=== PATIENT | female | born 1955 | race Caucasian/White ===

== ENCOUNTER → 2022-06-03 | Outpatient (CLI) | payer MEDICARE, MEDICAID, SELFPAY ==
--- NOTE | 2022-06-03 12:45 | CT_ITS ---
STUDY: LOW DOSE CT LUNG CANCER SCREENING REASON FOR EXAM: Female, 66 years old. Smoking history of 1 pack per day x52 years RADIATION DOSAGE (If Supplied By Facility): CTDIvol = ( 1.59 ) mGy, DLP = ( 55.99 ) mGy TECHNIQUE: No contrast was administered. Low dose technique was utilized (average mAS-38 and kVp 120). 1.25 mm axial source images with a slice interval of 1.25-mm were reconstructed in lung windows. 2.5 mm axial source images with a slice interval of 2.5-mm were reconstructed in lung windows. 5.0 mm axial source images with a slice interval of 5.0-mm were reconstructed in soft tissue windows. COMPARISON: 2014 FINDINGS: Lung windows show underlying emphysema with bleb formation throughout both lung box. No organized infiltrate, or suspicious noncalcified mass or nodule. No suspicious thyroid abnormality, scattered subcentimeter in short axis dimension axillary and mediastinal lymph nodes. 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 Calcified coronary vessels are noted Bony structures show degenerative change Limited cuts through the upper abdomen do not show any suspicious abnormality CT/Low Dose CT Lung Screening IMPRESSION: IMPORTANT NOTES FOR USE: ACR Lung-RADS Version 1.1 Assessment Categories Release Date: 2018 Category: Coded 0-4 bases on nodule(s) with highest degree of suspicion. Negative screen is defined as categories 1 and 2; a positive screen is defined as categories 3 and 4. Category 3 and 4A nodules that are unchanged on interval CT should be coded as category 2, and individuals returned to screening in 12 months. Category 4X: Category 3 or 4 nodules with additional imaging findings that increase the suspicion of lung cancer, such as spiculation, GG that doubles in size in 1 year, enlarged lymph notes, etc. Category Modifiers: S (significant finding unrelated to lung cancer) Electronically Signed: Dante Sherman MD at 14:01 EST ,
== END | disposition home or self-care (01) ==
PROVIDERS: PCP Physician Assistant
DX: Z87.891 Personal history of nicotine dependence (principal)
CPT/HCPCS: 71271

== ENCOUNTER 2022-12-11 23:37 | Emergency (ER) | payer MEDICARE, MEDICAID, SELFPAY ==
[2022-12-11 23:38] VITALS: BP 210/11; PULSE 81; RESP 24; TEMP 36.4; O2SAT 93; BMI 21.7
[2022-12-11 23:43] VITALS: BP 179/115; PULSE 93; RESP 28; O2SAT 95
[2022-12-12 00:39] VITALS: BP 138/92; PULSE 71; RESP 28; TEMP 36.4; O2SAT 97
[2022-12-12] MEDS: MethylPREDNISolone 125 MG/2 ML Vial IV (00:40)
--- NOTE | 2022-12-12 00:45 | EKG12_ITS ---
Test Reason : SOB Blood Pressure : / mmHG Vent. Rate : 086 BPM Atrial Rate : 086 BPM P-R Int : 162 ms QRS Dur : 090 ms QT Int : 386 ms P-R-T Axes : 088 086 090 degrees QTc Int : 461 ms Normal sinus rhythm Nonspecific ST and T wave abnormality Abnormal ECG Confirmed by ADWOA HALL, STEVIE ([id number]), story editor MELANIE DICKSON ([id number]) on 12/14/2022 1:48:22 PM Referred By: Confirmed By:JOHANA ORONA MD
[2022-12-12 00:51] LABS: Absolute Lymphocyte Count 1.04 X10^3/uL (0.83-4.51); Absolute Neutrophil Count 12.4 X10^3/uL (2.0-7.7); Basophil# 0.02 X10^3/uL; Basophil% 0.1 % (0-1); Eosinophil# 0.03 X10^3/uL; Eosinophils% 0.2 % (0-5); Hematocrit 40.9 % (37-47); Hemoglobin 13.6 g/dL (12.0-15.0); Lymphocyte # 1.04 X10^3/ul (0.83-4.51); Lymphocyte % 7.3 % (19-41); Mean Corp Hgb Conc 33.3 g/dL (32-36); Mean Corpuscular Hgb 31.9 pg (27.0-32.0); Mean Corpuscular Volume 95.8 fL (81-99); Mean Platelet Vol. 9.3 fl (6.2-12.0); Monocyte% 4.9 % (0-10); NRBC Flagged by Analyzer 0 % (0-5); Neutrophil # 12.38 X10^3/uL (2.7-7.7); Neutrophil % 86.9 % (47-70); Platelet Count 233 K/mm3 (150-450); RBC Distribution Width CV 12.6 % (11.6-14.6); RBC Distribution Width SD 44.4 fl (35.1-43.9); Red Blood Count 4.27 M/mm3 (4.2-5.4); White Blood Count 14.3 K/mm3 (4.4-11.0)
--- NOTE | 2022-12-12 00:55 | RAD_ITS ---
INDICATION: dyspnea EXAMINATION/TECHNIQUE: X-RAY - XR Chest 2 Views COMPARISON: Chest CT 06/03/2022 Findings: Single frontal view of the chest. LUNG PARENCHYMA: Nodular 14 mm opacity overlying right lower central chest, which may represent rib and or nipple shadow versus pulmonary nodule. No acute focal airspace disease. PLEURA: No pleural effusion. No pneumothorax. HEART/GREAT VESSELS: Cardiomediastinal silhouette is unremarkable. BONES: Osseous structures are unremarkable for age. RAD/Chest PA and Lateral IMPRESSION: Nodular 14 mm opacity overlying right lower central chest, which may represent rib and or nipple shadow versus pulmonary nodule, to include 11 mm lesion seen on recent chest CT. Recommend follow-up chest CT to further evaluate. Chest with no acute disease. Electronically Signed: Magdaleno Archer MD at 1:35 EDT ,
[2022-12-12 01:07] VITALS: BP 136/68; PULSE 69; RESP 20; TEMP 36.4; O2SAT 95
[2022-12-12 01:11] LABS: Anion Gap 5 (5-15); BUN 13 mg/dL (7-18); BUN/Creat Ratio 20.8 RATIO (10-20); Calcium,Total 8.4 mg/dL (8.5-10.1); Chloride 98 mmol/L (98-107); Creatinine, Serum 0.62 mg/dL (0.55-1.02); EST Glomerular Filtration Rate 102 mL/min (>60); Est Glom Filt Rate - Afr Amer 123 mL/min (>60); Estimated Creatinine Clearance 68.26 ml/min; Glucose 129 mg/dL (74-106); Magnesium 2.1 mg/dL (1.6-2.6); Potassium 3.3 mmol/L (3.5-5.1); Sodium Level 135 mmol/L (136-145); Troponin-I HS 62 pg/mL (3.0-54.0)
[2022-12-12 03:29] LABS: Troponin-I HS 127 pg/mL (3.0-54.0)
--- NOTE | 2022-12-12 05:04 | EX.ED.DYSGE1 ---
HPI History of Present Illness Chief Complaint: Shortness of Breath Informant: patient and family Narrative Narrative: Patient is a 67-year-old female with past medical history of COPD/emphysema who continues to smoke and wears 2.5 L of oxygen 18/10. She also has a history of hypertension hyperlipidemia CAD and bipolar disorder. Patient states that 2 to 3 hours prior to arrival she was sitting at rest when she developed generalized chest discomfort coupled with shortness of breath. She states that there was no nausea vomiting or diaphoresis. She reports she took her breathing medications as directed and there is still no symptom improvement and with concern this could be cardiac and not lung EMS was called and patient was brought to the hospital for evaluation [facility] Medical History (Updated 12/13/22 @ 00:[address] Jaylen Maria, ) Abdominal pain Bipolar affect, depressed COPD (chronic obstructive pulmonary disease) Coronary artery disease DDD (degenerative disc disease) Depression Esophagitis Gastritis Hyperlipidemia Hypertension Lung nodule Migraine Nausea Neuralgia Home Medications acetaminophen 500 mg tablet (Tylenol Extra Strength) 500 mg PO Q6H PRN pain 05/15/19 [History Last Taken Unknown] amlodipine 10 mg tablet 10 mg PO DAILY 05/15/19 [History Last Taken Unknown] famotidine 40 mg tablet 40 mg PO BID 05/15/19 [History Last Taken Unknown] fluticasone propionate 44 mcg/actuation HFA aerosol inhaler 1 puff inhalation BID 05/15/19 [History Last Taken Unknown] ipratropium 20 mcg-albuterol 100 mcg/actuation mist for inhalation 1 puff inhalation Q6H PRN sob 05/15/19 [History Last Taken Unknown] mometasone-formoterol HFA 200 mcg-5 mcg/actuation aerosol inhaler 2 puff inhalation BID 05/15/19 [History Last Taken Unknown] pantoprazole 40 mg tablet,delayed release 40 mg PO DAILY 05/15/19 [History Last Taken Unknown] potassium chloride 10 mEq tablet,extended release 10 meq PO BID 05/15/19 [History Last Taken Unknown] cariprazine 3 mg capsule (Vraylar) mg 12/11/22 [History Last Taken Unknown] carvedilol 3.125 mg tablet mg 12/11/22 [History Last Taken Unknown] doxazosin 1 mg tablet mg 12/11/22 [History Last Taken Unknown] isosorbide mononitrate 30 mg tablet,extended release 24 hr 30 mg PO DAILY #30 tabs 12/12/22 [Rx Last Taken Unknown] Allergy/AdvReac Type Severity Reaction Status Date / Time No Known Allergies Allergy Verified 05/15/19 09:20 Family History Father Colon cancer CVA (cerebral vascular accident) Parkinson disease Mother Diabetes Heart disease Hypertension Kidney disease Sister Hemochromatosis Surgical History History of History of esophagogastroduodenoscopy (EGD) Hx of appendectomy Hx of cardiac cath Hx of cholecystectomy Hx of colonoscopy Hx of dilation and curettage Hx of hysterectomy Hx of laparoscopy Social History (Updated 05/31/19 @ 13:[address] Eduar Coyne MD) Smoking Status: Current every day smoker tobacco type: cigarettes second hand exposure: No alcohol intake: current alcohol intake frequency: a few times a week Alcohol type: beer substance use type: does not use caffeine: Yes what type of physical activity do you participate in: none frequency: does not exercise seatbelt use: always EXAM Physical Exam Const Vital Signs: 12/12/22 00:39 12/12/22 01:07 12/12/22 05:19 Temperature 97.6 F L 97.6 F L Temperature Source Oral Oral Pulse Rate 71 69 87 Respiratory Rate 28 H 20 H 16 Blood Pressure 138/92 H 136/68 H 176/71 H Blood Pressure Mean 107 90 106 Pulse Ox 97 95 97 Oxygen Delivery Method Nasal Cannula Nasal Cannula Nasal Cannula Oxygen Flow Rate (L/min) 2 2 2.5 12/12/22 05:19 Temperature Temperature Source Pulse Rate 87 Respiratory Rate 16 Blood Pressure 176/71 H Blood Pressure Mean Pulse Ox 97 Oxygen Delivery Method Oxygen Flow Rate (L/min) Positive well nourished and well developed General Appearance ED: well developed HEENT Reports moist mucous membranes HEENT Narrative: No tongue or lip swelling no oral lesions no airway edema or compromise Eyes PERRL and EOMs intact bilaterally Neck supple and no JVD Neck Narrative: No nuchal rigidity or meningeal signs noted Chest Wall palpation of chest normal Resp normal respiratory effort Resp Narrative: Breath sounds are diminished throughout with faint expiratory wheeze and rhonchi in the bilateral bases consistent with history of COPD/emphysema Cardio regular rate and regular rhythm Rate: other Other Details: Radial and carotid pulses are equal and symmetric GI normal to inspection, nondistended, normoactive bowel sounds, non-tender, non-distended and no masses GI Narrative: No voluntary guarding or rigidity. No pulsatile mass or fluid wave Auscultation: normoactive bowel sounds Palpation: soft Extremity normal to inspection Extremity Narrative: No asymmetric edema no pitting edema negative Homans' sign bilaterally Neuro oriented x3 and CN's II-XII intact bilaterally Sensorium / Orientation: alert Psych mental status grossly normal Skin no rashes or lesions noted MDM MDM MDM Narrative Medical decision making narrative: Patient presented to the ER hypertensive but has a past medical history of this. She reported a few hours of generalized chest discomfort that was not resolving with her standard inhalers. Based on her risk factors there is concern this could be acute coronary syndrome versus COPD/emphysema exacerbation versus pneumonia or pneumothorax. Cardiac work-up was initiated and EKG revealed ST segment depression in leads V45 and 6 but no acute STEMI. Blood work was obtained and showed initial troponin of 62 with a 2-hour delta essentially doubling to 127. The patient was chest pain-free upon arrival and remained pain-free while in the ER. However because of the elevated troponin I did discuss the case with cardiology and patient also reported that she had a heart cath within the last 6 months. The heart cath was reviewed and showed normal EF with normal circumflex and LAD but the right coronary artery had 40% stenosis. Cardiology was informed of the heart cath from July of this year with 40% stenosis but otherwise normal. They feel that with the recent heart cath and the fact that she has been pain-free for her entire ER stay that there is no further work-up they would recommend in the hospital and feel comfortable having her discharged home on her current medications with the addition of isosorbide mononitrate. This plan of care was discussed with the patient and as she has been pain-free for her entire ER stay and has had a recent cardiac procedure she is agreeable to this plan of care Patient was also informed of the potential lung nodule on her chest x-ray and she states that this is known and has been followed by her disability aide and therefore there is no need for further evaluation of it History & Record Review Discussion w/independent historian: Patient and Family Lab Data Attestation: I reviewed the patient's lab results. Labs: Laboratory Results - last 24 hr 12/12/22 12/12/22 00:40 02:44 WBC 14.3 H RBC 4.27 Hgb 13.6 Hct 40.9 MCV 95.8 MCH 31.9 MCHC 33.3 RDW Std Deviation 44.4 H RDW Coeff of Leobardo 12.6 Plt Count 233 MPV 9.3 Immature Gran % (Auto) 0.600 Neut % (Auto) 86.9 H Lymph % (Auto) 7.3 L [place] % (Auto) 4.9 Eos % (Auto) 0.2 Baso % (Auto) 0.1 Absolute Neuts (auto) 12.4 H Absolute Lymphs (auto) 1.04 Nucleated RBC % 0 Sodium 135 L Potassium 3.3 L Chloride 98 Carbon Dioxide 32.0 Anion Gap 5 BUN 13 Creatinine 0.62 Estim Creat Clear Calc 68.26 Est GFR (MDRD) Af Amer 123 Est GFR (MDRD) Non-Af 102 BUN/Creatinine Ratio 20.8 H Glucose 129 H Calcium 8.4 L Magnesium 2.1 Troponin I High Sens 62 H 127 H* Radiography Diagnostic Testing: Clinical Impression(s) from Imaging Studies Chest X-Ray 12/12/22 00:55 IMPRESSION: Nodular 14 mm opacity overlying right lower central chest, which may represent rib and or nipple shadow versus pulmonary nodule, to include 11 mm lesion seen on recent chest CT. Recommend follow-up chest CT to further evaluate. Chest with no acute disease. Electronically Signed: Magdaleno Archer MD at 1:35 EDT , X-ray as interpreted by the emergency medicine physician reveals a nodular opacity in the right lower lung without acute infiltrate pneumothorax or pleural effusion. No widening the mediastinum noted Management Discussion w/another healthcare provider: Recreational Assistant Discharge Plan Triage Chief Complaint: Shortness of Breath ED Provider: Jaylen Maria Dx/Rx/DC Orders Clinical Impression: Angina concurrent with and due to arteriosclerosis of coronary artery, Hyperlipidemia, COPD (chronic obstructive pulmonary disease), Hypertension Instructions: Heart Disease Women Prescriptions: New isosorbide mononitrate 30 mg tablet extended release 24 hr 30 mg PO DAILY Qty: 30 0RF No Action mometasone-formoterol 200-5 mcg/actuation HFA aerosol inhaler 2 puff INHALATION BID Patient Comments: INHALE 2 PUFFS INSTRUCTED TWICE DAILY. pantoprazole 40 mg tablet,delayed release (DR/EC) 40 mg PO DAILY Patient Comments: TAKE 1 TABLET BY MOUTH EVERY DAY famotidine 40 mg tablet 40 mg PO BID Patient Comments: TAKE 1 TABLET BY MOUTH TWICE A DAY amlodipine 10 mg tablet 10 mg PO DAILY Patient Comments: TAKE 1 TABLET BY MOUTH EVERY DAY fluticasone propionate 44 mcg/actuation HFA aerosol inhaler 1 puff INHALATION BID Patient Comments: INHALE 1 PUFF INSTRUCTED TWICE DAILY. ipratropium-albuterol 20-100 mcg/actuation mist 1 puff INHALATION Q6H PRN (Reason: sob) Patient Comments: INHALE 1 INHALATION INSTRUCTED FOUR TIMES DAILY NEEDED. potassium chloride 10 mEq tablet extended release 10 meq PO BID Patient Comments: TAKE 1 TABLET BY MOUTH TWICE A DAY acetaminophen [Tylenol Extra Strength] 500 mg tablet 500 mg PO Q6H PRN (Reason: pain) Vraylar 3 mg capsule Patient Comments: waiting for medication to be mailed to patient. carvedilol 3.125 mg tablet Patient Comments: waiting for medication to be mailed to patient. doxazosin 1 mg tablet Patient Comments: waiting for medication to be mailed to patient. Primary Care Provider: Boyd Da Silva Referrals: Boyd Da Silva PA [Primary Care Provider] - Activity Restrictions/Additional Instructions: Please add the isosorbide mononitrate to your medication regimen each morning to help prevent vessel spasm and chest pain. Your heart cath from July of this year does show disease to your right coronary artery therefore if you are taking your medication and pain returns please return to the ER for repeat evaluation Disposition Disposition: Home, Self Care Discharge Date/Time: 12/12/22 05:24
[2022-12-12 05:19] VITALS: BP 176/71; PULSE 87; RESP 16; O2SAT 97
== END 2022-12-12 05:24 | disposition home or self-care (01) ==
PROVIDERS: Emergency Provider Emergency Medicine; PCP Physician Assistant; Visit Provider Emergency Medicine
DX: I25.119 Atherosclerotic heart disease of native coronary artery with unspecified angina pectoris (principal); J43.9 Emphysema, unspecified; F31.9 Bipolar disorder, unspecified; E78.5 Hyperlipidemia, unspecified; Z99.81 Dependence on supplemental oxygen; I10 Essential (primary) hypertension; Z79.899 Other long term (current) drug therapy; F17.210 Nicotine dependence, cigarettes, uncomplicated
CPT/HCPCS: 71046; 80048; 83735; 84484; 85025; 87428; 93005; 96374; 99285; A4216

== ENCOUNTER 2023-01-15 07:47 | Emergency (ER) | payer MEDICARE, MEDICAID, SELFPAY ==
[2023-01-15 07:48] VITALS: BP 135/106; PULSE 87; RESP 24; TEMP 36.4; O2SAT 93; BMI 22.1
[2023-01-15 07:53] VITALS: BP 135/106; PULSE 91; RESP 20; TEMP 36.4; O2SAT 95
[2023-01-15 07:55] VITALS: O2SAT 89
--- NOTE | 2023-01-15 07:56 | RAD_ITS ---
INDICATION: Shortness of breath EXAMINATION/TECHNIQUE: X-RAY - XR Chest 1 View COMPARISON: Prior study dated: 12/12/2022. FINDINGS: LINES/DEVICES: None. LUNGS: Subtle small right lower lung nodular density is gain seen. Otherwise no focal infiltrate is seen. No evidence of pleural effusions. MEDIASTINUM AND CARDIOVASCULAR STRUCTURES: Cardiac silhouette not enlarged. Central airways and mediastinal contour are unremarkable. BONES AND SOFT TISSUES: Unremarkable. RAD/Chest 1 View (Portable) IMPRESSION: 1. Subtle nodular density right lower lung essentially unchanged. Further evaluation with nonemergent CT scan of the chest might be of value. 2. Otherwise no active pulmonary disease. Electronically Signed: Emile Martines MD at 9:09 EDT ,
--- NOTE | 2023-01-15 07:57 | EKG12_ITS ---
Test Reason : Blood Pressure : / mmHG Vent. Rate : 083 BPM Atrial Rate : 083 BPM P-R Int : 150 ms QRS Dur : 090 ms QT Int : 380 ms P-R-T Axes : 078 090 077 degrees QTc Int : 446 ms Sinus rhythm with occasional Premature ventricular complexes Rightward axis Septal infarct , age undetermined Abnormal ECG Confirmed by ADWOA HALL, STEVIE ([id number]), movie editor KP CASH ([id number]) on 01/18/2023 12:35:35 PM Referred By: Confirmed By:JOHANA ORONA MD
--- NOTE | 2023-01-15 08:00 | ED.VIS.DYS ---
HPI History of Present Illness Chief Complaint: Shortness of Breath Narrative Narrative: Patient is normally on 3 L of oxygen at home, she has had 4 days of dyspnea, she has not smoked in 4 days, she has productive sputum and arrives via ambulance for severe dyspnea. No fevers or chills. She does not have any chest pain or pleuritic component. No back pain. Lower extremity edema. No orthopnea. [facility] Medical History (Updated 01/15/23 @ 08:[address] Alejandro Lozano MD) Abdominal pain Bipolar affect, depressed COPD (chronic obstructive pulmonary disease) Coronary artery disease DDD (degenerative disc disease) Depression Esophagitis Gastritis Hyperlipidemia Hypertension Lung nodule Migraine Nausea Neuralgia Home Medications acetaminophen 500 mg tablet (Tylenol Extra Strength) 500 mg PO Q6H PRN pain 05/15/19 [History Last Taken Unknown] amlodipine 10 mg tablet 10 mg PO DAILY 05/15/19 [History Last Taken Unknown] famotidine 40 mg tablet 40 mg PO BID 05/15/19 [History Last Taken Unknown] fluticasone propionate 44 mcg/actuation HFA aerosol inhaler 1 puff inhalation BID 05/15/19 [History Last Taken Unknown] ipratropium 20 mcg-albuterol 100 mcg/actuation mist for inhalation 1 puff inhalation Q6H PRN sob 05/15/19 [History Last Taken Unknown] mometasone-formoterol HFA 200 mcg-5 mcg/actuation aerosol inhaler 2 puff inhalation BID 05/15/19 [History Last Taken Unknown] pantoprazole 40 mg tablet,delayed release 40 mg PO DAILY 05/15/19 [History Last Taken Unknown] potassium chloride 10 mEq tablet,extended release 10 meq PO BID 05/15/19 [History Last Taken Unknown] cariprazine 3 mg capsule (Vraylar) mg 12/11/22 [History Last Taken Unknown] carvedilol 3.125 mg tablet mg 12/11/22 [History Last Taken Unknown] doxazosin 1 mg tablet mg 12/11/22 [History Last Taken Unknown] isosorbide mononitrate 30 mg tablet,extended release 24 hr 30 mg PO DAILY #30 tabs 12/12/22 [Rx Last Taken Unknown] doxycycline monohydrate 100 mg capsule 100 mg PO BID #20 CAPSULES 01/15/23 [Rx Last Taken Unknown] prednisone 20 mg tablet 60 mg (3 x 20 mg) PO DAILY #12 TABLETS 01/15/23 [Rx Last Taken Unknown] Allergy/AdvReac Type Severity Reaction Status Date / Time codeine AdvReac Upset Verified 01/15/23 07:48 Stomach Family History Father Colon cancer CVA (cerebral vascular accident) Parkinson disease Mother Diabetes Heart disease Hypertension Kidney disease Sister Hemochromatosis Surgical History History of History of esophagogastroduodenoscopy (EGD) Hx of appendectomy Hx of cardiac cath Hx of cholecystectomy Hx of colonoscopy Hx of dilation and curettage Hx of hysterectomy Hx of laparoscopy Social History (Updated 05/31/19 @ 13:[address] Eduar Coyne MD) Smoking Status: Current every day smoker tobacco type: cigarettes second hand exposure: No alcohol intake: current alcohol intake frequency: a few times a week Alcohol type: beer substance use type: does not use caffeine: Yes what type of physical activity do you participate in: none frequency: does not exercise seatbelt use: always ROS ROS ED ROS Narrative Past medical history: Reviewed includes prior COPD Medications: Reviewed Social history: Significant smoking history Review of systems: All systems negative except as indicated General: No fever Eyes: No visual changes ENT: No upper airway congestion, normal voice Neck: No neck pain Cardiovascular: No chest pain Respiratory: Dyspnea as in HPI. She has a productive cough which is new Gastrointestinal: No abdominal pain, nausea vomiting or diarrhea Genitourinary: No dysuria Musculoskeletal: Denies myalgias no difficulty with ambulation Skin: No rash Neurological: No memory loss, confusion or any focal weakness EXAM Physical Exam Narrative Exam Narrative: Physical exam General: Appears relatively comfortable in bed Head: Normocephalic, Atraumatic Eyes: Conjunctiva not pale ENT: Moist mucous membranes Neck: Supple, Nontender, No lymphadenopathy Cardiovascular: Regular rate, Regular rhythm Respiratory: She is speaking in 4-5 word sentences, she has significantly diminished breath sounds bilaterally. She has an expiratory wheezing and coarse breath sounds. Abdomen: Soft, Nontender, Nondistended Back: Nontender, Normal Inspection. Negative for: CVA tenderness Extremities: Nontender, No edema Skin: Normal color, No rash Neurological: Alert, Normal Strength, Normal Sensation Const Vital Signs: 10/21/23 07:48 01/15/23 07:53 01/15/23 07:55 Temperature 97.6 F L 97.6 F L Temperature Source Temporal Temporal Pulse Rate 87 91 Respiratory Rate 24 H 20 H Respiratory Effort Short of Breath Respiratory Depth Shallow Respiratory Pattern Tachypnea Blood Pressure 135/106 H 135/106 H Blood Pressure Mean 115 115 Pulse Ox 93 95 Oxygen Delivery Method Nasal Cannula Nasal Cannula Room Air Oxygen Flow Rate (L/min) 3 2 3 01/15/23 08:06 01/15/23 08:20 Temperature Temperature Source Pulse Rate 92 Respiratory Rate 24 H Respiratory Effort Respiratory Depth Respiratory Pattern Normal Blood Pressure Blood Pressure Mean Pulse Ox Oxygen Delivery Method Nasal Cannula Oxygen Flow Rate (L/min) 3 MDM MDM MDM Narrative Medical decision making narrative: Patient is given nebs, antibiotics since she changed her sputum's and steroids per EMS. She is significantly improved. She wants to be discharged home she is on home oxygen. She tells me she will continue to stop smoking. I believe it is reasonable for discharge she is on her baseline O2 and saturating in the mid to high 90s. She is not confused, therefore I do not believe she has hypercarbia. I will discharge her on antibiotics and steroids for home. Lab Data Labs: Laboratory Results - last 24 hr 01/15/23 08:04 WBC 14.0 H RBC 3.94 L Hgb 12.7 Hct 39.1 MCV 99.2 H MCH 32.2 H MCHC 32.5 RDW Std Deviation 46.1 H RDW Coeff of Leobardo 12.6 Plt Count 271 MPV 9.5 Immature Gran % (Auto) 0.400 Neut % (Auto) 75.3 H Lymph % (Auto) 14.3 L [place] % (Auto) 9.2 Eos % (Auto) 0.5 Baso % (Auto) 0.3 Absolute Neuts (auto) 10.5 H Absolute Lymphs (auto) 2.00 Nucleated RBC % 0 Sodium 135 L Potassium 3.6 Chloride 99 Carbon Dioxide 30.0 Anion Gap 6 BUN 4 L Creatinine 0.48 L Estim Creat Clear Calc 88.17 Est GFR (MDRD) Af Amer 168 Est GFR (MDRD) Non-Af 139 BUN/Creatinine Ratio 8.4 L Glucose 139 H Calcium 8.9 B-Natriuretic Peptide 27.8 Radiography Diagnostic Testing: X-ray read by me does not show any signs of pneumonia, clear lungs and normal cardiac silhouette. Rhythm Strip Rhythm Strip: Sinus Rhythm Rate: 80 Ectopy: PVC(s) EKG Initial EKG: Comments: Sinus rhythm with a rate of 83. Normal MI and QTc intervals. No acute ischemic changes. Multiple PVCs. Interpreted by emergency doctor Discharge Plan Triage Chief Complaint: Shortness of Breath ED Provider: Alejandro Lozano Dx/Rx/DC Orders Clinical Impression: Acute dyspnea, COPD (chronic obstructive pulmonary disease) Instructions: COPD Quit Smoking Prescriptions: New prednisone 20 mg tablet 60 mg PO DAILY Qty: 12 0RF doxycycline monohydrate 100 mg capsule 100 mg PO BID Qty: 20 0RF No Action mometasone-formoterol 200-5 mcg/actuation HFA aerosol inhaler 2 puff INHALATION BID Patient Comments: INHALE 2 PUFFS INSTRUCTED TWICE DAILY. pantoprazole 40 mg tablet,delayed release (DR/EC) 40 mg PO DAILY Patient Comments: TAKE 1 TABLET BY MOUTH EVERY DAY famotidine 40 mg tablet 40 mg PO BID Patient Comments: TAKE 1 TABLET BY MOUTH TWICE A DAY amlodipine 10 mg tablet 10 mg PO DAILY Patient Comments: TAKE 1 TABLET BY MOUTH EVERY DAY fluticasone propionate 44 mcg/actuation HFA aerosol inhaler 1 puff INHALATION BID Patient Comments: INHALE 1 PUFF INSTRUCTED TWICE DAILY. ipratropium-albuterol 20-100 mcg/actuation mist 1 puff INHALATION Q6H PRN (Reason: sob) Patient Comments: INHALE 1 INHALATION INSTRUCTED FOUR TIMES DAILY NEEDED. potassium chloride 10 mEq tablet extended release 10 meq PO BID Patient Comments: TAKE 1 TABLET BY MOUTH TWICE A DAY acetaminophen [Tylenol Extra Strength] 500 mg tablet 500 mg PO Q6H PRN (Reason: pain) Vraylar 3 mg capsule Patient Comments: waiting for medication to be mailed to patient. carvedilol 3.125 mg tablet Patient Comments: waiting for medication to be mailed to patient. doxazosin 1 mg tablet Patient Comments: waiting for medication to be mailed to patient. isosorbide mononitrate 30 mg tablet extended release 24 hr 30 mg PO DAILY Qty: 30 0RF Primary Care Provider: Boyd Da Silva Referrals: Boyd Da Silva PA [Primary Care Provider] - 3-5 Days Disposition Disposition: Home, Self Care
[2023-01-15 08:09] LABS: Absolute Neutrophil Count 10.5 X10^3/uL (2.0-7.7); Basophil# 0.04 X10^3/uL; Basophil% 0.3 % (0-1); Eosinophil# 0.07 X10^3/uL; Eosinophils% 0.5 % (0-5); Hematocrit 39.1 % (37-47); Hemoglobin 12.7 g/dL (12.0-15.0); Lymphocyte % 14.3 % (19-41); Mean Corp Hgb Conc 32.5 g/dL (32-36); Mean Corpuscular Hgb 32.2 pg (27.0-32.0); Mean Corpuscular Volume 99.2 fL (81-99); Mean Platelet Vol. 9.5 fl (6.2-12.0); Monocyte# 1.28 X10^3/uL; Monocyte% 9.2 % (0-10); NRBC Flagged by Analyzer 0 % (0-5); Neutrophil # 10.53 X10^3/uL (2.7-7.7); Neutrophil % 75.3 % (47-70); Platelet Count 271 K/mm3 (150-450); RBC Distribution Width CV 12.6 % (11.6-14.6); RBC Distribution Width SD 46.1 fl (35.1-43.9); Red Blood Count 3.94 M/mm3 (4.2-5.4)
[2023-01-15] MEDS: Ipratropium/Albuterol Sulfate 3 ML AMPUL.NEB INHALATION (08:19)
[2023-01-15 08:20] VITALS: PULSE 92; RESP 24
[2023-01-15 08:21] LABS: Anion Gap 6 (5-15); BUN 4 mg/dL (7-18); BUN/Creat Ratio 8.4 RATIO (10-20); Calcium,Total 8.9 mg/dL (8.5-10.1); Chloride 99 mmol/L (98-107); Creatinine, Serum 0.48 mg/dL (0.55-1.02); EST Glomerular Filtration Rate 139 mL/min (>60); Est Glom Filt Rate - Afr Amer 168 mL/min (>60); Estimated Creatinine Clearance 88.17 ml/min; Glucose 139 mg/dL (74-106); Potassium 3.6 mmol/L (3.5-5.1); Sodium Level 135 mmol/L (136-145)
[2023-01-15 08:27] LABS: BNP,B-Type NATRIURETIC PEPTIDE 27.8 pg/mL (0-100)
[2023-01-15] MEDS: Azithromycin 500 MG in Dextrose 5%-Water (250mL Bag) 250 ML 250 MG IV (08:42)
[2023-01-15] MEDS: Ceftriaxone 1 GM/50 ML BAG IV (09:48)
[2023-01-15] MEDS: predniSONE 20 MG Tablet 60 MG PO (09:50)
[2023-01-15 09:52] VITALS: BP 138/64; PULSE 78; RESP 14; TEMP 36.4; O2SAT 98
== END 2023-01-15 10:09 | disposition home or self-care (01) ==
PROVIDERS: Emergency Provider Emergency Medicine; PCP Physician Assistant; Visit Provider Emergency Medicine
DX: R06.02 Shortness of breath (principal); J44.9 Chronic obstructive pulmonary disease, unspecified; I10 Essential (primary) hypertension; F17.210 Nicotine dependence, cigarettes, uncomplicated; I25.10 Atherosclerotic heart disease of native coronary artery without angina pectoris; E78.5 Hyperlipidemia, unspecified; Z79.52 Long term (current) use of systemic steroids
CPT/HCPCS: 71045; 80048; 83880; 85025; 93005; 94640; 96365; 96367; 99285

== ENCOUNTER 2023-05-20 09:11 | Inpatient (IN) | payer MEDICARE, MEDICAID, SELFPAY ==
[2023-05-20] VITALS (10 sets, daily range): BP systolic 137–190; BP diastolic 45–103; PULSE 62–88; RESP 15–22; TEMP 36.3–37.1; O2SAT 94–100; BMI 19.0; BMI 17.9
--- NOTE | 2023-05-20 09:37 | EKG12_ITS ---
Test Reason : CP Blood Pressure : / mmHG Vent. Rate : 073 BPM Atrial Rate : 073 BPM P-R Int : 166 ms QRS Dur : 086 ms QT Int : 414 ms P-R-T Axes : 078 088 107 degrees QTc Int : 456 ms Normal sinus rhythm Nonspecific ST and T wave abnormality Abnormal ECG Confirmed by PAYTON HALL, AUGUSTINE ([id number]), newspaper or periodical editor GRACE COLON ([id number]) on 05/23/2023 9:37:28 AM Referred By: JANICE Confirmed By:AUGUSTINE CAIN MD
[2023-05-20 09:47] LABS: Absolute Lymphocyte Count 2.36 X10^3/uL (0.83-4.51); Absolute Neutrophil Count 6.2 X10^3/uL (2.0-7.7); Basophil# 0.01 X10^3/uL; Basophil% 0.1 % (0-1); Eosinophil# 0.02 X10^3/uL; Eosinophils% 0.2 % (0-5); Hemoglobin 12.7 g/dL (12.0-15.0); Lymphocyte # 2.36 X10^3/ul (0.83-4.51); Lymphocyte % 25.4 % (19-41); Mean Corp Hgb Conc 32.6 g/dL (32-36); Mean Corpuscular Hgb 31.6 pg (27.0-32.0); Mean Platelet Vol. 9.9 fl (6.2-12.0); Monocyte# 0.64 X10^3/uL; Monocyte% 6.9 % (0-10); NRBC Flagged by Analyzer 0 % (0-5); Neutrophil # 6.23 X10^3/uL (2.7-7.7); Neutrophil % 67.2 % (47-70); Platelet Count 270 K/mm3 (150-450); RBC Distribution Width CV 13.3 % (11.6-14.6); RBC Distribution Width SD 47.8 fl (35.1-43.9); Red Blood Count 4.02 M/mm3 (4.2-5.4); White Blood Count 9.3 K/mm3 (4.4-11.0)
--- NOTE | 2023-05-20 09:50 | RAD_ITS ---
STUDY: X-RAY CHEST REASON FOR EXAM: Female, 67 years old. Chest pain TECHNIQUE: Single AP portable view of the chest. COMPARISON: Comparison is made with prior study January 15, 2023. FINDINGS: EKG electrodes are seen. Hyperinflation. Tiny calcified granuloma is seen in the right lower lobe. There is no demonstrated pleural abnormality. Normal size heart. Normal mediastinum and cheryl. There is prominence of the pulmonary hilar arteries without peripheral pulmonary vascular congestion, suggesting pulmonary hypertension. There is atherosclerotic calcification of the aortic arch with tortuosity. Normal visualized thoracic spine. Normal visualized ribs, clavicles, and shoulders. There is no demonstrated abnormality of the visualized soft tissue structures of the upper abdomen. RAD/Chest 1 View (Portable) IMPRESSION: Hyperinflation. Prominence of the central pulmonary arteries. Questionable pulmonary hypertension. Electronically Signed: Abdirahman Metz MD at 10:13 EST ,
[2023-05-20 10:01] LABS: Anion Gap 5 (5-15); BUN 7 mg/dL (7-18); BUN/Creat Ratio 13.2 RATIO (10-20); Calcium,Total 9.3 mg/dL (8.5-10.1); Chloride 100 mmol/L (98-107); Creatinine, Serum 0.53 mg/dL (0.55-1.02); EST Glomerular Filtration Rate 122 mL/min (>60); Est Glom Filt Rate - Afr Amer 148 mL/min (>60); Estimated Creatinine Clearance 50.58 ml/min; Glucose 113 mg/dL (74-106); Potassium 3.3 mmol/L (3.5-5.1); Sodium Level 138 mmol/L (136-145); Troponin-I HS (w/2H Reflex) 5 pg/mL (3.0-54.0)
--- NOTE | 2023-05-20 10:21 | EDS_ITS ---
HPI History of Present Illness Chief Complaint: Chest Pain Informant: patient Onset/Context/Timing Onset: Hours (7) Activity at onset: sudden and rest Timing: Continuous Quality: Positive for Aching Location: Substernal Worsened By: Nothing Relieved By: Nothing Associated Symptoms: Positive for Nausea, Diaphoresis, Dyspnea, Lightheadedness and Palpitations; Negative for Vomiting, Cough, Fever or Acid Reflux Narrative Narrative: Patient presents with chest pain that began at 3 AM, approximately 7 hours prior to arrival. Patient states she was sitting and watching TV when the pain began. Patient states pain has been constant. Patient describes as aching. Patient states the pain is over the substernal area and radiates to her left arm and jaw. Patient states nothing makes it better nothing makes it worse. Patient admits to some nausea but denies any vomiting. Patient denies any cough or fevers. Patient admits to some shortness of breath and diaphoresis. Patient also admits to some lightheadedness and palpitations. [facility] Medical History (Updated 05/20/23 @ 13:[address] Abdulaziz Rivera, ) Abdominal pain Bipolar affect, depressed COPD (chronic obstructive pulmonary disease) Coronary artery disease DDD (degenerative disc disease) Depression Esophagitis Gastritis Hyperlipidemia Hypertension Lung nodule Migraine Nausea Neuralgia Home Medications acetaminophen 500 mg tablet (Tylenol Extra Strength) 500 mg PO Q6H PRN pain 05/15/19 [History Last Taken Unknown] amlodipine 10 mg tablet 10 mg PO DAILY 05/15/19 [History Last Taken Unknown] famotidine 40 mg tablet 40 mg PO BID 05/15/19 [History Last Taken Unknown] fluticasone propionate 44 mcg/actuation HFA aerosol inhaler 1 puff inhalation BID 05/15/19 [History Last Taken Unknown] ipratropium 20 mcg-albuterol 100 mcg/actuation mist for inhalation 1 puff inhalation Q6H PRN sob 05/15/19 [History Last Taken Unknown] mometasone-formoterol HFA 200 mcg-5 mcg/actuation aerosol inhaler 2 puff inhalation BID 05/15/19 [History Last Taken Unknown] pantoprazole 40 mg tablet,delayed release 40 mg PO DAILY 05/15/19 [History Last Taken Unknown] potassium chloride 10 mEq tablet,extended release 10 meq PO BID 05/15/19 [History Last Taken Unknown] cariprazine 3 mg capsule (Vraylar) mg 12/11/22 [History Last Taken Unknown] carvedilol 3.125 mg tablet mg 12/11/22 [History Last Taken Unknown] doxazosin 1 mg tablet mg 12/11/22 [History Last Taken Unknown] isosorbide mononitrate 30 mg tablet,extended release 24 hr 30 mg PO DAILY #30 tabs 12/12/22 [Rx Last Taken Unknown] doxycycline monohydrate 100 mg capsule 100 mg PO BID #20 CAPSULES 01/15/23 [Rx Last Taken Unknown] prednisone 20 mg tablet 60 mg (3 x 20 mg) PO DAILY #12 TABLETS 01/15/23 [Rx Last Taken Unknown] Allergy/AdvReac Type Severity Reaction Status Date / Time codeine AdvReac Upset Verified 01/15/23 07:48 Stomach Family History Father Colon cancer CVA (cerebral vascular accident) Parkinson disease Mother Diabetes Heart disease Hypertension Kidney disease Sister Hemochromatosis Surgical History History of History of esophagogastroduodenoscopy (EGD) Hx of appendectomy Hx of cardiac cath Hx of cholecystectomy Hx of colonoscopy Hx of dilation and curettage Hx of hysterectomy Hx of laparoscopy Social History Smoking Status: Current every day smoker tobacco type: cigarettes second hand exposure: No alcohol intake: current alcohol intake frequency: a few times a week Alcohol type: beer substance use type: does not use caffeine: Yes what type of physical activity do you participate in: none frequency: does not exercise seatbelt use: always ROS ROS ED Constitutional Constitutional ED: Denies chills or fever(s) Eyes Eyes: Reports blurry vision; Denies change in vision ENT ENT ED: Denies rhinorrhea or sore throat Cardiovascular Cardiovascular: Reports chest pain and palpitations Respiratory/Chest Respiratory/Chest: Reports dyspnea; Denies cough Gastrointestinal Gastrointestinal: Reports nausea; Denies vomiting Genitourinary Genitourinary ED: Denies dysuria or hematuria Musculoskeletal Musculoskeletal: Denies back pain or neck pain Integumentary Denies abscess or rash Neurologic Neurologic: Reports headache(s); Denies weakness Allergic/Immunologic Allergic/Immunologic ED: Denies mouth swelling or urticaria EXAM Physical Exam Const Vital Signs: 05/20/23 09:14 05/20/23 09:19 05/20/23 09:43 Temperature 98.7 F Temperature Source Temporal Pulse Rate 77 Respiratory Rate 16 Respiratory Effort Short of Breath Labored Respiratory Pattern Blood Pressure 190/92 H Blood Pressure Mean 124 Pulse Ox 97 99 Oxygen Delivery Method Nasal Cannula Room Air Oxygen Flow Rate (L/min) 4 05/20/23 10:27 05/20/23 10:48 05/20/23 12:06 Temperature Temperature Source Pulse Rate 68 69 67 Respiratory Rate 15 18 20 H Respiratory Effort Respiratory Pattern Normal Blood Pressure 182/103 H 179/93 H Blood Pressure Mean 129 121 Pulse Ox 100 97 Oxygen Delivery Method Room Air Oxygen Flow Rate (L/min) 05/20/23 12:19 Temperature Temperature Source Pulse Rate 69 Respiratory Rate 22 H Respiratory Effort Respiratory Pattern Blood Pressure 179/93 H Blood Pressure Mean 121 Pulse Ox 100 Oxygen Delivery Method Nasal Cannula Oxygen Flow Rate (L/min) Positive well nourished and well developed General Appearance ED: well developed and NAD HEENT Reports moist mucous membranes Neck supple and no JVD Chest Wall inspection of chest normal and palpation of chest normal Resp Auscultation: wheezes expiratory wheezes and throughout and diminished lung sounds bilateral lower Cardio regular rate and regular rhythm GI soft to palpation, non-tender and non-distended Extremity normal to inspection General Extremety ED: Negative for edema or tenderness General Extremity: Negative for edema Neuro oriented x3, CN's II-XII intact bilaterally and no sensory deficits noted Sensorium / Orientation: awake and alert Motor Exam: strength 5/5 throughout Psych mental status grossly normal Heart Score History: Moderately Suspicious ECG: Nonspecific Repolarization Age: >/= 65 years Risk Factors: >/= 3 Risk Factors or History of CAD Troponin: </= Normal Limit Score: 6 MDM MDM MDM Narrative Medical decision making narrative: Differential diagnosis includes cardiac dysrhythmia, cardiac ischemia, pulmonary embolism, COPD exacerbation, pneumonia, pneumothorax, electrolyte abnormality, and viral illness. EKG will be obtained to assess for cardiac dysrhythmia and cardiac ischemia. Chest x-ray will be obtained to assess for pneumonia and pneumothorax. CBC will be obtained to assess for leukocytosis and anemia. Basic metabolic profile will be obtained to assess for electrolyte abnormality and renal function. D-dimer will be obtained to assess for pulmonary embolism. High-sensitivity troponin will be obtained to assess for cardiac ischemia. 2- hour repeat high-sensitivity troponin will be obtained to assess for ongoing cardiac ischemia. COVID-19, influenza, and RSV PCR will be obtained to assess for viral infection. Lab Data Attestation: I reviewed the patient's lab results. Lab results narrative: CBC was reviewed and was within normal limits. Basic metabolic profile was reviewed. Potassium was slightly low at 3.3. High-sensitivity troponin was reviewed and was normal at 5. Labs: Laboratory Results - last 24 hr 05/20/23 05/20/23 09:20 12:05 WBC 9.3 RBC 4.02 L Hgb 12.7 Hct 39.0 MCV 97.0 MCH 31.6 MCHC 32.6 RDW Std Deviation 47.8 H RDW Coeff of Leobardo 13.3 Plt Count 270 MPV 9.9 Immature Gran % (Auto) 0.200 Neut % (Auto) 67.2 Lymph % (Auto) 25.4 [place] % (Auto) 6.9 Eos % (Auto) 0.2 Baso % (Auto) 0.1 Absolute Neuts (auto) 6.2 Absolute Lymphs (auto) 2.36 Nucleated RBC % 0 D-Dimer Quant (PE/DVT) 0.30 Sodium 138 Potassium 3.3 L Chloride 100 Carbon Dioxide 33.0 H Anion Gap 5 BUN 7 Creatinine 0.53 L Estim Creat Clear Calc 50.58 Est GFR (MDRD) Af Amer 148 Est GFR (MDRD) Non-Af 122 BUN/Creatinine Ratio 13.2 Glucose 113 H Calcium 9.3 Troponin I High Sens 5 7 Radiography Chest X-Ray - ED: 1 View, Read by ED Physician, Read by Radiologist and No Acute Disease Diagnostic Testing: Clinical Impression(s) from Imaging Studies Chest X-Ray 05/20/23 09:50 IMPRESSION: Hyperinflation. Prominence of the central pulmonary arteries. Questionable pulmonary hypertension. Electronically Signed: Abdirahman Metz MD at 10:13 EST , Portable 1 view chest x-ray was obtained. On my independent interpretation, lung box are hyperinflated but clear. There is normal cardiac silhouette. Bony thorax is normal. There is no acute process noted. Radiologist also interpreted the x-ray and agrees. EKG Initial EKG: Attestation: I personally reviewed and interpreted this EKG as follows: Interpretation: Sinus Rhythm (73) and Non-Specific ST Changes Comments: EKG was obtained. On my independent interpretation, it showed a normal sinus rhythm with a rate of 73. [place] interval, QRS interval, and QTc intervals were all normal. [place] was normal. There are nonspecific ST-T wave changes. Prior EKG tracings: available for review Prior: Unchanged (01/15/2023) Treatment and Re-Evaluation :: Patient was given aspirin by EMS. Patient was given nitroglycerin by EMS. Patient was given a DuoNeb aerosol here. Patient was given a dose of Zofran and Tylenol here. Patient is still complaining of a headache. Patient was given a dose of morphine. Patient was advised of her findings. Patient has a HEART score of 6. Patient has not had a stress test for several years. Because of this, I recommended admission to the hospital for further chest pain workup. Case will be discussed with the hospitalist. Discharge Plan Triage Chief Complaint: Chest Pain ED Provider: Abdulaziz Rivera Dx/Rx/DC Orders Clinical Impression: COPD (chronic obstructive pulmonary disease), Chest pain, Hypertension Prescriptions: No Action mometasone-formoterol 200-5 mcg/actuation HFA aerosol inhaler 2 puff INHALATION BID Patient Comments: INHALE 2 PUFFS INSTRUCTED TWICE DAILY. pantoprazole 40 mg tablet,delayed release (DR/EC) 40 mg PO DAILY Patient Comments: TAKE 1 TABLET BY MOUTH EVERY DAY famotidine 40 mg tablet 40 mg PO BID Patient Comments: TAKE 1 TABLET BY MOUTH TWICE A DAY amlodipine 10 mg tablet 10 mg PO DAILY Patient Comments: TAKE 1 TABLET BY MOUTH EVERY DAY fluticasone propionate 44 mcg/actuation HFA aerosol inhaler 1 puff INHALATION BID Patient Comments: INHALE 1 PUFF INSTRUCTED TWICE DAILY. ipratropium-albuterol 20-100 mcg/actuation mist 1 puff INHALATION Q6H PRN (Reason: sob) Patient Comments: INHALE 1 INHALATION INSTRUCTED FOUR TIMES DAILY NEEDED. potassium chloride 10 mEq tablet extended release 10 meq PO BID Patient Comments: TAKE 1 TABLET BY MOUTH TWICE A DAY acetaminophen [Tylenol Extra Strength] 500 mg tablet 500 mg PO Q6H PRN (Reason: pain) Vraylar 3 mg capsule Patient Comments: waiting for medication to be mailed to patient. carvedilol 3.125 mg tablet Patient Comments: waiting for medication to be mailed to patient. doxazosin 1 mg tablet Patient Comments: waiting for medication to be mailed to patient. isosorbide mononitrate 30 mg tablet extended release 24 hr 30 mg PO DAILY Qty: 30 0RF prednisone 20 mg tablet 60 mg PO DAILY Qty: 12 0RF doxycycline monohydrate 100 mg capsule 100 mg PO BID Qty: 20 0RF Primary Care Provider: Boyd Da Silva Referrals: Boyd Da Silva PA [Primary Care Provider] - Disposition Disposition: Acute Care Hospital [facility]
[2023-05-20] MEDS: Ondansetron 4 MG/2 ML Vial IV ×2 (10:39→22:36)
[2023-05-20] MEDS: Ipratropium/Albuterol Sulfate 3 ML AMPUL.NEB INHALATION (10:47)
[2023-05-20 11:42] LABS: Reflex Troponin-HS? (from REC) Y
[2023-05-20] MEDS: proMETHazine 25 MG/ML Syringe 6.25 MG IM (12:01)
[2023-05-20] MEDS: Acetaminophen 500 MG Tablet 1000 MG PO (12:02)
[2023-05-20 12:37] LABS: Troponin-I HS 7 pg/mL (3.0-54.0)
[2023-05-20] MEDS: Morphine 4 MG/ML Syringe IV (14:07)
--- NOTE | 2023-05-20 14:29 | HP.PCM.HOS_ITS ---
HPI - General General Date of Admission: 05/20/23 Date of Service: 05/20/23 Chief Complaint: Chest pain HPI Narrative JACQUE DOZIER, is a 67-year-old female history of hypertension, COPD on 2 L home O2, degenerative disc disease, GERD, depression presented to [facility] ED 05/20/2023 due to chest pain that began at 3 AM. She was sitting watching TV when the pain began and has been a constant ache since that time and is substernal and radiates to left arm and jaw with nothing making it better nothing worse. Some nausea with no vomiting also has some shortness of breath and diaphoresis as well as some lightheadedness and palpitations since that time. Troponins negative and acute workup/lab workup unremarkable aside from slightly low potassium at 3.3. Given risk factors and symptoms however hospitalist contacted for admission for chest pain rule out. Patient evaluated with family members at bedside, she reports that she is here for the fits. She said she intermittently gets some pain in her chest with numbness in her arms and headaches and last got it a week ago but it usually goes away however today it was not going away prompting her to come to the ED. Pain is like a pinching and comes and goes and is a fairly sharp pain in the center of her chest and she will get some tingling feeling in her left palm and fingers. EMS gave her nitro she reports might of helped slightly but did not really were completely take away any of her symptoms, still feels a little bit sick to her stomach and has a headache with intermittent tingling feeling. Did have some associated shortness of breath and clammy feeling but those have been improving. Patient reports she had a heart cath through an outlying facility about a year and a half or 2 years ago and was put on aspirin but did not have any stents at that time, unclear if she did not have significant disease or if this was just being medically managed. 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 [facility] Medical History (Updated 05/20/23 @ 13:[address] Abdulaziz Rivera, DO) Abdominal pain Bipolar affect, depressed COPD (chronic obstructive pulmonary disease) Coronary artery disease DDD (degenerative disc disease) Depression Esophagitis Gastritis Hyperlipidemia Hypertension Lung nodule Migraine Nausea Neuralgia Home Medications acetaminophen 500 mg tablet (Tylenol Extra Strength) 500 mg PO Q6H PRN pain 05/15/19 [History Last Taken Unknown] amlodipine 10 mg tablet 10 mg PO DAILY 05/15/19 [History Last Taken 05/18/23] famotidine 40 mg tablet 40 mg PO BID 05/15/19 [History Last Taken 05/18/23] fluticasone propionate 44 mcg/actuation HFA aerosol inhaler 1 puff inhalation BID 05/15/19 [History Last Taken 05/18/23] ipratropium 20 mcg-albuterol 100 mcg/actuation mist for inhalation 1 puff inhalation 4X/DAY PRN shortness of breath 05/15/19 [History Last Taken 05/18/23] pantoprazole 40 mg tablet,delayed release 40 mg PO BID acid reflux 05/15/19 [History Last Taken 05/18/23] potassium chloride 10 mEq tablet,extended release 10 meq PO BID 05/15/19 [History Last Taken 05/18/23] cariprazine 3 mg capsule (Vraylar) 3 mg PO DAILY 12/11/22 [History Last Taken 05/18/23] carvedilol 3.125 mg tablet 3.125 mg PO BID 12/11/22 [History Last Taken 05/18/23] doxazosin 1 mg tablet 1 mg PO DAILY 12/11/22 [History Last Taken 05/18/23] lamotrigine 200 mg tablet 200 mg PO QHS 05/20/23 [History Last Taken 05/18/23] rosuvastatin 5 mg tablet 5 mg PO QHS 05/20/23 [History Last Taken 05/18/23] Allergy/AdvReac Type Severity Reaction Status Date / Time codeine AdvReac Upset Verified 01/15/23 07:48 Stomach Family History Father Colon cancer CVA (cerebral vascular accident) Parkinson disease Mother Diabetes Heart disease Hypertension Kidney disease Sister Hemochromatosis Surgical History History of History of esophagogastroduodenoscopy (EGD) Hx of appendectomy Hx of cardiac cath Hx of cholecystectomy Hx of colonoscopy Hx of dilation and curettage Hx of hysterectomy Hx of laparoscopy Social History Smoking Status: Current every day smoker tobacco type: cigarettes second hand exposure: No alcohol intake: current alcohol intake frequency: a few times a week Alcohol type: beer substance use type: does not use caffeine: Yes what type of physical activity do you participate in: none frequency: does not exercise seatbelt use: always ROS ROS Narrative General: Denies fever/chills, did have some clammy feeling HENT: Has had a headache, denies stuffy nose, denies sore throat EYES: Denies changes in vision Resp: Denies cough, did have some shortness of breath associated with symptoms earlier Cardiac: Has some intermittent sharp chest pain GI: Denies abdominal pain, denies changes in bowel, feels somewhat nauseous : Denies changes in urination Extremity: Denies swelling MSK: Denies weakness Neuro: Tingly sensation in left palm and fingers Heme: Denies any bleeding or bruising Skin: Denies rashes Psychiatric: No complaints voiced Vital Signs Vital Signs Vital Signs: 05/20/23 09:14 05/20/23 09:19 05/20/23 09:43 Temperature 98.7 F Temperature Source Temporal Pulse Rate 77 Respiratory Rate 16 Respiratory Effort Short of Breath Labored Respiratory Pattern Blood Pressure 190/92 H Blood Pressure Mean 124 Pulse Ox 97 99 Oxygen Delivery Method Nasal Cannula Room Air Oxygen Flow Rate (L/min) 4 05/20/23 10:27 05/20/23 10:48 05/20/23 12:06 Temperature Temperature Source Pulse Rate 68 69 67 Respiratory Rate 15 18 20 H Respiratory Effort Respiratory Pattern Normal Blood Pressure 182/103 H 179/93 H Blood Pressure Mean 129 121 Pulse Ox 100 97 Oxygen Delivery Method Room Air Oxygen Flow Rate (L/min) 05/20/23 12:19 05/20/23 14:19 Temperature 97.4 F L Temperature Source Pulse Rate 69 62 Respiratory Rate 22 H 17 Respiratory Effort Respiratory Pattern Blood Pressure 179/93 H 161/45 H Blood Pressure Mean 121 83 Pulse Ox 100 100 Oxygen Delivery Method Nasal Cannula Oxygen Flow Rate (L/min) Weight Weight: 45.7 kg Body Mass Index (BMI) 19.0 Physical Exam Narrative General: Alert, oriented, no apparent distress HEENT: Atraumatic, normocephalic Eyes: Anicteric, normal conjunctiva, extraocular movements grossly intact Neck: Supple Respiratory: Diminished bilaterally, normal respiratory effort Cardiovascular: Regular rate and rhythm GI: Soft, nontender, nondistended Extremities: No edema Musculoskeletal: Moving all extremities, did have some reproducible pain when pushing on chest Neuro: No overt focal neurological deficits Skin: No rashes appreciated Psych: Cooperative Results Lab / Micro Data 05/20/23 09:20 05/20/23 09:20 Labs: Laboratory Results - last 24 hr 05/20/23 09:20: WBC 9.3, RBC 4.02 L, Hgb 12.7, Hct 39.0, MCV 97.0, MCH 31.6, MCHC 32.6, RDW Std Deviation 47.8 H, RDW Coeff of Leobardo 13.3, Plt Count 270, MPV 9.9, Immature Gran % (Auto) 0.200, Neut % (Auto) 67.2, Lymph % (Auto) 25.4, [place] % (Auto) 6.9, Eos % (Auto) 0.2, Baso % (Auto) 0.1, Absolute Neuts (auto) 6.2, Absolute Lymphs (auto) 2.36, Nucleated RBC % 0, D-Dimer Quant (PE/DVT) 0.30, Sodium 138, Potassium 3.3 L, Chloride 100, Carbon Dioxide 33.0 H, Anion Gap 5, BUN 7, Creatinine 0.53 L, Estim Creat Clear Calc 50.58, Est GFR (MDRD) Af Amer 148, Est GFR (MDRD) Non-Af 122, BUN/Creatinine Ratio 13.2, Glucose 113 H, Calcium 9.3, Troponin I High Sens 5 05/20/23 12:05: Troponin I High Sens 7 Micro: Microbiology 05/20/23 11:20 Mucosa - Nose SARS-CoV-2, Influenza & RSV (PCR) - Final Imaging Radiology Impression Chest X-Ray 05/20/23 09:50 IMPRESSION: Hyperinflation. Prominence of the central pulmonary arteries. Questionable pulmonary hypertension. Electronically Signed: Abdirahman Metz MD at 10:13 EST , Assessment & Plan Assessment/Plan (1) Chest pain: (2) COPD (chronic obstructive pulmonary disease): (3) Depression: (4) Gastritis: PLAN: Plan #Chest pain -Pain in center of her chest which is sharp and comes and goes and the feeling in her left arm is more of a tingling feeling and pain was reproducible but patient has heart score of 6 and is unclear if her heart cath did not have disease or stress better amenable to medical management at that time -Additionally patient had some associated shortness of breath with nausea and clammy feeling and had partial response to nitro making picture unclear -Denies hx of stents -D-dimer normal and O2 sat 100% on home 4 L with no tachycardia or hypotension so do not think patient has PE -EKG normal sinus rhythm with nonspecific changes -Trop within normal limits x 2 -Admit to telemetry -Echo ordered -Aspirin -Statin -Lipid panel in AM -Stress test ordered for AM #Hypkalemia -3.3 -Will replace -Repeat BMP in AM #Hx migraine -Pt has hx of migraines in chart, with patient's tingling sensation and headache as well as nausea cannot rule out component of migraine but need to rule out cardiac etiology of other symptoms #Hypertension -Continue home medications #GERD -Continue PPI # Chronic hypoxic respiratory failure on 4 L home O2 -Presently on baseline -Continue inhalers # Depression -Continue Vraylar and Lamictal #Tobacco use-quit 2 days ago -Advised continued cessation #DVT ppx: lovenox subq Erika Macario MD Time spent in the patient's overall evaluation,decision-making process, review of diagnostic data, adjustment of management, discussion with other providers, nursing nursing and ancillary staff involved in patient's care documentation, 57 Minutes Charges/Coding Visit Charges Inpatient E&M: 35692 Init Hosp L2
--- NOTE | 2023-05-20 15:11 | ECHOD_ITS ---
Reason For Study: Chest pain Procedure This was a 2D Doppler, Color Flow transthoracic echocardiogram. Exam performed portable in patient room. Left Ventricle Normal left ventricle. The estimated ejection fraction is 55-60 %. Right Ventricle Normal right ventricle. Normal systolic function. Atria Normal left atrium. Normal right atrium. Mitral Valve The mitral valve is structurally normal. No prolapse or stenosis seen. Trivial mitral valve insufficiency. Tricuspid Valve Normal tricuspid valve. Trivial tricuspid valve insufficiency. Aortic Valve Trisinus/trileaflet aortic valve. Pulmonic Valve The pulmonic valve is not well visualized. Great Vessels Normal aortic root. Pericardium/Pleural No pericardial effusion. MMode/2D Measurements & Calculations LVIDd: 4.2 cm IVSd: 1.1 cm Ao root diam: 3.5 cm LVIDs: 2.5 cm LVPWd: 0.97 cm RVDd: 3.1 cm FS: 41.3 % LAV(MOD-bp): 31.2 ml LVAd ap4: 21.4 cm2 LVAd ap2: 22.8 cm2 LAV(MOD-bp) Indexed: 22.1 ml/m2 LVLd ap4: 6.9 cm LVLd ap2: 7.3 cm LAV(MOD-sp2): 32.7 ml EDV(MOD-sp4): 57.0 ml EDV(MOD-sp2): 64.1 ml LAV(MOD-sp4): 23.9 ml EDV(sp4-el): 56.1 ml EDV(sp2-el): 60.4 ml LVAs ap4: 11.2 cm2 LVAs ap2: 12.0 cm2 LVLs ap4: 5.8 cm LVLs ap2: 6.3 cm ESV(MOD-sp4): 18.6 ml ESV(MOD-sp2): 20.6 ml ESV(sp4-el): 18.3 ml ESV(sp2-el): 19.4 ml EF(MOD-sp4): 67.4 % EF(MOD-sp2): 67.8 % EF(sp4-el): 67.4 % SV(MOD-sp4): 38.4 ml SV(MOD-sp2): 43.5 ml SV(sp4-el): 37.8 ml LA dimension(2D): 3.4 cm LA A4 area: 11.0 cm2 RA A4 area: 14.0 cm2 TAPSE: 2.2 cm Time Measurements MV dec time: 0.19 sec Doppler Measurements & Calculations MV E max quincy: 93.2 cm/sec Lat Peak E' Quincy: 11.8 cm/sec Med Peak E' Quincy: 7.1 cm/sec MV A max quincy: 91.6 cm/sec E/E' lat: 7.9 E/E' med: 13.1 MV E/A: 1.0 MV dec slope: 487.4 cm/sec2 Ao V2 max: 130.9 cm/sec LV V1 max: 102.6 cm/sec Ao max P.8 mmHg LV V1 max P.2 mmHg Ao V2 mean: 83.7 cm/sec LV V1 mean P.3 mmHg Ao mean P.3 mmHg LV V1 mean: 71.2 cm/sec Ao V2 VTI: 31.5 cm LV V1 VTI: 24.4 cm AV (velocity ratio): 0.77 PA V2 max: 78.9 cm/sec TR max quincy: 256.9 cm/sec TR max P.4 mmHg ECHO/Echo Complete Interpretation Summary The estimated ejection fraction is 55-60 %. Mormal LV systolic function No change from previous study 11/12/2014 Ordering Physician: Erika Macario Referring Physician: Boyd Da Silva Performed By: Donna Maddox RDCS
[2023-05-20 16:12] LABS: Troponin-I HS 9 pg/mL (3.0-54.0)
[2023-05-20] MEDS: Acetaminophen 325 MG Tablet 650 MG PO (16:23)
[2023-05-20] MEDS: Potassium Chloride Oral Tablet 20 MEQ 40 MEQ PO (16:23)
[2023-05-20] MEDS: oxyCODONE 5 MG Tablet PO (16:23)
[2023-05-20] MEDS: amLODIPine 10 MG Tablet PO (16:23)
--- OUTSIDE RECORDS SUMMARY | 2023-05-20 16:53 | XMS RPT_ITS | CCD ---
Author Name Unknown Address [address] [place] [address] Organization [facility] Care Team Providers Care Durability Engineer Name Role Phone Boyd Da Silva PA-C Primary Care Provider [phone] Boyd DA SILVA GÉNESIS Primary Care Unavailable MATT VICKERS Referring Unavailable CAROLA CROFT Attending Unavailable DA SILVA, M GÉNESIS Primary Care Unavailable DA SILVA, M GÉNESIS Primary Care Unavailable JAN SOLORZANONA Attending Unavailable DA SILVA, M GÉNESIS Primary Care Unavailable DA SILVA, M GÉNESIS Primary Care Unavailable DA SILVA, M GÉNESIS Primary Care Unavailable DA SILVA, M GÉNESIS Primary Care Unavailable DA SILVA, M GÉNESIS Primary Care Unavailable DA SILVA, M GÉNESIS Primary Care Unavailable DA SILVA, M GÉNESIS Primary Care Unavailable MATT VICKERS Referring Unavailable JAN SOLORZANONA Attending Unavailable DA SILVA, M GÉNESIS Primary Care Unavailable DA SILVA, M GÉNESIS Primary Care Unavailable DA SILVA, M GÉNESIS Primary Care Unavailable DA SILVA, M GÉNESIS Primary Care Unavailable DA SILVA, M GÉNESIS Primary Care Unavailable DA SILVA, M GÉNESIS Primary Care Unavailable DA SILVA, M GÉNESIS Primary Care Unavailable DA SILVA, M GÉNESIS Primary Care Unavailable DA SILVA, M GÉNESIS Primary Care Unavailable DA SILVA, M GÉNESIS Primary Care Unavailable DA SILVA, M GÉNESIS Primary Care Unavailable DA SILVA, M GÉNESIS Primary Care Unavailable DA SILVA, M GÉNESIS Primary Care Unavailable DA SILVA, M GÉNESIS Primary Care Unavailable DA SILVA, M GÉNESIS Primary Care Unavailable DA SILVA, M GÉNESIS Primary Care Unavailable DA SILVA, M GÉNESIS Primary Care Unavailable DA SILVA, M GÉNESIS Primary Care Unavailable RASHAD, LOVE Attending Unavailable Boyd Da Silva PA-C Génesis Primary Care Provider [phone] Boyd DA SILVA GÉNESIS Primary Care Unavailable EVELINE BURGOS Attending Unavailable EVELINE BURGOS Admitting Unavailable DA SILVA, M GÉNESIS Primary Care Unavailable DA SILVA, M GÉNESIS Referring Unavailable DA SILVA, M GÉNESIS Primary Care Unavailable MAEVE SALAZAR Referring Unavailable DA SILVA, M GÉNESIS Primary Care Unavailable NICOL, BEATRICE M Referring Unavailable CECIBRANDY E Attending Unavailable MATT VICKERS Referring Unavailable DA SILVA, M GÉNESIS Primary Care Unavailable MATT VICKERS Attending Unavailable NICOL, BEATRICE Nix Referring Unavailable DA SILVA, M GÉNESIS Primary Care Unavailable RANCHOMATT Referring Unavailable DA SILVA, M GÉNESIS Primary Care Unavailable MATT VICKERS Attending Unavailable MATT VICKERS Attending Unavailable DA SILVA, M GÉNESIS Primary Care Unavailable RANCHOMATT Attending Unavailable DA SILVA, M GÉNESIS Primary Care Unavailable DA SILVA, M GÉNESIS Primary Care Unavailable CECIBRANDY E Referring Unavailable NICOL, BEATRICE M Attending Unavailable NICOL, BEATRICE M Referring Unavailable DA SILVA, M GÉNESIS Primary Care Unavailable MATT VICKERS Attending Unavailable MATT VICKERS Referring Unavailable DA SILVA, M GÉNESIS Primary Care Unavailable MATT VICKERS Referring Unavailable DA SILVA, M GÉNESIS Primary Care Unavailable MATT VICKERS Attending Unavailable DA SILVA, M GÉNESIS Primary Care Unavailable DA SILVA, M GÉNESIS Attending Unavailable MATT VICKERS Attending Unavailable DA SILVA, M GÉNESIS Primary Care Unavailable DA SILVA, M GÉNESIS Primary Care Unavailable CATY HALE Attending Unavailable DA SILVA, M GÉNESIS Referring Unavailable SOTOJUAN JOSE Attending Unavailable DA SILVA, M GÉNESIS Primary Care Unavailable DA SILVA, M GÉNESIS Primary Care Unavailable DA SILVA, M GÉNESIS Referring Unavailable MATT VICKERS Referring Unavailable DA SILVA, M GÉNESIS Primary Care Unavailable MATT VICKERS Attending Unavailable DA SILVA, M GÉNESIS Primary Care Unavailable NICOL, BEATRICE M Attending Unavailable NICOL, BEATRICE M Referring Unavailable NICOL, BEATRICE M Referring Unavailable DA SILVA, M GÉNESIS Primary Care Unavailable DA SILVA, M GÉNESIS Primary Care Unavailable DA SILVA, M GÉNESIS Referring Unavailable JUAN JOSE OJEDA Attending Unavailable NICOL, BEATRICE M Attending Unavailable DA SILVA, M GÉNESIS Primary Care Unavailable NICOL, BEATRICE M Attending Unavailable DA SILVA, M GÉNESIS Primary Care Unavailable DA SILVA, M GÉNESIS Primary Care Unavailable CECIBRANDY POLANCO E Referring Unavailable Allergies Allergy Classification Reported Allergen(s) Allergy Type Date of Onset Reaction(s) Facility (20 sources) Codeine; Translations: [CODEINE] Drug Allergy 04-13-2006 [facility] Work Phone: Medications Current Medications Medication Drug Class(es) Dates Sig (Normalized) Sig (Original) 120 actuat albuterol 0.1 mg/actuat / ipratropium bromide 0.02 mg/actuat inhalation spray (20 sources) Anticholinergic, beta2-Adrenergic Agonist Start: 12-06-2022 End: 12-01-2023 take 20-100 ug by inhalation four times daily as needed ipratropium 20 mcg-albuterol 100 mcg (COMBIVENT RESPIMAT) 20-100 mcg/actuation inhaler Indications: Stage 3 severe COPD by GOLD classification ([facility]) Inhale 1 Puff as instructed four times daily as needed. 3 Each 3 12/06/2022 12/01/2023 Active Completed/Discontinued Medications Medication Drug Class(es) Dates Sig (Normalized) Sig (Original) acetaminophen 500 mg / diphenhydrAMINE hydrochloride 25 mg oral tablet (20 sources) Histamine-1 Receptor Antagonist diphenhydrAMINE-Mert taminophen 25-500 mg tab Take by mouth once daily as needed. 0 Active Problems Active Problems Problem Classification Problem Date Documented Da te Episodic/Chronic Adjustment disorders (20 sources) Grief finding; Translations: [Adjustment disorder with depressed mood] Onset: 08-26-2021 Chronic Alcohol-related disorders (20 sources) Alcohol abuse; Translations: [Alcohol abuse, uncomplicated] Onset: 09-09-2016 09-09-2016 Chronic Anxiety disorders (20 sources) Anxiety disorder; Translations: [Anxiety disorder, unspecified] Onset: 07-10-2019 04-10-2021 Chronic Chronic obstructive pulmonary disease and bronchiectasis (20 sources) Pulmonary emphysema; Translations: [Emphysema, unspecified] Onset: 02-17-2015 02-17-2015 Chronic Coronary atherosclerosis and other heart disease (20 sources) Calcification of coronary artery; Translations: [Atherosclerotic heart disease of [place] coronary artery without angina pectoris] Onset: 07-13-2022 Chronic Esophageal disorders (7 sources) Gastro-esophageal reflux disease with esophagitis; Translations: [Gastroesophageal reflux disease with esophagitis, unspecified whether hemorrhage] Chronic Esophageal disorders (1 source) Esophageal disorders; Translations: [Gastroesophageal reflux disease with esophagitis, unspecified whether hemorrhage] Onset: 04-26-2022 Essential hypertension (20 sources) Hypertensive disorder; Translations: [Essential (primary) hypertension] Onset: 02-17-2015 02-17-2015 Chronic Gastritis and duodenitis (20 sources) Acute superficial gastritis; Translations: [Acute gastritis without bleeding] Onset: 09-09-2016 09-09-2016 Episodic Headache; including migraine (1 source) Chronic daily headache; Translations: [Chronic daily headache] Episodic Immunizations and screening for infectious disease (2 sources) Needs influenza immunization; Translations: [Encounter for immunization] Episodic Miscellaneous mental health disorders (20 sources) Insomnia disorder related to another mental disorder; Translations: [Insomnia due to other mental disorder] Onset: 07-21-2022 07-21-2022 Chronic Mood disorders (20 sources) Bipolar II disorder; Translations: [Bipolar II disorder] Onset: 07-10-2019 Chronic Other aftercare (2 sources) Drug therapy finding; Translations: [Other extermination supervisor (current) drug therapy] Episodic Other bone disease and musculoskeletal deformities (1 source) Somatic dysfunction of right sacroiliac joint; Translations: [Segmental and somatic dysfunction of sacral region] Episodic Other bone disease and musculoskeletal deformities (1 source) Cervical somatic dysfunction; Translations: [Segmental and somatic dysfunction of cervical region] Episodic Other lower respiratory disease (1 source) Dyspnea; Translations: [Dyspnea, unspecified] Episodic Other lower respiratory disease (1 source) Nodule of lung; Translations: [Solitary pulmonary nodule] Episodic Other lower respiratory disease (1 source) Other forms of dyspnea; Translations: [Dyspnea on exertion] Onset: 07-27-2022 Episodic Other nervous system disorders (1 source) Right-sided piriformis syndrome; Translations: [Lesion of sciatic nerve, right lower limb] Chronic Other nervous system disorders (1 source) Other chronic pain; Translations: [Chronic 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] Onset: 07-30-2011 Chronic Pulmonary heart disease (2 sources) Pulmonary hypertension, unspecified; Translations: [Other chronic pulmonary heart diseases] Onset: 07-12-2022 Chronic Respiratory failure; insufficiency; arrest (adult) (1 source) Chronic hypoxemic respiratory failure; Translations: [Chronic respiratory failure with hypoxia] 03-03-2023 Chronic Spondylosis; intervertebral disc disorders; other back problems (20 sources) Prolapsed lumbar intervertebral disc; Translations: [Other intervertebral disc displacement, lumbar region] Onset: 06-04-2011 06-04-2011 Chronic Substance-related disorders (7 sources) Cigarette smoker ; Translations: [Nicotine dependence, cigarettes, uncomplicated] Chronic Unclassified (1 source) No-show for appointment; Translations: [No-show for appointment] Onset: 03-14-2023 Past or Other Problems Problem Classification Problem Date Documented Da te Episodic/Chronic Abdominal pain (20 sources) Epigastric pain; Translations: [Epigastric pain] Onset: 03-27-2010 03-27-2010 Episodic Biliary tract disease (20 sources) Acute cholecystitis; Translations: [Acute cholecystitis] Onset: 04-13-2006 04-13-2006 Episodic Fluid and electrolyte disorders (20 sources) Hypokalemia; Translations: [Hypokalemia] Onset: 05-03-2017 05-03-2017 Episodic Nausea and vomiting (20 sources) Nausea; Translations: [Nausea] Onset: 04-09-2010 04-09-2010 Episodic Nonspecific chest pain (2 sources) Chest pain; Translations: [Chest pain, unspecified] Onset: 07-13-2022 Episodic Other aftercare (1 source) Other mcfp (current) drug therapy; Translations: [Current use of proton pump inhibitor] Onset: 04-26-2022 Episodic Other lower respiratory disease (1 source) Other nonspecific abnormal finding of lung field; Translations: [Lung nodules] Onset: 04-26-2022 Episodic Other screening for suspected conditions (not mental disorders or infectious disease) (15 sources) Patient encounter status; Translations: [Encounter for screening mammogram for malignant neoplasm of breast] Onset: 04-28-2022 Episodic Residual codes; unclassified (20 sources) Tobacco user; Translations: [Tobacco use] Onset: 07-30-2011 07-30-2011 Episodic Residual codes; unclassified (1 source) Tobacco use; Translations: [Tobacco abuse] Onset: 07-30-2011 Episodic Spondylosis; intervertebral disc disorders; other back problems (20 sources) Neck pain; Translations: [Cervicalgia] Onset: 06-12-2010 06-12-2010 Episodic Results Test Name Value Interpretation Reference Range Facil ity Vital Signs Date Time Vital Sign Value Performing Clinician Faci litjigna 03-03-2023 10:00-0500 Body weight 49.44 kg Beatrice Nicol PA-C Work Phone: [facility] 03-03-2023 10:00-0500 Diastolic blood pressure 82 mm[Hg] Beatrice Nicol PA-C Work Phone: [facility] 03-03-2023 10:00-0500 Heart rate 71 /min Beatrice Nicol PA-C Work Phone: [facility] 03-03-2023 10:00-0500 SaO2% (BldA) [Mass fraction] 92 % Beatrice Nicol PA-C Work Phone: [facility] 03-03-2023 10:00-0500 Systolic blood pressure 138 mm[Hg] Beatrice Nicol PA-C Work Phone: [facility] 01-20-2023 09:45-0400 Body height 154.9 cm Pulm Wstr Work Phone: [facility] 01-20-2023 09:45-0400 Body weight 51.26 kg Pulm Wstr Work Phone: [facility] 12-06-2022 08:49-0400 Body weight 50.53 kg Beatrice Nicol PA-C Work Phone: [facility] 12-06-2022 08:49-0400 Diastolic blood pressure 82 mm[Hg] Beatrice Nicol PA-C Work Phone: [facility] 12-06-2022 08:49-0400 Heart rate 85 /min Beatrice Nicol PA-C Work Phone: [facility] 12-06-2022 08:49-0400 SaO2% (BldA) [Mass fraction] 94 % Beatrice Nicol PA-C Work Phone: [facility] 12-06-2022 08:49-0400 Systolic blood pressure 144 mm[Hg] Beatrice Nicol PA-C Work Phone: [facility] 08-03-2022 10:46-0400 Body weight 52.16 kg Caty Hale MD Work Phone: [facility] 08-03-2022 10:46-0400 Diastolic blood pressure 82 mm[Hg] Caty Hale MD Work Phone: [facility] 08-03-2022 10:46-0400 Heart rate 78 /min Caty Hale MD Work Phone: [facility] 08-03-2022 10:46-0400 Respiratory rate 17 /min Caty Hale MD Work Phone: [facility] 08-03-2022 10:46-0400 SaO2% (BldA) [Mass fraction] 95 % Caty Hale MD Work Phone: [facility] 08-03-2022 10:46-0400 Systolic blood pressure 136 mm[Hg] Caty Hale MD Work Phone: [facility] 07-12-2022 10:42-0400 Body height 154.9 cm Brandy Gotti ART SALES CONSULTANT.[employer]INE [employer] MECHANIC Work Phone: [facility] 07-12-2022 10:42-0400 Body weight 51.71 kg Brandy Gotti ART SALES CONSULTANT.[employer]INE [employer] MECH[employer]IC Work Phone: [facility] 07-12-2022 10:42-0400 Diastolic blood pressure 82 mm[Hg] Brandy Gotti ART SALES CONSULTANT.[employer]INE [employer] MECHANIC Work Phone: [facility] 07-12-2022 10:42-0400 Heart rate 70 /min Brandy Gotti ART SALES CONSULTANT.[employer]INE [employer] MECH[employer]IC Work Phone: [facility] 07-12-2022 10:42-0400 Systolic blood pressure 150 mm[Hg] Brandy Ceci ART SALES CONSULTANT.[employer]INE [employer] MECH[employer]IC Work Phone: [facility] 05-03-2022 08:41-0500 Body weight 53.07 kg Beatrice Reaves PA-C Work Phone: [facility] 04-26-2022 10:44-0500 Body temperature 97.81 [degF] DONNA Da Silva PA-C Work Phone: [facility] 04-26-2022 10:44-0500 Body weight 52.62 kg NA Da Silva PA-C Work Phone: [facility] 04-26-2022 10:44-0500 Diastolic blood pressure 88 mm[Hg] NA Da Silva PA-C Work Phone: [facility] 04-26-2022 10:44-0500 Heart rate 73 /min NA Da Silva PA-C Work Phone: [facility] 04-26-2022 10:44-0500 Respiratory rate 20 /min NA Da Silva PA-C Work Phone: [facility] 04-26-2022 10:44-0500 SaO2% (BldA) [Mass fraction] 94 % NA Da Silva PA-C Work Phone: [facility] 04-26-2022 10:44-0500 Systolic blood pressure 162 mm[Hg] NA Da Silva PA-C Work Phone: [facility] 01-28-2022 09:34-0400 Body height 154.9 cm Respiratory Wstr Work Phone: [facility] 01-28-2022 09:34-0400 Body weight 51.26 kg Respiratory Wstr Work Phone: [facility] 01-28-2022 09:34-0400 Heart rate 86 /min Respiratory Wstr Work Phone: [facility] 01-28-2022 09:34-0400 SaO2% (BldA) [Mass fraction] 97 % Respiratory Wstr Work Phone: [facility] 01-28-2022 09:13-0400 Body height 154.9 cm Beatrice Nicol PA-C Work Phone: [facility] 01-28-2022 09:13-0400 Body weight 51.26 kg Beatrice Nicol PA-C Work Phone: [facility] 01-28-2022 09:13-0400 Diastolic blood pressure 84 mm[Hg] Beatrice Nicol PA-C Work Phone: [facility] 01-28-2022 09:13-0400 Heart rate 86 /min Beatrice Avendanoone PA-C Work Phone: [facility] 01-28-2022 09:13-0400 Respiratory rate 14 /min Beatrice Nicol PA-C Work Phone: [facility] 01-28-2022 09:13-0400 SaO2% (BldA) [Mass fraction] 97 % Beatrice Avendanoone PA-C Work Phone: [facility] 01-28-2022 09:13-0400 Systolic blood pressure 168 mm[Hg] Beatrice Avendanoone PA-C Work Phone: [facility] 11-25-2021 09:08-0400 Body weight 50.8 kg Wilma Pickard APRN.[employer] ME[employer]IC Work Phone: [facility] 11-25-2021 09:08-0400 Diastolic blood pressure 100 mm[Hg] Wilma Pickard APRN.[employer]INE [employer] MECH[employer]IC Work Phone: [facility] 11-25-2021 09:08-0400 Heart rate 74 /min Wilma Pickard APRN.[employer]INE [employer] MECH[employer]IC Work Phone: [facility] 11-25-2021 09:08-0400 SaO2% (BldA) [Mass fraction] 94 % Wilma Pickard APRN.[employer] ME[employer]IC Work Phone: [facility] 11-25-2021 09:08-0400 Systolic blood pressure 181 mm[Hg] Wilma Pickard APRN.[employer]INE [employer] MECH[employer]IC Work Phone: [facility] 10-26-2021 08:18-0400 Body height 154.9 cm Caty Hale MD Work Phone: [facility] 10-26-2021 08:18-0400 Body weight 50.8 kg Caty Hale MD Work Phone: [facility] 10-26-2021 08:18-0400 Diastolic blood pressure 78 mm[Hg] Caty Hale MD Work Phone: [facility] 10-26-2021 08:18-0400 Heart rate 77 /min Caty Hale MD Work Phone: [facility] 10-26-2021 08:18-0400 Respiratory rate 14 /min Caty Hale MD Work Phone: [facility] 10-26-2021 08:18-0400 SaO2% (BldA) [Mass fraction] 96 % Caty Hale MD Work Phone: [facility] 10-26-2021 08:18-0400 Systolic blood pressure 138 mm[Hg] Caty Hale MD Work Phone: [facility] 10-26-2021 08:16-0400 Body height 154.9 cm Respiratory Wstr Work Phone: [facility] 10-26-2021 08:16-0400 Body weight 50.8 kg Respiratory Wstr Work Phone: [facility] 10-26-2021 08:16-0400 Heart rate 77 /min Respiratory Wstr Work Phone: [facility] 10-26-2021 08:16-0400 Respiratory rate 14 /min Respiratory Wstr Work Phone: [facility] 10-26-2021 08:16-0400 SaO2% (BldA) [Mass fraction] 96 % Respiratory Wstr Work Phone: [facility] 08-04-2021 13:27-0400 Body height 156.8 cm Bettie Ron ART SALES CONSULTANT.[employer] MECH[employer]IC Work Phone: [facility] 08-04-2021 13:27-0400 Body weight 49.08 kg Bettie Ron ART SALES CONSULTANT.[employer]INE [employer] MECH[employer]IC Work Phone: [facility] 08-04-2021 13:27-0400 Diastolic blood pressure 80 mm[Hg] Bettie Ron ART SALES CONSULTANT.[employer] MECH[employer]IC Work Phone: [facility] 08-04-2021 13:27-0400 Heart rate 90 /min Bettie Ron ART SALES CONSULTANT.[employer] MECH[employer]IC Work Phone: [facility] 08-04-2021 13:27-0400 Respiratory rate 16 /min Bettie Ron ART SALES CONSULTANT.[employer] ME[employer]IC Work Phone: [facility] 08-04-2021 13:27-0400 Systolic blood pressure 148 mm[Hg] Bettie Ron ART SALES CONSULTANT.[employer] ME[employer]IC Work Phone: [facility] 06-29-2021 10:48-0400 Body weight 49.9 kg NA Da Silva PA-C Work Phone: [facility] 06-29-2021 10:48-0400 Diastolic blood pressure 70 mm[Hg] NA Da Silva PA-C Work Phone: [facility] 06-29-2021 10:48-0400 Heart rate 76 /min NA Da Silva PA-C Work Phone: [facility] 06-29-2021 10:48-0400 SaO2% (BldA) [Mass fraction] 95 % NA Da Silva PA-C Work Phone: [facility] 06-29-2021 10:48-0400 Systolic blood pressure 142 mm[Hg] NA Da Silva PA-C Work Phone: [facility] Encounters Encounter Date Encounter Type Care Provider Facility Start: 05-10-2023 Alejandro Caal on PA-C Work Phone: [facility] Procedures Date Procedure Procedure Detail Performing Clinician Start: 03-03-2023 INFLUENZA VACCINE, P RSV FREE, AGE 65+ YR, HIGH DOSE, QUADRIVALENT (FLUZONE HIGH-DOSE) Beatrice Reaves PA-C Work Phone: Start: 01-20-2023 Noninvasive ear/puls e oximetry multiple deter Beatrice Reaves PA-C Work Phone: Start: 07-13-2022 Lipid 1996 panel - S margarita or Plasma Matt Vickers ART SALES CONSULTANT.[employer] Work Phone: Start: 06-08-2022 Digital breast tomosynthesis unilateral Maeve Salazar ART SALES CONSULTANT.[employer] Work Phone: Start: 05-05-2022 End: 05-05-2022 Mammography Bulk Order Provider Start: 04-28-2022 Dxa bone density williams dy 1/> sites axial mary Nix Génesis Da Silva PA-C Work Phone: Start: 01-28-2022 INFLUENZA VACCINE QUADRIVALENT 6 MO - 64 YRS IM Beatrice Nix Nicol JUAREZ Work Phone: Start: 01-28-2022 Noninvasive ear/puls e oximetry multiple deter Caty Hale MD Work Phone: Start: 12-01-2021 Adult depression scr eening assessment Mtat Vickers ART SALES CONSULTANT.[employer] Work Phone: Start: 10-26-2021 Brncdilat rspse spmt ry pre&post-brncdilat admn Caty Hale MD Work Phone: Start: 10-16-2021 Adult depression scr eening assessment Matt Vickers ART SALES CONSULTANT.[employer] Work Phone: Start: 07-31-2021 Adult depression scr eening assessment Bettie Ron ART SALES CONSULTANT.[employer] Work Phone: Start: 06-29-2021 Adult depression scr eening assessment DONNA Da Silva PA-C Work Phone: Start: 06-24-2021 Colonoscopy Matt lees ART SALES CONSULTANT.[employer] Work Phone: Start: 06-02-2021 Adult depression scr eening assessment Matt Vickers ART SALES CONSULTANT.[employer] Work Phone: Start: 04-17-2019 Mammography Matt lees ART SALES CONSULTANT.[employer] Work Phone: Plan of Treatment Date Care Activity Detail Author Start: 06-25-2031 Colonoscopy COLONOSCOPY [facility] Start: 06-25-2031 COLORECTAL CANCER SCREENING COLORECTAL CANCER SCREENING [facility] Start: 07-14-2027 Lipid 1996 panel - S margarita or Plasma Lipid Screening [facility] Start: 07-14-2027 Lipid panel Lipid Screening [facility] Start: 07-14-2027 LIPID SCREEN LIPID SCREEN [facility] Start: 06-24-2026 Colonoscopy COLONOSCOPY [facility] Start: 06-24-2026 COLORECTAL CANCER SCREENING COLORECTAL CANCER SCREENING [facility] Start: 06-24-2026 Screening for malign ant neoplasm of colon [facility] Start: 07-13-2025 DIABETES SCREEN DIABETES SCREEN [facility] Start: 07-13-2025 Diabetes Screening Diabetes Screenin g [facility] Start: 12-17-2024 LIPID SCREEN LIPID SCREEN [facility] Start: 03-09-2024 DIABETES SCREEN DIABETES SCREEN [facility] Start: 05-05-2023 Mammography [facility] Start: 05-05-2023 Screening for malign ant neoplasm of breast Mammogram Screening [facility] Start: 04-26-2023 ANNUAL PCP TEAM RECTIFYING ATTENDANT PHIL DISEASE VISIT ANNUAL PCP TEAM CHRONIC DISEASE VISIT [facility] Start: 04-26-2023 COVID-19 VACCINE (#1) COVID-19 VACCI NE (#1) [facility] Immunizations Immunization Date Immunization Notes Care Provider Malgorzata castro 03-03-2023 influenza (HD-IIV4) vaccine, age 65+ yr, high dose, quadrivalent, PF (FLUZONE HIGH-DOSE) Beatrice Reaves PA-C Work Phone: [facility] 01-28-2022 influenza, injectabl e, quadrivalent, contains preservative Respiratory Wstr Work Phone: [facility] Work Phone: 01-28-2022 influenza virus vaccine, unspecified formulation Matt Vickers APRN.[employer] Work Phone: [facility] 11-02-2021 pneumococcal (PCV20) vaccine, 20 valent (PREVNAR 20) Mi Nurse Work Phone: [facility] Work Phone: 03-09-2021 influenza, injectabl e, quadrivalent, contains preservative Matt Vickers APRN.[employer] Work Phone: [facility] 12-12-2019 influenza, injectabl e, quadrivalent, contains preservative Matt Vickers APRN.[employer] Work Phone: [facility] 12-12-2019 tetanus and diphther ia toxoids, adsorbed, preservative free, for adult use (5 Lf of tetanus toxoid and 2 Lf of diphtheria toxoid) Matt Vickers APRN.[employer] Work Phone: [facility] 06-16-2018 pneumococcal polysaccharide vaccine, 23 valent Matt Vickers ART SALES CONSULTANT.[employer] Work Phone: [facility] 12-19-2017 influenza, injectabl e, quadrivalent, contains preservative Matt Vickers ART SALES CONSULTANT.[employer] Work Phone: [facility] Work Phone: 04-27-2017 influenza, injectabl e, quadrivalent, contains preservative Matt Vickers ART SALES CONSULTANT.M[employer] MECH[employer] Work Phone: [facility] Work Phone: 01-03-2015 influenza, seasonal, injectable Matt Vickers ART SALES CONSULTANT.MINE [employer] MECH[employer]IC Work Phone: [facility] Work Phone: Payers Date Payer Category Payer Unknown [id number] 2022 Unknown [id number] 2016 Medicare [id number] 2016 Medicaid [id number] 2016 Medicare [id number] 2016 Medicare [id number] 2016 Medicare [id number] Social History Date Type Detail Facility Start: 1971 End: 12-06-2022 Tobacco smoking status NHIS Smokes tobacco daily [facility] Start: 1971 History of tobacco use Cigarette Smo ker [facility] Start: 04-21-2021 End: 03-03-2023 Alcohol intake Ex-drinker (finding) [facility] Start: 03-09-2021 End: 02-25-2022 History SDOH Alcohol Frequency 2 [facility] Start: 03-09-2021 End: 02-25-2022 History SDOH Social Connections Get Together 1 [facility] Start: 03-09-2021 History SDOH Social Connections Living 98 [facility] Start: 03-09-2021 End: 02-25-2022 History SDOH Physical Activity DPW 0 [facility] Start: 03-09-2021 End: 02-25-2022 History SDOH Stress 5 [facility] Start: 1955 Sex Assigned At Female [facility] Start: 06-14-2021 End: 01-28-2022 Exposure to SARS-CoV-2 (event) Not sure [facility] Start: 10-26-2021 Tobacco Comment 2 ppd per day in past, current 1/2 ppd [facility] Start: 10-26-2021 End: 08-03-2022 Cigarettes smoked current (pack per day) - Reported 2 [facility] Start: 10-26-2021 End: 12-06-2022 Tobacco use and exposure Smokeless tobacco non-user [facility] Work Phone: Start: 11-25-2021 Tobacco Comment started age 14 - 2 ppd per day in past, down to 1 ppd [facility] Start: 02-25-2022 History SDOH Social Connections Get Together 3 [facility] Start: 02-25-2022 History SDOH Social Connections Living 4 [facility] Start: 02-25-2022 End: 08-03-2022 Social connection and isolation panel [facility] Do you belong to any clubs or organizations such as roman catholic groups, unions, fraternal or athletic groups, or school groups? No [facility] Are you now , , , , never or living with a partner? [facility] How often to you hav e a drink containing alcohol? Monthly or less [facility] How many standard dr inks containing alcohol do you have on a typical day? 1 or 2 [facility] How often do you hav e 6 or more drinks on 1 occasion? Less than monthly [facility] Adult Depression Screening Assessment 3 [facility] Do you feel stress - tense, restless, nervous, or anxious, or unable to sleep at night because your mind is troubled all the time - these days [OSQ] Very much [facility] (I/We) worried wheth er (my/our) food would run out before (I/we) got money to buy more. DK or Refused [facility] Start: 03-09-2021 Gender identity Identifies as female gender (finding) [facility] Start: 12-06-2022 Tobacco Comment started age 14 - 2 ppd per day in past, down to 3 cigarettes per day. [facility] Clinical Notes 02-27-2015 to 05-12-2023 Telephone Encounter - Wes Conte MD - 05/12/2023 10:33 AM ESTTelephone Encounter - Nadine Chawla LPN - 05/10/2023 8:09 AM Beatrice Fraire PA-C - 03/03/2023 10:20 AM EST Note Date & Type Note Facility 05-12-2023 Miscellaneous Notes Due for check up with Parvez Patient has been identified by name and date of : Yes, Patient phones for refill(s): Requested Prescriptions Pending Prescriptions Disp Refills pantoprazole DR (PROTONIX) 40 mg tablet 60 tablet 2 Sig: Take 1 tablet by mouth two times a day before meals. Take on empty stomach, 1/2 hr before meal. Date of last office visit in primary care: 04/26/2022 Date of next office visit in primary care: Visit date not found Please advise. Thank you. Nadine Chawla LPN. documented in this encounter [facility] 03-16-2023 Note HNO ID: [id number] Author: Matt Vickers APRN.[employer] Service: ? Author Type: Nurse Practitioner Type: Progress Notes Filed: 03/16/2023 9:02 AM Note Text: FOLLOW UP - PSYCHIATRIC PROGRESS NOTE Visit Type:Virtual Visit utilizing two-way audio and video for at least a portion of the visit. Consent for virtual visit obtained verbally. Confidentiality limitations with virtual visits reviewed with the patient and guardian, if present, who have accepted the risk verbally prior to proceeding with encounter. I have communicated my name and active licensure. The patient's identity and physical location were verified at the time of this visit. Either the patient or their legal physician representative has been informed of the risks and benefits of -- and alternatives to -- treatment through a remote evaluation and consents to proceed with the evaluation remotely. Reason for Visit: Outpatient follow-up and safety monitoring of previously prescribed psychiatric medication, psychotherapy or other treatment CC: medication management HPI: Allison returns for a medication management follow-up appointment. She has started taking Wellbutrin SR 150mg that was ordered by pulmonary in late December. She is smoking 3-4 cigarettes per day and is now wearing oxygen at night. She is supposed to wear it all day,but she doesn't. I am so aggravated and anxious and I just don't care. Sleep has not been good. She wakes up in the middle of the night and then can't get back to sleep. She sleeps several hours per night. She denies si/hi. She reports her kids annoy her. Her daughter sleeps in a trailer on her property. There are 5 total in her home. She feels safe in her home,but she doesn't like everyone living there. She has not found a therapist yet. I don't go anywhere. I don't even to to the stores anymore. I just need to get out of this house. The house is crowded and she feels anxious. She doesn't have her own room and stays in the living room. She doesn't have any privacy. She wants her own place away from the chaos. Given resources for agencies in the area. Discussed how a watch case polisher could help her with housing. She is willing to look at the resources. She is currently taking the Vraylar, Lamictal and Remeron daily as ordered; denies side effects. She is also taking 300mg gabapentin at night. Discussed how Welbturin SR (ordered by pulmonary) can be causing more anxiety; states she stopped taking recently I just did not like it. Risks and benefits of the medication, including any black box warnings, were discussed with the patient. Allison verbalized understanding to all instructions and is in agreement with the treatment plan; confirmed that she would get to ER if needed for increase symptoms or safety concerns. Interval Progress: Same PATIENT DATA: Generalized Anxiety Disorder Scale (SIMON-7) SIMON - 7 SCORES 12/13/2022 03/13/2023 03/16/2023 SIMON-7 Score 10 19 14 (0-4) minimal anxiety, (5-9) mild anxiety, (10-14) moderate anxiety, (15-21) severe anxiety Patient Health Questionnaire (PHQ-9) PHQ-9 12/13/2022 03/13/2023 03/16/2023 Score 13 17 9 (0-4) minimal depression, (5-9) mild depression, (10-14) moderate depression, (15-19) moderately severe depression, (20-27) severe depression PROMIS Global Health PROMIS Global Health - (T-Scores - the mean of general population = 50. Five points is a clinically meaningful difference.) 10/24/2022 01/20/2023 03/13/2023 Physical T-Score 39.8 34.9 42.3 Mental T-Score 33.8 31.3 28.4 PAST MEDICAL HISTORY Diagnosis Date Abdominal pain, other specified site Alcohol abuse Back pain DDD Bipolar affect, depressed (HCC) COPD (chronic obstructive pulmonary disease) (HCC) Coronary artery disease Depression Esophagitis, unspecified Essential hypertension, benign Gastritis Hyperlipidemia Lung nodules Nausea Neuralgia Other forms of migraine Prediabetes Tobacco use PAST SURGICAL HISTORY Procedure Laterality Date APPENDECTOMY 1979 CARDIAC CATH 04/2011 Dr. Yang DELIVERY ONLY , low cervical x2 CHOLECYSTECTOMY 2007 Cholecystectomy COLONOSCOPY 09/14/02 RG - normal COLONOSCOPY FLX DX W/COLLJ SPEC WHEN PFRMD 04/13/2012 Colonoscopy DILATION AND CURETTAGE DXAND/THER NONOBSTETRIC Dilation AND curettage EGD 09/14/02 RG ESOPHAGOGASTRODUODENOSCOPY TRANSORAL DIAGNOSTIC 04/09/2010 EGD ESOPHAGOGASTRODUODENOSCOPY TRANSORAL DIAGNOSTIC 04/13/2012 EGD ESOPHAGOGASTRODUODENOSCOPY TRANSORAL DIAGNOSTIC 02/27/15 EGD EXTRACTION, ERUPTED TOOTH OR EXPOSED ROOT (ELEVATION AND/OR FORCEPS REMOVAL) Teeth removed HYSTERECTOMY HX 10/23/1985 LAPS ABD PRTMANDOMENTUM DX W/WO SPEC BR/WA SPX Laparoscopy Current Outpatient Medications Medication Sig Dispense Refill buPROPion SR (WELLBUTRIN SR) 150 mg 12 hr tablet Take 1 tablet by mouth two times a day. 60 tablet 3 nicotine, polacrilex, [address] 1 (more content not included)... [facility] 03-14-2023 Note HNO ID: [id number] Author: Matt Vickers APRN.[place] Service: ? Author Type: Nurse Practitioner Type: Progress Notes Filed: 03/14/2023 9:48 AM Note Text: Zoom application is having technical issues today. Attempted to reach Allison via the [employer] application and she did not sign on. We will try to contact her and reschedule her for later this week. [facility] 03-03-2023 Note HNO ID: [id number] Author: Liz Johnson RT(R) Service: Radiology Author Type: Technologist Type: Progress Notes Filed: 03/03/2023 10:49 AM Note Text: Radiology Service Progress Note PATIENT NAME: Jacque Dozier DATE OF SERVICE: March 03, 2023 TIME: 10:43 AM PATIENT IDENTITY VERIFICATION COMPLETED USING TWO (2) IDENTIFIERS: Name and Date of confirmed by patient verbally. FALL SCREENING: Has the patient had 2 falls in the last year or 1 fall with injury or currently using an Ambulatory Assistive Device (Walker, Cane, Wheelchair, Crutches, etc.)? No PATIENT GENDER DATA: Female. status: : No status: NO. PATIENT RELEVANT IMPLANT DATA REVIEWED: Not Applicable RADIOLOGY DEPARTMENT: General X-ray: Exam(s) Completed: Chest X-Ray PERIPHERAL IV DATA: Not applicable SIGNED BY: RT Barbara(R) March 03, 2023 10:43 AM [facility] 03-03-2023 Note HNO ID: [id number] Author: Beatrice Reaves PA-C Service: ? Author Type: Physician Metal Roofing Mechanic Type: Progress Notes Filed: 03/03/2023 11:23 AM Note Text: Patient: Jacque Dozier PCP: Boyd Da Silva PA-C CC: follow up HPI: Jacque Dozier 67 year old female current smoker with PMH significant for bipolar d/o, alcohol abuse, HTN, CAD, severe COPD, and granulomatous disease. Current therapy consists of daily Trelegy with as needed Combivent. Today, patient reports she has decreased her smoking to 3 cigarettes daily. Tolerating Wellbutrin well. Insurance did not cover lozenges. About 1 month ago she started with pleuritic pain in left. Daily cough productive of dark, black sputum. No hemoptysis. Increased wheezing. Exertional dyspnea with minimal effort. No fevers or chills. Night sweats that also started about a month ago. No sick contacts. No Covid test done. Patient does not have supplemental oxygen with her in the office. States it is in the car. Wearing 2-3 L as needed and at night. DME: [facility]. PAST MEDICAL HISTORY Diagnosis Date Abdominal pain, other specified site Alcohol abuse Back pain DDD Bipolar affect, depressed (HCC) COPD (chronic obstructive pulmonary disease) (HCC) Coronary artery disease Depression Esophagitis, unspecified Essential hypertension, benign Gastritis Hyperlipidemia Lung nodules Nausea Neuralgia Other forms of migraine Prediabetes Tobacco use Allergies: Codeine Vomiting buPROPion SR (WELLBUTRIN SR) 150 mg 12 hr tabletTake one tablet daily for 3 days, then one tablet by mouth twice daily (Begin two weeks prior to quit date)Disp: 65 tabletRfl: 0 buPROPion SR (WELLBUTRIN SR) 150 mg 12 hr tabletTake 1 tablet by mouth two times a day.Disp: 60 tabletRfl: 3 nicotine, polacrilex, [address] Each between cheek and gum every 2 hours as needed (smoking).Disp: 72 LozengeRfl: 3 mirtazapine (REMERON) 30 mg tabletTake 1 tablet by mouth daily at bedtime.Disp: 30 tabletRfl: 2 gabapentin (NEURONTIN) 300 mg capsuleTake 1 capsule by mouth daily at bedtime for 90 days.Disp: 30 capsuleRfl: 2 lamoTRIgine (LAMICTAL) 200 mg tabletTAKE 1 TABLET BY MOUTH EVERYDAY AT BEDTIME.Disp: 30 tabletRfl: 2 ipratropium 20 mcg-albuterol 100 mcg (COMBIVENT RESPIMAT) 20-100 mcg/actuation inhalerInhale 1 Puff as instructed four times daily as needed.Disp: 3 EachRfl: 3 VRAYLAR 3 mg capsuleTAKE ONE CAPSULE BY MOUTH DAILY AT 9AMDisp: 30 capsuleRfl: [address] (PROTONIX) 40 mg tabletTake 1 tablet by mouth twice daily before meals. Take on empty stomach, 1/2 hr before meal.Disp: 60 tabletRfl: 2 famotidine (PEPCID) 20 mg tabletTake 1 tablet by mouth daily at bedtime.Disp: 90 tabletRfl: 1 doxazosin (CARDURA) 1 mg tabletTake 1 tablet by mouth once daily.Disp: 30 tabletRfl: 2 potassium chloride (K-TAB) 10 mEq tabletTake 1 tablet by mouth twice daily.Disp: 60 tabletRfl: 5 amLODIPine (NORVASC) 10 mg tabletTake 1 tablet by mouth once daily.Disp: 90 tabletRfl: 3 xkdhzowkvru-sholcyzmi-hibvlcim (TRELEGY ELLIPTA) 200-62.5-25 mcg inhalation powderInhale 1 Puff as instructed once daily.Disp: 1 EachRfl: 5 ipratropium-albuterol (DUONEB) 0.5 mg-3 mg(2.5 mg base)/3 mL nebuInhale 3 mL as instructed every 4 hours as needed for wheezing/shortness of breath.Disp: 120 EachRfl: 5 aspirin, enteric coated (ECOTRIN LOW STRENGTH) 81 mg EC tabletTake 1 tablet by mouth once daily.Disp: 90 tabletRfl: 3 rosuvastatin (CRESTOR) 5 mg tabletTake 1 tablet by mouth daily at bedtime.Disp: 90 tabletRfl: 3 carvedilol (COREG) 3.125 mg tabletTake 1 tablet by mouth twice daily.Disp: 180 tabletRfl: 3 diphenhydrAMINE-Acetaminophen 25-500 mg tabTake by mouth once daily as needed.Disp: Rfl: Social History Tobacco Use Smoking status: Every Day Packs/day: 0.25 Years: 52.00 Additional pack years: 0.00 Total pack years: 13.00 Types: Cigarettes Start date: 1971 Smokeless tobacco: Never Tobacco comments: started age 14- 2 ppd per day in past, down to 3 cigarettes per day. Vaping Use Vaping Use: Some days Substance Use Topics Alcohol use: Not Currently Comment: Not locally. Drug use: No Family History Problem Relation Age of Onset Diabetes Mother Ischemic Heart Disease Mother CHF Hypertension Mother Colon Cancer Father Colon Polyps Father Genetic Father Parkinsonism Sister 2018 other (hemochromatosis) Sister 2018 Diabetes Brother Lung Cancer Paternal Grandfather other (throat cancer) Paternal Grandfather COPD Maternal Aunt Cancer Paternal Uncle COPD Paternal Uncle PAST SURGICAL HISTORY Procedure Laterality Date APPENDECTOMY 1979 CARDIAC CATH 04/2011 Dr. Yang DELIVERY ONLY , low cervical x2 CHOLECYSTECTOMY 2007 Cholecystectomy COLONOSCOPY 09/14/02 RG - normal COLONOSCOPY FLX DX W/COLLJ SPEC WHEN PFRMD 04/13/2012 Colonoscopy DILATION AND CURETTAGE DXAND/THER NONOBST (more content not included)... [facility] 03-03-2023 History of Presen t illness Narrative Images from the original note were not included. Patient: Jacque Dozier PCP: Boyd Da Silva PA-C CC: follow up HPI: Jacque Dozier 67 year old female current smoker with PMH significant for bipolar d/o, alcohol abuse, HTN, CAD, severe COPD, and granulomatous disease. Current therapy consists of daily Trelegy with as needed Combivent. Today, patient reports she has decreased her smoking to 3 cigarettes daily. Tolerating Wellbutrin well. Insurance did not cover lozenges. About 1 month ago she started with pleuritic pain in left. Daily cough productive of dark, black sputum. No hemoptysis. Increased wheezing. Exertional dyspnea with minimal effort. No fevers or chills. Night sweats that also started about a month ago. No sick contacts. No Covid test done. Patient does not have supplemental oxygen with her in the office. States it is in the car. Wearing 2-3 L as needed and at night. DME: [facility]. PAST MEDICAL HISTORY Diagnosis Date Abdominal pain, other specified site Alcohol abuse Back pain DDD Bipolar affect, depressed (HCC) COPD (chronic obstructive pulmonary disease) (HCC) Coronary artery disease Depression Esophagitis, unspecified Essential hypertension, benign Gastritis Hyperlipidemia Lung nodules Nausea Neuralgia Other forms of migraine Prediabetes Tobacco use Allergies: Codeine Vomiting buPROPion SR (WELLBUTRIN SR) 150 mg 12 hr tablet^Take one tablet daily for 3 days, then one tablet by mouth twice daily (Begin two weeks prior to quit date)^Disp: 65 tablet^Rfl: 0 buPROPion SR (WELLBUTRIN SR) 150 mg 12 hr tablet^Take 1 tablet by mouth two times a day.^Disp: 60 tablet^Rfl: 3 nicotine, polacrilex, 2 mg [address]^Place 1 Each between cheek and gum every 2 hours as needed (smoking).^Disp: 72 Lozenge^Rfl: 3 mirtazapine (REMERON) 30 mg tablet^Take 1 tablet by mouth daily at bedtime.^Disp: 30 tablet^Rfl: 2 gabapentin (NEURONTIN) 300 mg capsule^Take 1 capsule by mouth daily at bedtime for 90 days.^Disp: 30 capsule^Rfl: 2 lamoTRIgine (LAMICTAL) 200 mg tablet^TAKE 1 TABLET BY MOUTH EVERYDAY AT BEDTIME.^Disp: 30 tablet^Rfl: 2 ipratropium 20 mcg-albuterol 100 mcg (COMBIVENT RESPIMAT) 20-100 mcg/actuation inhaler^Inhale 1 Puff as instructed four times daily as needed.^Disp: 3 Each^Rfl: 3 VRAYLAR 3 mg capsule^TAKE ONE CAPSULE BY MOUTH DAILY AT 9AM^Disp: 30 capsule^Rfl: [address] (PROTONIX) 40 mg tablet^Take 1 tablet by mouth twice daily before meals. Take on empty stomach, 1/2 hr before meal.^Disp: 60 tablet^Rfl: 2 famotidine (PEPCID) 20 mg tablet^Take 1 tablet by mouth daily at bedtime.^Disp: 90 tablet^Rfl: 1 doxazosin (CARDURA) 1 mg tablet^Take 1 tablet by mouth once daily.^Disp: 30 tablet^Rfl: 2 potassium chloride (K-TAB) 10 mEq tablet^Take 1 tablet by mouth twice daily.^Disp: 60 tablet^Rfl: 5 amLODIPine (NORVASC) 10 mg tablet^Take 1 tablet by mouth once daily.^Disp: 90 tablet^Rfl: 3 zutvvmjjedp-gvuthxjol-iflzodjx (TRELEGY ELLIPTA) 200-62.5-25 mcg inhalation powder^Inhale 1 Puff as instructed once daily.^Disp: 1 Each^Rfl: 5 ipratropium-albuterol (DUONEB) 0.5 mg-3 mg(2.5 mg base)/3 mL nebu^Inhale 3 mL as instructed every 4 hours as needed for wheezing/shortness of breath.^Disp: 120 Each^Rfl: 5 aspirin, enteric coated (ECOTRIN LOW STRENGTH) 81 mg EC tablet^Take 1 tablet by mouth once daily.^Disp: 90 tablet^Rfl: 3 rosuvastatin (CRESTOR) 5 mg tablet^Take 1 tablet by mouth daily at bedtime.^Disp: 90 tablet^Rfl: 3 carvedilol (COREG) 3.125 mg tablet^Take 1 tablet by mouth twice daily.^Disp: 180 tablet^Rfl: 3 diphenhydrAMINE-Acetaminophen 25-500 mg tab^Take by mouth once daily as needed.^Disp: ^Rfl: Social History Tobacco Use Smoking status: Every Day Packs/day: 0.25 Years: 52.00 Additional pack years: 0.00 Total pack years: 13.00 Types: Cigarettes Start date: 1971 Smokeless tobacco: Never Tobacco comments: started age 14- 2 ppd per day in past, down to 3 cigarettes per day. Vaping Use Vaping Use: Some days Substance Use Topics Alcohol use: Not Currently Comment: Not locally. Drug use: No Family History Problem Relation Age of Onset Diabetes Mother Ischemic Heart Disease Mother CHF Hypertension Mother Colon Cancer Father Colon Polyps Father Genetic Father Parkinsonism Sister 2018 other (hemochromatosis) Sister 2018 Diabetes Brother Lung Cancer Paternal Grandfather other (throat cancer) Paternal Grandfather COPD Maternal Aunt Cancer Paternal Uncle COPD Paternal Uncle PAST SURGICAL HISTORY Procedure Laterality Date APPENDECTOMY 1979 CARDIAC CATH 04/2011 Dr. Yang DELIVERY ONLY , low cervical x2 CHOLECYSTECTOMY 2007 Cholecystectomy COLONOSCOPY 09/14/02 RG - normal COLONOSCOPY FLX DX W/COLLJ SPEC WHEN PFRMD 04/13/2012 Colonoscopy DILATION & CURETTAGE DX&/THER NONOBSTETRIC Dilation & curettage EGD 09/14/02 RG ESOPHAGOGASTRODUODENOSCOPY TRANSORAL DIAGNOSTIC 04/09/2010 EGD ESOPHAGOGASTRODUODENOSCOPY TRANSORAL DIAGNOSTIC 04/13/2012 EGD ESOPHAGOGASTRODUODENOSCOPY TRANSORAL DIAGNOSTIC 02/27/15 EGD EXTRACTION, ERUPTED TOOTH OR EXPOSED ROOT (ELEVATION AND/OR FORCEPS REMOVAL) Teeth removed HYSTERECTOMY HX 10/23/1985 LAPS ABD PRTM&OMENTUM DX W/WO SPEC BR/WA SPX Laparoscopy I reviewed the past medical history, family history, social history and surgical history with changes noted above and updated in EMR. IMMUNIZATIONS Prevnar - 11/02/2021 Pneumovax - 06/16/2018 Influenza - 03/03/2023 COVID-19 - xx ROS: CONSTITUTIONAL: No fevers, chills, nightsweats, unintended weight loss HEENT: Denies nasal congestion/sinus symptoms, problematic allergy problems. CARDIOVASCULAR: No palpitations, orthopnea, PND, edema. PULM: See HPI PSY: No concerns regarding depression, anxiety. History of bipolar. INTEGUMENTARY: No new skin changes or rashes PHYSICAL EXAMINATION: BP 138/82 Pulse 71 Wt 49.4 kg (109 lb) SpO2 92% BMI 20.60 kg/m Gen: No acute distress. Cooperative with examination. HEENT: Normocephalic. Sclera, conjunctiva clear. Adequate dentition. No thrush. Resp: No stridor, accessory respiratory muscle use, supra-sternal or intercostal retractions. Scattered wheezes. No crackles. CV: Regular rythm. Heart tones normal. Radial pulses normal. MSK: No kyphoscoliosis. Ext: Warm and well perfused. No clubbing, cyanosis, edema. Skin: No rash, ecchymoses. Neuro: Mental status normal. Affect normal. No tremor. DATA: PFT, 10/26/2021 IMPRESSION: Spirometry indicates severe obstruction. There was not a significant bronchodilator response. Electronically Signed On 10-26-2021 14:02:23 EDT by Caty Hale M.D. Imaging / Diagnostic Studies: LDCT chest [facility] 05/2022: Reviewed images. No suspicious lesions. LUNG RADS 1 ASSESSMENT/PLAN: 1. Stage 3 severe COPD by GOLD classification (HCC) - ICD9: 496, ICD10: J44.9 (primary diagnosis) Continue Trelegy with as needed Combivent. Smoking cessation is critical. Influenza vaccine today. 2. Cigarette nicotine dependence without complication - ICD9: 305.1, ICD10: F17.210 Cessation encouraged. Physiologic and physical aspects of tobacco addiction as well as strategies for quitting were discussed. Counseling was given focusing on the harmful effects of this addiction especially given the patient's medical condition(s) which will be worsened because of the chemicals in tobacco. 3. COPD with exacerbation (HCC) - ICD9: 491.21, ICD10: J44.1 CXR today. Will treat with Levaquin and Prednisone. - XR CHEST 2V FRONTAL/LAT - LEVOFLOXACIN 500 MG TABLET - PREDNISONE 20 MG TABLET 4. Need for influenza vaccination - ICD9: V04.81, ICD10: Z23 - INFLUENZA VACCINE, PRSV FREE, AGE 65+ YR, HIGH DOSE, QUADRIVALENT (FLUZONE HIGH-DOSE) - INFLUENZA VACCINE, PRSV FREE, AGE 65+ YR, HIGH DOSE, QUADRIVALENT (FLUZONE HIGH-DOSE) ACCINE, PRSV FREE, AGE 65+ YR, HIGH DOSE, QUADRIVALENT (FLUZONE HIGH-DOSE) 5. Chronic hypoxemic respiratory failure (HCC) - ICD9: 518.83, 799.02, ICD10: J96.11 Patient requires 2L supplemental oxygen with exertion and at night. Portions of this documentation were copied and pasted from previous office visit notes in order to provide a cohesive continuity of the history. The note has been reviewed and edited and updated as necessary. Beatrice Reaves PA-C documented in this encounter [facility] 01-20-2023 Note HNO ID: [id number] Author: Bambi Cronin RPFT Service: ? Author Type: Respiratory Therapist Type: Procedures Filed: 01/20/2023 10:04 AM Note Text: RESPIRATORY THERAPY OXIMETRY WITH AMBULATION Oximetry with Ambulation Test for This Encounter O2 Device O2 Adapter NC O2 Flow SpO2% HR Activity Ft Walked (ft) Time (min) Avg Speed (MPH) R/A 90 85 Resting R/A 87 93 Walking, usual pace 370 2.5 1.68 NC 2 93 80 Resting NC 2 93 87 Walking, usual pace 370 3 1.4 General Information Pulse Oximetry Site Total Time Spent O2 Supply Carrier Walking Assistance/Device R Index Finger 30 3 Wheel Walker None NAME: GRACIA Lambert PATIENT NAME: Jacque Dozier DATE: January 20, 2023 TIME: 10:04 AM Comment: [facility] 01-20-2023 Note HNO ID: [id number] Author: Beatrice Reaves PA-C Service: ? Author Type: Physician Metal Roofing Mechanic Type: Progress Notes Filed: 01/20/2023 10:38 AM Note Text: Patient: Jacque Dozier PCP: Boyd Da Silva PA-C CC: follow up HPI: Jacque Dozier 67 year old female current smoker with PMH significant for bipolar d/o, alcohol abuse, HTN, CAD, severe COPD, and granulomatous disease. Current therapy consists of daily Trelegy with as needed Combivent. Patient presents today for oxygen assessment. She has been evaluated in the ED on 2 occasions (November and December) for SOB at [facility]. She was not admitted. I do not have access to those records. Patient states she was told to wear supplemental oxygen continuously. Today, patient reports daily cough productive of brown sputum. No hemoptysis. Frequent wheezing. Exertional dyspnea with minimal effort. Currently using Combivent more than 4 times daily. She had not smoked since Tuesday, but yesterday smoked. She is smoking 4-5 cigarettes daily. Currently wearing 2.5 L supplemental oxygen at night. DME: [facility]. PAST MEDICAL HISTORY Diagnosis Date Abdominal pain, other specified site Alcohol abuse Back pain DDD Bipolar affect, depressed (HCC) COPD (chronic obstructive pulmonary disease) (HCC) Coronary artery disease Depression Esophagitis, unspecified Essential hypertension, benign Gastritis Hyperlipidemia Lung nodules Nausea Neuralgia Other forms of migraine Prediabetes Tobacco use Allergies: Codeine Vomiting mirtazapine (REMERON) 30 mg tabletTake 1 tablet by mouth daily at bedtime.Disp: 30 tabletRfl: 2 gabapentin (NEURONTIN) 300 mg capsuleTake 1 capsule by mouth daily at bedtime for 90 days.Disp: 30 capsuleRfl: 2 lamoTRIgine (LAMICTAL) 200 mg tabletTAKE 1 TABLET BY MOUTH EVERYDAY AT BEDTIME.Disp: 30 tabletRfl: 2 ipratropium 20 mcg-albuterol 100 mcg (COMBIVENT RESPIMAT) 20-100 mcg/actuation inhalerInhale 1 Puff as instructed four times daily as needed.Disp: 3 EachRfl: 3 VRAYLAR 3 mg capsuleTAKE ONE CAPSULE BY MOUTH DAILY AT 9AMDisp: 30 capsuleRfl: [address] (PROTONIX) 40 mg tabletTake 1 tablet by mouth twice daily before meals. Take on empty stomach, 1/2 hr before meal.Disp: 60 tabletRfl: 2 famotidine (PEPCID) 20 mg tabletTake 1 tablet by mouth daily at bedtime.Disp: 90 tabletRfl: 1 doxazosin (CARDURA) 1 mg tabletTake 1 tablet by mouth once daily.Disp: 30 tabletRfl: 2 potassium chloride (K-TAB) 10 mEq tabletTake 1 tablet by mouth twice daily.Disp: 60 tabletRfl: 5 amLODIPine (NORVASC) 10 mg tabletTake 1 tablet by mouth once daily.Disp: 90 tabletRfl: 3 tqbtsywqvzk-ctphlkpbu-fvoinwyh (TRELEGY ELLIPTA) 200-62.5-25 mcg inhalation powderInhale 1 Puff as instructed once daily.Disp: 1 EachRfl: 5 ipratropium-albuterol (DUONEB) 0.5 mg-3 mg(2.5 mg base)/3 mL nebuInhale 3 mL as instructed every 4 hours as needed for wheezing/shortness of breath.Disp: 120 EachRfl: 5 aspirin, enteric coated (ECOTRIN LOW STRENGTH) 81 mg EC tabletTake 1 tablet by mouth once daily.Disp: 90 tabletRfl: 3 rosuvastatin (CRESTOR) 5 mg tabletTake 1 tablet by mouth daily at bedtime.Disp: 90 tabletRfl: 3 carvedilol (COREG) 3.125 mg tabletTake 1 tablet by mouth twice daily.Disp: 180 tabletRfl: 3 diphenhydrAMINE-Acetaminophen 25-500 mg tabTake by mouth once daily as needed.Disp: Rfl: Social History Tobacco Use Smoking status: Every Day Packs/day: 0.25 Years: 52.00 Additional pack years: 0.00 Total pack years: 13.00 Types: Cigarettes Start date: 1971 Smokeless tobacco: Never Tobacco comments: started age 14- 2 ppd per day in past, down to 3 cigarettes per day. Vaping Use Vaping Use: Some days Substance Use Topics Alcohol use: Not Currently Comment: Not locally. Drug use: No Family History Problem Relation Age of Onset Diabetes Mother Ischemic Heart Disease Mother CHF Hypertension Mother Colon Cancer Father Colon Polyps Father Genetic Father Parkinsonism Sister 2018 other (hemochromatosis) Sister 2018 Diabetes Brother Lung Cancer Paternal Grandfather other (throat cancer) Paternal Grandfather COPD Maternal Aunt Cancer Paternal Uncle COPD Paternal Uncle PAST SURGICAL HISTORY Procedure Laterality Date APPENDECTOMY 1979 CARDIAC CATH 04/2011 Dr. Yang DELIVERY ONLY , low cervical x2 CHOLECYSTECTOMY 2007 Cholecystectomy COLONOSCOPY 09/14/02 RG - normal COLONOSCOPY FLX DX W/COLLJ SPEC WHEN PFRMD 04/13/2012 Colonoscopy DILATION AND CURETTAGE DXAND/THER NONOBSTETRIC Dilation AND curettage EGD 09/14/02 RG ESOPHAGOGASTRODUODENOSCOPY TRANSORAL DIAGNOSTIC 04/09/2010 EGD ESOPHAGOGASTRODUODENOSCOPY TRANSORAL DIAGNOSTIC 04/13/2012 EGD ESOPHAGOGASTRODUODENOSCOPY TRANSORAL DIAGNOSTIC 02/27/15 EGD EXTRACTION, ERUPTED TOOTH OR EXPOSED ROOT (ELEVATION AND/OR FORCEPS REMOVAL) Teeth removed HYSTERE (more content not included)... [facility] 01-20-2023 Note HNO ID: [id number] Author: Bambi Cronin RPFT Service: ? Author Type: Respiratory Therapist Type: Progress Notes Filed: 01/20/2023 10:04 AM Note Text: PULM FUNCTION SMARTBLOCK: Provider: Beatrice Reaves PA-C Assisting Tech: Bambi Cronin RPFT Oximetry - Ambulation: 1 [facility] 01-20-2023 Procedure note Associated Ord er(s): OXIMETRY WITH AMBULATION RESPIRATORY THERAPY OXIMETRY WITH AMBULATION Oximetry with Ambulation Test for This Encounter O2 Device O2 Adapter NC O2 Flow SpO2% HR Activity Ft Walked (ft) Time (min) Avg Speed (MPH) R/A 90 85 Resting R/A 87 93 Walking, usual pace 370 2.5 1.68 NC 2 93 80 Resting NC 2 93 87 Walking, usual pace 370 3 1.4 General Information Pulse Oximetry Site Total Time Spent O2 Supply Carrier Walking Assistance/Device R Index Finger 30 3 Wheel Walker None NAME: GRACIA Lambert PATIENT NAME: Jacque Dozier DATE: January 20, 2023 TIME: 10:04 AM Comment: documented in this encounter [facility] 01-20-2023 History of Presen t illness Narrative PULM FUNCTION SMARTBLOCK: Provider: Beatrice Reaves PA-C Assisting Tech: Bambi Cronin RPFT Oximetry - Ambulation: 1 documented in this encounter [facility] 01-18-2023 Miscellaneous Notes Appt scheduled. Tamar Morales LPN Left detailed message for patient. She needs an in person evaluation and an updated oximetry test to qualify for portability. She did not desaturate with exertion in January 2022, so we are unable to order portability for her O2. Best to be seen. DVEONTE has multiple openings on 01/20 Tamar Morales LPN Patient called. Verified name and date of . States she has been in emergency room twice this month and prescribed prednisone and antibiotics. Was tested for Covid and pneumonia but negative. She feels overall her breathing is getting worse with increased shortness of breath with ambulation. She has stopped smoking on Tuesday and stopped vaping approximately one month ago. Patient fearful to do errands due to shortness or breath- uses Oxygen at night. Emergency room provider instructed her to stay on it all the time. She is also asking about getting portable oxygen ordered. Please review and advise. Aislinn Spencer LPN documented in this encounter [facility] 12-14-2022 Note HNO ID: [id number] Author: Matt Vickers APRN.MINE CAR MECHANIC Service: ? Author Type: Nurse Practitioner Type: Progress Notes Filed: 12/14/2022 9:54 AM Note Text: FOLLOW UP - PSYCHIATRIC PROGRESS NOTE Visit Type:Virtual Visit utilizing two-way audio and video for at least a portion of the visit. Consent for virtual visit obtained verbally. Confidentiality limitations with virtual visits reviewed with the patient and guardian, if present, who have accepted the risk verbally prior to proceeding with encounter. I have communicated my name and active licensure. The patient's identity and physical location were verified at the time of this visit. Either the patient or their legal physician representative has been informed of the risks and benefits of -- and alternatives to -- treatment through a remote evaluation and consents to proceed with the evaluation remotely. Reason for Visit: Outpatient follow-up and safety monitoring of previously prescribed psychiatric medication, psychotherapy or other treatment CC: medication management HPI: Allison returns for a medication management follow-up appointment. She reports she is feeling terrible. She reports she has not been able to get her prescriptions or her Remeron from her pharmacy. She was in the emergency room the other night because she was experiencing shortness of breath. She was able to follow the directions of increasing the Remeron because she had a home supply and discontinued the Lexapro as ordered last week. She doesn't have the gabapentin that was ordered last week. Over the past week; sleep is still poor. She is smoking cigarettes 5-6 cigarettes daily now. She denies si/hi. No change in sleep,but she did tolerate the tapering/ discontinuation of the Lexapro as ordered. Appetite is low. Affect is a bit brighter today,but she did express the extreme stress she is dealing with re: family living situation and frustration with her mail order pharmacy not sending her medications. Today, we will send the Remeron order so she can continue with the medication and the gabapentin order (has not started this) to [facility] locally while she is waiting for her mail order. Risks and benefits of the medication, including any black box warnings, were discussed with the patient. Allison verbalized understanding to all instructions and is in agreement with the treatment plan; confirmed that she would get to ER if needed for increase symptoms or safety concerns. Interval Progress: Same PATIENT DATA: Generalized Anxiety Disorder Scale (SIMON-7) SIMON - 7 SCORES 12/01/2022 12/06/2022 12/13/2022 SIMON-7 Score 12 11 10 (0-4) minimal anxiety, (5-9) mild anxiety, (10-14) moderate anxiety, (15-21) severe anxiety Patient Health Questionnaire (PHQ-9) PHQ-9 12/01/2022 12/06/2022 12/13/2022 Score 12 13 13 (0-4) minimal depression, (5-9) mild depression, (10-14) moderate depression, (15-19) moderately severe depression, (20-27) severe depression PROMIS Global Health PROMIS Global Health - (T-Scores - the mean of general population = 50. Five points is a clinically meaningful difference.) 02/25/2022 07/04/2022 10/24/2022 Physical T-Score 32.4 37.4 39.8 Mental T-Score 31.3 33.8 33.8 PAST MEDICAL HISTORY Diagnosis Date Abdominal pain, other specified site Alcohol abuse Back pain DDD Bipolar affect, depressed (HCC) COPD (chronic obstructive pulmonary disease) (HCC) Coronary artery disease Depression Esophagitis, unspecified Essential hypertension, benign Gastritis Hyperlipidemia Lung nodules Nausea Neuralgia Other forms of migraine Prediabetes Tobacco use PAST SURGICAL HISTORY Procedure Laterality Date APPENDECTOMY 1979 CARDIAC CATH 04/2011 Dr. Yang DELIVERY ONLY , low cervical x2 CHOLECYSTECTOMY 2007 Cholecystectomy COLONOSCOPY 09/14/02 RG - normal COLONOSCOPY FLX DX W/COLLJ SPEC WHEN PFRMD 04/13/2012 Colonoscopy DILATION AND CURETTAGE DXAND/THER NONOBSTETRIC Dilation AND curettage EGD 09/14/02 RG ESOPHAGOGASTRODUODENOSCOPY TRANSORAL DIAGNOSTIC 04/09/2010 EGD ESOPHAGOGASTRODUODENOSCOPY TRANSORAL DIAGNOSTIC 04/13/2012 EGD ESOPHAGOGASTRODUODENOSCOPY TRANSORAL DIAGNOSTIC 02/27/15 EGD EXTRACTION, ERUPTED TOOTH OR EXPOSED ROOT (ELEVATION AND/OR FORCEPS REMOVAL) Teeth removed HYSTERECTOMY HX 10/23/1985 LAPS ABD PRTMANDOMENTUM DX W/WO SPEC BR/WA SPX Laparoscopy Current Outpatient Medications Medication Sig Dispense Refill mirtazapine (REMERON) 30 mg tablet Take 1 tablet by mouth daily at bedtime. 30 tablet 2 gabapentin (NEURONTIN) 300 mg capsule Take 1 capsule by mouth daily at bedtime for 90 days. 30 capsule 2 lamoTRIgine (LAMICTAL) 200 mg tablet TAKE 1 TABLET BY MOUTH EVERYDAY AT BEDTIME. 30 tablet 2 ipratropium 20 mcg-albuterol 100 mcg (COMBIVENT RESPIMAT) 20-100 mcg/actuation inhaler Inhale 1 Puff as instructed four times daily as needed. 3 Each 3 VRAYLAR 3 mg capsule TAKE ONE C (more content not included)... [facility] 12-14-2022 History of Presen t illness Narrative FOLLOW UP - PSYCHIATRIC PROGRESS NOTE Visit Type:Virtual Visit utilizing two-way audio and video for at least a portion of the visit. Consent for virtual visit obtained verbally. Confidentiality limitations with virtual visits reviewed with the patient and guardian, if present, who have accepted the risk verbally prior to proceeding with encounter. I have communicated my name and active licensure. The patient's identity and physical location were verified at the time of this visit. Either the patient or their legal physician representative has been informed of the risks and benefits of -- and alternatives to -- treatment through a remote evaluation and consents to proceed with the evaluation remotely. Reason for Visit: Outpatient follow-up and safety monitoring of previously prescribed psychiatric medication, psychotherapy or other treatment CC: medication management HPI: Allison returns for a medication management follow-up appointment. She reports she is feeling terrible. She reports she has not been able to get her prescriptions or her Remeron from her pharmacy. She was in the emergency room the other night because she was experiencing shortness of breath. She was able to follow the directions of increasing the Remeron because she had a home supply and discontinued the Lexapro as ordered last week. She doesn't have the gabapentin that was ordered last week. Over the past week; sleep is still poor. She is smoking cigarettes 5-6 cigarettes daily now. She denies si/hi. No change in sleep,but she did tolerate the tapering/ discontinuation of the Lexapro as ordered. Appetite is low. Affect is a bit brighter today,but she did express the extreme stress she is dealing with re: family living situation and frustration with her mail order pharmacy not sending her medications. Today, we will send the Remeron order so she can continue with the medication and the gabapentin order (has not started this) to [facility] locally while she is waiting for her mail order. Risks and benefits of the medication, including any black box warnings, were discussed with the patient. Allison verbalized understanding to all instructions and is in agreement with the treatment plan; confirmed that she would get to ER if needed for increase symptoms or safety concerns. Interval Progress: Same PATIENT DATA: Generalized Anxiety Disorder Scale (SIMON-7) SIMON - 7 SCORES 12/01/2022 12/06/2022 12/13/2022 SIMON-7 Score 12 11 10 (0-4) minimal anxiety, (5-9) mild anxiety, (10-14) moderate anxiety, (15-21) severe anxiety Patient Health Questionnaire (PHQ-9) PHQ-9 12/01/2022 12/06/2022 12/13/2022 Score 12 13 13 (0-4) minimal depression, (5-9) mild depression, (10-14) moderate depression, (15-19) moderately severe depression, (20-27) severe depression PROMIS Global Health PROMIS Global Health - (T-Scores - the mean of general population = 50. Five points is a clinically meaningful difference.) 02/25/2022 07/04/2022 10/24/2022 Physical T-Score 32.4 37.4 39.8 Mental T-Score 31.3 33.8 33.8 PAST MEDICAL HISTORY Diagnosis Date Abdominal pain, other specified site Alcohol abuse Back pain DDD Bipolar affect, depressed (HCC) COPD (chronic obstructive pulmonary disease) (HCC) Coronary artery disease Depression Esophagitis, unspecified Essential hypertension, benign Gastritis Hyperlipidemia Lung nodules Nausea Neuralgia Other forms of migraine Prediabetes Tobacco use PAST SURGICAL HISTORY Procedure Laterality Date APPENDECTOMY 1979 CARDIAC CATH 04/2011 Dr. Yang DELIVERY ONLY , low cervical x2 CHOLECYSTECTOMY 2007 Cholecystectomy COLONOSCOPY 09/14/02 RG - normal COLONOSCOPY FLX DX W/COLLJ SPEC WHEN PFRMD 04/13/2012 Colonoscopy DILATION & CURETTAGE DX&/THER NONOBSTETRIC Dilation & curettage EGD 09/14/02 RG ESOPHAGOGASTRODUODENOSCOPY TRANSORAL DIAGNOSTIC 04/09/2010 EGD ESOPHAGOGASTRODUODENOSCOPY TRANSORAL DIAGNOSTIC 04/13/2012 EGD ESOPHAGOGASTRODUODENOSCOPY TRANSORAL DIAGNOSTIC 02/27/15 EGD EXTRACTION, ERUPTED TOOTH OR EXPOSED ROOT (ELEVATION AND/OR FORCEPS REMOVAL) Teeth removed HYSTERECTOMY HX 10/23/1985 LAPS ABD PRTM&OMENTUM DX W/WO SPEC BR/WA SPX Laparoscopy Current Outpatient Medications Medication Sig Dispense Refill mirtazapine (REMERON) 30 mg tablet Take 1 tablet by mouth daily at bedtime. 30 tablet 2 gabapentin (NEURONTIN) 300 mg capsule Take 1 capsule by mouth daily at bedtime for 90 days. 30 capsule 2 lamoTRIgine (LAMICTAL) 200 mg tablet TAKE 1 TABLET BY MOUTH EVERYDAY AT BEDTIME. 30 tablet 2 ipratropium 20 mcg-albuterol 100 mcg (COMBIVENT RESPIMAT) 20-100 mcg/actuation inhaler Inhale 1 Puff as instructed four times daily as needed. 3 Each 3 VRAYLAR 3 mg capsule TAKE ONE CAPSULE BY MOUTH DAILY AT 9AM [address] (PROTONIX) 40 mg tablet Take 1 tablet by mouth twice daily before meals. Take on empty stomach, 1/2 hr before meal. 60 tablet 2 famotidine (PEPCID) 20 mg tablet Take 1 tablet by mouth daily at bedtime. 90 tablet 1 doxazosin (CARDURA) 1 mg tablet Take 1 tablet by mouth once daily. 30 tablet 2 potassium chloride (K-TAB) 10 mEq tablet Take 1 tablet by mouth twice daily. 60 tablet 5 amLODIPine (NORVASC) 10 mg tablet Take 1 tablet by mouth once daily. 90 tablet 3 wmmlgkoyjlk-xqaeurwoq-rhoujmuz (TRELEGY ELLIPTA) 200-62.5-25 mcg inhalation powder Inhale 1 Puff as instructed once daily. 1 Each 5 ipratropium-albuterol (DUONEB) 0.5 mg-3 mg(2.5 mg base)/3 mL nebu Inhale 3 mL as instructed every 4 hours as needed for wheezing/shortness of breath. 120 Each 5 aspirin, enteric coated (ECOTRIN LOW STRENGTH) 81 mg EC tablet Take 1 tablet by mouth once daily. 90 tablet 3 rosuvastatin (CRESTOR) 5 mg tablet Take 1 tablet by mouth daily at bedtime. 90 tablet 3 carvedilol (COREG) 3.125 mg tablet Take 1 tablet by mouth twice daily. 180 tablet 3 diphenhydrAMINE-Acetaminophen 25-500 mg tab Take by mouth once daily as needed. Current Facility-Administered Medications Medication Dose Route Frequency Provider Last Rate Last Admin perflutren lipid microspheres 1.3 mL in NaCl (PF) 0.9% 10 mL injection (DEFINITY) INTRAVENOUS DIRECTED PRN Beatrice Reaves PA-C sodium chloride 0.9 % (flush) 10 mL (BD POSIFLUSH) 10 mL INTRAVENOUS DIRECTED PRN Beatrice Reaves PA-C ROS: GENERAL: Negative for malaise, significant weight loss and fever. HEENT: No changes in hearing or vision, no nose bleeds or other nasal problems. RESPIRATORY: Negative for cough, but does have mild wheezing and shortness of breath, but improved from 3 days ago CARDIOVASCULAR: Negative for chest pain, leg swelling and palpitations. GI: Negative for abdominal discomfort, blood in stools or black stools. : Negative for dysuria, frequency and incontinence. MUSCULOSKELETAL: Negative for joint pain or swelling, back pain, and muscle pain. SKIN: Negative for lesions, rash, and itching. HEMATOLOGY/LYMPHOLOGY Negative for prolonged bleeding, bruising easily, and swollen nodes. ENDOCRINE: Negative for cold or heat intolerance, polyuria, polydipsia and goiter. NEURO: Negative for headaches, syncope, seizures and paralysis. PFSH: see hpi VITAL SIGNS: There were no vitals filed for this visit. MENTAL STATUS EXAM: CONSTITUTIONAL: Well groomed ORIENTATION: Person, Place, Time and Situation MEMORY: Recent intact, Remote intact, Immediate intact CONCENTRATION: Normal MOOD: anxious AFFECT: Restricted,but slightly brighter than last week SPEECH : Clear & distinct LANGUAGE : Normal ASSOCIATIONS: Intact THOUGHT PROCESS : Logical, Coherent, and Rational PROGRESSION : There was no evidence of disturbance in thought perception or progression. FUND OF KNOWLEDGE : Appropriate and Adequate SUICIDE: None HOMICIDE: None DATA REVIEWED: Electronic medical record DIAGNOSIS: PRIMARY: Mood Disorder Bipolar II Disorder Secondary : Anxiety Disorder Generalized Anxiety Disorder and panic attacks Other : insomnia related to mental health condition GAF: 54-60-51 Moderate symptoms or moderate difficulty in social, occupational or school functioning. TREATMENT PLAN: 1. She is smoking 5-6 cigarettes per day instead of 4 per day,but reminded her this is better than the 2 packs she was smoking. She is also vaping. She saw pcp recently for exacerbation of COPD and went to the emergency room for this on 12/11; will be starting Prednisone when pharmacy sends this through mail; discussed how this can cause increased issues with irritability, insomnia and anxiety. 2. continue with Remeron 30mg one daily to help with sleep and anxiety and add gabapentin 300mg at hs to help with anxiety and sleep (still did no receive this via mail order and sent to [facility] today) in future: (plan to possibly increase Remeron further if needed or just increase the gabapentin) no changes with Vraylar 3mg daily; last aims test was 08/2021 and was normal; no abnormal movements noted today 4. continue with Lamictal to total 200mg daily at hs to target racing thoughts, irritability and depression.; verbalized understanding to stop if rash develops and to call office(may also increase this in the future 5. I do not recommend benzodiazepines for panic attacks as she has copd with sob 6. has a new list of therapists to call and establish and is declining this option MEDICATION CHANGES: See Treatment Plan Follow Up: follow up on 01/03 at 1p I spent a total of 26 minutes on the date of the service which included preparing to see the patient, [id number] patient care, completing clinical documentation, obtaining and/or reviewing separately obtained history, performing a medically appropriate examination, counseling and educating the patient/family/caregiver, ordering medications, tests, or procedures, and care coordination (not separately reported). ADD ON PSYCHOTHERAPY CODE : No SIGNATURE: Matt Vickers APRN.CNP PATIENT NAME: Jacque Dozier DATE: December 14, 2022 TIME: 9:26 AM documented in this encounter [facility] 12-08-2022 Note HNO ID: [id number] Author: Matt Vickers APRN.CNP Service: ? Author Type: Nurse Practitioner Type: Progress Notes Filed: 12/08/2022 9:56 AM Note Text: FOLLOW UP - PSYCHIATRIC PROGRESS NOTE Visit Type:Virtual Visit utilizing two-way audio and video for at least a portion of the visit. Consent for virtual visit obtained verbally. Confidentiality limitations with virtual visits reviewed with the patient and guardian, if present, who have accepted the risk verbally prior to proceeding with encounter. I have communicated my name and active licensure. The patient's identity and physical location were verified at the time of this visit. Either the patient or their legal physician representative has been informed of the risks and benefits of -- and alternatives to -- treatment through a remote evaluation and consents to proceed with the evaluation remotely. Reason for Visit: Outpatient follow-up and safety monitoring of previously prescribed psychiatric medication, psychotherapy or other treatment CC: medication management HPI: 1. follow up 12/08 at 930am and 12/14 at 930am 2. lower the Lexapro from 20 to 10 mg and will increase the Remeron 15mg to 1 1/2 tablets daily to help with sleep and anxiety; this should be less activating. Will follow her weekly for next few weeks as make further adjustments (plan to d/c Lexapro next week and increase Remeron further if tolerates) 3. no changes with Vraylar 3mg daily; last aims test was 08/2021 and was normal; no abnormal movements noted today 4. continue with Lamictal to total 200mg daily at hs to target racing thoughts, irritability and depression.; verbalized understanding to stop if rash develops and to call office(may also increase this in the future 5. I do not recommend benzodiazepines for panic attacks as she has copd with sob 6. has a new list of therapists to call and establish and is declining this option Today, Allison returns for a medication management follow-up appointment. She still is having a lot of stress. Her daughter's step brother is still living in a trailer in her yard as he has no place to go; she wants him out and has told him this. She doesn't want to call the police to have him evicted because it will cause issues with her daughter. Anxiety is elevated because of the above stress. She is sleeping sounder with the lowered Lexapro and the raised Remeron dose; getting 4-5 hours of sleep. She denies si/hi. She started smoking 5 cigarettes per day instead of 4 per day,but reminded her this is better than the 2 packs she was smoking. She is also vaping. She saw pcp recently for exacerbation of COPD and will be starting Prednisone; discussed how this can cause increased issues with irritability, insomnia and anxiety. She has not been able to get out to [place]; I just don't feel like it. She tolerated the change in medications and is willing to adjust medications further. She has been doing better with limiting alcohol; had a luis alberto 2 weeks ago when out with her son. Risks and benefits of the medication, including any black box warnings, were discussed with the patient. Allison verbalized understanding to all instructions and is in agreement with the treatment plan; confirmed that she would get to ER if needed for increase symptoms or safety concerns. Interval Progress: Same, but sleep is improved PATIENT DATA: Generalized Anxiety Disorder Scale (SIMON-7) SIMON - 7 SCORES 08/11/2022 12/01/2022 12/06/2022 SIMON-7 Score 14 12 11 (0-4) minimal anxiety, (5-9) mild anxiety, (10-14) moderate anxiety, (15-21) severe anxiety Patient Health Questionnaire (PHQ-9) PHQ-9 08/11/2022 12/01/2022 12/06/2022 Score 14 12 13 (0-4) minimal depression, (5-9) mild depression, (10-14) moderate depression, (15-19) moderately severe depression, (20-27) severe depression PROMIS Global Health PROMIS Global Health - (T-Scores - the mean of general population = 50. Five points is a clinically meaningful difference.) 02/25/2022 07/04/2022 10/24/2022 Physical T-Score 32.4 37.4 39.8 Mental T-Score 31.3 33.8 33.8 PAST MEDICAL HISTORY Diagnosis Date Abdominal pain, other specified site Alcohol abuse Back pain DDD Bipolar affect, depressed (HCC) COPD (chronic obstructive pulmonary disease) (HCC) Coronary artery disease Depression Esophagitis, unspecified Essential hypertension, benign Gastritis Hyperlipidemia Lung nodules Nausea Neuralgia Other forms of migraine Prediabetes Tobacco use PAST SURGICAL HISTORY Procedure Laterality Date APPENDECTOMY 1979 CARDIAC CATH 04/2011 Dr. Yang DELIVERY ONLY , low cervical x2 CHOLECYSTECTOMY 2007 Cholecystectomy COLONOSCOPY 09/14/02 RG - normal COLONOSCOPY FLX DX W/COLLJ SPEC WHEN PFRMD 04/13/2012 Colonoscopy DILATION AND CURETTAGE DXAND/THER NONOBSTETRIC Dilation AND curettage EGD 09/14/02 RG ESOPHAGOGASTRODUODENOSCOPY TRANSORAL (more content not included)... [facility] 12-08-2022 Miscellaneous Notes Left voicemail message for patient confirming today's virtual visit at 9:30 AM. Yanira Eisenberg LPN documented in this encounter [facility] 12-06-2022 Note HNO ID: [id number] Author: Beatrice Reaves PA-C Service: ? Author Type: Physician Metal Roofing Mechanic Type: Progress Notes Filed: 12/06/2022 9:35 AM Note Text: Patient: Jacque Dozier PCP: Byod Da Silva PA-C CC: follow up HPI: Jacque Dozier 67 year old female current smoker with PMH significant for bipolar d/o, alcohol abuse, HTN, CAD, severe COPD, and granulomatous disease. Current therapy consists of daily Trelegy with as needed Combivent. States she has been out of Combivent for the past 4 days. Has been using her daughters Albuterol without any relief. Daily cough productive of brownish/greenish sputum for past couple of weeks. Exertional dyspnea with climbing stairs, carrying groceries, walking from parking lot to office. Frequent wheezing. No lower extremity edema. Currently smoking 3 cigarettes daily. Is also vaping. Currently wearing 2.5L supplemental oxygen at night. Occasionally will use it during the day. DME: [facility]. PAST MEDICAL HISTORY Diagnosis Date Abdominal pain, other specified site Alcohol abuse Back pain DDD Bipolar affect, depressed (HCC) COPD (chronic obstructive pulmonary disease) ([facility]) Coronary artery disease Depression Esophagitis, unspecified Essential hypertension, benign Gastritis Hyperlipidemia Lung nodules Nausea Neuralgia Other forms of migraine Prediabetes Tobacco use Allergies: Codeine Vomiting escitalopram oxalate (LEXAPRO) 10 mg tabletTake 1 tablet by mouth once daily.Disp: 30 tabletRfl: 0 mirtazapine (REMERON) 15 mg tabletTake 1.5 tablets by mouth daily at bedtime.Disp: 45 tabletRfl: 1 VRAYLAR 3 mg capsuleTAKE ONE CAPSULE BY MOUTH DAILY AT 9AMDisp: 30 capsuleRfl: [address] (PROTONIX) 40 mg tabletTake 1 tablet by mouth twice daily before meals. Take on empty stomach, 1/2 hr before meal.Disp: 60 tabletRfl: 2 famotidine (PEPCID) 20 mg tabletTake 1 tablet by mouth daily at bedtime.Disp: 90 tabletRfl: 1 doxazosin (CARDURA) 1 mg tabletTake 1 tablet by mouth once daily.Disp: 30 tabletRfl: 2 potassium chloride (K-TAB) 10 mEq tabletTake 1 tablet by mouth twice daily.Disp: 60 tabletRfl: 5 amLODIPine (NORVASC) 10 mg tabletTake 1 tablet by mouth once daily.Disp: 90 tabletRfl: 3 jeospkjxdqq-nfpgqnwdt-bsgwmzap (TRELEGY ELLIPTA) 200-62.5-25 mcg inhalation powderInhale 1 Puff as instructed once daily.Disp: 1 EachRfl: 5 ipratropium-albuterol (DUONEB) 0.5 mg-3 mg(2.5 mg base)/3 mL nebuInhale 3 mL as instructed every 4 hours as needed for wheezing/shortness of breath.Disp: 120 EachRfl: 5 TRELEGY ELLIPTA 100-62.5-25 mcg inhalation powderINHALE 1 PUFF INSTRUCTED ONCE DAILY.Disp: 180 EachRfl: 1 lamoTRIgine (LAMICTAL) 200 mg tabletTAKE 1 TABLET BY MOUTH EVERYDAY AT BEDTIME.Disp: 30 tabletRfl: 2 aspirin, enteric coated (ECOTRIN LOW STRENGTH) 81 mg EC tabletTake 1 tablet by mouth once daily.Disp: 90 tabletRfl: 3 rosuvastatin (CRESTOR) 5 mg tabletTake 1 tablet by mouth daily at bedtime.Disp: 90 tabletRfl: 3 carvedilol (COREG) 3.125 mg tabletTake 1 tablet by mouth twice daily.Disp: 180 tabletRfl: 3 diphenhydrAMINE-Acetaminophen 25-500 mg tabTake by mouth once daily as needed.Disp: Rfl: ipratropium 20 mcg-albuterol 100 mcg (COMBIVENT RESPIMAT) 20-100 mcg/actuation inhalerInhale 1 Puff as instructed four times daily as needed.Disp: 4 gRfl: 5 Social History Tobacco Use Smoking status: Every Day Packs/day: 0.25 Years: 52.00 Additional pack years: 0.00 Total pack years: 13.00 Types: Cigarettes Start date: 1971 Smokeless tobacco: Never Tobacco comments: started age 14- 2 ppd per day in past, down to 3 cigarettes per day. Vaping Use Vaping Use: Some days Substance Use Topics Alcohol use: Not Currently Comment: Not locally. Drug use: No Family History Problem Relation Age of Onset Diabetes Mother Ischemic Heart Disease Mother CHF Hypertension Mother Colon Cancer Father Colon Polyps Father Genetic Father Parkinsonism Sister 2018 other (hemochromatosis) Sister 2018 Diabetes Brother Lung Cancer Paternal Grandfather other (throat cancer) Paternal Grandfather COPD Maternal Aunt Cancer Paternal Uncle COPD Paternal Uncle PAST SURGICAL HISTORY Procedure Laterality Date APPENDECTOMY 1980 CARDIAC CATH 04/2011 Dr. Yang DELIVERY ONLY , low cervical x2 CHOLECYSTECTOMY 2007 Cholecystectomy COLONOSCOPY 09/14/02 RG - normal COLONOSCOPY FLX DX W/COLLJ SPEC WHEN PFRMD 04/13/2012 Colonoscopy DILATION AND CURETTAGE DXAND/THER NONOBSTETRIC Dilation AND curettage EGD 09/14/02 RG ESOPHAGOGASTRODUODENOSCOPY TRANSORAL DIAGNOSTIC 04/09/2010 EGD ESOPHAGOGASTRODUODENOSCOPY TRANSORAL DIAGNOSTIC 04/13/2012 EGD ESOPHAGOGASTRODUODENOSCOPY TRANSORAL DIAGNOSTIC 02/27/15 EGD EXTRACTION, ERUPTED TOOTH OR EXPOSED ROOT (ELEVATION AND/OR FORCEPS REMOVAL) Teeth removed HYSTERECTOMY HX 10/23/1985 LAPS ABD PRTMANDOMENTUM (more content not included)... [facility] 12-06-2022 History of Presen t illness Narrative Images from the original note were not included. Patient: Jacque Dozier PCP: Boyd Da Silva PA-C CC: follow up HPI: Jacque Dozier 67 year old female current smoker with PMH significant for bipolar d/o, alcohol abuse, HTN, CAD, severe COPD, and granulomatous disease. Current therapy consists of daily Trelegy with as needed Combivent. States she has been out of Combivent for the past 4 days. Has been using her daughters Albuterol without any relief. Daily cough productive of brownish/greenish sputum for past couple of weeks. Exertional dyspnea with climbing stairs, carrying groceries, walking from parking lot to office. Frequent wheezing. No lower extremity edema. Currently smoking 3 cigarettes daily. Is also vaping. Currently wearing 2.5L supplemental oxygen at night. Occasionally will use it during the day. DME: [facility]. PAST MEDICAL HISTORY Diagnosis Date Abdominal pain, other specified site Alcohol abuse Back pain DDD Bipolar affect, depressed (HCC) COPD (chronic obstructive pulmonary disease) (HCC) Coronary artery disease Depression Esophagitis, unspecified Essential hypertension, benign Gastritis Hyperlipidemia Lung nodules Nausea Neuralgia Other forms of migraine Prediabetes Tobacco use Allergies: Codeine Vomiting escitalopram oxalate (LEXAPRO) 10 mg tablet^Take 1 tablet by mouth once daily.^Disp: 30 tablet^Rfl: 0 mirtazapine (REMERON) 15 mg tablet^Take 1.5 tablets by mouth daily at bedtime.^Disp: 45 tablet^Rfl: 1 VRAYLAR 3 mg capsule^TAKE ONE CAPSULE BY MOUTH DAILY AT 9AM^Disp: 30 capsule^Rfl: [address] (PROTONIX) 40 mg tablet^Take 1 tablet by mouth twice daily before meals. Take on empty stomach, 1/2 hr before meal.^Disp: 60 tablet^Rfl: 2 famotidine (PEPCID) 20 mg tablet^Take 1 tablet by mouth daily at bedtime.^Disp: 90 tablet^Rfl: 1 doxazosin (CARDURA) 1 mg tablet^Take 1 tablet by mouth once daily.^Disp: 30 tablet^Rfl: 2 potassium chloride (K-TAB) 10 mEq tablet^Take 1 tablet by mouth twice daily.^Disp: 60 tablet^Rfl: 5 amLODIPine (NORVASC) 10 mg tablet^Take 1 tablet by mouth once daily.^Disp: 90 tablet^Rfl: 3 schbifpkkbj-asxpfygtz-avylhvfk (TRELEGY ELLIPTA) 200-62.5-25 mcg inhalation powder^Inhale 1 Puff as instructed once daily.^Disp: 1 Each^Rfl: 5 ipratropium-albuterol (DUONEB) 0.5 mg-3 mg(2.5 mg base)/3 mL nebu^Inhale 3 mL as instructed every 4 hours as needed for wheezing/shortness of breath.^Disp: 120 Each^Rfl: 5 TRELEGY ELLIPTA 100-62.5-25 mcg inhalation powder^INHALE 1 PUFF INSTRUCTED ONCE DAILY.^Disp: 180 Each^Rfl: 1 lamoTRIgine (LAMICTAL) 200 mg tablet^TAKE 1 TABLET BY MOUTH EVERYDAY AT BEDTIME.^Disp: 30 tablet^Rfl: 2 aspirin, enteric coated (ECOTRIN LOW STRENGTH) 81 mg EC tablet^Take 1 tablet by mouth once daily.^Disp: 90 tablet^Rfl: 3 rosuvastatin (CRESTOR) 5 mg tablet^Take 1 tablet by mouth daily at bedtime.^Disp: 90 tablet^Rfl: 3 carvedilol (COREG) 3.125 mg tablet^Take 1 tablet by mouth twice daily.^Disp: 180 tablet^Rfl: 3 diphenhydrAMINE-Acetaminophen 25-500 mg tab^Take by mouth once daily as needed.^Disp: ^Rfl: ipratropium 20 mcg-albuterol 100 mcg (COMBIVENT RESPIMAT) 20-100 mcg/actuation inhaler^Inhale 1 Puff as instructed four times daily as needed.^Disp: 4 g^Rfl: 5 Social History Tobacco Use Smoking status: Every Day Packs/day: 0.25 Years: 52.00 Additional pack years: 0.00 Total pack years: 13.00 Types: Cigarettes Start date: 1971 Smokeless tobacco: Never Tobacco comments: started age 14- 2 ppd per day in past, down to 3 cigarettes per day. Vaping Use Vaping Use: Some days Substance Use Topics Alcohol use: Not Currently Comment: Not locally. Drug use: No Family History Problem Relation Age of Onset Diabetes Mother Ischemic Heart Disease Mother CHF Hypertension Mother Colon Cancer Father Colon Polyps Father Genetic Father Parkinsonism Sister 2018 other (hemochromatosis) Sister 2018 Diabetes Brother Lung Cancer Paternal Grandfather other (throat cancer) Paternal Grandfather COPD Maternal Aunt Cancer Paternal Uncle COPD Paternal Uncle PAST SURGICAL HISTORY Procedure Laterality Date APPENDECTOMY 1979 CARDIAC CATH 04/2011 Dr. Yang DELIVERY ONLY , low cervical x2 CHOLECYSTECTOMY 2007 Cholecystectomy COLONOSCOPY 09/14/02 RG - normal COLONOSCOPY FLX DX W/COLLJ SPEC WHEN PFRMD 04/13/2012 Colonoscopy DILATION & CURETTAGE DX&/THER NONOBSTETRIC Dilation & curettage EGD 09/14/02 RG ESOPHAGOGASTRODUODENOSCOPY TRANSORAL DIAGNOSTIC 04/09/2010 EGD ESOPHAGOGASTRODUODENOSCOPY TRANSORAL DIAGNOSTIC 04/13/2012 EGD ESOPHAGOGASTRODUODENOSCOPY TRANSORAL DIAGNOSTIC 02/27/15 EGD EXTRACTION, ERUPTED TOOTH OR EXPOSED ROOT (ELEVATION AND/OR FORCEPS REMOVAL) Teeth removed HYSTERECTOMY HX 10/23/1985 LAPS ABD PRTM&OMENTUM DX W/WO SPEC BR/WA SPX Laparoscopy I reviewed the past medical history, family history, social history and surgical history with changes noted above and updated in EMR. IMMUNIZATIONS Prevnar - 11/02/2021 Pneumovax - 06/16/2018 Influenza - 01/28/2022 COVID-19 - xx ROS: CONSTITUTIONAL: No fevers, chills, nightsweats, unintended weight loss HEENT: Denies nasal congestion/sinus symptoms, problematic allergy problems. CARDIOVASCULAR: No chest pain, palpitations, orthopnea, PND, edema. PULM: See HPI PSY: No concerns regarding depression, anxiety. History of bipolar. INTEGUMENTARY: No new skin changes or rashes PHYSICAL EXAMINATION: BP 144/82 Pulse 85 Wt 50.5 kg (111 lb 6.4 oz) SpO2 94% BMI 21.05 kg/m Gen: No acute distress. Cooperative with examination. HEENT: Normocephalic. Sclera, conjunctiva clear. Oral hygeine and dentition good. No thrush. Resp: No stridor, accessory respiratory muscle use, supra-sternal or intercostal retractions. No wheezes, crackles. CV: Regular rythm. Heart tones normal. Radial pulses normal. Abd: Non distended. MSK: No kyphoscoliosis. Ext: Warm and well perfused. No clubbing, cyanosis, edema. Skin: No rash, ecchymoses. Neuro: Mental status normal. Affect normal. No tremor. DATA: PFT, 10/26/2021 IMPRESSION: Spirometry indicates severe obstruction. There was not a significant bronchodilator response. Electronically Signed On 10-26-2021 14:02:23 EDT by Caty Hale M.D. Imaging / Diagnostic Studies: LDCT chest [facility] 05/2022: Reviewed images. No suspicious lesions. LUNG RADS 1 ASSESSMENT/PLAN: 1. COPD with exacerbation (HCC) - ICD9: 491.21, ICD10: J44.1 (primary diagnosis) Will treat with Doxy and Prednisone burst. - PREDNISONE 20 MG TABLET - DOXYCYCLINE HYCLATE 100 MG TABLET 2. Stage 3 severe COPD by GOLD classification (HCC) - ICD9: 496, ICD10: J44.9 Continue Trelegy 200 mcg daily. Rinse mouth after each use to help prevent oral thrush. Combivent Respimat as needed for wheezing and shortness of breath. Smoking cessation is critical. Continue 2L supplemental oxygen at night. - COMBIVENT RESPIMAT 20 MCG-100 MCG/ACTUATION SOLUTION FOR INHALATION 3. Cigarette smoker - ICD9: 305.1, ICD10: F17.210 Cessation encouraged. Physiologic and physical aspects of tobacco addiction as well as strategies for quitting were discussed. Counseling was given focusing on the harmful effects of this addiction especially given the patient's medical condition(s) which will be worsened because of the chemicals in tobacco. Portions of this documentation were copied and pasted from previous office visit notes in order to provide a cohesive continuity of the history. The note has been reviewed and edited and updated as necessary. Beatrice Reaves PA-C documented in this encounter [facility] 12-02-2022 Note HNO ID: [id number] Author: Matt Vickers APRN.[employer]INE [employer]CH[employer]IC Service: ? Author Type: Nurse Practitioner Type: Progress Notes Filed: 12/02/2022 11:35 AM Note Text: FOLLOW UP - PSYCHIATRIC PROGRESS NOTE Visit Type:Virtual Visit utilizing two-way audio and video for at least a portion of the visit. Consent for virtual visit obtained verbally. Confidentiality limitations with virtual visits reviewed with the patient and guardian, if present, who have accepted the risk verbally prior to proceeding with encounter. I have communicated my name and active licensure. The patient's identity and physical location were verified at the time of this visit. Either the patient or their legal physician representative has been informed of the risks and benefits of -- and alternatives to -- treatment through a remote evaluation and consents to proceed with the evaluation remotely. Reason for Visit: Outpatient follow-up and safety monitoring of previously prescribed psychiatric medication, psychotherapy or other treatment CC: medication management HPI: Last visit was 08/18 with the following treatment plan: 1. follow up 10/07 at 9am 2. continue Lexapro 20mg daily to target symptoms of anxiety/panic and any remaining depressive symptoms of bipolar disorder 3. no changes with Vraylar 3mg daily; last aims test was 08/2021 and was normal; no abnormal movements noted today 4. has completed IOP group for mood disorders 5. increase Remeron 15mg one pill at hs to target anxiety, sleep disturbance and depressed mood 4. continue with Lamictal to total 200mg daily at hs to target racing thoughts, irritability and depression.; verbalized understanding to stop if rash develops and to call office 5. I do not recommend benzodiazepines for panic attacks as she has copd with sob; smoking 2 packs of cigarettes per day 6. has a new list of therapists to call and establish and is declining this option Today, Allison returns for a medication management follow-up appointment. I am a wreck and I am miserable. She reports having panic attacks several times per day. She reports her daughter's brother had a stroke and is living in a trailer outside of her home. She has her daughter and her 3 kids in her home and there is a lot of drama. She took one of her daughter's xanax 2 nights ago for a panic attack. She was instructed not to take other prescriptions that are not written for her. She reports she is having more mood swings and sleep is bad again. She averages 4 hours of sleep per night and then when she wakes up, she can't go back to sleep and has racing thoughts. She denies si/hi. She continues to refuse any individual therapy,but did well when she was in the IOP group for mood disorders. She denies si/hi. She has lowered her smoking from 2 packs per day to 4 cigarettes per day. Treatment options discussed. Today, we will lower the Lexapro from 20 to 10 mg and will increase the Remeron 15mg to 1 1/2 tablets daily to help with sleep and anxiety; this should be less activating. Will follow her weekly for next few weeks as make further adjustments (plan to d/c Lexapro next week and increase Remeron further if tolerates) Risks and benefits of the medication, including any black box warnings, were discussed with the patient. Allison verbalized understanding to all instructions and is in agreement with the treatment plan; confirmed that she would get to ER if needed for increase symptoms or safety concerns. Interval Progress: Slightly worse anxiety PATIENT DATA: Generalized Anxiety Disorder Scale (SIMON-7) SIMON - 7 SCORES 07/18/2022 08/11/2022 12/01/2022 SIOMN-7 Score 20 14 12 (0-4) minimal anxiety, (5-9) mild anxiety, (10-14) moderate anxiety, (15-21) severe anxiety Patient Health Questionnaire (PHQ-9) PHQ-9 07/18/2022 08/11/2022 12/01/2022 Score 14 14 12 (0-4) minimal depression, (5-9) mild depression, (10-14) moderate depression, (15-19) moderately severe depression, (20-27) severe depression PROMIS Global Health PROMIS Global Health - (T-Scores - the mean of general population = 50. Five points is a clinically meaningful difference.) 02/25/2022 07/04/2022 10/24/2022 Physical T-Score 32.4 37.4 39.8 Mental T-Score 31.3 33.8 33.8 PAST MEDICAL HISTORY Diagnosis Date Abdominal pain, other specified site Alcohol abuse Back pain DDD Bipolar affect, depressed (HCC) COPD (chronic obstructive pulmonary disease) (HCC) Coronary artery disease Depression Esophagitis, unspecified Essential hypertension, benign Gastritis Hyperlipidemia Lung nodules Nausea Neuralgia Other forms of migraine Prediabetes Tobacco use PAST SURGICAL HISTORY Procedure Laterality Date APPENDECTOMY 1979 CARDIAC CATH 04/2011 Dr. Yang DELIVERY ONLY , low cervical x2 CHOLECYSTECTOMY 2007 Cholecystectomy COLONOSCOPY 09/14/02 RG - normal COLONOSCOPY FLX DX W/COLLJ SPEC WHEN PFRMD 04/13/2012 Col (more content not included)... [facility] 12-02-2022 History of Presen t illness Narrative FOLLOW UP - PSYCHIATRIC PROGRESS NOTE Visit Type:Virtual Visit utilizing two-way audio and video for at least a portion of the visit. Consent for virtual visit obtained verbally. Confidentiality limitations with virtual visits reviewed with the patient and guardian, if present, who have accepted the risk verbally prior to proceeding with encounter. I have communicated my name and active licensure. The patient's identity and physical location were verified at the time of this visit. Either the patient or their legal physician representative has been informed of the risks and benefits of -- and alternatives to -- treatment through a remote evaluation and consents to proceed with the evaluation remotely. Reason for Visit: Outpatient follow-up and safety monitoring of previously prescribed psychiatric medication, psychotherapy or other treatment CC: medication management HPI: Last visit was 08/18 with the following treatment plan: 1. follow up 10/07 at 9am 2. continue Lexapro 20mg daily to target symptoms of anxiety/panic and any remaining depressive symptoms of bipolar disorder 3. no changes with Vraylar 3mg daily; last aims test was 08/2021 and was normal; no abnormal movements noted today 4. has completed IOP group for mood disorders 5. increase Remeron 15mg one pill at hs to target anxiety, sleep disturbance and depressed mood 4. continue with Lamictal to total 200mg daily at hs to target racing thoughts, irritability and depression.; verbalized understanding to stop if rash develops and to call office 5. I do not recommend benzodiazepines for panic attacks as she has copd with sob; smoking 2 packs of cigarettes per day 6. has a new list of therapists to call and establish and is declining this option Today, Allison returns for a medication management follow-up appointment. I am a wreck and I am miserable. She reports having panic attacks several times per day. She reports her daughter's brother had a stroke and is living in a trailer outside of her home. She has her daughter and her 3 kids in her home and there is a lot of drama. She took one of her daughter's xanax 2 nights ago for a panic attack. She was instructed not to take other prescriptions that are not written for her. She reports she is having more mood swings and sleep is bad again. She averages 4 hours of sleep per night and then when she wakes up, she can't go back to sleep and has racing thoughts. She denies si/hi. She continues to refuse any individual therapy,but did well when she was in the IOP group for mood disorders. She denies si/hi. She has lowered her smoking from 2 packs per day to 4 cigarettes per day. Treatment options discussed. Today, we will lower the Lexapro from 20 to 10 mg and will increase the Remeron 15mg to 1 1/2 tablets daily to help with sleep and anxiety; this should be less activating. Will follow her weekly for next few weeks as make further adjustments (plan to d/c Lexapro next week and increase Remeron further if tolerates) Risks and benefits of the medication, including any black box warnings, were discussed with the patient. Allison verbalized understanding to all instructions and is in agreement with the treatment plan; confirmed that she would get to ER if needed for increase symptoms or safety concerns. Interval Progress: Slightly worse anxiety PATIENT DATA: Generalized Anxiety Disorder Scale (SIMON-7) SIMON - 7 SCORES 07/18/2022 08/11/2022 12/01/2022 SIMON-7 Score 20 14 12 (0-4) minimal anxiety, (5-9) mild anxiety, (10-14) moderate anxiety, (15-21) severe anxiety Patient Health Questionnaire (PHQ-9) PHQ-9 07/18/2022 08/11/2022 12/01/2022 Score 14 14 12 (0-4) minimal depression, (5-9) mild depression, (10-14) moderate depression, (15-19) moderately severe depression, (20-27) severe depression PROMIS Global Health PROMIS Global Health - (T-Scores - the mean of general population = 50. Five points is a clinically meaningful difference.) 02/25/2022 07/04/2022 10/24/2022 Physical T-Score 32.4 37.4 39.8 Mental T-Score 31.3 33.8 33.8 PAST MEDICAL HISTORY Diagnosis Date Abdominal pain, other specified site Alcohol abuse Back pain DDD Bipolar affect, depressed (HCC) COPD (chronic obstructive pulmonary disease) (HCC) Coronary artery disease Depression Esophagitis, unspecified Essential hypertension, benign Gastritis Hyperlipidemia Lung nodules Nausea Neuralgia Other forms of migraine Prediabetes Tobacco use PAST SURGICAL HISTORY Procedure Laterality Date APPENDECTOMY 1979 CARDIAC CATH 04/2011 Dr. Ynag DELIVERY ONLY , low cervical x2 CHOLECYSTECTOMY 2007 Cholecystectomy COLONOSCOPY 09/14/02 RG - normal COLONOSCOPY FLX DX W/COLLJ SPEC WHEN PFRMD 04/13/2012 Colonoscopy DILATION & CURETTAGE DX&/THER NONOBSTETRIC Dilation & curettage EGD 09/14/02 RG ESOPHAGOGASTRODUODENOSCOPY TRANSORAL DIAGNOSTIC 04/09/2010 EGD ESOPHAGOGASTRODUODENOSCOPY TRANSORAL DIAGNOSTIC 04/13/2012 EGD ESOPHAGOGASTRODUODENOSCOPY TRANSORAL DIAGNOSTIC 02/27/15 EGD EXTRACTION, ERUPTED TOOTH OR EXPOSED ROOT (ELEVATION AND/OR FORCEPS REMOVAL) Teeth removed HYSTERECTOMY HX 10/23/1985 LAPS ABD PRTM&OMENTUM DX W/WO SPEC BR/WA SPX Laparoscopy Current Outpatient Medications Medication Sig Dispense Refill VRAYLAR 3 mg capsule TAKE ONE CAPSULE BY MOUTH DAILY AT 9AM 30 capsule 11 escitalopram oxalate (LEXAPRO) 20 mg tablet TAKE ONE TABLET BY MOUTH DAILY AT 9AM 30 tablet 1 mirtazapine (REMERON) 15 mg tablet Take 1 tablet by mouth daily at bedtime. [address] (PROTONIX) 40 mg tablet Take 1 tablet by mouth twice daily before meals. Take on empty stomach, 1/2 hr before meal. 60 tablet 2 famotidine (PEPCID) 20 mg tablet Take 1 tablet by mouth daily at bedtime. 90 tablet 1 doxazosin (CARDURA) 1 mg tablet Take 1 tablet by mouth once daily. 30 tablet 2 potassium chloride (K-TAB) 10 mEq tablet Take 1 tablet by mouth twice daily. 60 tablet 5 amLODIPine (NORVASC) 10 mg tablet Take 1 tablet by mouth once daily. 90 tablet 3 klszumjwcrd-klqbzslcn-oukewvjy (TRELEGY ELLIPTA) 200-62.5-25 mcg inhalation powder Inhale 1 Puff as instructed once daily. 1 Each 5 ipratropium-albuterol (DUONEB) 0.5 mg-3 mg(2.5 mg base)/3 mL nebu Inhale 3 mL as instructed every 4 hours as needed for wheezing/shortness of breath. 120 Each 5 TRELEGY ELLIPTA 100-62.5-25 mcg inhalation powder INHALE 1 PUFF INSTRUCTED ONCE DAILY. 180 Each 1 lamoTRIgine (LAMICTAL) 200 mg tablet TAKE 1 TABLET BY MOUTH EVERYDAY AT BEDTIME. 30 tablet 2 aspirin, enteric coated (ECOTRIN LOW STRENGTH) 81 mg EC tablet Take 1 tablet by mouth once daily. 90 tablet 3 rosuvastatin (CRESTOR) 5 mg tablet Take 1 tablet by mouth daily at bedtime. 90 tablet 3 carvedilol (COREG) 3.125 mg tablet Take 1 tablet by mouth twice daily. 180 tablet 3 ipratropium 20 mcg-albuterol 100 mcg (COMBIVENT RESPIMAT) 20-100 mcg/actuation inhaler Inhale 1 Puff as instructed four times daily as needed. 4 g 5 tiZANidine (ZANAFLEX) 4 mg tablet 0.5-1 tab three times a day as needed for pain sparingly (multiple medications) (Patient not taking: Reported on 07/12/2022) 15 tablet 1 lidocaine (LIDODERM) 5 % Remove old patch prior to placing new patch. Location: lumbar, thoracic spine 12 out of 24 hours (Patient not taking: Reported on 07/12/2022) 90 Patch 2 diphenhydrAMINE-Acetaminophen 25-500 mg tab Take by mouth once daily as needed. Current Facility-Administered Medications Medication Dose Route Frequency Provider Last Rate Last Admin perflutren lipid microspheres 1.3 mL in NaCl (PF) 0.9% 10 mL injection (DEFINITY) INTRAVENOUS DIRECTED PRN Beatrice Reaves PA-C sodium chloride 0.9 % (flush) 10 mL (BD POSIFLUSH) 10 mL INTRAVENOUS DIRECTED PRN Beatrice Reaves PA-C ROS: GENERAL: Negative for malaise, significant weight loss and fever. HEENT: No changes in hearing or vision, no nose bleeds or other nasal problems. RESPIRATORY: Negative for cough, wheezing and shortness of breath.,but does feels shortness of breath when anxious; has been trying to quit smoking; smoking about 4 cigarettes per day CARDIOVASCULAR: Negative for chest pain, leg swelling and palpitations. GI: Negative for abdominal discomfort, blood in stools or black stools. : Negative for dysuria, frequency and incontinence. MUSCULOSKELETAL: Negative for joint pain or swelling, back pain, and muscle pain. SKIN: Negative for lesions, rash, and itching. HEMATOLOGY/LYMPHOLOGY Negative for prolonged bleeding, bruising easily, and swollen nodes. ENDOCRINE: Negative for cold or heat intolerance, polyuria, polydipsia and goiter. NEURO: Negative for headaches, syncope, seizures and paralysis. PFSH: see hpi VITAL SIGNS: There were no vitals filed for this visit. MENTAL STATUS EXAM: CONSTITUTIONAL: Well groomed ORIENTATION: Person, Place, Time and Situation MEMORY: Recent intact, Remote intact, Immediate intact CONCENTRATION: Normal MOOD: anxious AFFECT: Restricted SPEECH : Clear & distinct LANGUAGE : Normal ASSOCIATIONS: Intact THOUGHT PROCESS : Logical, Coherent, and Rational PROGRESSION : There was no evidence of disturbance in thought perception or progression. FUND OF KNOWLEDGE : Appropriate and Adequate SUICIDE: None HOMICIDE: None DATA REVIEWED: Electronic medical record DIAGNOSIS: PRIMARY: Mood Disorder Bipolar II Disorder Secondary : Anxiety Disorder Generalized Anxiety Disorder and panic attacks Other : insomnia related to mental health condition GAF: 53-60-51 Moderate symptoms or moderate difficulty in social, occupational or school functioning. TREATMENT PLAN: 1. follow up 12/08 at 930am and 12/14 at 930am 2. lower the Lexapro from 20 to 10 mg and will increase the Remeron 15mg to 1 1/2 tablets daily to help with sleep and anxiety; this should be less activating. Will follow her weekly for next few weeks as make further adjustments (plan to d/c Lexapro next week and increase Remeron further if tolerates) 3. no changes with Vraylar 3mg daily; last aims test was 08/2021 and was normal; no abnormal movements noted today 4. continue with Lamictal to total 200mg daily at hs to target racing thoughts, irritability and depression.; verbalized understanding to stop if rash develops and to call office(may also increase this in the future 5. I do not recommend benzodiazepines for panic attacks as she has copd with sob 6. has a new list of therapists to call and establish and is declining this option MEDICATION CHANGES: See Treatment Plan Follow Up: See Treatment Plan I spent a total of 26 minutes on the date of the service which included preparing to see the patient, [id number] patient care, completing clinical documentation, obtaining and/or reviewing separately obtained history, performing a medically appropriate examination, counseling and educating the patient/family/caregiver, ordering medications, tests, or procedures, and care coordination (not separately reported). ADD ON PSYCHOTHERAPY CODE : No SIGNATURE: Matt Vickers APRN.CNP PATIENT NAME: Jacque Dozier DATE: December 02, 2022 TIME: 11:06 AM documented in this encounter [facility] 12-02-2022 Miscellaneous Notes Spoke with patient confirming today's virtual visit at 11:00 AM. Yanira Eisenberg LPN documented in this encounter [facility] 10-04-2022 Miscellaneous Notes Opened in error documented in this encounter [facility] 10-01-2022 Miscellaneous Notes Patient has been identified by name and date of : Yes, Provider ADILIA Vickers Michele Date 10-01-22 Time 1 pm Pharmacy phones for refill(s): Requested Prescriptions Pending Prescriptions Disp Refills mirtazapine (REMERON) 15 mg tablet 30 tablet 1 Sig: Take 1 tablet by mouth daily at bedtime. Date of last office visit with pcp: 08-18-22. Next appt: 10-25-22 Last 2 Encounter Wt Readings: Date: Wt: 08/03/2022 52.2 kg (115 lb) 07/12/2022 52.2 kg (115 lb) Previous labs/tests for medication: Blood Pressure: BUN (mg/dL) Date Value 07/13/2022 8 03/09/2021 9 Sodium (mmol/L) Date Value 07/13/2022 139 03/09/2021 141 Last 1 Encounter BP Readings: Date: BP: 08/03/2022 136/82 Blood Counts: WBC (k/uL) Date Value 07/13/2022 7.61 03/09/2021 8.22 RBC (m/uL) Date Value 07/13/2022 4.51 03/09/2021 5.04 Hematocrit (%) Date Value 07/13/2022 43.3 03/09/2021 50.6 Hemoglobin (g/dL) Date Value 07/13/2022 14.7 03/09/2021 16.7 Platelet Count (k/uL) Date Value 07/13/2022 245 03/09/2021 275 Liver Function: ALT (U/L) Date Value 03/09/2021 27 AST (U/L) Date Value 03/09/2021 35 Please advise. Thank you. Boyd Pulliam RN documented in this encounter [facility] 10-01-2022 Miscellaneous Notes Patient has been identified by name and date of : Yes, Provider Da Silva Date 10-01-22 Time 12:46 pm Pharmacy phones for refill(s): Requested Prescriptions Pending Prescriptions Disp Refills pantoprazole DR (PROTONIX) 40 mg tablet 60 tablet 2 Sig: Take 1 tablet by mouth twice daily before meals. Take on empty stomach, 1/2 hr before meal. famotidine (PEPCID) 20 mg tablet 90 tablet 1 Sig: Take 1 tablet by mouth daily at bedtime. doxazosin (CARDURA) 1 mg tablet 30 tablet 2 Sig: Take 1 tablet by mouth once daily. potassium chloride (K-TAB) 10 mEq tablet 60 tablet 5 Sig: Take 1 tablet by mouth twice daily. amLODIPine (NORVASC) 10 mg tablet 90 tablet 3 Sig: Take 1 tablet by mouth once daily. Date of last office visit with pcp: 04-26-22. Next appt: 10-25-22 Patient reports she has been out of cardura for a few months. Date of last office visit in primary care: Last 2 Encounter Wt Readings: Date: Wt: 08/03/2022 52.2 kg (115 lb) 07/12/2022 52.2 kg (115 lb) Previous labs/tests for medication: Blood Pressure: BUN (mg/dL) Date Value 07/13/2022 8 03/09/2021 9 Sodium (mmol/L) Date Value 07/13/2022 139 03/09/2021 141 Last 1 Encounter BP Readings: Date: BP: 08/03/2022 136/82 Blood Counts: WBC (k/uL) Date Value 07/13/2022 7.61 03/09/2021 8.22 RBC (m/uL) Date Value 07/13/2022 4.51 03/09/2021 5.04 Hematocrit (%) Date Value 07/13/2022 43.3 03/09/2021 50.6 Hemoglobin (g/dL) Date Value 07/13/2022 14.7 03/09/2021 16.7 Platelet Count (k/uL) Date Value 07/13/2022 245 03/09/2021 275 Liver Function: ALT (U/L) Date Value 03/09/2021 27 AST (U/L) Date Value 03/09/2021 35 Please advise. Thank you. Boyd Pulliam RN documented in this encounter [facility] 09-27-2022 Miscellaneous Notes Images from the original note were not included. Patient has been identified by name and date of : Yes Requested Prescriptions Pending Prescriptions Disp Refills VRAYLAR 3 mg capsule [Pharmacy Med Name: Vraylar 3 mg capsule] 30 capsule 11 Sig: TAKE ONE CAPSULE BY MOUTH DAILY AT 9AM BRENDA: 08/18/2022 FOV: 10/07/2022 Second Generation Antipsychotics Refill Checklist Failed 09/27/2022 03:53 AM Protocol Details LFT within the last 12 months HbA1C within the last 12 months CBC within the last 12 months Lytes within the last 12 months TSH within the last 12 months Lipid Panel within the last 12 months Serum Creatinine within the last 12 months Blood pressure within the last 12 months Visit with the provider within the last 12 months RX INSTRUCTIONS: Pharmacy initiated this request. No need to notify patient. Yanira Eisenberg LPN documented in this encounter [facility] 08-18-2022 Note HNO ID: [id number] Author: Matt Vickers APRN.[employer]IC Service: ? Author Type: Nurse Practitioner Type: Progress Notes Filed: 08/18/2022 2:47 PM Note Text: FOLLOW UP - PSYCHIATRIC PROGRESS NOTE Visit Type:Virtual Visit utilizing two-way audio and video for at least a portion of the visit. Consent for virtual visit obtained verbally. Confidentiality limitations with virtual visits reviewed with the patient and guardian, if present, who have accepted the risk verbally prior to proceeding with encounter. I have communicated my name and active licensure. The patient's identity and physical location were verified at the time of this visit. Either the patient or their legal physician representative has been informed of the risks and benefits of -- and alternatives to -- treatment through a remote evaluation and consents to proceed with the evaluation remotely. Reason for Visit: Outpatient follow-up and safety monitoring of previously prescribed psychiatric medication, psychotherapy or other treatment CC: medication management HPI: Last visit was 07/21 with the following treatment plan: 1. follow up 08/18 at 11am 2. continue Lexapro 20mg daily to target symptoms of anxiety/panic and any remaining depressive symptoms of bipolar disorder 3. no changes with Vraylar 3mg daily; last aims test was 08/2021 and was normal; no abnormal movements noted today 4. has completed IOP group for mood disorders and Dr. Solorzano added 50mg Seroquel at hs for sleep; had been helpful, but no longer helping with sleep Seroquel discontinued today and added Remeron 15mg 1/2 pill at hs to target anxiety, sleep disturbance and depressed mood 4. continue with Lamictal to total 200mg daily at hs to target racing thoughts, irritability and depression.; verbalized understanding to stop if rash develops and to call office 5. I do not recommend benzodiazepines for panic attacks as she has copd with sob; smoking 2 packs of cigarettes per day 6. has a new list of therapists to call and establish and is declining this option Today, Allison returns for a medication management follow-up appointment. She reports her anxiety are very elevated and has been having panic attacks daily. After the panic attacks, she gets headaches and can't leave the house. She denies any recent alcohol intake; last had alcohol about 1 1/2 mos ago and had 2 drinks at her son's. She is drinking one cup of coffee daily. She states she has 5 people living with her and this includes 3 kids; kids coming and going causes her to feel anxious. She has not tried to find a therapist since she completed the IOP group. She wants to quit smoking; states she is too scared to quit related to the panic attacks; states she is on her last pack of cigarettes now. She wants to just be left alone related to feeling anxious. She denies si/hi. She is averaging 3 hours of sleep per day and doesn't nap during the day. She reports taking her medications as ordered daily and denies side effects; this includes the Vraylar, Lamcital and Lexapro every morning. She is agreeable to increase the Remeron to target anxiety symptoms. Risks and benefits of the medication, including any black box warnings, were discussed with the patient. Allison verbalized understanding to all instructions and is in agreement with the treatment plan; confirmed that she would get to ER if needed for increase symptoms or safety concerns. Interval Progress: Same PATIENT DATA: Generalized Anxiety Disorder Scale (SIMON-7) SIMON - 7 SCORES 04/22/2022 07/18/2022 08/11/2022 SIMON-7 Score 7 20 14 (0-4) minimal anxiety, (5-9) mild anxiety, (10-14) moderate anxiety, (15-21) severe anxiety Patient Health Questionnaire (PHQ-9) PHQ-9 04/22/2022 07/18/2022 08/11/2022 Score 11 14 14 (0-4) minimal depression, (5-9) mild depression, (10-14) moderate depression, (15-19) moderately severe depression, (20-27) severe depression PROMIS Global Health PROMIS Global Health - (T-Scores - the mean of general population = 50. Five points is a clinically meaningful difference.) 01/28/2022 02/25/2022 07/04/2022 Physical T-Score - 32.4 37.4 Mental T-Score 33.8 31.3 33.8 PAST MEDICAL HISTORY Diagnosis Date Abdominal pain, other specified site Alcohol abuse Back pain DDD Bipolar affect, depressed (HCC) COPD (chronic obstructive pulmonary disease) (HCC) Coronary artery disease Depression Esophagitis, unspecified Essential hypertension, benign Gastritis Hyperlipidemia Lung nodules Nausea Neuralgia Other forms of migraine Prediabetes Tobacco use PAST SURGICAL HISTORY Procedure Laterality Date APPENDECTOMY 1979 CARDIAC CATH 04/2011 Dr. Yang DELIVERY ONLY , low cervical x2 CHOLECYSTECTOMY 2007 Cholecystectomy COLONOSCOPY 09/14/02 RG - normal COLONOSCOPY FLX DX W/COLLJ SPEC WHEN PFRMD 04/13/2012 Colonoscopy DILATION AND CURETTAGE DXAND/THER NONOBSTETRIC Dilati (more content not included)... [facility] 08-13-2022 Note HNO ID: [id number] Author: Beatrice Reaves PA-C Service: ? Author Type: Physician Metal Roofing Mechanic Type: Progress Notes Filed: 08/13/2022 10:58 AM Note Text: Nocturnal Oximetry, RA, 08/03/2022. Recording interval: 5:10:41 High pulse: 107 Low pulse: 61 Highest spO2: 95% Lowest spO2: 78% Time with spO2 < 88%: 02:27:58 Recommendation: Based on above results, patient qualifies for supplemental oxygen at night. I have received and reviewed the outside records noted above. Beatrice Reaves PA-C [facility] [place] [facility] 08-03-2022 Note HNO ID: [id number] Author: Caty Hale MD Service: ? Author Type: Physician Type: Progress Notes Filed: 08/03/2022 1:47 PM Note Text: . [facility] [place] Note Patient name: Jacque Dozier PCP: Boyd Da Silva PA-C CC: Follow-up COPD HPI: Jacque Dozier 66 year old female current smoker with PMH significant for bipolar d/o, alcohol abuse, HTN, CAD, severe COPD, granulomatous disease recently re-established care in the pulmonary clinic. Current therapy with Trelegy Ellipta and Combivent as needed. Unfortunately she continues to smoke but she has cut down. She has set her quit date for the first of next month. She feels as if her lung function is worsening. She is compliant with use of her Trelegy and Combivent. She has been using her Combivent daily without much relief in her dyspnea. She feels short of breath just moving around in her kitchen, having to stop and rest. She has been fatigued and lacks endurance. She denies chronic cough with sputum production or audible wheezing. She has not recently been admitted to the hospital or seen in the emergency department for her COPD. Recent low-dose chest CT for cancer screening showed no suspicious lesions. DATA: Labs: Component Ref Range AND Units 2 wk ago WBC 3.70 - 11.00 k/uL 7.61 RBC 3.90 - 5.20 m/uL 4.51 Hemoglobin 11.5 - 15.5 g/dL 14.7 Hematocrit 36.0 - 46.0 % 43.3 MCV 80.0 - 100.0 fL 96.0 MCH 26.0 - 34.0 pg 32.6 MCHC 30.5 - 36.0 g/dL 33.9 RDW-CV 11.5 - 15.0 % 12.7 Platelet Count 150 - 400 k/uL 245 MPV 9.0 - 12.7 fL 10.1 Absolute nRBC <0.01 k/uL <0.01 Imaging / Diagnostic Studies: LDCT chest [facility] 05/2022: Reviewed images. No suspicious lesions. LUNG RADS 1 PAST MEDICAL HISTORY Diagnosis Date Abdominal pain, other specified site Alcohol abuse Back pain DDD Bipolar affect, depressed (HCC) COPD (chronic obstructive pulmonary disease) (HCC) Coronary artery disease Depression Esophagitis, unspecified Essential hypertension, benign Gastritis Hyperlipidemia Lung nodules Nausea Neuralgia Other forms of migraine Prediabetes Tobacco use ALLERGIES Allergen Reactions Codeine Vomiting TRELEGY ELLIPTA 100-62.5-25 mcg inhalation powderINHALE 1 PUFF INSTRUCTED ONCE DAILY.Disp: 180 EachRfl: 1 ipratropium 20 mcg-albuterol 100 mcg (COMBIVENT RESPIMAT) 20-100 mcg/actuation inhalerInhale 1 Puff as instructed four times daily as needed.Disp: 4 gRfl: 5 vqlbqxdwmhp-kcjsxvlbp-ewjghcnk (TRELEGY ELLIPTA) 200-62.5-25 mcg inhalation powderInhale 1 Puff as instructed once daily.Disp: 1 EachRfl: 5 ipratropium-albuterol (DUONEB) 0.5 mg-3 mg(2.5 mg base)/3 mL nebuInhale 3 mL as instructed every 4 hours as needed for wheezing/shortness of breath.Disp: 120 EachRfl: 5 lamoTRIgine (LAMICTAL) 200 mg tabletTAKE 1 TABLET BY MOUTH EVERYDAY AT BEDTIME.Disp: 30 tabletRfl: 2 mirtazapine (REMERON) 15 mg tabletTake 0.5 tablets by mouth daily at bedtime.Disp: 15 tabletRfl: 1 aspirin, enteric coated (ECOTRIN LOW STRENGTH) 81 mg EC tabletTake 1 tablet by mouth once daily.Disp: 90 tabletRfl: 3 rosuvastatin (CRESTOR) 5 mg tabletTake 1 tablet by mouth daily at bedtime.Disp: 90 tabletRfl: 3 carvedilol (COREG) 3.125 mg tabletTake 1 tablet by mouth twice daily.Disp: 180 tabletRfl: 3 VRAYLAR 3 mg capsuleTAKE 1 CAPSULE BY MOUTH ONCE DAILYDisp: 30 capsuleRfl: [address] (PROTONIX) 40 mg tabletTake 1 tablet by mouth twice daily before meals. Take on empty stomach, 1/2 hr before meal.Disp: 60 tabletRfl: 2 famotidine (PEPCID) 20 mg tabletTake 1 tablet by mouth daily at bedtime.Disp: 90 tabletRfl: 1 escitalopram oxalate (LEXAPRO) 20 mg tabletTAKE 1 TABLET BY MOUTH EVERY DAYDisp: 30 tabletRfl: 2 tiZANidine (ZANAFLEX) 4 mg tablet0.5-1 tab three times a day as needed for pain sparingly (multiple medications)Disp: 15 tabletRfl: 1 (Patient not taking: Reported on 07/12/2022) lidocaine (LIDODERM) 5 %Remove old patch prior to placing new patch. Location: lumbar, thoracic spine 12 out of 24 hoursDisp: 90 PatchRfl: 2 (Patient not taking: Reported on 07/12/2022) doxazosin (CARDURA) 1 mg tabletTake 1 tablet by mouth once daily.Disp: 30 tabletRfl: 2 potassium chloride (K-TAB) 10 mEq tabletTake 1 tablet by mouth twice daily.Disp: 60 tabletRfl: 5 amLODIPine (NORVASC) 10 mg tabletTake 1 tablet by mouth once daily.Disp: 90 tabletRfl: 3 diphenhydrAMINE-Acetaminophen 25-500 mg tabTake by mouth once daily as needed.Disp: Rfl: Social History Tobacco Use Smoking status: Every Day Packs/day: 0.50 Years: 52.00 Pack years: 26.00 Types: Cigarettes Start date: 1971 Smokeless tobacco: Never Tobacco comments: started age 14- 2 ppd per day in past, down to 1 ppd Substance Use Topics Alcohol use: Not Currently Comment: Not locally. Drug use: No PMH, Social history, family history and surgical history reviewed and updated in EMR REVIEW O (more content not included)... [facility] 08-03-2022 History of Presen t illness Narrative Images from the original note were not included. . [facility] [place] Note Patient name: Jacque Dozier PCP: Boyd Da Silva PA-C CC: Follow-up COPD HPI: Jacque Dozier 66 year old female current smoker with PMH significant for bipolar d/o, alcohol abuse, HTN, CAD, severe COPD, granulomatous disease recently re-established care in the pulmonary clinic. Current therapy with Trelegy Ellipta and Combivent as needed. Unfortunately she continues to smoke but she has cut down. She has set her quit date for the first of next month. She feels as if her lung function is worsening. She is compliant with use of her Trelegy and Combivent. She has been using her Combivent daily without much relief in her dyspnea. She feels short of breath just moving around in her kitchen, having to stop and rest. She has been fatigued and lacks endurance. She denies chronic cough with sputum production or audible wheezing. She has not recently been admitted to the hospital or seen in the emergency department for her COPD. Recent low-dose chest CT for cancer screening showed no suspicious lesions. DATA: Labs: Component Ref Range & Units 2 wk ago WBC 3.70 - 11.00 k/uL 7.61 RBC 3.90 - 5.20 m/uL 4.51 Hemoglobin 11.5 - 15.5 g/dL 14.7 Hematocrit 36.0 - 46.0 % 43.3 MCV 80.0 - 100.0 fL 96.0 MCH 26.0 - 34.0 pg 32.6 MCHC 30.5 - 36.0 g/dL 33.9 RDW-CV 11.5 - 15.0 % 12.7 Platelet Count 150 - 400 k/uL 245 MPV 9.0 - 12.7 fL 10.1 Absolute nRBC <0.01 k/uL <0.01 Imaging / Diagnostic Studies: LDCT chest [facility] 05/2022: Reviewed images. No suspicious lesions. LUNG RADS 1 PAST MEDICAL HISTORY Diagnosis Date Abdominal pain, other specified site Alcohol abuse Back pain DDD Bipolar affect, depressed (HCC) COPD (chronic obstructive pulmonary disease) (HCC) Coronary artery disease Depression Esophagitis, unspecified Essential hypertension, benign Gastritis Hyperlipidemia Lung nodules Nausea Neuralgia Other forms of migraine Prediabetes Tobacco use ALLERGIES Allergen Reactions Codeine Vomiting TRELEGY ELLIPTA 100-62.5-25 mcg inhalation powder^INHALE 1 PUFF INSTRUCTED ONCE DAILY.^Disp: 180 Each^Rfl: 1 ipratropium 20 mcg-albuterol 100 mcg (COMBIVENT RESPIMAT) 20-100 mcg/actuation inhaler^Inhale 1 Puff as instructed four times daily as needed.^Disp: 4 g^Rfl: 5 onqqfqrituz-jgqyanbwx-hicphjol (TRELEGY ELLIPTA) 200-62.5-25 mcg inhalation powder^Inhale 1 Puff as instructed once daily.^Disp: 1 Each^Rfl: 5 ipratropium-albuterol (DUONEB) 0.5 mg-3 mg(2.5 mg base)/3 mL nebu^Inhale 3 mL as instructed every 4 hours as needed for wheezing/shortness of breath.^Disp: 120 Each^Rfl: 5 lamoTRIgine (LAMICTAL) 200 mg tablet^TAKE 1 TABLET BY MOUTH EVERYDAY AT BEDTIME.^Disp: 30 tablet^Rfl: 2 mirtazapine (REMERON) 15 mg tablet^Take 0.5 tablets by mouth daily at bedtime.^Disp: 15 tablet^Rfl: 1 aspirin, enteric coated (ECOTRIN LOW STRENGTH) 81 mg EC tablet^Take 1 tablet by mouth once daily.^Disp: 90 tablet^Rfl: 3 rosuvastatin (CRESTOR) 5 mg tablet^Take 1 tablet by mouth daily at bedtime.^Disp: 90 tablet^Rfl: 3 carvedilol (COREG) 3.125 mg tablet^Take 1 tablet by mouth twice daily.^Disp: 180 tablet^Rfl: 3 VRAYLAR 3 mg capsule^TAKE 1 CAPSULE BY MOUTH ONCE DAILY^Disp: 30 capsule^Rfl: [address] (PROTONIX) 40 mg tablet^Take 1 tablet by mouth twice daily before meals. Take on empty stomach, 1/2 hr before meal.^Disp: 60 tablet^Rfl: 2 famotidine (PEPCID) 20 mg tablet^Take 1 tablet by mouth daily at bedtime.^Disp: 90 tablet^Rfl: 1 escitalopram oxalate (LEXAPRO) 20 mg tablet^TAKE 1 TABLET BY MOUTH EVERY DAY^Disp: 30 tablet^Rfl: 2 tiZANidine (ZANAFLEX) 4 mg tablet^0.5-1 tab three times a day as needed for pain sparingly (multiple medications)^Disp: 15 tablet^Rfl: 1 (Patient not taking: Reported on 07/12/2022) lidocaine (LIDODERM) 5 %^Remove old patch prior to placing new patch. Location: lumbar, thoracic spine 12 out of 24 hours^Disp: 90 Patch^Rfl: 2 (Patient not taking: Reported on 07/12/2022) doxazosin (CARDURA) 1 mg tablet^Take 1 tablet by mouth once daily.^Disp: 30 tablet^Rfl: 2 potassium chloride (K-TAB) 10 mEq tablet^Take 1 tablet by mouth twice daily.^Disp: 60 tablet^Rfl: 5 amLODIPine (NORVASC) 10 mg tablet^Take 1 tablet by mouth once daily.^Disp: 90 tablet^Rfl: 3 diphenhydrAMINE-Acetaminophen 25-500 mg tab^Take by mouth once daily as needed.^Disp: ^Rfl: Social History Tobacco Use Smoking status: Every Day Packs/day: 0.50 Years: 52.00 Pack years: 26.00 Types: Cigarettes Start date: 1973 Smokeless tobacco: Never Tobacco comments: started age 14- 2 ppd per day in past, down to 1 ppd Substance Use Topics Alcohol use: Not Currently Comment: Not locally. Drug use: No PMH, Social history, family history and surgical history reviewed and updated in EMR REVIEW OF SYSTEMS: CONSTITUTIONAL: No fevers, chills, nightsweats, unintended weight loss HEENT: Denies nasal congestion/sinus symptoms, problematic allergy problems. CARDIOVASCULAR: No chest pain, palpitations, orthopnea, PND, edema. PULM: See HPI PSY: No concerns regarding depression, anxiety INTEGUMENTARY: No new skin changes or rashes PHYSICAL EXAMINATION: BP 136/82 Pulse 78 Resp 17 Wt 115 lb (52.2kg) SpO2 95% General Appearance: Age-appropriate female, NAD Skin: Skin color, texture, turgor normal, no suspicious rashes or lesions. Head: Normocephalic, no masses, lesions, tenderness or abnormalities. Eyes: Sclera, conjunctiva normal Oropharynx: Upper plate, no oral lesions or thrush Lungs: Not labored, normal to percussion, no wheezes or crackles Heart: Regular rate and rhythm, no murmurs gallops Extremities: No edema or clubbing Assessment/Plan: 1. Severe COPD, GOLD 3 -Smoking cessation strongly encouraged -Changed Trelegy Ellipta to higher dose inhaled corticosteroid -Sent in prescription for DuoNeb to use in her nebulizer -Nocturnal oxygen assessment -Update pulmonary function tests 2. Cigarette smoker -Current half a pack a day smoker with sequelae of severe COPD -Recent low-dose CT of the chest did not show evidence of suspicious lesions. Continue yearly screening -Smoking cessation recommended Caty Hale MD [facility] [place] documented in this encounter [facility] 07-27-2022 Note HNO ID: [id number] Author: Eveline Burgos MD Service: Cardiovascular Surgery Author Type: Physician Type: Procedures Filed: 07/27/2022 10:59 AM Note Text: LEFT HEART CATHETERIZATION PROCEDURE NOTE Surgery/Procedure Date: 07/27/2022 Referring Physician: Clinical History: This is a 66 year old female with angina equivalent. Consent: Informed consent was obtained after the risks, benefits, and alternatives to and of this procedure were discussed in detail with the patient. Procedure in Detail: The patient was brought to the cardiac catheterization laboratory, prepped and draped in the usual sterile fashion. Anxiolysis was achieved with intravenous and intravenous benadryl. Local anesthesia was achieved over the wrist with 1% lidocaine. A pre-flushed 6-Malawian sheath was inserted into the right radial artery via the Seldinger technique without complications. Retrograde percutaneous diagnostic coronary angiography and left ventriculography were performed using a Aylin left 4 catheter, a 3-D RC catheter, and an angled pigtail catheter. There were no complications of the procedure. Findings: Angiography: LEFT MAIN: Normal . LEFT CIRCUMFLEX: Normal . LEFT ANTERIOR DESCENDING: Normal . RIGHT CORONARY ARTERY: Dominant with mid segment 40% . LEFT VENTRICULOGRAPHY: Normal LV size and function LVEF= 60% At this point, the procedure was terminated. All diagnostic wires and catheters were removed. Impression: Mild coronary a.disease. Normal LV size and function LVEF= 60% Recommendations: 1. Daily aspirin indefinitely 2. Medical therapy. 3. Statin use 4. Secondary cardiac prevention measures. SIGNATURE: Eveline Burogs MD PATIENT NAME: Jacque Dozier DATE: July 27, 2022 TIME: 10:57 AM [facility] 07-27-2022 Note HNO ID: [id number] Author: Claudette Sotomayor RN Service: ? Author Type: Registered Nurse Type: Nursing Progress Note Filed: 07/27/2022 9:08 AM Note Text: [id number] patient admitted to POD, PRE procedure teaching at bedside, review of medications with patient [facility] 07-23-2022 Miscellaneous Notes 07/23/2022 - called [facility] at [phone], regarding the patients' medication status. The pharmacy states, the following medications were ready for pickup since 07/21/2022. LamoTRIgine 200 mg. Mirtazapine 15 mg. Yanira Eisenberg documented in this encounter [facility] 07-22-2022 Note HNO ID: [id number] Author: Juan Jose Ojeda PT Service: ? Author Type: Physical Therapist Type: Progress Notes Filed: 07/22/2022 2:10 PM Note Text: Episode Visit Count: 2 Therapist That Will Accept/Oversee The Plan Of Care: Juan Jose Ojeda Start of Care Date: 05/18/22 Onset Date: 05/18/17 Plan of Care Certification Date: 07/19/22 Next Certification Due Date: 08/18/22 REHABILITATION AND SPORTS THERAPY PHYSICAL THERAPY PROGRESS REPORT PLAN OF CARE UPDATE: Assessment: Jacque Dozier demonstrates no improvement in anything due to not following up with therapy until now. She has not progressed towards goals due to lack of follow up. Patient continues to present with impairments in ADL's, overall function, range of motion, strength, symptom management, and tissue tenderness that interfere with . Current prognosis is Poor due to: clinical presentation, multiple co- morbidities, chronic nature of impairments, limited compliance with previous therapy . She will benefit from continued skilled therapy services to meet the updated goals for this plan of care as noted below. Goals for Episode of Care: created on 05/18/22 through 07/16/22 Independent in home exercises. Patient will decrease pain rating by 2 points to meet minimal clinical important difference for numeric pain rating scale. Restore pain-free lumbar ROM to WNL to allow for improved functional mobility Stand / Walk as needed for ADLs without pain/symptoms. Patient will increase strength of trunk/core to 4+/5 to allow for improve ability to complete ADLs. Restore pain free cervical ROM to WNL to allow for functional mobility. Drive with no aggravation of pain/symptoms. Planned Interventions, Frequency, and Duration: 1x/week, 4 weeks Total Number of Visits Planned: 4 Patient to be seen for Therapeutic exercise (45208), Neuromuscular re-education (15614), Self-fci management (46382), Manual therapy (71320), Therapeutic activities (60143), Patient/Family/Caregiver Education, Body Mechanics Training PLAN FOR NEXT VISIT: Assess cahnges to HEP, manual as needed SUBJECTIVE: Patient Reason for Visit: Pt returns today with same pain she has been having. Has done her exercises and this makes things hurt worse. Prolonged activity still her most aggrevating activity. Pain: Pain Pain Level: 8 Pain Location: Back Description: Aching, Throbbing, Shooting Frequency: Continuous PROMIS Scales Higher is Better 07/04/2022 05/10/2022 Phys Func - Score 35 (moderate dysfunction) 35 (moderate dysfunction) Phys Func - Percentile 7 % 7 % Self-Eff Symptom - Score 44 (Average) 44 (Average) Self-Eff Symptom - Percentile 27 % 27 % T-scores: mean of general population = 50. 5 points is clinically meaningfully difference Percentiles provide an indication of how the patient's score ranks in relation to the general population. Higher percentile rankings indicate better function/quality of life. 50th percentile is the average of the general population and indicates half of respondents had a worse score. OBJECTIVE MEASURES WITH LEVEL OF FUNCTION: Lumbar Spine AROM Lumbar Flexion: Pain during movement Lumbar Extension: Moderate limitation Lumbar R Side-Bend: Increased pain Lumbar L Side-Bend: Normal Lumbar R Rotation: Normal Lumbar L Rotation: Normal UE and Cervical Strength R Shoulder Shrug (C4): 4/5 R Shoulder Abduction (C5): 4/5 R Elbow Extension (C7): 4/5 R Elbow Flexion (C6): 4/5 R Thumb Extension (C8): 4/5 R Finger Adduction/Interossei (T1): 4/5 L Shoulder Shrug (C4): 4/5 L Shoulder Abduction (C5): 4/5 L Elbow Extension (C7): 4/5 L Elbow Flexion (C6): 4/5 L Thumb Extension (C8): 4/5 L Finger Adduction/Interossei (T1): 4/5 LE Strength Trunk Strength: 3+/5 R LE Strength: 4/5 L LE Strength: 4/5 TREATMENT: Therapeutic Exercise: 1: *BTB rows 3x10 2: *BTB straight arm extensions 3x10 3: *BTB stir the pot 3x10 4: TA bracing 3x10, 5 sec holds 5: Hooklying rotation stretch 3x20/side Skilled Intervention: Patient was educated in proper exercise technique and purpose for exercises. Skilled judgment was provided in selection of appropriate interventions. Provided written instruction for home exercise program to facilitate proper performance and compliance. Correct performance of therapeutic exercises was facilitated with verbal, visual, and tactile cuing. Manual Therapy: 1: Manual lumbar traction x10 min with pull to tolerance Skilled Intervention: Manual skills to improve joint mobility, ROM, and decrease pain. Utilized anatomy knowledge of the therapist, and assessment of patient's response to intervention. Billing Therapeutic Exercise Treatment Minutes: 30 Manual TherapyTreatment Minutes: 10 Total Treatment Time Minutes (timed/untimed): 40 Juan Jose Ojeda, PT [facility] 07-22-2022 History of Presen t illness Narrative Episode Visit Count: 2 Therapist That Will Accept/Oversee The Plan Of Care: Juan Jose Ojeda Start of Care Date: 05/18/22 Onset Date: 05/18/17 Plan of Care Certification Date: 07/19/22 Next Certification Due Date: 08/18/22 REHABILITATION AND SPORTS THERAPY PHYSICAL THERAPY PROGRESS REPORT PLAN OF CARE UPDATE: Assessment: Jacque Dozier demonstrates no improvement in anything due to not following up with therapy until now. She has not progressed towards goals due to lack of follow up. Patient continues to present with impairments in ADL's, overall function, range of motion, strength, symptom management, and tissue tenderness that interfere with . Current prognosis is Poor due to: clinical presentation, multiple co- morbidities, chronic nature of impairments, limited compliance with previous therapy . She will benefit from continued skilled therapy services to meet the updated goals for this plan of care as noted below. Goals for Episode of Care: created on 05/18/22 through 07/16/22 Independent in home exercises. Patient will decrease pain rating by 2 points to meet minimal clinical important difference for numeric pain rating scale. Restore pain-free lumbar ROM to WNL to allow for improved functional mobility Stand / Walk as needed for ADLs without pain/symptoms. Patient will increase strength of trunk/core to 4+/5 to allow for improve ability to complete ADLs. Restore pain free cervical ROM to WNL to allow for functional mobility. Drive with no aggravation of pain/symptoms. Planned Interventions, Frequency, and Duration: 1x/week, 4 weeks Total Number of Visits Planned: 4 Patient to be seen for Therapeutic exercise (86007), Neuromuscular re-education (21772), Self-fci management (06223), Manual therapy (48355), Therapeutic activities (64538), Patient/Family/Caregiver Education, Body Mechanics Training PLAN FOR NEXT VISIT: Assess cahnges to HEP, manual as needed SUBJECTIVE: Patient Reason for Visit: Pt returns today with same pain she has been having. Has done her exercises and this makes things hurt worse. Prolonged activity still her most aggrevating activity. Pain: Pain Pain Level: 8 Pain Location: Back Description: Aching, Throbbing, Shooting Frequency: Continuous PROMIS Scales Higher is Better 07/04/2022 05/10/2022 Phys Func - Score 35 (moderate dysfunction) 35 (moderate dysfunction) Phys Func - Percentile 7 % 7 % Self-Eff Symptom - Score 44 (Average) 44 (Average) Self-Eff Symptom - Percentile 27 % 27 % T-scores: mean of general population = 50. 5 points is clinically meaningfully difference Percentiles provide an indication of how the patient's score ranks in relation to the general population. Higher percentile rankings indicate better function/quality of life. 50th percentile is the average of the general population and indicates half of respondents had a worse score. OBJECTIVE MEASURES WITH LEVEL OF FUNCTION: Lumbar Spine AROM Lumbar Flexion: Pain during movement Lumbar Extension: Moderate limitation Lumbar R Side-Bend: Increased pain Lumbar L Side-Bend: Normal Lumbar R Rotation: Normal Lumbar L Rotation: Normal UE and Cervical Strength R Shoulder Shrug (C4): 4/5 R Shoulder Abduction (C5): 4/5 R Elbow Extension (C7): 4/5 R Elbow Flexion (C6): 4/5 R Thumb Extension (C8): 4/5 R Finger Adduction/Interossei (T1): 4/5 L Shoulder Shrug (C4): 4/5 L Shoulder Abduction (C5): 4/5 L Elbow Extension (C7): 4/5 L Elbow Flexion (C6): 4/5 L Thumb Extension (C8): 4/5 L Finger Adduction/Interossei (T1): 4/5 LE Strength Trunk Strength: 3+/5 R LE Strength: 4/5 L LE Strength: 4/5 TREATMENT: Therapeutic Exercise: 1: *BTB rows 3x10 2: *BTB straight arm extensions 3x10 3: *BTB stir the pot 3x10 4: TA bracing 3x10, 5 sec holds 5: Hooklying rotation stretch 3x20/side Skilled Intervention: Patient was educated in proper exercise technique and purpose for exercises. Skilled judgment was provided in selection of appropriate interventions. Provided written instruction for home exercise program to facilitate proper performance and compliance. Correct performance of therapeutic exercises was facilitated with verbal, visual, and tactile cuing. Manual Therapy: 1: Manual lumbar traction x10 min with pull to tolerance Skilled Intervention: Manual skills to improve joint mobility, ROM, and decrease pain. Utilized anatomy knowledge of the therapist, and assessment of patient's response to intervention. Billing Therapeutic Exercise Treatment Minutes: 30 Manual TherapyTreatment Minutes: 10 Total Treatment Time Minutes (timed/untimed): 40 Juan Jose Ojeda PT documented in this encounter [facility] 07-21-2022 Note HNO ID: [id number] Author: Matt Vickers APRN.[employer] Service: ? Author Type: Nurse Practitioner Type: Progress Notes Filed: 07/21/2022 10:06 AM Note Text: FOLLOW UP - PSYCHIATRIC PROGRESS NOTE Visit Type:Virtual Visit utilizing two-way audio and video for at least a portion of the visit. Consent for virtual visit obtained verbally. Confidentiality limitations with virtual visits reviewed with the patient and guardian, if present, who have accepted the risk verbally prior to proceeding with encounter. I have communicated my name and active licensure. The patient's identity and physical location were verified at the time of this visit. Either the patient or their legal physician representative has been informed of the risks and benefits of -- and alternatives to -- treatment through a remote evaluation and consents to proceed with the evaluation remotely. Reason for Visit: Outpatient follow-up and safety monitoring of previously prescribed psychiatric medication, psychotherapy or other treatment CC: medication management HPI: Last visit was 04/29/22 with the following treatment plan: 1. follow up 07/21 at 930a 2. continue Lexapro 20mg daily to target symptoms of anxiety/panic and any remaining depressive symptoms of bipolar disorder 3. no changes with Vraylar; last aims test was 08/2021 and was normal; no abnormal movements noted today has completed IOP group for mood disorders and Dr. Solorzano added 50mg Seroquel at hs for sleep; has been helpful 4. continue with Lamictal to total 200mg daily at hs to target racing thoughts, irritability and depression.; verbalized understanding to stop if rash develops and to call office 5. I do not recommend benzodiazepines for panic attacks as she has copd with sob; smoking 2 packs of cigarettes per day 6. has a new list of therapists to call and establish Today, Allison returns for a medication management follow-up appointment. She reports she is feeling depressed. She is scheduled for a heart catheter on Tuesday and has been having issues with chest pains. She reports she hasn't been going to [place] or going out to [place]. She still has her 3 kids and 3 grand kids living with her and there are people coming and going. There is too much action in the home. She just stays in her room most days. She is having a lot of panic attacks almost daily. She is currently drinking 1 1/2 cups of coffee daily. She denies alcohol use. She has not searched for a therapist and is declining this option. She did complete the IOP group about 3 mos ago and was helpful for her. She still has the notes from the group and does try to use them. She denies si/hi. She thinks that after the heart cath is completed, some of her anxiety will decrease; feeling very anxious about this. She reports taking her medications as ordered daily and denies side effects; this includes the Vraylar, Lamcital and Lexapro every morning. She does take the Seroquel at hs that was added by Dr. Solorzano at hs; doesn't help. She reports getting about 3 hours of sleep at hs and then no naps in the day. She has a lot of racing thoughts that she can't control at bedtime. Will discontinue the Seroquel and add Remeron 15mg 1/2 tablet at bedtime to target anxiety and sleep. Risks and benefits of the medication, including any black box warnings, were discussed with the patient. Allison verbalized understanding to all instructions and is in agreement with the treatment plan; confirmed that she would get to ER if needed for increase symptoms or safety concerns. Interval Progress: Worse PATIENT DATA: Generalized Anxiety Disorder Scale (SIMON-7) SIMON - 7 SCORES 04/15/2022 04/22/2022 07/18/2022 SIMON-7 Score 15 7 20 (0-4) minimal anxiety, (5-9) mild anxiety, (10-14) moderate anxiety, (15-21) severe anxiety Patient Health Questionnaire (PHQ-9) PHQ-9 04/15/2022 04/22/2022 07/18/2022 Score 19 11 14 (0-4) minimal depression, (5-9) mild depression, (10-14) moderate depression, (15-19) moderately severe depression, (20-27) severe depression PROMIS Global Health PROMIS Global Health - (T-Scores - the mean of general population = 50. Five points is a clinically meaningful difference.) 01/28/2022 02/25/2022 07/04/2022 Physical T-Score - 32.4 37.4 Mental T-Score 33.8 31.3 33.8 PAST MEDICAL HISTORY Diagnosis Date Abdominal pain, other specified site Alcohol abuse Back pain DDD Bipolar affect, depressed (HCC) COPD (chronic obstructive pulmonary disease) (HCC) Coronary artery disease Depression Esophagitis, unspecified Essential hypertension, benign Gastritis Hyperlipidemia Lung nodules Nausea Neuralgia Other forms of migraine Prediabetes Tobacco use PAST SURGICAL HISTORY Procedure Laterality Date APPENDECTOMY 1979 CARDIAC CATH 04/2011 Dr. Yang DELIVERY ONLY , low cervical x2 CHOLECYSTECTOMY 2007 Cholecystectomy COLONOSCOPY 09/14/02 RG (more content not included)... [facility] 07-21-2022 History of Presen t illness Narrative FOLLOW UP - PSYCHIATRIC PROGRESS NOTE Visit Type:Virtual Visit utilizing two-way audio and video for at least a portion of the visit. Consent for virtual visit obtained verbally. Confidentiality limitations with virtual visits reviewed with the patient and guardian, if present, who have accepted the risk verbally prior to proceeding with encounter. I have communicated my name and active licensure. The patient's identity and physical location were verified at the time of this visit. Either the patient or their legal physician representative has been informed of the risks and benefits of -- and alternatives to -- treatment through a remote evaluation and consents to proceed with the evaluation remotely. Reason for Visit: Outpatient follow-up and safety monitoring of previously prescribed psychiatric medication, psychotherapy or other treatment CC: medication management HPI: Last visit was 04/29/22 with the following treatment plan: 1. follow up 07/21 at 930a 2. continue Lexapro 20mg daily to target symptoms of anxiety/panic and any remaining depressive symptoms of bipolar disorder 3. no changes with Vraylar; last aims test was 08/2021 and was normal; no abnormal movements noted today has completed IOP group for mood disorders and Dr. Solorzano added 50mg Seroquel at hs for sleep; has been helpful 4. continue with Lamictal to total 200mg daily at hs to target racing thoughts, irritability and depression.; verbalized understanding to stop if rash develops and to call office 5. I do not recommend benzodiazepines for panic attacks as she has copd with sob; smoking 2 packs of cigarettes per day 6. has a new list of therapists to call and establish Today, Allison returns for a medication management follow-up appointment. She reports she is feeling depressed. She is scheduled for a heart catheter on Tuesday and has been having issues with chest pains. She reports she hasn't been going to [place] or going out to [place]. She still has her 3 kids and 3 grand kids living with her and there are people coming and going. There is too much action in the home. She just stays in her room most days. She is having a lot of panic attacks almost daily. She is currently drinking 1 1/2 cups of coffee daily. She denies alcohol use. She has not searched for a therapist and is declining this option. She did complete the IOP group about 3 mos ago and was helpful for her. She still has the notes from the group and does try to use them. She denies si/hi. She thinks that after the heart cath is completed, some of her anxiety will decrease; feeling very anxious about this. She reports taking her medications as ordered daily and denies side effects; this includes the Vraylar, Lamcital and Lexapro every morning. She does take the Seroquel at hs that was added by Dr. Solorzano at hs; doesn't help. She reports getting about 3 hours of sleep at hs and then no naps in the day. She has a lot of racing thoughts that she can't control at bedtime. Will discontinue the Seroquel and add Remeron 15mg 1/2 tablet at bedtime to target anxiety and sleep. Risks and benefits of the medication, including any black box warnings, were discussed with the patient. Allison verbalized understanding to all instructions and is in agreement with the treatment plan; confirmed that she would get to ER if needed for increase symptoms or safety concerns. Interval Progress: Worse PATIENT DATA: Generalized Anxiety Disorder Scale (SIMON-7) SIMON - 7 SCORES 04/15/2022 04/22/2022 07/18/2022 SIMON-7 Score 15 7 20 (0-4) minimal anxiety, (5-9) mild anxiety, (10-14) moderate anxiety, (15-21) severe anxiety Patient Health Questionnaire (PHQ-9) PHQ-9 04/15/2022 04/22/2022 07/18/2022 Score 19 11 14 (0-4) minimal depression, (5-9) mild depression, (10-14) moderate depression, (15-19) moderately severe depression, (20-27) severe depression PROMIS Global Health PROMIS Global Health - (T-Scores - the mean of general population = 50. Five points is a clinically meaningful difference.) 01/28/2022 02/25/2022 07/04/2022 Physical T-Score - 32.4 37.4 Mental T-Score 33.8 31.3 33.8 PAST MEDICAL HISTORY Diagnosis Date Abdominal pain, other specified site Alcohol abuse Back pain DDD Bipolar affect, depressed (HCC) COPD (chronic obstructive pulmonary disease) (HCC) Coronary artery disease Depression Esophagitis, unspecified Essential hypertension, benign Gastritis Hyperlipidemia Lung nodules Nausea Neuralgia Other forms of migraine Prediabetes Tobacco use PAST SURGICAL HISTORY Procedure Laterality Date APPENDECTOMY 1980 CARDIAC CATH 04/2011 Dr. Yang DELIVERY ONLY , low cervical x2 CHOLECYSTECTOMY 2007 Cholecystectomy COLONOSCOPY 09/14/02 RG - normal COLONOSCOPY FLX DX W/COLLJ SPEC WHEN PFRMD 04/13/2012 Colonoscopy DILATION & CURETTAGE DX&/THER NONOBSTETRIC Dilation & curettage EGD 09/14/02 RG ESOPHAGOGASTRODUODENOSCOPY TRANSORAL DIAGNOSTIC 04/09/2010 EGD ESOPHAGOGASTRODUODENOSCOPY TRANSORAL DIAGNOSTIC 04/13/2012 EGD ESOPHAGOGASTRODUODENOSCOPY TRANSORAL DIAGNOSTIC 02/27/15 EGD EXTRACTION, ERUPTED TOOTH OR EXPOSED ROOT (ELEVATION AND/OR FORCEPS REMOVAL) Teeth removed HYSTERECTOMY HX 10/23/1985 LAPS ABD PRTM&OMENTUM DX W/WO SPEC BR/WA SPX Laparoscopy Current Outpatient Medications Medication Sig Dispense Refill aspirin, enteric coated (ECOTRIN LOW STRENGTH) 81 mg EC tablet Take 1 tablet by mouth once daily. 90 tablet 3 rosuvastatin (CRESTOR) 5 mg tablet Take 1 tablet by mouth daily at bedtime. 90 tablet 3 carvedilol (COREG) 3.125 mg tablet Take 1 tablet by mouth twice daily. 180 tablet 3 VRAYLAR 3 mg capsule TAKE 1 CAPSULE BY MOUTH ONCE DAILY [address] (PROTONIX) 40 mg tablet Take 1 tablet by mouth twice daily before meals. Take on empty stomach, 1/2 hr before meal. 60 tablet 2 famotidine (PEPCID) 20 mg tablet Take 1 tablet by mouth daily at bedtime. 90 tablet 1 ipratropium 20 mcg-albuterol 100 mcg (COMBIVENT RESPIMAT) 20-100 mcg/actuation inhaler Inhale 1 Puff as instructed four times daily as needed. 4 g 5 escitalopram oxalate (LEXAPRO) 20 mg tablet TAKE 1 TABLET BY MOUTH EVERY DAY 30 tablet 2 tiZANidine (ZANAFLEX) 4 mg tablet 0.5-1 tab three times a day as needed for pain sparingly (multiple medications) (Patient not taking: Reported on 07/12/2022) 15 tablet 1 lamoTRIgine (LAMICTAL) 200 mg tablet TAKE 1 TABLET BY MOUTH EVERYDAY AT BEDTIME. THIS IS A DOSE INCREASE 30 tablet 2 QUEtiapine (SEROQUEL) 50 mg tablet Take 1 tablet by mouth daily at bedtime. 30 tablet 2 lidocaine (LIDODERM) 5 % Remove old patch prior to placing new patch. Location: lumbar, thoracic spine 12 out of 24 hours (Patient not taking: Reported on 07/12/2022) 90 Patch 2 doxazosin (CARDURA) 1 mg tablet Take 1 tablet by mouth once daily. 30 tablet 2 gmenfnwdwlp-temlfplba-pbhsguam (TRELEGY ELLIPTA) 100-62.5-25 mcg inhalation powder Inhale 1 Puff as instructed once daily. 1 Each 5 potassium chloride (K-TAB) 10 mEq tablet Take 1 tablet by mouth twice daily. 60 tablet 5 amLODIPine (NORVASC) 10 mg tablet Take 1 tablet by mouth once daily. 90 tablet 3 diphenhydrAMINE-Acetaminophen 25-500 mg tab Take by mouth once daily as needed. Current Facility-Administered Medications Medication Dose Route Frequency Provider Last Rate Last Admin perflutren lipid microspheres 1.3 mL in NaCl (PF) 0.9% 10 mL injection (DEFINITY) INTRAVENOUS DIRECTED PRN Beatrice Reaves PA-C sodium chloride 0.9 % (flush) 10 mL (BD POSIFLUSH) 10 mL INTRAVENOUS DIRECTED PRN Beatrice Reaves PA-C ROS: GENERAL: Negative for malaise, significant weight loss and fever. HEENT: No changes in hearing or vision, no nose bleeds or other nasal problems. RESPIRATORY: Negative for cough, wheezing ,but has shortness of breath with increased movement CARDIOVASCULAR: Negative for leg swelling and palpitations, but has chest pains on daily basis and has a heart catheter scheduled for Tuesday GI: Negative for abdominal discomfort, blood in stools or black stools. : Negative for dysuria, frequency and incontinence. MUSCULOSKELETAL: Negative for joint pain or swelling, back pain, and muscle pain. SKIN: Negative for lesions, rash, and itching. gets hives to face on occasion when anxiety is elevated that come and go HEMATOLOGY/LYMPHOLOGY Negative for prolonged bleeding, bruising easily, and swollen nodes. ENDOCRINE: Negative for cold or heat intolerance, polyuria, polydipsia and goiter. NEURO: Negative for headaches, syncope, seizures and paralysis. PFSH: see hpi VITAL SIGNS: There were no vitals filed for this visit. MENTAL STATUS EXAM: CONSTITUTIONAL: Casually dressed ORIENTATION: Person, Place, Time and Situation MEMORY: Recent intact, Remote intact, Immediate intact CONCENTRATION: Anxiety interferes MOOD: worried AFFECT: Flat SPEECH : Clear & distinct LANGUAGE : Normal ASSOCIATIONS: Intact THOUGHT PROCESS : Logical, Coherent, and Rational PROGRESSION : There was no evidence of disturbance in thought perception or progression. FUND OF KNOWLEDGE : Appropriate and Adequate SUICIDE: None HOMICIDE: None DATA REVIEWED: Electronic medical record DIAGNOSIS: PRIMARY: Mood Disorder Bipolar II Disorder Secondary : Anxiety Disorder Anxiety Disorder NOS Other : insomnia, related to a mental health condition GAF: 54 -60-51 Moderate symptoms or moderate difficulty in social, occupational or school functioning. TREATMENT PLAN: 1. follow up 08/18 at 11am 2. continue Lexapro 20mg daily to target symptoms of anxiety/panic and any remaining depressive symptoms of bipolar disorder 3. no changes with Vraylar 3mg daily; last aims test was 08/2021 and was normal; no abnormal movements noted today 4. has completed IOP group for mood disorders and Dr. Solorzano added 50mg Seroquel at hs for sleep; had been helpful, but no longer helping with sleep Seroquel discontinued today and added Remeron 15mg 1/2 pill at hs to target anxiety, sleep disturbance and depressed mood 4. continue with Lamictal to total 200mg daily at hs to target racing thoughts, irritability and depression.; verbalized understanding to stop if rash develops and to call office 5. I do not recommend benzodiazepines for panic attacks as she has copd with sob; smoking 2 packs of cigarettes per day 6. has a new list of therapists to call and establish and is declining this option MEDICATION CHANGES: See Treatment Plan Follow Up: See Treatment Plan I spent a total of 30 minutes on the date of the service which included preparing to see the patient, [id number] patient care, completing clinical documentation, obtaining and/or reviewing separately obtained history, performing a medically appropriate examination, counseling and educating the patient/family/caregiver, ordering medications, tests, or procedures, and care coordination (not separately reported). ADD ON PSYCHOTHERAPY CODE : No SIGNATURE: Matt Vickers APRN.CNP PATIENT NAME: Jacque Dozier DATE: July 21, 2022 TIME: 9:33 AM documented in this encounter [facility] 07-21-2022 Miscellaneous Notes Spoke with patient confirming today's virtual visit at 9:30 AM. Yanira Eisenberg documented in this encounter [facility] 07-13-2022 Miscellaneous Notes Pt notified and verbalizes understanding. Janet Witt MA Images from the original note were not included. Patient called and message left requesting patient call back for results below. Brandy Gotti APRN.[employer] P [facility] Cardiology Pool Please call patient and notify her of lab results. BMP and CBC are stable for upcoming planned left heart catheterization with Dr. Burgos. Thank you! Kia Galo RN Spoke with pt. She is agreeable to cath 07/27/22. Instructions sent through My Chart per pt request. Sonia Shine RN Schedule C on 07/27/[address] Burgos documented in this encounter [facility] 07-12-2022 Note HNO ID: [id number] Author: Brandy Gotti APRN.[employer] Service: ? Author Type: Nurse Practitioner Type: Progress Notes Filed: 07/12/2022 1:18 PM Note Text: [facility] ([facility]) [address] [facility] [id number] OUTPATIENT VISIT July 12, 2022 11:00 AM Chief Complaint Patient presents with: New Patient History of Present Illness: Jacque Dozier is a very pleasant 66 year old female who presents for cardiology evaluation. She has a PMHx of CAD (seen on CT of chest), tobacco use, severe COPD (follows with pulmonary), HTN, mild pulmonary hypertension. Today, she explains she has been experiencing chest discomfort worsening over the past 6-months. She first noticed twinges of chest discomfort. Symptoms have gradually worsened yesterday about 30 minute episode happened at rest and resolved on its own. Chest discomfort does not necessarily correlate with activity. She describes herself as being fairly inactive due to being limited by shortness of breath secondary to severe COPD. She was vacationing in [place] about 2 weeks ago and felt very limited in walking due to fatigue and shortness of breath but was not experiencing chest discomfort at that time. She denies other cardiac complaints including palpitations, orthopnea, LE swelling. We reviewed options for ischemic evaluation with stress testing or left heart catheterization. She opted for a left heart catheterization for definitive coronary evaluation and to further delineate COPD symptoms of shortness of breath and fatigue from coronary symptoms. We reviewed cardiac risk factors and modifications. She is agreeable to initiate cardioprotective medications ASA, statin and BB. She understands she will have to travel to [place] for heart catheterization and understands the risks and is agreeable to proceed. PAST MEDICAL HISTORY Diagnosis Date Abdominal pain, other specified site Alcohol abuse Back pain DDD Bipolar affect, depressed (HCC) COPD (chronic obstructive pulmonary disease) (HCC) Coronary artery disease Depression Esophagitis, unspecified Essential hypertension, benign Gastritis Hyperlipidemia Lung nodules Nausea Neuralgia Other forms of migraine Prediabetes Tobacco use PAST SURGICAL HISTORY Procedure Laterality Date APPENDECTOMY 1979 CARDIAC CATH 04/2011 Dr. Yang DELIVERY ONLY , low cervical x2 CHOLECYSTECTOMY 2007 Cholecystectomy COLONOSCOPY 09/14/02 RG - normal COLONOSCOPY FLX DX W/COLLJ SPEC WHEN PFRMD 04/13/2012 Colonoscopy DILATION AND CURETTAGE DXAND/THER NONOBSTETRIC Dilation AND curettage EGD 09/14/02 RG ESOPHAGOGASTRODUODENOSCOPY TRANSORAL DIAGNOSTIC 04/09/2010 EGD ESOPHAGOGASTRODUODENOSCOPY TRANSORAL DIAGNOSTIC 04/13/2012 EGD ESOPHAGOGASTRODUODENOSCOPY TRANSORAL DIAGNOSTIC 02/27/15 EGD EXTRACTION, ERUPTED TOOTH OR EXPOSED ROOT (ELEVATION AND/OR FORCEPS REMOVAL) Teeth removed HYSTERECTOMY HX 10/23/1985 LAPS ABD PRTMANDOMENTUM DX W/WO SPEC BR/WA SPX Laparoscopy FAMILY HISTORY Problem Relation Age of Onset Diabetes Mother Ischemic Heart Disease Mother CHF Hypertension Mother Colon Cancer Father Colon Polyps Father Genetic Father Parkinsonism Sister 2018 other (hemochromatosis) Sister 2018 Diabetes Brother Lung Cancer Paternal Grandfather other (throat cancer) Paternal Grandfather COPD Maternal Aunt Cancer Paternal Uncle COPD Paternal Uncle Social History Tobacco Use Smoking status: Every Day Packs/day: 0.50 Years: 52.00 Pack years: 26.00 Types: Cigarettes Start date: 1973 Smokeless tobacco: Never Tobacco comments: started age 14- 2 ppd per day in past, down to 1 ppd Substance Use Topics Alcohol use: Not Currently Comment: Not locally. Drug use: No Cardiac Risk Factors: age (male over 45, female over 55), history of smoking, hypertension ALLERGIES Allergen Reactions Codeine Vomiting Medications: Current Outpatient Medications Medication Sig Dispense Refill VRAYLAR 3 mg capsule TAKE 1 CAPSULE BY MOUTH ONCE DAILY [address] (PROTONIX) 40 mg tablet Take 1 tablet by mouth twice daily before meals. Take on empty stomach, 1/2 hr before meal. 60 tablet 2 famotidine (PEPCID) 20 mg tablet Take 1 tablet by mouth daily at bedtime. 90 tablet 1 ipratropium 20 mcg-albuterol 100 mcg (COMBIVENT RESPIMAT) 20-100 mcg/actuation inhaler Inhale 1 Puff as instructed four times daily as needed. 4 g 5 escitalopram oxalate (LEXAPRO) 20 mg tablet TAKE 1 TABLET BY MOUTH EVERY DAY 30 tablet 2 lamoTRIgine (LAMICTAL) 200 mg tablet TAKE 1 TABLET BY MOUTH EVERYDAY AT BEDTIME. THIS IS A DOSE INCREASE 30 tablet 2 QUEtiapine (SEROQUEL) 50 mg tablet Take 1 tablet by mouth daily at bedtime. 30 tablet 2 doxazosin (CARDURA) 1 mg tablet Take 1 tablet by mouth once daily. 30 tablet 2 fluticasone-umeclid (more content not included)... [facility] 07-12-2022 Instructions Brandy Gotti APRN.[employer] - 07/12/2022 11:15 AM EDT Images from the original note were not included. CORONARY ARTERY DISEASE View image View image WHAT IS CORONARY ARTERY DISEASE? Coronary artery disease (CAD) is a type of heart disease caused by a problem with the blood vessels that bring blood and oxygen to the heart muscle. These arteries are called the coronary arteries. This disease increases your risk for heart attack and sudden . WHAT IS THE CAUSE? Fatty deposits called plaque may build up in blood vessels and make them narrower. The narrowing decreases the amount of blood flow to the heart. Plaque also increases the chance that blood clots may form and block a blood vessel, which can cause a heart attack or stroke. Your risk for CAD may be higher if you: Have a family history of coronary artery disease at an early age Smoke Have high blood pressure Have diabetes Are very overweight Don t get enough exercise Have high levels of blood fat--for example, high cholesterol WHAT ARE THE SYMPTOMS? Coronary artery disease may not cause any symptoms. When there are symptoms, the most common one is chest pain, called angina. You may feel: A feeling of tightness or heaviness in the chest Squeezing, pressure, or burning in the chest Angina symptoms usually: Last for 5 minutes or less and go away with rest or medicine such as nitroglycerin. Happen when the heart has to work harder, such as after a heavy meal or during physical activity or emotional stress. Angina may also happen when you are resting. Call 911 for emergency help right away if you have symptoms of a heart attack. The most common symptoms include: Chest pain or pressure, squeezing, or fullness in the center of your chest that lasts more than a few minutes, or goes away and comes back (may feel like indigestion or heartburn) Pain or discomfort in one or both arms or shoulders, or in your back, neck, jaw, or stomach Trouble breathing Breaking out in a cold sweat for no known reason If your provider has prescribed nitroglycerin for angina, pain that does not go away after taking your nitroglycerin as directed Along with these symptoms, you may also feel very tired, faint, or be sick to your stomach. HOW IS IT DIAGNOSED? Your healthcare provider will ask about your symptoms and medical history and examine you. Tests may include: Blood tests An ECG (also called an EKG or electrocardiogram), which measures and records your heartbeat. An exercise treadmill test to see how your heart works when you exercise An echocardiogram, which uses sound waves (ultrasound) to see how well your heart is pumping Angiogram, which is a series of X-rays taken after your healthcare provider injects a special dye into your blood vessels to show the bahena of the arteries and any blockage CT scan, which uses X-rays and a computer to show detailed pictures of the arteries HOW IS IT TREATED? Your treatment depends on many factors, such as your age, heart muscle function, and other health problems. At first, treatment may include diet changes and an exercise program. Your healthcare provider may prescribe medicine. Many people need to take 2 or more medicines to help prevent a heart attack or stroke. It may take several weeks or months to find the best treatment for you. Your provider may also prescribe other types of medicine to lower blood pressure, help stop chest pain, control an irregular heartbeat, help prevent blood clots, or lower blood fat (cholesterol). Your provider may recommend a daily low dose of aspirin. Taking an aspirin every day may lower your risk for a heart attack or stroke. Not everyone should take aspirin. Daily use of aspirin can cause problems, such as stomach irritation, bleeding, and hearing loss. Ask your healthcare provider if you should take aspirin and if so, how much to take. If your coronary arteries are badly blocked, you may need balloon angioplasty or bypass surgery. A balloon angioplasty opens blocked blood vessels and improves blood flow. A metal mesh device called a stent is usually left in the blood vessels to help keep them open. Bypass surgery uses blood vessels from other parts of the body, or manmade material, to make a new path around a blocked area. HOW CAN I TAKE CARE OF MYSELF? CC If you have coronary artery disease, there are things you can do to take care of yourself now and prevent problems in the future. Follow your provider's advice about activity, exercise, medicine, and follow-up visits. Lower the amount of salt, saturated and trans fats, and cholesterol in your diet. Work with your healthcare provider to control diabetes, blood pressure, or other health problems you may have. Try to keep a healthy weight. If you are overweight, talk to your provider about ways to lose weight. If you smoke, try to quit. Talk to your healthcare provider about ways to quit smoking. Ask your healthcare provider: How and when you will hear your test results How long it will take to recover What activities you should avoid and when you can return to your normal activities How to take care of yourself at home What symptoms or problems you should watch for and what to do if you have them Make sure you know when you should come back for a checkup. HOW CAN I HELP PREVENT CORONARY ARTERY DISEASE? You can prevent this disease with a heart-healthy lifestyle: Eat a healthy diet and keep a healthy weight. Stay fit with the right kind of exercise for you. Find ways to manage stress. Don t smoke. Limit your use of alcohol. Talk to your healthcare provider about your personal and family medical history and your lifestyle habits. This will help you know what you can do to lower your risk for coronary artery disease. If you have a strong family history of CAD, a healthy lifestyle may slow the start of the disease and maybe even keep you from getting it. However, you must have regular checkups to keep a close watch on the health of your heart. Developed by [employer]. Published by [employer]. Copyright 2014 [employer] and/or one of its subsidiaries. All rights reserved. documented in this encounter [facility] 07-12-2022 History of Presen t illness Narrative Images from the original note were not included. [facility] ([facility]) [address] [facility] [id number] OUTPATIENT VISIT July 12, 2022 11:00 AM Chief Complaint Patient presents with: New Patient History of Present Illness: Jacque Dozier is a very pleasant 66 year old female who presents for cardiology evaluation. She has a PMHx of CAD (seen on CT of chest), tobacco use, severe COPD (follows with pulmonary), HTN, mild pulmonary hypertension. Today, she explains she has been experiencing chest discomfort worsening over the past 6-months. She first noticed twinges of chest discomfort. Symptoms have gradually worsened yesterday about 30 minute episode happened at rest and resolved on its own. Chest discomfort does not necessarily correlate with activity. She describes herself as being fairly inactive due to being limited by shortness of breath secondary to severe COPD. She was vacationing in [place] about 2 weeks ago and felt very limited in walking due to fatigue and shortness of breath but was not experiencing chest discomfort at that time. She denies other cardiac complaints including palpitations, orthopnea, LE swelling. We reviewed options for ischemic evaluation with stress testing or left heart catheterization. She opted for a left heart catheterization for definitive coronary evaluation and to further delineate COPD symptoms of shortness of breath and fatigue from coronary symptoms. We reviewed cardiac risk factors and modifications. She is agreeable to initiate cardioprotective medications ASA, statin and BB. She understands she will have to travel to [place] for heart catheterization and understands the risks and is agreeable to proceed. PAST MEDICAL HISTORY Diagnosis Date Abdominal pain, other specified site Alcohol abuse Back pain DDD Bipolar affect, depressed (HCC) COPD (chronic obstructive pulmonary disease) (HCC) Coronary artery disease Depression Esophagitis, unspecified Essential hypertension, benign Gastritis Hyperlipidemia Lung nodules Nausea Neuralgia Other forms of migraine Prediabetes Tobacco use PAST SURGICAL HISTORY Procedure Laterality Date APPENDECTOMY 1979 CARDIAC CATH 04/2011 Dr. Yang DELIVERY ONLY , low cervical x2 CHOLECYSTECTOMY 2007 Cholecystectomy COLONOSCOPY 09/14/02 RG - normal COLONOSCOPY FLX DX W/COLLJ SPEC WHEN PFRMD 04/13/2012 Colonoscopy DILATION & CURETTAGE DX&/THER NONOBSTETRIC Dilation & curettage EGD 09/14/02 RG ESOPHAGOGASTRODUODENOSCOPY TRANSORAL DIAGNOSTIC 04/09/2010 EGD ESOPHAGOGASTRODUODENOSCOPY TRANSORAL DIAGNOSTIC 04/13/2012 EGD ESOPHAGOGASTRODUODENOSCOPY TRANSORAL DIAGNOSTIC 02/27/15 EGD EXTRACTION, ERUPTED TOOTH OR EXPOSED ROOT (ELEVATION AND/OR FORCEPS REMOVAL) Teeth removed HYSTERECTOMY HX 10/23/1985 LAPS ABD PRTM&OMENTUM DX W/WO SPEC BR/WA SPX Laparoscopy FAMILY HISTORY Problem Relation Age of Onset Diabetes Mother Ischemic Heart Disease Mother CHF Hypertension Mother Colon Cancer Father Colon Polyps Father Genetic Father Parkinsonism Sister 2018 other (hemochromatosis) Sister 2018 Diabetes Brother Lung Cancer Paternal Grandfather other (throat cancer) Paternal Grandfather COPD Maternal Aunt Cancer Paternal Uncle COPD Paternal Uncle Social History Tobacco Use Smoking status: Every Day Packs/day: 0.50 Years: 52.00 Pack years: 26.00 Types: Cigarettes Start date: 1973 Smokeless tobacco: Never Tobacco comments: started age 14- 2 ppd per day in past, down to 1 ppd Substance Use Topics Alcohol use: Not Currently Comment: Not locally. Drug use: No Cardiac Risk Factors: age (male over 45, female over 55), history of smoking, hypertension ALLERGIES Allergen Reactions Codeine Vomiting Medications: Current Outpatient Medications Medication Sig Dispense Refill VRAYLAR 3 mg capsule TAKE 1 CAPSULE BY MOUTH ONCE DAILY [address] (PROTONIX) 40 mg tablet Take 1 tablet by mouth twice daily before meals. Take on empty stomach, 1/2 hr before meal. 60 tablet 2 famotidine (PEPCID) 20 mg tablet Take 1 tablet by mouth daily at bedtime. 90 tablet 1 ipratropium 20 mcg-albuterol 100 mcg (COMBIVENT RESPIMAT) 20-100 mcg/actuation inhaler Inhale 1 Puff as instructed four times daily as needed. 4 g 5 escitalopram oxalate (LEXAPRO) 20 mg tablet TAKE 1 TABLET BY MOUTH EVERY DAY 30 tablet 2 lamoTRIgine (LAMICTAL) 200 mg tablet TAKE 1 TABLET BY MOUTH EVERYDAY AT BEDTIME. THIS IS A DOSE INCREASE 30 tablet 2 QUEtiapine (SEROQUEL) 50 mg tablet Take 1 tablet by mouth daily at bedtime. 30 tablet 2 doxazosin (CARDURA) 1 mg tablet Take 1 tablet by mouth once daily. 30 tablet 2 kjvcrrwalgw-mcnzvmxgk-oqwquenq (TRELEGY ELLIPTA) 100-62.5-25 mcg inhalation powder Inhale 1 Puff as instructed once daily. 1 Each 5 potassium chloride (K-TAB) 10 mEq tablet Take 1 tablet by mouth twice daily. 60 tablet 5 amLODIPine (NORVASC) 10 mg tablet Take 1 tablet by mouth once daily. 90 tablet 3 diphenhydrAMINE-Acetaminophen 25-500 mg tab Take by mouth once daily as needed. aspirin, enteric coated (ECOTRIN LOW STRENGTH) 81 mg EC tablet Take 1 tablet by mouth once daily. 90 tablet 3 rosuvastatin (CRESTOR) 5 mg tablet Take 1 tablet by mouth daily at bedtime. 90 tablet 3 carvedilol (COREG) 3.125 mg tablet Take 1 tablet by mouth twice daily. 180 tablet 3 tiZANidine (ZANAFLEX) 4 mg tablet 0.5-1 tab three times a day as needed for pain sparingly (multiple medications) (Patient not taking: Reported on 07/12/2022) 15 tablet 1 lidocaine (LIDODERM) 5 % Remove old patch prior to placing new patch. Location: lumbar, thoracic spine 12 out of 24 hours (Patient not taking: Reported on 07/12/2022) 90 Patch 2 Current Facility-Administered Medications Medication Dose Route Frequency Provider Last Rate Last Admin perflutren lipid microspheres 1.3 mL in NaCl (PF) 0.9% 10 mL injection (DEFINITY) INTRAVENOUS DIRECTED PRN Beatrice Reaves PA-C sodium chloride 0.9 % (flush) 10 mL (BD POSIFLUSH) 10 mL INTRAVENOUS DIRECTED PRN Beatrice Reaves PA-C Review of Systems Constitutional: Positive for malaise/fatigue. Negative for chills, diaphoresis, fever and weight loss. HENT: Negative for congestion, ear pain, nosebleeds, sinus pain and sore throat. Eyes: Negative for pain. Respiratory: Positive for shortness of breath. Negative for cough and wheezing. Cardiovascular: Positive for chest pain. Negative for palpitations and leg swelling. Gastrointestinal: Negative for abdominal pain, blood in stool and melena. Genitourinary: Negative for hematuria. Musculoskeletal: Negative for falls. Neurological: Negative for dizziness, tingling, sensory change, speech change, focal weakness, loss of consciousness, weakness and headaches. Endo/Heme/Allergies: Does not bruise/bleed easily. Psychiatric/Behavioral: Negative for depression, memory loss and suicidal ideas. The patient is not nervous/anxious and does not have insomnia. Physical Examination: Vitals:BP 150/82 Pulse 70 Ht 5' 1 (1.55m) Wt 114 lb (51.7kg) BMI 21.55 kg/(m^2). Last 2 Encounter Wt Readings: Date: Wt: 05/03/2022 117 lb (53.1 kg) 04/26/2022 116 lb (52.6 kg) Physical Exam HENT: Head: Normocephalic. Eyes: Pupils: Pupils are equal, round, and reactive to light. Cardiovascular: Rate and Rhythm: Normal rate and regular rhythm. Pulses: Radial pulses are 2+ on the right side and 2+ on the left side. Dorsalis pedis pulses are 2+ on the right side and 2+ on the left side. Heart sounds: Normal heart sounds, S1 normal and S2 normal. Pulmonary: Effort: Pulmonary effort is normal. No accessory muscle usage or respiratory distress. Breath sounds: Normal breath sounds. Abdominal: General: Bowel sounds are normal. Palpations: Abdomen is soft. Musculoskeletal: General: Normal range of motion. Cervical back: Normal range of motion. Right lower leg: No edema. Left lower leg: No edema. Skin: General: Skin is warm and dry. Neurological: Mental Status: She is alert and oriented to person, place, and time. Gait: Gait is intact. Psychiatric: Mood and Affect: Affect normal. Cognition and Memory: Memory normal. Judgment: Judgment normal. Most Recent Cardiac Testing Echo 01/2022 CONCLUSIONS: - Exam indication: Palpitations - The left ventricle is normal in size. Left ventricular systolic function is normal. EF = 64 5% (2D biplane) Grade I left ventricular diastolic dysfunction. - The right ventricle is normal in size. Right ventricular systolic function is normal. - There are no significant valvular abnormalities. - The patient has not had a prior CC echocardiographic exam for comparison. Assessment and Plan: CAD/Chest pain/abnormal EKG -seen on CT of chest -describes having chest discomfort concerning in characteristic described as heaviness. Difficult to further assess as she is very inactive with overlapping P[place]LETON and fatigue that is seemly related to advanced COPD. She is agreeable to a left heart catheterization for definitive coronary evaluation. Risks and benefits of procedure including but not limited to contrast-induced acute kidney injury, stroke, bleeding were reviewed with the patient. CBC and BMP ordered -start 81 mg ASA, 5 mg of Crestor and 3.125 mg of Coreg BID HTN -150/82. Coreg 3.125 BID -Continue current medication(s) -Encouraged dietary sodium restriction/DASH diet -Recommended regular aerobic exercise. -Recommend home blood pressure monitoring, to bring results in on next visit -Discussed need and benefit for weight loss. -Goal of BP <130/80 Tobacco use -Encouraged cessation -Physiologic and physical aspects of tobacco addiction as well as strategies for quitting were discussed. -Counseling was given focusing on the harmful effects of this addiction especially given the patient's medical condition(s) which will be worsened because of the chemicals in tobacco. COPD -follows with pulmonary Mild pulmonary hypertension -follows with pulmonary Follow up with Dr. Burgos. Patient to call with any issues or concerns prior to then. Electronically signed by Brandy Gotti APRN.CNP on July 12, 2022, 10:38 AM documented in this encounter [facility] 03-29-2023 Miscellaneous Notes Patient has been identified by name and date of : Yes Requested Prescriptions Pending Prescriptions Disp Refills VRAYLAR 3 mg capsule [Pharmacy Med Name: VRAYLAR 3 MG CAPSULE] 30 capsule 1 Sig: TAKE 1 CAPSULE BY MOUTH ONCE DAILY BRENDA: 04/29/2022 FOV: 07/21/2022 RX INSTRUCTIONS: Pharmacy initiated this request. No need to notify patient. Pooja Srivastava documented in this encounter [facility] 06-09-2022 Miscellaneous Notes Records show a valid prescription at the pharmacy for Pepcid. Patient has been identified by name and date of : Yes, Provider ADALI Choudhury Date 06/09/22 pm Time 4:23 pm Patient phones for refill(s): Requested Prescriptions Pending Prescriptions Disp Refills pantoprazole DR (PROTONIX) 40 mg tablet 60 tablet 2 Sig: Take 1 tablet by mouth twice daily before meals. Take on empty stomach, 1/2 hr before meal. Refused Prescriptions Disp Refills famotidine (PEPCID) 20 mg tablet 90 tablet 1 Sig: Take 1 tablet by mouth daily at bedtime. Date of last office visit in primary care: 04/26/22 next apt 10/25/22 Last 2 Encounter Wt Readings: Date: Wt: 05/03/2022 53.1 kg (117 lb) 04/26/2022 52.6 kg (116 lb) Previous labs/tests for medication: Not applicable Please advise. Thank you. Janet Jaffe LPN documented in this encounter [facility] 06-08-2022 Note HNO ID: [id number] Author: Candida Ahumada adaffix Service: ? Author Type: Hand Assembler For Puller Over Type: Progress Notes Filed: 06/08/2022 10:00 AM Note Text: Radiology Service Progress Note PATIENT NAME: Jacque Dozier DATE OF SERVICE: June 08, 2022 TIME: 9:48 AM PATIENT IDENTITY VERIFICATION COMPLETED USING TWO (2) IDENTIFIERS: Name and Date of confirmed by patient verbally. FALL SCREENING: Has the patient had 2 falls in the last year or 1 fall with injury or currently using an Ambulatory Assistive Device (Walker, Cane, Wheelchair, Crutches, etc.)? No PATIENT GENDER DATA: Female. status: : No status: NO. PATIENT RELEVANT IMPLANT DATA REVIEWED: Not Applicable RADIOLOGY DEPARTMENT: Mammography PERIPHERAL IV DATA: Not applicable SIGNED BY: Chintan SamuelsAdRocket Yoandy June 08, 2022 9:48 AM [facility] 06-08-2022 History of Presen t illness Narrative Radiology Service Progress Note PATIENT NAME: Jacque Dozier DATE OF SERVICE: June 08, 2022 TIME: 9:48 AM PATIENT IDENTITY VERIFICATION COMPLETED USING TWO (2) IDENTIFIERS: Name and Date of confirmed by patient verbally. FALL SCREENING: Has the patient had 2 falls in the last year or 1 fall with injury or currently using an Ambulatory Assistive Device (Walker, Cane, Wheelchair, Crutches, etc.)? No PATIENT GENDER DATA: Female. status: : No status: NO. PATIENT RELEVANT IMPLANT DATA REVIEWED: Not Applicable RADIOLOGY DEPARTMENT: Mammography PERIPHERAL IV DATA: Not applicable SIGNED BY: Teo Samuels June 08, 2022 9:48 AM documented in this encounter [facility] 06-04-2022 Miscellaneous Notes Patient has been identified by name and date of : Yes Requested Prescriptions Pending Prescriptions Disp Refills ipratropium 20 mcg-albuterol 100 mcg (COMBIVENT RESPIMAT) 20-100 mcg/actuation inhaler 4 g 5 Sig: Inhale 1 Puff as instructed four times daily as needed. RX INSTRUCTIONS: Scheduled in September Yahir request. Sara Ramírez LPN documented in this encounter [facility] 06-04-2022 Miscellaneous Notes Patient has been identified by name and date of : Yes Requested Prescriptions Pending Prescriptions Disp Refills escitalopram oxalate (LEXAPRO) 20 mg tablet [Pharmacy Med Name: ESCITALOPRAM 20 MG TABLET] 90 tablet Sig: TAKE 1 TABLET BY MOUTH EVERY DAY BRENDA: 04/29/2022 FOV: 07/21/2022 RX INSTRUCTIONS: Pharmacy initiated this request. No need to notify patient. Pooja Srivastava documented in this encounter [facility] 05-18-2022 Note HNO ID: [id number] Author: Juan Jose Ojeda PT Service: ? Author Type: Physical Therapist Type: Progress Notes Filed: 05/18/2022 1:15 PM Note Text: Episode Visit Count: 1 Therapist That Will Accept/Oversee The Plan Of Care: Juan Jose Ojeda Start of Care Date: 05/18/22 Onset Date: 05/18/17 Plan of Care Certification Date: 05/18/22 Next Certification Due Date: 07/16/22 Patient Identified by Name and Date of : Yes REHABILITATION AND SPORTS THERAPY PHYSICAL THERAPY EVALUATION PLAN OF CARE: Assessment: Jacque Dozier presents with chief complaint of chronic neck and back pain that interferes with nothing (She is able to do everything, but notes she is miserable doing it all.) . She presents with impairments in ADL's, overall function, strength, symptom management, and tissue tenderness. PROMIS? (Patient-Reported Outcomes Measurement Information System) scores were reviewed and physical function domain and self efficacy domain identified as a rehabilitation concern. Prognosis for therapy is Poor due to: clinical presentation, multiple co- morbidities, chronic nature of impairments, limited tolerance to activity, history of poor adherence with medical recommendations . She will benefit from skilled therapy services to meet the goals established for this plan of care as noted below. Classification Low Back Pain Subgroup Classification: Core stabilization subgroup: recommended visits 10. Core Stabilization Subgroup Classification based on: history of locking/catching, pain with transitional movements Goals for Episode of Care: created on 05/18/22 through 07/16/22 Independent in home exercises. Patient will decrease pain rating by 2 points to meet minimal clinical important difference for numeric pain rating scale. Restore pain-free lumbar ROM to WNL to allow for improved functional mobility Stand / Walk as needed for ADLs without pain/symptoms. Patient will increase strength of trunk/core to 4+/5 to allow for improve ability to complete ADLs. Restore pain free cervical ROM to WNL to allow for functional mobility. Drive with no aggravation of pain/symptoms. Planned Interventions, Frequency, and Duration: Current Frequency: 1x/week Duration: 8 weeks Total Number of Visits Planned: 8 Planned Treatment Interventions: Therapeutic exercise (07878), Neuromuscular re-education (38225), Manual therapy (03655), Therapeutic activities (04390), Self-fci management (58792), Patient/Family/Caregiver Education, Body Mechanics Training PLAN FOR NEXT VISIT: Manual for neck, may try traction for back. Thoracic strengthening Patient demonstrates good understanding of plan of care and treatment. The above goals and plan of care were discussed and agreed upon by patient/family. SUBJECTIVE: Jacque Dozier is a 66 year old female seen today for Back pain for years, with sciatic symptoms on the R side and pain/headaches from the neck as well. Tried tylenol and ibuprofen. Notes this barely takes the edge off. Heat and ice both unsuccessful with pain relief. Tried a self massger/vibrator device that does not help either. Currently and BENNETT in the middle of the head. Throbbing pain in the middle of the shoulder blades as well right now, no sciatic symptoms currently. Functional Limitations: nothing (She is able to do everything, but notes she is miserable doing it all.) Prior Level of Function: Independent without limitations Intake Information: Prescription present Pain: Pain Pain Level: 7 (9/10 at worst) Pain Location: Back, Neck Description: Throbbing, Aching, Shooting Frequency: Continuous Post Treatment Pain Post Treatment Pain Level: 6 Post Treatment Pain Location: Neck, Back PROMIS Scales Higher is Better 01/28/2022 02/25/2022 05/10/2022 Phys Func - Score - - 35 (moderate dysfunction) Phys Func - Percentile - - 7 % GH Physical - Score Incomplete 32.4 (Poor) - GH Physical - Percentile - 4 % - GH Mental - Score 33.8 (Fair) 31.3 (Fair) - GH Mental - Percentile 5 % 3 % - Self-Eff Symptom - Score - - 44 (Average) Self-Eff Symptom - Percentile - - 27 % T-scores: mean of general population = 50. 5 points is clinically meaningfully difference Percentiles provide an indication of how the patient's score ranks in relation to the general population. Higher percentile rankings indicate better function/quality of life. 50th percentile is the average of the general population and indicates half of respondents had a worse score. T-scores: mean of general population = 50. 5 points is clinically meaningfully difference Percentiles provide an indication of how the patient's score ranks in relation to the general population. Higher percentile rankings indicate better function/quality of life. 50th percentile is the average of the general population and indicates half of respondents had a worse score. OBJECTIVE MEASURES WITH LEVEL OF FUNCTION: Lumbar Spine A (more content not included)... [facility] 05-18-2022 Miscellaneous Notes Addended by: JUAN JOSE OJEDA on: 05/18/2022 01:16 PM Modules accepted: Orders documented in this encounter [facility] 05-18-2022 History of Presen t illness Narrative Episode Visit Count: 1 Therapist That Will Accept/Oversee The Plan Of Care: Juan Jose Ojeda Start of Care Date: 05/18/22 Onset Date: 05/18/17 Plan of Care Certification Date: 05/18/22 Next Certification Due Date: 07/16/22 Patient Identified by Name and Date of : Yes REHABILITATION AND SPORTS THERAPY PHYSICAL THERAPY EVALUATION PLAN OF CARE: Assessment: Jacque Dozier presents with chief complaint of chronic neck and back pain that interferes with nothing (She is able to do everything, but notes she is miserable doing it all.) . She presents with impairments in ADL's, overall function, strength, symptom management, and tissue tenderness. PROMIS (Patient-Reported Outcomes Measurement Information System) scores were reviewed and physical function domain and self efficacy domain identified as a rehabilitation concern. Prognosis for therapy is Poor due to: clinical presentation, multiple co- morbidities, chronic nature of impairments, limited tolerance to activity, history of poor adherence with medical recommendations . She will benefit from skilled therapy services to meet the goals established for this plan of care as noted below. Classification Low Back Pain Subgroup Classification: Core stabilization subgroup: recommended visits 10. Core Stabilization Subgroup Classification based on: history of locking/catching, pain with transitional movements Goals for Episode of Care: created on 05/18/22 through 07/16/22 Independent in home exercises. Patient will decrease pain rating by 2 points to meet minimal clinical important difference for numeric pain rating scale. Restore pain-free lumbar ROM to WNL to allow for improved functional mobility Stand / Walk as needed for ADLs without pain/symptoms. Patient will increase strength of trunk/core to 4+/5 to allow for improve ability to complete ADLs. Restore pain free cervical ROM to WNL to allow for functional mobility. Drive with no aggravation of pain/symptoms. Planned Interventions, Frequency, and Duration: Current Frequency: 1x/week Duration: 8 weeks Total Number of Visits Planned: 8 Planned Treatment Interventions: Therapeutic exercise (72115), Neuromuscular re-education (75624), Manual therapy (26917), Therapeutic activities (53234), Self-fci management (57227), Patient/Family/Caregiver Education, Body Mechanics Training PLAN FOR NEXT VISIT: Manual for neck, may try traction for back. Thoracic strengthening Patient demonstrates good understanding of plan of care and treatment. The above goals and plan of care were discussed and agreed upon by patient/family. SUBJECTIVE: Jacque Dozier is a 66 year old female seen today for Back pain for years, with sciatic symptoms on the R side and pain/headaches from the neck as well. Tried tylenol and ibuprofen. Notes this barely takes the edge off. Heat and ice both unsuccessful with pain relief. Tried a self massger/vibrator device that does not help either. Currently and BENNETT in the middle of the head. Throbbing pain in the middle of the shoulder blades as well right now, no sciatic symptoms currently. Functional Limitations: nothing (She is able to do everything, but notes she is miserable doing it all.) Prior Level of Function: Independent without limitations Intake Information: Prescription present Pain: Pain Pain Level: 7 (9/10 at worst) Pain Location: Back, Neck Description: Throbbing, Aching, Shooting Frequency: Continuous Post Treatment Pain Post Treatment Pain Level: 6 Post Treatment Pain Location: Neck, Back PROMIS Scales Higher is Better 01/28/2022 02/25/2022 05/10/2022 Phys Func - Score - - 35 (moderate dysfunction) Phys Func - Percentile - - 7 % GH Physical - Score Incomplete 32.4 (Poor) - GH Physical - Percentile - 4 % - GH Mental - Score 33.8 (Fair) 31.3 (Fair) - GH Mental - Percentile 5 % 3 % - Self-Eff Symptom - Score - - 44 (Average) Self-Eff Symptom - Percentile - - 27 % T-scores: mean of general population = 50. 5 points is clinically meaningfully difference Percentiles provide an indication of how the patient's score ranks in relation to the general population. Higher percentile rankings indicate better function/quality of life. 50th percentile is the average of the general population and indicates half of respondents had a worse score. T-scores: mean of general population = 50. 5 points is clinically meaningfully difference Percentiles provide an indication of how the patient's score ranks in relation to the general population. Higher percentile rankings indicate better function/quality of life. 50th percentile is the average of the general population and indicates half of respondents had a worse score. OBJECTIVE MEASURES WITH LEVEL OF FUNCTION: Lumbar Spine AROM Lumbar Flexion: Pain during movement Lumbar Extension: Moderate limitation Lumbar R Side-Bend: Increased pain Lumbar L Side-Bend: Normal Lumbar R Rotation: Normal Lumbar L Rotation: Normal UE and Cervical Strength Strength Tested: Myotome Cervical/Shoulder R Shoulder Shrug (C4): 4/5 R Shoulder Abduction (C5): 4/5 R Elbow Extension (C7): 4/5 R Elbow Flexion (C6): 4/5 R Thumb Extension (C8): 4/5 R Finger Adduction/Interossei (T1): 4/5 L Shoulder Shrug (C4): 4/5 L Shoulder Abduction (C5): 4/5 L Elbow Extension (C7): 4/5 L Elbow Flexion (C6): 4/5 L Thumb Extension (C8): 4/5 L Finger Adduction/Interossei (T1): 4/5 LE Strength Trunk Strength: 3+/5 R LE Strength: 4/5 L LE Strength: 4/5 Education: Education Learning/educational needs: Home exercise program, Plan of Care, Changes in Plan of Care, Posture, Body Mechanics TREATMENT: PT Treatment Interventions: Therapeutic Exercise, Manual Therapy Evaluation Therapeutic Exercise: 1: *SKC 3x30 sec 2: *DKC 3x30 sec 3: *TA bracing in hooklying 3x10, 5 sec holds 4: *L upper trap stretch 3x30 sec 5: *R rotations stretch 3x30 sec 6: *L levator stretch 3x30 sec Skilled Intervention: Patient was educated in proper exercise technique and purpose for exercises. Skilled judgment was provided in selection of appropriate interventions. Provided written instruction for home exercise program to facilitate proper performance and compliance. Correct performance of therapeutic exercises was facilitated with verbal, visual, and tactile cuing. Manual Therapy: 1: STM and TrPr to L upper trap and B suboccipitals with push to tolerance 2: Manual cervical traction x3 min Skilled Intervention: Manual skills to improve joint mobility, ROM, and decrease pain. Utilized anatomy knowledge of the therapist, and assessment of patient's response to intervention. Billing * Evaluation Moderate Complexity: 1 Unit Therapeutic Exercise Treatment Minutes: 10 Manual TherapyTreatment Minutes: 15 Total Treatment Time Minutes (timed/untimed): 50 Juan Jose Ojeda PT documented in this encounter [facility] 05-05-2022 Miscellaneous Notes May 06, 2022 PID: [id number] Jacque JenniferMadhav Dozier [address] [place], [place] [id number] Dear Ms. Dozier, Your recent breast imaging exam on 05/05/2022 showed a possible finding that requires additional imaging studies for a complete evaluation. Most such findings are probably benign (not cancer). If you have a healthcare provider who ordered/prescribed your screening mammogram: Please call [phone] or EXT: [phone] to schedule an appointment for your additional imaging (if you have not already done so). If you DO NOT have a healthcare provider (ie you did not have an order/prescription for your screening mammogram): Please call to schedule an appointment for your additional imaging (if you have not already done so). You must have an order/prescription from your physician when calling to schedule your appointment. If your order/prescription is not electronic, you must bring the hard copy with you on the day of your exam to avoid delays. Your imaging studies and reports are kept on file at [facility] as part of your permanent medical record, and are available for your continuing care. Thank you for allowing us to help in meeting your health care needs. Sincerely, Dr. Hoffman Interpreting Radiologist [facility] (Additional imaging) documented in this encounter [facility] 05-05-2022 Note HNO ID: [id number] Author: Teo Samuels Service: ? Author Type: Hand Assembler For Puller Over Type: Progress Notes Filed: 05/05/2022 9:54 AM Note Text: Radiology Service Progress Note PATIENT NAME: Jacque Dozier DATE OF SERVICE: May 05, 2022 TIME: 9:34 AM PATIENT IDENTITY VERIFICATION COMPLETED USING TWO (2) IDENTIFIERS: Name and Date of confirmed by patient verbally. FALL SCREENING: Has the patient had 2 falls in the last year or 1 fall with injury or currently using an Ambulatory Assistive Device (Walker, Cane, Wheelchair, Crutches, etc.)? No PATIENT GENDER DATA: Female. status: : No status: NO. PATIENT RELEVANT IMPLANT DATA REVIEWED: Not Applicable RADIOLOGY DEPARTMENT: Mammography PERIPHERAL IV DATA: Not applicable SIGNED BY: Teo Samuels May 05, 2022 9:34 AM [facility] 05-05-2022 History of Presen t illness Narrative Radiology Service Progress Note PATIENT NAME: Jacque Dozier DATE OF SERVICE: May 05, 2022 TIME: 9:34 AM PATIENT IDENTITY VERIFICATION COMPLETED USING TWO (2) IDENTIFIERS: Name and Date of confirmed by patient verbally. FALL SCREENING: Has the patient had 2 falls in the last year or 1 fall with injury or currently using an Ambulatory Assistive Device (Walker, Cane, Wheelchair, Crutches, etc.)? No PATIENT GENDER DATA: Female. status: : No status: NO. PATIENT RELEVANT IMPLANT DATA REVIEWED: Not Applicable RADIOLOGY DEPARTMENT: Mammography PERIPHERAL IV DATA: Not applicable SIGNED BY: Teo Samuels May 05, 2022 9:34 AM documented in this encounter [facility] 05-03-2022 Note HNO ID: [id number] Author: Beatrice Reaves PA-C Service: ? Author Type: Physician Metal Roofing Mechanic Type: Progress Notes Filed: 05/03/2022 10:46 AM Note Text: Patient: Jacque Dozier PCP: Boyd Da Silva PA-C CC: COPD HPI: Jacque Dozier 66 year old female current daily smoker with PMH significant for bipolar disorder, alcohol abuse, HTN, CAD, COPD and lung nodules secondary to granulomatous disease. Since the last Pulmonary Clinic visit 01/28/2022, the patient has not required ED care for exacerbation. There has been no hospital admission for exacerbation. Claims to be consistently compliant with prescribed maintenance Rx Trelegy ellipta daily. 2-4 times daily rescue bronchodilator with no improvement in symptoms. Daily cough. Clear sputum. No hemoptysis. Frequent wheezing. No dyspnea at rest. Exertional dyspnea with minimal effort. I wake up short of breath . Unable to carry groceries, climb stairs, walk a short distance. No lower extremity edema. No heart palpitations. Currently smoking 0.5 ppd which is decreased from 1 ppd. PAST MEDICAL HISTORY Diagnosis Date Abdominal pain, other specified site Alcohol abuse Back pain DDD Bipolar affect, depressed (HCC) COPD (chronic obstructive pulmonary disease) (HCC) Coronary artery disease Depression Esophagitis, unspecified Essential hypertension, benign Gastritis Hyperlipidemia Lung nodules Nausea Neuralgia Other forms of migraine Prediabetes Tobacco use Allergies: Codeine Vomiting tiZANidine (ZANAFLEX) 4 mg tablet0.5-1 tab three times a day as needed for pain sparingly (multiple medications)Disp: 15 tabletRfl: 1 cariprazine (VRAYLAR) 3 mg capsuleTake 1 capsule by mouth once daily.Disp: 30 capsuleRfl: 2 lamoTRIgine (LAMICTAL) 200 mg tabletTAKE 1 TABLET BY MOUTH EVERYDAY AT BEDTIME. THIS IS A DOSE INCREASEDisp: 30 tabletRfl: 2 QUEtiapine (SEROQUEL) 50 mg tabletTake 1 tablet by mouth daily at bedtime.Disp: 30 tabletRfl: 2 escitalopram oxalate (LEXAPRO) 20 mg tabletTake 1 tablet by mouth once daily.Disp: 30 tabletRfl: [address] (PROTONIX) 40 mg tabletTake 1 tablet by mouth twice daily before meals. Take on empty stomach, 1/2 hr before meal.Disp: 60 tabletRfl: 2 famotidine (PEPCID) 20 mg tabletTake 1 tablet by mouth daily at bedtime.Disp: 90 tabletRfl: 1 lidocaine (LIDODERM) 5 %Remove old patch prior to placing new patch. Location: lumbar, thoracic spine 12 out of 24 hoursDisp: 90 PatchRfl: 2 ipratropium 20 mcg-albuterol 100 mcg (COMBIVENT RESPIMAT) 20-100 mcg/actuation inhalerInhale 1 Puff as instructed four times daily as needed.Disp: 4 gRfl: 5 doxazosin (CARDURA) 1 mg tabletTake 1 tablet by mouth once daily.Disp: 30 tabletRfl: 2 tmkvswmgqbd-cowhunstu-eohgbxxf (TRELEGY ELLIPTA) 100-62.5-25 mcg inhalation powderInhale 1 Puff as instructed once daily.Disp: 1 EachRfl: 5 potassium chloride (K-TAB) 10 mEq tabletTake 1 tablet by mouth twice daily.Disp: 60 tabletRfl: 5 amLODIPine (NORVASC) 10 mg tabletTake 1 tablet by mouth once daily.Disp: 90 tabletRfl: 3 diphenhydrAMINE-Acetaminophen 25-500 mg tabTake by mouth once daily as needed.Disp: Rfl: Social History Tobacco Use Smoking status: Every Day Packs/day: 1.00 Years: 52.00 Pack years: 52.00 Types: Cigarettes Start date: 1973 Smokeless tobacco: Never Tobacco comments: started age 14- 2 ppd per day in past, down to 1 ppd Substance Use Topics Alcohol use: Not Currently Comment: Not locally. Drug use: No Family History Problem Relation Age of Onset Diabetes Mother Ischemic Heart Disease Mother CHF Hypertension Mother Colon Cancer Father Colon Polyps Father Genetic Father Parkinsonism Sister 2018 other (hemochromatosis) Sister 2018 Diabetes Brother Lung Cancer Paternal Grandfather other (throat cancer) Paternal Grandfather COPD Maternal Aunt Cancer Paternal Uncle COPD Paternal Uncle PAST SURGICAL HISTORY Procedure Laterality Date APPENDECTOMY 1979 CARDIAC CATH 04/2011 Dr. Yang DELIVERY ONLY , low cervical x2 CHOLECYSTECTOMY 2008 Cholecystectomy COLONOSCOPY 09/14/02 RG - normal COLONOSCOPY FLX DX W/COLLJ SPEC WHEN PFRMD 04/13/2012 Colonoscopy DILATION AND CURETTAGE DXAND/THER NONOBSTETRIC Dilation AND curettage EGD 09/14/02 RG ESOPHAGOGASTRODUODENOSCOPY TRANSORAL DIAGNOSTIC 04/09/2010 EGD ESOPHAGOGASTRODUODENOSCOPY TRANSORAL DIAGNOSTIC 04/13/2012 EGD ESOPHAGOGASTRODUODENOSCOPY TRANSORAL DIAGNOSTIC 02/27/15 EGD EXTRACTION, ERUPTED TOOTH OR EXPOSED ROOT (ELEVATION AND/OR FORCEPS REMOVAL) Teeth removed HYSTERECTOMY HX 10/23/1985 LAPS ABD PRTMANDOMENTUM DX W/WO SPEC BR/WA SPX Laparoscopy I reviewed the past medical history, family history, social history and surgical history with changes noted above and updated in EMR. IMMUNIZATIONS Prevnar - 11/02/2021 Pneumovax - 06/16/2018 Influenza - 01/28/2022 (more content not included)... [facility] 05-03-2022 History of Presen t illness Narrative Patient: Jacque Dozier PCP: Boyd Da Silva PA-C CC: COPD HPI: Jacque Dozier 66 year old female current daily smoker with PMH significant for bipolar disorder, alcohol abuse, HTN, CAD, COPD and lung nodules secondary to granulomatous disease. Since the last Pulmonary Clinic visit 01/28/2022, the patient has not required ED care for exacerbation. There has been no hospital admission for exacerbation. Claims to be consistently compliant with prescribed maintenance Rx Trelegy ellipta daily. 2-4 times daily rescue bronchodilator with no improvement in symptoms. Daily cough. Clear sputum. No hemoptysis. Frequent wheezing. No dyspnea at rest. Exertional dyspnea with minimal effort. I wake up short of breath . Unable to carry groceries, climb stairs, walk a short distance. No lower extremity edema. No heart palpitations. Currently smoking 0.5 ppd which is decreased from 1 ppd. PAST MEDICAL HISTORY Diagnosis Date Abdominal pain, other specified site Alcohol abuse Back pain DDD Bipolar affect, depressed (HCC) COPD (chronic obstructive pulmonary disease) (HCC) Coronary artery disease Depression Esophagitis, unspecified Essential hypertension, benign Gastritis Hyperlipidemia Lung nodules Nausea Neuralgia Other forms of migraine Prediabetes Tobacco use Allergies: Codeine Vomiting tiZANidine (ZANAFLEX) 4 mg tablet^0.5-1 tab three times a day as needed for pain sparingly (multiple medications)^Disp: 15 tablet^Rfl: 1 cariprazine (VRAYLAR) 3 mg capsule^Take 1 capsule by mouth once daily.^Disp: 30 capsule^Rfl: 2 lamoTRIgine (LAMICTAL) 200 mg tablet^TAKE 1 TABLET BY MOUTH EVERYDAY AT BEDTIME. THIS IS A DOSE INCREASE^Disp: 30 tablet^Rfl: 2 QUEtiapine (SEROQUEL) 50 mg tablet^Take 1 tablet by mouth daily at bedtime.^Disp: 30 tablet^Rfl: 2 escitalopram oxalate (LEXAPRO) 20 mg tablet^Take 1 tablet by mouth once daily.^Disp: 30 tablet^Rfl: [address] (PROTONIX) 40 mg tablet^Take 1 tablet by mouth twice daily before meals. Take on empty stomach, 1/2 hr before meal.^Disp: 60 tablet^Rfl: 2 famotidine (PEPCID) 20 mg tablet^Take 1 tablet by mouth daily at bedtime.^Disp: 90 tablet^Rfl: 1 lidocaine (LIDODERM) 5 %^Remove old patch prior to placing new patch. Location: lumbar, thoracic spine 12 out of 24 hours^Disp: 90 Patch^Rfl: 2 ipratropium 20 mcg-albuterol 100 mcg (COMBIVENT RESPIMAT) 20-100 mcg/actuation inhaler^Inhale 1 Puff as instructed four times daily as needed.^Disp: 4 g^Rfl: 5 doxazosin (CARDURA) 1 mg tablet^Take 1 tablet by mouth once daily.^Disp: 30 tablet^Rfl: 2 okytjiyaovt-tnrozssba-bhcuehbj (TRELEGY ELLIPTA) 100-62.5-25 mcg inhalation powder^Inhale 1 Puff as instructed once daily.^Disp: 1 Each^Rfl: 5 potassium chloride (K-TAB) 10 mEq tablet^Take 1 tablet by mouth twice daily.^Disp: 60 tablet^Rfl: 5 amLODIPine (NORVASC) 10 mg tablet^Take 1 tablet by mouth once daily.^Disp: 90 tablet^Rfl: 3 diphenhydrAMINE-Acetaminophen 25-500 mg tab^Take by mouth once daily as needed.^Disp: ^Rfl: Social History Tobacco Use Smoking status: Every Day Packs/day: 1.00 Years: 52.00 Pack years: 52.00 Types: Cigarettes Start date: 1973 Smokeless tobacco: Never Tobacco comments: started age 14- 2 ppd per day in past, down to 1 ppd Substance Use Topics Alcohol use: Not Currently Comment: Not locally. Drug use: No Family History Problem Relation Age of Onset Diabetes Mother Ischemic Heart Disease Mother CHF Hypertension Mother Colon Cancer Father Colon Polyps Father Genetic Father Parkinsonism Sister 2018 other (hemochromatosis) Sister 2018 Diabetes Brother Lung Cancer Paternal Grandfather other (throat cancer) Paternal Grandfather COPD Maternal Aunt Cancer Paternal Uncle COPD Paternal Uncle PAST SURGICAL HISTORY Procedure Laterality Date APPENDECTOMY 1979 CARDIAC CATH 04/2011 Dr. Yang DELIVERY ONLY , low cervical x2 CHOLECYSTECTOMY 2007 Cholecystectomy COLONOSCOPY 09/14/02 RG - normal COLONOSCOPY FLX DX W/COLLJ SPEC WHEN PFRMD 04/13/2012 Colonoscopy DILATION & CURETTAGE DX&/THER NONOBSTETRIC Dilation & curettage EGD 09/14/02 RG ESOPHAGOGASTRODUODENOSCOPY TRANSORAL DIAGNOSTIC 04/09/2010 EGD ESOPHAGOGASTRODUODENOSCOPY TRANSORAL DIAGNOSTIC 04/13/2012 EGD ESOPHAGOGASTRODUODENOSCOPY TRANSORAL DIAGNOSTIC 02/27/15 EGD EXTRACTION, ERUPTED TOOTH OR EXPOSED ROOT (ELEVATION AND/OR FORCEPS REMOVAL) Teeth removed HYSTERECTOMY HX 10/23/1985 LAPS ABD PRTM&OMENTUM DX W/WO SPEC BR/WA SPX Laparoscopy I reviewed the past medical history, family history, social history and surgical history with changes noted above and updated in EMR. IMMUNIZATIONS Prevnar - 11/02/2021 Pneumovax - 06/16/2018 Influenza - 01/28/2022 COVID-19 - xx ROS: General: Generally feels short of breath. Appetite good. Eyes, Ears, nose, throat: Post nasal drip, rhinorrhea. No purulent nasal discharge, epistaxis. No hoarseness. Vision stable. Cardiac: No angina, edema, orthopnea. Resp: See HPI. GI: Heartburn, states she has not been able to fill her scripts at [facility] and is taking OTC medications. No dysphagia. Musculoskeletal: No pain. Neuro: No headache, focal weakness, tremor. Skin: No rash. Otherwise negative. PHYSICAL EXAMINATION: BP (P) 128/82 Pulse (P) 66 Resp (P) 15 Wt 53.1 kg (117 lb) SpO2 (P) 96% BMI 22.11 kg/m Gen: No acute distress. Cooperative with examination. HEENT: Normocephalic. Sclera, conjunctiva clear. Oral hygeine and dentition good. No thrush. Resp: No stridor, accessory respiratory muscle use, supra-sternal or intercostal retractions. No wheezes, crackles. CV: Regular rythm. Heart tones normal. Radial pulses normal. Abd: Non distended. MSK: No kyphoscoliosis. Ext: Warm and well perfused. No clubbing, cyanosis, edema. Skin: No rash, ecchymoses. Neuro: Mental status normal. Affect normal. No tremor. DATA: PFT, 10/26/2021 IMPRESSION: Spirometry indicates severe obstruction. There was not a significant bronchodilator response. Electronically Signed On 10-26-2021 14:02:23 EDT by Caty Hale M.D. Oximetry, 01/28/2022 O2 Device O2 Adapter NC O2 Flow SpO2% HR Activity Ft Walked (ft) Time (min) Avg Speed (MPH) R/A 97 85 Resting R/A 96 94 Walking, usual pace 450 3 1.7 R/A 95 103 Walking, fastest pace 510 3 1.93 CXR, 07/31/2021 IMPRESSION: No acute radiographic abnormality. COMPARISON: 11/08/2017 RESULT: Lines, tubes, and devices: None. Lungs and pleura: Hyperinflation. No consolidation. No lung mass. Calcified granuloma in the right lower lung. Vague rounded density at the right base, likely nipple shadow. No pleural effusion. No pneumothorax. Cardiomediastinal silhouette: Stable cardiomediastinal silhouette. Bones and soft tissues: Unremarkable. CT chest, 04/17/2019 IMPRESSION: No acute pulmonary process identified. Emphysema with mild, diffuse bronchiectasis. Mild bronchial wall thickening. Sequela of remote granulomatous disease. Stable subcentimeter pulmonary nodules, most likely benign, given stability since 2014. No follow-up examination is required. Prominent, less than 1 cm mediastinal lymph nodes, likely reactive. Biliary dilation. Status post cholecystectomy. Question dropped gallstone within the right upper quadrant. Echocardiogram, 02/08/2022 CONCLUSIONS: - Exam indication: Palpitations - The left ventricle is normal in size. Left ventricular systolic function is normal. EF = 64 5% (2D biplane) Grade I left ventricular diastolic dysfunction. - The right ventricle is normal in size. Right ventricular systolic function is normal. - There are no significant valvular abnormalities. - The patient has not had a prior CC echocardiographic exam for comparison. SSMENT/PLAN: 1. Stage 3 severe COPD by GOLD classification (HCC) - ICD9: 496, ICD10: J44.9 (primary diagnosis) Continues with exertional dyspnea. Encouraged patient to stop smoking. She has decreased to 0.5 ppd from 1 ppd. Continue with Trelegy ellipta 1 inhalation daily. Rinse mouth after each use to help prevent oral thrush. Combivent inhaler as needed. Up to date on annual influenza and pneumococcal vaccines. Declines Covid 19 vaccine. 2. Cigarette smoker - ICD9: 305.1, ICD10: F17.210 Cessation encouraged. Physiologic and physical aspects of tobacco addiction as well as strategies for quitting were discussed. Counseling was given focusing on the harmful effects of this addiction especially given the patient's medical condition(s) which will be worsened because of the chemicals in tobacco. Previous referral to lung cancer screening program. Patient states she is unable to secure reliable transportation for LDCT. Sent referral to [facility]. 3. Lung nodule - ICD9: 793.11, ICD10: R91.[address] Núñez's office note dated 02/18/2015, Calcified nodules in the right lung, especially the densely calcified right lower lobe nodule, need no further evaluation. CT chest in 2019 stable pulmonary nodules consistent with granulomatous disease. No further imaging required. Beatrice Reaves PA-C documented in this encounter [facility] 05-03-2022 Miscellaneous Notes Patient called stating she will be about 5 mins late for her appointment. .me documented in this encounter [facility] 05-03-2022 Miscellaneous Notes I don't see that she set up PT appointment: please schedule. If OMT helped last time we could try to get her in. The following approved medication requests have been transmitted electronically. Requested Prescriptions Signed Prescriptions Disp Refills tiZANidine (ZANAFLEX) 4 mg tablet 15 tablet 1 Si.5-1 tab three times a day as needed for pain sparingly (multiple medications) Thanks, Parvez Da Silva PA-C documented in this encounter [facility] 04-29-2022 Note HNO ID: [id number] Author: Matt Vickers APRN.[employer] Service: ? Author Type: Nurse Practitioner Type: Progress Notes Filed: 04/29/2022 10:02 AM Note Text: PSYC FOLLOW UP - PSYCHIATRIC PROGRESS NOTE CC: medication management With the patient consent, visit was performed virtually. HPI: Last visit was 02/26 with the following treatment plan: TREATMENT PLAN: 1. follow up 04/29/21 at 9:30am after completed IOP program for mood disorders 2. continue Lexapro 20mg daily to target symptoms of anxiety/panic and any remaining depressive symptoms of bipolar disorder 3. no changes with Vraylar; last aims test was 08/2021 and was normal; no abnormal movements noted today 4. treatment options discussed and she is willing to increase the Lamictal to total 200mg daily at hs to target racing thoughts, irritability and depression.; verbalized understanding to stop if rash develops and to call office 5. I do not recommend benzodiazepines for panic attacks as she has copd with sob; smoking 2 packs of cigarettes per day Today, Allison returns for a medication management follow-up appointment. She completed the IOP group for mood disorders. She has been able to matthieu again and is making a blanket. She has been able to get out and has been going to [place] to exercise. Sleep is 4-5 hours of sleep and the addition of Seroquel 50mg (added by Dr. Solorzano) has been helpful. She has a list of therapists to call and try to set up an appointment. She denies si/hi. She reports she is eating ok and has gained 3 lbs. Anxiety is under control and no complaints of panic attacks. She reports taking the medication as ordered and denies side effects. She would like to continue with the current medications. Risks and benefits of the medication, including any black box warnings, were discussed with the patient. Allison verbalized understanding to all instructions and is in agreement with the treatment plan; confirmed that she would get to ER if needed for increase symptoms or safety concerns. Interval Progress: Improved PATIENT DATA: Generalized Anxiety Disorder Scale (SIMON-7) SIMON - 7 SCORES 04/06/2022 04/15/2022 04/22/2022 SIMON-7 Score 15 15 7 (0-4) minimal anxiety, (5-9) mild anxiety, (10-14) moderate anxiety, (15-21) severe anxiety Patient Health Questionnaire (PHQ-9) PHQ-9 04/06/2022 04/15/2022 04/22/2022 Score 19 19 11 (0-4) minimal depression, (5-9) mild depression, (10-14) moderate depression, (15-19) moderately severe depression, (20-27) severe depression PROMIS Global Health PROMIS Global Health - (T-Scores - the mean of general population = 50. Five points is a clinically meaningful difference.) 10/20/2021 01/28/2022 02/25/2022 Physical T-Score 39.8 - 32.4 Mental T-Score 36.3 33.8 31.3 PAST MEDICAL HISTORY Diagnosis Date Abdominal pain, other specified site Alcohol abuse Back pain DDD Bipolar affect, depressed (HCC) COPD (chronic obstructive pulmonary disease) (HCC) Coronary artery disease Depression Esophagitis, unspecified Essential hypertension, benign Gastritis Hyperlipidemia Lung nodules Nausea Neuralgia Other forms of migraine Prediabetes Tobacco use PAST SURGICAL HISTORY Procedure Laterality Date APPENDECTOMY 1979 CARDIAC CATH 04/2011 Dr. Yang DELIVERY ONLY , low cervical x2 CHOLECYSTECTOMY 2007 Cholecystectomy COLONOSCOPY 09/14/02 RG - normal COLONOSCOPY FLX DX W/COLLJ SPEC WHEN PFRMD 04/13/2012 Colonoscopy DILATION AND CURETTAGE DXAND/THER NONOBSTETRIC Dilation AND curettage EGD 09/14/02 RG ESOPHAGOGASTRODUODENOSCOPY TRANSORAL DIAGNOSTIC 04/09/2010 EGD ESOPHAGOGASTRODUODENOSCOPY TRANSORAL DIAGNOSTIC 04/13/2012 EGD ESOPHAGOGASTRODUODENOSCOPY TRANSORAL DIAGNOSTIC 02/27/15 EGD EXTRACTION, ERUPTED TOOTH OR EXPOSED ROOT (ELEVATION AND/OR FORCEPS REMOVAL) Teeth removed HYSTERECTOMY HX 10/23/1985 LAPS ABD PRTMANDOMENTUM DX W/WO SPEC BR/WA SPX Laparoscopy Current Outpatient Medications Medication Sig Dispense Refill pantoprazole DR (PROTONIX) 40 mg tablet Take 1 tablet by mouth twice daily before meals. Take on empty stomach, 1/2 hr before meal. 60 tablet 2 famotidine (PEPCID) 20 mg tablet Take 1 tablet by mouth daily at bedtime. 90 tablet 1 lidocaine (LIDODERM) 5 % Remove old patch prior to placing new patch. Location: lumbar, thoracic spine 12 out of 24 hours 90 Patch 2 escitalopram oxalate (LEXAPRO) 20 mg tablet TAKE 1 TABLET BY MOUTH EVERY DAY 30 tablet 1 QUEtiapine (SEROQUEL) 50 mg tablet Take 1 tablet by mouth daily at bedtime. 30 tablet 0 lamoTRIgine (LAMICTAL) 200 mg tablet TAKE 1 TABLET BY MOUTH EVERYDAY AT BEDTIME. THIS IS A DOSE INCREASE 30 tablet 1 cariprazine (VRAYLAR) 3 mg capsule Take 1 capsule by mouth once daily. 30 capsule 1 ipratropium 20 mcg-albuterol 100 mcg (COMBIVENT RESPIMAT) 20-100 mcg/actuation inhaler Inhale 1 Puff as instructed four times daily as needed. 4 g (more content not included)... [facility] 04-29-2022 History of Presen t illness Narrative Images from the original note were not included. PSYC FOLLOW UP - PSYCHIATRIC PROGRESS NOTE CC: medication management With the patient consent, visit was performed virtually. HPI: Last visit was 02/26 with the following treatment plan: TREATMENT PLAN: 1. follow up 04/29/21 at 9:30am after completed IOP program for mood disorders 2. continue Lexapro 20mg daily to target symptoms of anxiety/panic and any remaining depressive symptoms of bipolar disorder 3. no changes with Vraylar; last aims test was 08/2021 and was normal; no abnormal movements noted today 4. treatment options discussed and she is willing to increase the Lamictal to total 200mg daily at hs to target racing thoughts, irritability and depression.; verbalized understanding to stop if rash develops and to call office 5. I do not recommend benzodiazepines for panic attacks as she has copd with sob; smoking 2 packs of cigarettes per day Today, Allison returns for a medication management follow-up appointment. She completed the IOP group for mood disorders. She has been able to matthieu again and is making a blanket. She has been able to get out and has been going to [place] to exercise. Sleep is 4-5 hours of sleep and the addition of Seroquel 50mg (added by Dr. Solorzano) has been helpful. She has a list of therapists to call and try to set up an appointment. She denies si/hi. She reports she is eating ok and has gained 3 lbs. Anxiety is under control and no complaints of panic attacks. She reports taking the medication as ordered and denies side effects. She would like to continue with the current medications. Risks and benefits of the medication, including any black box warnings, were discussed with the patient. Allison verbalized understanding to all instructions and is in agreement with the treatment plan; confirmed that she would get to ER if needed for increase symptoms or safety concerns. Interval Progress: Improved PATIENT DATA: Generalized Anxiety Disorder Scale (SIMON-7) SIMON - 7 SCORES 04/06/2022 04/15/2022 04/22/2022 SIMON-7 Score 15 15 7 (0-4) minimal anxiety, (5-9) mild anxiety, (10-14) moderate anxiety, (15-21) severe anxiety Patient Health Questionnaire (PHQ-9) PHQ-9 04/06/2022 04/15/2022 04/22/2022 Score 19 19 11 (0-4) minimal depression, (5-9) mild depression, (10-14) moderate depression, (15-19) moderately severe depression, (20-27) severe depression PROMIS Global Health PROMIS Global Health - (T-Scores - the mean of general population = 50. Five points is a clinically meaningful difference.) 10/20/2021 01/28/2022 02/25/2022 Physical T-Score 39.8 - 32.4 Mental T-Score 36.3 33.8 31.3 PAST MEDICAL HISTORY Diagnosis Date Abdominal pain, other specified site Alcohol abuse Back pain DDD Bipolar affect, depressed (HCC) COPD (chronic obstructive pulmonary disease) (HCC) Coronary artery disease Depression Esophagitis, unspecified Essential hypertension, benign Gastritis Hyperlipidemia Lung nodules Nausea Neuralgia Other forms of migraine Prediabetes Tobacco use PAST SURGICAL HISTORY Procedure Laterality Date APPENDECTOMY 1979 CARDIAC CATH 04/2011 Dr. Yang DELIVERY ONLY , low cervical x2 CHOLECYSTECTOMY 2007 Cholecystectomy COLONOSCOPY 09/14/02 RG - normal COLONOSCOPY FLX DX W/COLLJ SPEC WHEN PFRMD 04/13/2012 Colonoscopy DILATION & CURETTAGE DX&/THER NONOBSTETRIC Dilation & curettage EGD 09/14/02 RG ESOPHAGOGASTRODUODENOSCOPY TRANSORAL DIAGNOSTIC 04/09/2010 EGD ESOPHAGOGASTRODUODENOSCOPY TRANSORAL DIAGNOSTIC 04/13/2012 EGD ESOPHAGOGASTRODUODENOSCOPY TRANSORAL DIAGNOSTIC 02/27/15 EGD EXTRACTION, ERUPTED TOOTH OR EXPOSED ROOT (ELEVATION AND/OR FORCEPS REMOVAL) Teeth removed HYSTERECTOMY HX 10/23/1985 LAPS ABD PRTM&OMENTUM DX W/WO SPEC BR/WA SPX Laparoscopy Current Outpatient Medications Medication Sig Dispense Refill pantoprazole DR (PROTONIX) 40 mg tablet Take 1 tablet by mouth twice daily before meals. Take on empty stomach, 1/2 hr before meal. 60 tablet 2 famotidine (PEPCID) 20 mg tablet Take 1 tablet by mouth daily at bedtime. 90 tablet 1 lidocaine (LIDODERM) 5 % Remove old patch prior to placing new patch. Location: lumbar, thoracic spine 12 out of 24 hours 90 Patch 2 escitalopram oxalate (LEXAPRO) 20 mg tablet TAKE 1 TABLET BY MOUTH EVERY DAY 30 tablet 1 QUEtiapine (SEROQUEL) 50 mg tablet Take 1 tablet by mouth daily at bedtime. 30 tablet 0 lamoTRIgine (LAMICTAL) 200 mg tablet TAKE 1 TABLET BY MOUTH EVERYDAY AT BEDTIME. THIS IS A DOSE INCREASE 30 tablet 1 cariprazine (VRAYLAR) 3 mg capsule Take 1 capsule by mouth once daily. 30 capsule 1 ipratropium 20 mcg-albuterol 100 mcg (COMBIVENT RESPIMAT) 20-100 mcg/actuation inhaler Inhale 1 Puff as instructed four times daily as needed. 4 g 5 doxazosin (CARDURA) 1 mg tablet Take 1 tablet by mouth once daily. 30 tablet 2 noeziqkwjax-owetteuep-sqolnvnw (TRELEGY ELLIPTA) 100-62.5-25 mcg inhalation powder Inhale 1 Puff as instructed once daily. 1 Each 5 potassium chloride (K-TAB) 10 mEq tablet Take 1 tablet by mouth twice daily. 60 tablet 5 amLODIPine (NORVASC) 10 mg tablet Take 1 tablet by mouth once daily. 90 tablet 3 diphenhydrAMINE-Acetaminophen 25-500 mg tab Take by mouth once daily as needed. Current Facility-Administered Medications Medication Dose Route Frequency Provider Last Rate Last Admin perflutren lipid microspheres 1.3 mL in NaCl (PF) 0.9% 10 mL injection (DEFINITY) INTRAVENOUS DIRECTED PRN Beatrice Reaves PA-C sodium chloride 0.9 % (flush) 10 mL (BD POSIFLUSH) 10 mL INTRAVENOUS DIRECTED PRN Beatrice Reaves PA-C ROS: GENERAL: Negative for malaise, significant weight loss and fever. HEENT: No changes in hearing or vision, no nose bleeds or other nasal problems. RESPIRATORY: Negative for cough, wheezing but has chronic shortness of breath related copd CARDIOVASCULAR: Negative for chest pain, leg swelling and palpitations. GI: Negative for abdominal discomfort, blood in stools or black stools. : Negative for dysuria, frequency and incontinence. MUSCULOSKELETAL: pain chronic back pain SKIN: Negative for lesions, rash, and itching. HEMATOLOGY/LYMPHOLOGY Negative for prolonged bleeding, bruising easily, and swollen nodes. ENDOCRINE: Negative for cold or heat intolerance, polyuria, polydipsia and goiter. NEURO: Negative for headaches, syncope, seizures and paralysis. PFSH: see hpi VITAL SIGNS: There were no vitals filed for this visit. MENTAL STATUS EXAM: CONSTITUTIONAL: Well groomed, Appropriately dressed ORIENTATION: Person, Place, Time and Situation MEMORY: Recent intact, Remote intact, Immediate intact CONCENTRATION: Normal MOOD: euthymic AFFECT: Full and appropriate to topic SPEECH : Clear & distinct LANGUAGE : Normal ASSOCIATIONS: Intact THOUGHT PROCESS : Logical, Coherent, and Rational PROGRESSION : There was no evidence of disturbance in thought perception or progression. FUND OF KNOWLEDGE : Appropriate and Adequate SUICIDE: None HOMICIDE: None DATA REVIEWED: Electronic medical record DIAGNOSIS: PRIMARY: Mood Disorder Bipolar II Disorder Secondary : Anxiety Disorder Generalized Anxiety Disorder with panic attacks GAF: 64 -70-61 Some mild symptoms or some difficulty in social, occupational, or school functioning, but generally functioning pretty well. TREATMENT PLAN: 1. follow up 07/21 at 930a 2. continue Lexapro 20mg daily to target symptoms of anxiety/panic and any remaining depressive symptoms of bipolar disorder 3. no changes with Vraylar; last aims test was 08/2021 and was normal; no abnormal movements noted today has completed IOP group for mood disorders and Dr. Solorzano added 50mg Seroquel at hs for sleep; has been helpful 4. continue with Lamictal to total 200mg daily at hs to target racing thoughts, irritability and depression.; verbalized understanding to stop if rash develops and to call office 5. I do not recommend benzodiazepines for panic attacks as she has copd with sob; smoking 2 packs of cigarettes per day 6. has a new list of therapists to call and establish MEDICATION CHANGES: See Treatment Plan Follow Up: See Treatment Plan I spent a total of 22 minutes on the date of the service which included preparing to see the patient, [id number] patient care, completing clinical documentation, obtaining and/or reviewing separately obtained history, performing a medically appropriate examination, counseling and educating the patient/family/caregiver, ordering medications, tests, or procedures, and care coordination (not separately reported). ADD ON PSYCHOTHERAPY CODE : No SIGNATURE: Matt Vickers APRN.CNP PATIENT NAME: Jacque Dozier DATE: April 29, 2022 TIME: 9:36 AM PAGER: n/a documented in this encounter [facility] 04-29-2022 Miscellaneous Notes Spoke to patient to confirm today's 9:30 AM appointment. Yanira Eisenberg documented in this encounter [facility] 04-28-2022 Note HNO ID: [id number] Author: RT Clarisse(R) Service: ? Author Type: Technologist Type: Progress Notes Filed: 04/28/2022 9:39 AM Note Text: Radiology Service Progress Note PATIENT NAME: Jacque Dozier DATE OF SERVICE: April 28, 2022 TIME: 9:31 AM PATIENT IDENTITY VERIFICATION COMPLETED USING TWO (2) IDENTIFIERS: Name and Date of confirmed by patient verbally. FALL SCREENING: Has the patient had 2 falls in the last year or 1 fall with injury or currently using an Ambulatory Assistive Device (Walker, Cane, Wheelchair, Crutches, etc.)? No PATIENT GENDER DATA: Female. status: : No status: NO. PATIENT RELEVANT IMPLANT DATA REVIEWED: Not Applicable RADIOLOGY DEPARTMENT: Bone Density PERIPHERAL IV DATA: Not applicable SIGNED BY: RT Clarisse(R) April 28, 2022 9:31 AM [facility] 04-28-2022 History of Presen t illness Narrative Radiology Service Progress Note PATIENT NAME: Jacque Dozier DATE OF SERVICE: April 28, 2022 TIME: 9:31 AM PATIENT IDENTITY VERIFICATION COMPLETED USING TWO (2) IDENTIFIERS: Name and Date of confirmed by patient verbally. FALL SCREENING: Has the patient had 2 falls in the last year or 1 fall with injury or currently using an Ambulatory Assistive Device (Walker, Cane, Wheelchair, Crutches, etc.)? No PATIENT GENDER DATA: Female. status: : No status: NO. PATIENT RELEVANT IMPLANT DATA REVIEWED: Not Applicable RADIOLOGY DEPARTMENT: Bone Density PERIPHERAL IV DATA: Not applicable SIGNED BY: RT Clarisse(R) April 28, 2022 9:31 AM documented in this encounter [facility] 04-27-2022 Miscellaneous Notes Images from the original note were not included. Prior authorization approved Payer: [email or web address] [phone] CaseId:[id number];Status:Approved; Review Type:Prior Auth;Coverage Start Date:03/28/2022;Coverage End Date:04/27/2023; Approval Details Authorized from March 28, 2022 to April 27, 2023 Pharmacy notified and my chart message to pt. Viewed completed note. PA completed. Waiting for response. The office has rec'd an electronic PA for lidocaine patches. They are asking for dx for this medicine. documented in this encounter [facility] 04-26-2022 Note HNO ID: [id number] Author: Boyd Da Silva PA-C Service: ? Author Type: Physician Metal Roofing Mechanic Type: Progress Notes Filed: 04/26/2022 5:49 PM Note Text: 66 year old female with c/o right back pain from shoulder blades down. No weakness or falls. Rates 6/10 average, highest about 8/10 Alleviating: Tylenol ES 1000mg twice, ibuprofen 400mg twice a day. Numbness and tingling down left leg to knee. No falls. Very severe chronic obstructive pulmonary disease (hcc) (primary encounter diagnosis) Pulmonary emphysema, unspecified emphysema type (hcc) Lung nodules Tobacco abuse Field Engineer: Seeing Beatrice Herrera PA-C. Interval history: stable. Current medications: Ipratropium 20 MCG-albuterol 100 MCG inhaler 1 puff 4 times daily prn Worsening shortness of breath: No. Cough: Yes. Wheezing: Yes. Smoking: Yes. 1 PPD Compliant with medications: Yes. Using rescue inhaler: very little. 02/08/2022 echo: LV and LSVF WNL, EF 64%, grade 1 VDDD, no abnormal wall motion. RV size and [id number], RAP 3mmHg Bilateral atria size WNL, VC WNL No significant valvular abnormalities. Essential hypertension Current meds: Doxazosin 1 mg daily Potassium chloride 10 mEq twice daily Amlodipine 10 mg daily Patient is compliant with meds Yes Monitors bp at home: No. If yes, readings: Denies side effects: Yes. Chest pain: gets a twang: midsternal a few seconds to a few minutes Dyspnea: poor exercise tolerance. Edema: No. Palpitations: No. Syncope: No. Headache: No. Dizziness: a little with getting up suddenly. . Last 3 Encounter BP Readings: Date: BP: 01/28/2022 168/84 11/25/2021 181/100[patient refused bp recheck - provider notified[ 10/26/2021 138/78 Last 2 Encounter Wt Readings: Date: Wt: 01/28/2022 51.3 kg (113 lb) 01/28/2022 51.3 kg (113 lb) Gastroesophageal reflux disease with esophagitis, unspecified whether hemorrhage Current use of proton pump inhibitor Current medications: Pantoprazole DR 40 mg twice a day AC Famotidine 40mg daily HS Current symptoms: nearly every day reflux. Last Mg level if on PPI chronically: due. Heartburn is controlled: improved but not controlled. Dysphagia: No. Bloody or black stools: No. Bowel changes: No. Last EGD and/or colonoscopy: FINAL DIAGNOSIS Stomach, biopsy: - Oxyntic and antral mucosa with features suggestive of proton pump inhibitor effect. - No morphological evidence of Helicobacter pylori organisms. PTC 06/25/2021 . Mild mixed bipolar ii disorder (hcc) Simon (generalized anxiety disorder) Psychiatrist: Current medications: Escitalopram 20 mg daily Quetiapine 50 mg daily at bedtime Lamictal 200 mg daily at bedtime Cariprazine 3 mg daily Diphenhydramine-acetaminophen 25-500 mg tab daily as needed Alcohol abuse Maintaining [id number], a beer a few times a month. HISTORIES FAMILY HISTORY Problem Relation Age of Onset Diabetes Mother Ischemic Heart Disease Mother CHF Hypertension Mother Colon Cancer Father Colon Polyps Father Genetic Father Parkinsonism Sister 2018 other (hemochromatosis) Sister 2018 Diabetes Brother Lung Cancer Paternal Grandfather other (throat cancer) Paternal Grandfather COPD Maternal Aunt Cancer Paternal Uncle COPD Paternal Uncle PAST MEDICAL HISTORY Diagnosis Date Abdominal pain, other specified site Alcohol abuse Back pain DDD Bipolar affect, depressed (HCC) COPD (chronic obstructive pulmonary disease) (HCC) Coronary artery disease Depression Esophagitis, unspecified Essential hypertension, benign Gastritis Hyperlipidemia Lung nodules Nausea Neuralgia Other forms of migraine Prediabetes Tobacco use PAST SURGICAL HISTORY Procedure Laterality Date APPENDECTOMY 1979 CARDIAC CATH 04/2011 Dr. Yang DELIVERY ONLY , low cervical x2 CHOLECYSTECTOMY 2007 Cholecystectomy COLONOSCOPY 09/14/02 RG - normal COLONOSCOPY FLX DX W/COLLJ SPEC WHEN PFRMD 04/13/2012 Colonoscopy DILATION AND CURETTAGE DXAND/THER NONOBSTETRIC Dilation AND curettage EGD 09/14/02 RG ESOPHAGOGASTRODUODENOSCOPY TRANSORAL DIAGNOSTIC 04/09/2010 EGD ESOPHAGOGASTRODUODENOSCOPY TRANSORAL DIAGNOSTIC 04/13/2012 EGD ESOPHAGOGASTRODUODENOSCOPY TRANSORAL DIAGNOSTIC 02/27/15 EGD EXTRACTION, ERUPTED TOOTH OR EXPOSED ROOT (ELEVATION AND/OR FORCEPS REMOVAL) Teeth removed HYSTERECTOMY HX 10/23/1985 LAPS ABD PRTMANDOMENTUM DX W/WO SPEC BR/WA SPX Laparoscopy Social History Tobacco Use Smoking status: Every Day Packs/day: 1.00 Years: 52.00 Pack years: 52.00 Types: Cigarettes Start date: 1973 Smokeless tobacco: Never Tobacco comments: started age 14- 2 ppd per day in past, down to 1 ppd Substance Use Topics Alcohol use: Not Currently Comment: Not locally. Drug use: No ACTIVE PROBLEM LIST Acute Cholecystitis Abdominal Pain, Epigastric Nausea Alone Neck Pain Lumbar Disc Herniation Lum (more content not included)... [facility] 04-26-2022 Instructions Boyd Da Silva PA-C - 04/26/2022 11:14 AM EST BONE MINERAL DENSITY PATIENT INSTRUCTIONS ========= Bone mineral density testing measures the amount of calcium in certain parts of your bones. This information determines how strong your bones are. The test is used to detect osteoporosis, a disease in which the bone's mineral content and density are low, increasing a person's risk of fractures. The lumbar spine (lower back) and the hip are the skeletal sites usually examined. For the test, remember that: 1. You cannot take this test if you are . 2. Eat a normal diet on the day of the test. 3. Take your medications as you normally would. 4. DO NOT take calcium supplements (such as Tums) for 24 hours before the test. 5. On the day of the test, leave valuables (jewelry or credit cards) at home. 6. The test should be performed prior to oral, rectal or IV contrast studies, or at least 7 days after any of these studies. For the test, you may be asked to wear a hospital gown. You will lie on your back, on a padded table, in a comfortable position. Generally, you can resume your usual activities immediately. documented in this encounter [facility] 04-26-2022 History of Presen t illness Narrative 66 year old female with c/o right back pain from shoulder blades down. No weakness or falls. Rates 6/10 average, highest about 8/10 Alleviating: Tylenol ES 1000mg twice, ibuprofen 400mg twice a day. Numbness and tingling down left leg to knee. No falls. Very severe chronic obstructive pulmonary disease (hcc) (primary encounter diagnosis) Pulmonary emphysema, unspecified emphysema type (hcc) Lung nodules Tobacco abuse Field Engineer: Seeing Beatrice Herrera PA-C. Interval history: stable. Current medications: Ipratropium 20 MCG-albuterol 100 MCG inhaler 1 puff 4 times daily prn Worsening shortness of breath: No. Cough: Yes. Wheezing: Yes. Smoking: Yes. 1 PPD Compliant with medications: Yes. Using rescue inhaler: very little. 02/08/2022 echo: LV and LSVF WNL, EF 64%, grade 1 VDDD, no abnormal wall motion. RV size and [id number], RAP 3mmHg Bilateral atria size WNL, VC WNL No significant valvular abnormalities. Essential hypertension Current meds: Doxazosin 1 mg daily Potassium chloride 10 mEq twice daily Amlodipine 10 mg daily Patient is compliant with meds Yes Monitors bp at home: No. If yes, readings: Denies side effects: Yes. Chest pain: gets a twang: midsternal a few seconds to a few minutes Dyspnea: poor exercise tolerance. Edema: No. Palpitations: No. Syncope: No. Headache: No. Dizziness: a little with getting up suddenly. . Last 3 Encounter BP Readings: Date: BP: 01/28/2022 168/84 11/25/2021 181/100[patient refused bp recheck - provider notified[ 10/26/2021 138/78 Last 2 Encounter Wt Readings: Date: Wt: 01/28/2022 51.3 kg (113 lb) 01/28/2022 51.3 kg (113 lb) Gastroesophageal reflux disease with esophagitis, unspecified whether hemorrhage Current use of proton pump inhibitor Current medications: Pantoprazole DR 40 mg twice a day AC Famotidine 40mg daily HS Current symptoms: nearly every day reflux. Last Mg level if on PPI chronically: due. Heartburn is controlled: improved but not controlled. Dysphagia: No. Bloody or black stools: No. Bowel changes: No. Last EGD and/or colonoscopy: FINAL DIAGNOSIS Stomach, biopsy: - Oxyntic and antral mucosa with features suggestive of proton pump inhibitor effect. - No morphological evidence of Helicobacter pylori organisms. PTC 06/25/2021 . Mild mixed bipolar ii disorder (hcc) Simon (generalized anxiety disorder) Psychiatrist: Current medications: Escitalopram 20 mg daily Quetiapine 50 mg daily at bedtime Lamictal 200 mg daily at bedtime Cariprazine 3 mg daily Diphenhydramine-acetaminophen 25-500 mg tab daily as needed Alcohol abuse Maintaining [id number], a beer a few times a month. HISTORIES FAMILY HISTORY Problem Relation Age of Onset Diabetes Mother Ischemic Heart Disease Mother CHF Hypertension Mother Colon Cancer Father Colon Polyps Father Genetic Father Parkinsonism Sister 2018 other (hemochromatosis) Sister 2018 Diabetes Brother Lung Cancer Paternal Grandfather other (throat cancer) Paternal Grandfather COPD Maternal Aunt Cancer Paternal Uncle COPD Paternal Uncle PAST MEDICAL HISTORY Diagnosis Date Abdominal pain, other specified site Alcohol abuse Back pain DDD Bipolar affect, depressed (HCC) COPD (chronic obstructive pulmonary disease) (HCC) Coronary artery disease Depression Esophagitis, unspecified Essential hypertension, benign Gastritis Hyperlipidemia Lung nodules Nausea Neuralgia Other forms of migraine Prediabetes Tobacco use PAST SURGICAL HISTORY Procedure Laterality Date APPENDECTOMY 1979 CARDIAC CATH 04/2011 Dr. Yang DELIVERY ONLY , low cervical x2 CHOLECYSTECTOMY 2007 Cholecystectomy COLONOSCOPY 09/14/02 RG - normal COLONOSCOPY FLX DX W/COLLJ SPEC WHEN PFRMD 04/13/2012 Colonoscopy DILATION & CURETTAGE DX&/THER NONOBSTETRIC Dilation & curettage EGD 09/14/02 RG ESOPHAGOGASTRODUODENOSCOPY TRANSORAL DIAGNOSTIC 04/09/2010 EGD ESOPHAGOGASTRODUODENOSCOPY TRANSORAL DIAGNOSTIC 04/13/2012 EGD ESOPHAGOGASTRODUODENOSCOPY TRANSORAL DIAGNOSTIC 02/27/15 EGD EXTRACTION, ERUPTED TOOTH OR EXPOSED ROOT (ELEVATION AND/OR FORCEPS REMOVAL) Teeth removed HYSTERECTOMY HX 10/23/1985 LAPS ABD PRTM&OMENTUM DX W/WO SPEC BR/WA SPX Laparoscopy Social History Tobacco Use Smoking status: Every Day Packs/day: 1.00 Years: 52.00 Pack years: 52.00 Types: Cigarettes Start date: 1973 Smokeless tobacco: Never Tobacco comments: started age 14- 2 ppd per day in past, down to 1 ppd Substance Use Topics Alcohol use: Not Currently Comment: Not locally. Drug use: No ACTIVE PROBLEM LIST Acute Cholecystitis Abdominal Pain, Epigastric Nausea Alone Neck Pain Lumbar Disc Herniation Lumbar Radiculopathy Ddd (Degenerative Disc Disease), Lumbar Lumbago Tobacco Abuse Lumbar Spondylosis Htn (Hypertension) Emphysema of Lung (Hcc) Alcohol Abuse Acute Superficial Gastritis Without Hemorrhage Hypokalemia Bipolar II Disorder (Hcc) Anxiety Disorder Grief Current Outpatient Medications Medication Sig Dispense Refill escitalopram oxalate (LEXAPRO) 20 mg tablet TAKE 1 TABLET BY MOUTH EVERY DAY 30 tablet 1 QUEtiapine (SEROQUEL) 50 mg tablet Take 1 tablet by mouth daily at bedtime. 30 tablet 0 lamoTRIgine (LAMICTAL) 200 mg tablet TAKE 1 TABLET BY MOUTH EVERYDAY AT BEDTIME. THIS IS A DOSE INCREASE 30 tablet 1 cariprazine (VRAYLAR) 3 mg capsule Take 1 capsule by mouth once daily. [address] (PROTONIX) 40 mg tablet Take 1 tablet by mouth twice daily before meals. Take on empty stomach, 1/2 hr before meal. 60 tablet 2 ipratropium 20 mcg-albuterol 100 mcg (COMBIVENT RESPIMAT) 20-100 mcg/actuation inhaler Inhale 1 Puff as instructed four times daily as needed. 4 g 5 doxazosin (CARDURA) 1 mg tablet Take 1 tablet by mouth once daily. 30 tablet 2 ssywkodlily-npzprwvdw-judjqiae (TRELEGY ELLIPTA) 100-62.5-25 mcg inhalation powder Inhale 1 Puff as instructed once daily. 1 Each 5 famotidine (PEPCID) 20 mg tablet Take 1 tablet by mouth daily at bedtime. 90 tablet 1 potassium chloride (K-TAB) 10 mEq tablet Take 1 tablet by mouth twice daily. 60 tablet 5 amLODIPine (NORVASC) 10 mg tablet Take 1 tablet by mouth once daily. 90 tablet 3 diphenhydrAMINE-Acetaminophen 25-500 mg tab Take by mouth once daily as needed. Current Facility-Administered Medications Medication Dose Route Frequency Provider Last Rate Last Admin perflutren lipid microspheres 1.3 mL in NaCl (PF) 0.9% 10 mL injection (DEFINITY) INTRAVENOUS DIRECTED PRN Beatrice Reaves PA-C sodium chloride 0.9 % (flush) 10 mL (BD POSIFLUSH) 10 mL INTRAVENOUS DIRECTED PRN Beatrice Reaves PA-C COVID-19 VACCINE(1) Never done HIV SCREENING Never done BP CONTROLLED (<130/80) Never done ALPHA-1 ANTITRYPSIN DEFICIENCY SCREENING Never done HPV TESTING Never done SHINGRIX VACCINE(1 of 2) Never done PAP TESTING due on 06/03/2016 DTAP,TDAP,TD(1 - Tdap) due on 12/13/2019 MAMMOGRAM due on 04/17/2020 LUNG CANCER SCREENING due on 04/17/2020 DEPRESSION ASSESSMENT Never done EXAM: BP 162/88 Pulse 73 Temp 36.6 C (97.8 F) (Left Tympanic) Resp 20 Wt 52.6 kg (116 lb) SpO2 94% BMI 21.92 kg/m Pleasant well appearing but thin adult woman in no acute distress. Alert and oriented all spheres. Normal affect and cognition. Speech normal. No deficits to learning or comprehension. Skin warm, dry, pink to lips and nailbeds. Normal turgor. Respirations regular and unlabored. HEENT: NCAT. No scleral icterus or conjunctival injection. TM's clear. Nose and oropharynx free from injection or lesion. Oral membranes moist and pink. No cervical lymph nodes. Thyroid non-tender, no masses, or enlargement. Carotids pulses 2+/4+ without bruits. No JVD with HOB at 30 degrees. Chest is normal shape. Lungs are clear to all box with good air exchange through out. HRRR without murmur or gallop. No lifts, heaves, or rubs. Extrem: no clubbing or cyanosis. Edema: one. Extremities are warm and pink with prompt capillary refill. Neck with mild restriction in lateral bending and rotation left, rotation on right, C5 restricted bilaterally. +TTPs in upper thoracic with rib restrictions in flexion. +TTP right paravertebral and piriformis. Innominate restricted on right forward flexion. Spurling's test negative bilaterally. Normal upper body strength bilaterally. DTRs 2/4+, no sensory loss. OMT: myofascial release to cervical and SIJ muscles, HVLA cautiously to cervical, thoracic and right SIJ, tolerated well with significant improvement. ASSESSMENT/PLAN: 1. Very severe chronic obstructive pulmonary disease (HCC) - ICD9: 496, ICD10: J44.9 (primary diagnosis) Follows pulm [facility], stable, continue meds 2. Pulmonary emphysema, unspecified emphysema type (HCC) - ICD9: 492.8, ICD10: J43.9 Instructed again on smoking cessation 3. Tobacco abuse - ICD9: 305.1, ICD10: Z72.0 - Cessation encouraged. - Physiologic and physical aspects of tobacco addiction as well as strategies for quitting were discussed. - Counseling was given focusing on the harmful effects of this addiction especially given the patient's medical condition(s) which will be worsened because of the chemicals in tobacco. 4. Essential hypertension - ICD9: 401.9, ICD10: I10 - good control - Continue current medication(s) - Recommended regular aerobic exercise. - Recommend home blood pressure monitoring, to bring results in on next visit - Goal of BP <130/80 5. Gastroesophageal reflux disease with esophagitis, unspecified whether hemorrhage - ICD9: 530.11, ICD10: K21.00 - Discussed lifestyle modifications including limiting caffeine, no meals three hours before sleep, and head of bed elevation - PANTOPRAZOLE 40 MG TABLET,DELAYED RELEASE 6. Current use of proton pump inhibitor - ICD9: V58.69, ICD10: Z79.899 Magnesium check 7. Mild mixed bipolar II disorder (HCC) - ICD9: 296.89, ICD10: F31.81 Stable on meds, follows with psych 8. SIMON (generalized anxiety disorder) - ICD9: 300.02, ICD10: F41.1 Stable on meds, follow with psych 9. Alcohol abuse - ICD9: 305.00, ICD10: F10.10 Reports maintaining sobriety 10. Acute superficial gastritis without hemorrhage - ICD9: 535.40, ICD10: K29.00 refill - PANTOPRAZOLE 40 MG TABLET,DELAYED RELEASE 11. Encounter for screening for osteoporosis - ICD9: V82.81, ICD10: Z13.820 - DXA-AXIAL SKELETON 12. Chronic 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 - ICD9: 724.2, 724.3, 338.29, ICD10: M54.41, G89.29 Chronic low back pain - Ice for localized tenderness - Warm moist heat for 20 min three times a day - PT consult - CONSULT TO PHYSICAL THERAPY 13. Somatic dysfunction of right sacroiliac joint - ICD9: 739.4, ICD10: M99.04 14. Somatic dysfunction of spine, cervical - ICD9: 739.1, ICD10: M99.01 Ice/ moist heat, lineaments, OTC analgesics as needed. Stretching and posture reviewed. F/u prn and in 6 months Boyd Da Silva PA-C documented in this encounter [facility] 04-22-2022 Miscellaneous Notes Patient has been identified by name and date of : Yes Requested Prescriptions Pending Prescriptions Disp Refills escitalopram oxalate (LEXAPRO) 20 mg tablet [Pharmacy Med Name: ESCITALOPRAM 20 MG TABLET] 30 tablet 1 Sig: TAKE 1 TABLET BY MOUTH EVERY DAY BRENDA: 02/26/2022 FOV: 04/29/2022 RX INSTRUCTIONS: Pharmacy initiated this request. No need to notify patient. Pooja Srivastava documented in this encounter [facility] 04-15-2022 Note HNO ID: [id number] Author: Lisa Grimes LPC Service: Behavioral Health IOP (Intensive Outpatient Program) Author Type: Therapist Type: Progress Notes Filed: 04/15/2022 3:14 PM Note Text: BEHAVIORAL HEALTH IOP (INTENSIVE OUTPATIENT PROGRAM) DAILY PROGRESS NOTE This is a Virtual Group and the patient agrees to virtual treatment due to COVID-19 protocol SERVICE DATE: 04/15/2022 SERVICE TIME: 9:00 AM Last day INTERVAL PROGRESS: Stable PATIENT'S PROGRESS: Limited BEHAVIOR: Appearance: Pleasant Attitude: Cooperative and Guarded Affect: Appropriate Mood: Pleasant Thought Process: Preoccupied Speech: Quiet Eye Contact: Intermittent Describe Change Noted Throughout the Day: Declined GROUP THERAPY: Illness Management Group Start Time: 9:00am End Time: 10:00am TotalTime: 60 minutes Number of Therapists: 2 Number of Patients: 9 Problem(s) Number Addressed: 1 Intervention: Active Listening, Encouraged, Engaged, Explored, Gave Feedback and Supported Explain: Patients shared a feeling word and two positive traits. They discussed weekend plans and potential obstacles. Response: Patient reported feeling tired and groggy. She stated her positive traits are dependable and energetic. She stated her weekend includes going to [employer], go play games at her son's house, and being with her grandkids. She stated she has no major concerns at this time. Coping Strategies Group Start Time: 10:10am End Time: 11:00am TotalTime: 50 minutes Number of Therapists: 2 Number of Patients: 9 Problem(s) Number Addressed: 1 Intervention: Active Listening, Encouraged, Engaged, Explored, Gave Feedback and Supported Explain: Patients reviewed homework and continued work into understanding the stress response and symptoms. They watched an educational video. Response: Patient shared some stress overload symptoms for her include, worrying, nervous, and moodiness. She was quiet and did not contribute more verbally. Process and Emotion Management Group Start Time: 11:10am End Time: 12:00pm TotalTime: 50 minutes Number of Therapists: 2 Number of Patients: 9 Problem(s) Number Addressed: 1 Intervention: Active Listening, Encouraged, Engaged, Explored, Gave Feedback and Supported Explain: Patients explored more into skills for managing distress and anxiety using given handouts. They shared a feeling word and their takeaway from today prior to the end of group. They reported 3 gratitudes. Response: Patient reported feeling less groggy and more awake. She stated her takeaway from today is headaches are probably highly related to her stress level. She stated she is grateful for her quiet time, her children, and her cat. She shared some parting words to the group. PLAN: Continue to gain insights into problems. Incorporate relaxation/coping strategies into daily routine. Discharge to alternative level of care. SOBRIETY (If applicable): N/A Patient Data [place]-SUICIDE SEVERITY RATING SCALE Screen Version - Recent Past month Ask questions that are bolded and underlined. YES/NO Ask Questions 1 and 2 1) Have you wished you were or wished you could go to sleep and not wake up? No 2) Have you actually had any thoughts of killing yourself? No If YES to 2, ask questions 3, 4, 5, and 6. If NO to 2, go directly to question 6. 3) Have you been thinking about how you might do this? E.g. ?I thought about taking an overdose but I never made a specific plan as to when where or how I would actually do it?.and I would never go through with it.? 4) Have you had these thoughts and had some intention of acting on them? As opposed to ?I have the thoughts but I definitely will not do anything about them.? 5) Have you started to work out or worked out the details of how to kill yourself? Do you intend to carry out this plan? 6) Have you ever done anything, started to do anything, or prepared to do anything to end your life? Examples: Collected pills, obtained a gun, gave away valuables, wrote a will or suicide note, took out pills but didn't swallow any, held a gun but changed your mind or it was grabbed from your hand, went to the roof but didn't jump; or actually took pills, tried to shoot yourself, cut yourself, tried to hang yourself, etc. If YES, ask: Was this within the past three months? YES/NO Yes No Low Risk Moderate Risk High Risk Generalized Anxiety Disorder Scale (SIMON-7) SIMON - 7 SCORES 03/24/2022 04/06/2022 04/15/2022 SIMON-7 Score 13 15 15 (0-4) minimal anxiety, (5-9) mild anxiety, (10-14) moderate anxiety, (15-21) severe anxiety IOP Daily Questionnaire IOP Daily 04/06/2022 04/06/2022 04/14/2022 Today, is your belief in your ability to use your Safety Plan in a crisis at 90%? Yes Yes Yes Today, have you wished you were or wished you could go to sleep and not wake up? No No No Today, have you actually had any thoughts of killing yourself? No (more content not included)... [facility] 04-15-2022 History of Presen t illness Narrative Images from the original note were not included. BEHAVIORAL HEALTH IOP (INTENSIVE OUTPATIENT PROGRAM) DAILY PROGRESS NOTE This is a Virtual Group and the patient agrees to virtual treatment due to COVID-19 protocol SERVICE DATE: 04/15/2022 SERVICE TIME: 9:00 AM Last day INTERVAL PROGRESS: Stable PATIENT'S PROGRESS: Limited BEHAVIOR: Appearance: Pleasant Attitude: Cooperative and Guarded Affect: Appropriate Mood: Pleasant Thought Process: Preoccupied Speech: Quiet Eye Contact: Intermittent Describe Change Noted Throughout the Day: Declined GROUP THERAPY: Illness Management Group Start Time: 9:00am End Time: 10:00am TotalTime: 60 minutes Number of Therapists: 2 Number of Patients: 9 Problem(s) Number Addressed: 1 Intervention: Active Listening, Encouraged, Engaged, Explored, Gave Feedback and Supported Explain: Patients shared a feeling word and two positive traits. They discussed weekend plans and potential obstacles. Response: Patient reported feeling tired and groggy. She stated her positive traits are dependable and energetic. She stated her weekend includes going to [employer], go play games at her son's house, and being with her grandkids. She stated she has no major concerns at this time. Coping Strategies Group Start Time: 10:10am End Time: 11:00am TotalTime: 50 minutes Number of Therapists: 2 Number of Patients: 9 Problem(s) Number Addressed: 1 Intervention: Active Listening, Encouraged, Engaged, Explored, Gave Feedback and Supported Explain: Patients reviewed homework and continued work into understanding the stress response and symptoms. They watched an educational video. Response: Patient shared some stress overload symptoms for her include, worrying, nervous, and moodiness. She was quiet and did not contribute more verbally. Process and Emotion Management Group Start Time: 11:10am End Time: 12:00pm TotalTime: 50 minutes Number of Therapists: 2 Number of Patients: 9 Problem(s) Number Addressed: 1 Intervention: Active Listening, Encouraged, Engaged, Explored, Gave Feedback and Supported Explain: Patients explored more into skills for managing distress and anxiety using given handouts. They shared a feeling word and their takeaway from today prior to the end of group. They reported 3 gratitudes. Response: Patient reported feeling less groggy and more awake. She stated her takeaway from today is headaches are probably highly related to her stress level. She stated she is grateful for her quiet time, her children, and her cat. She shared some parting words to the group. PLAN: Continue to gain insights into problems. Incorporate relaxation/coping strategies into daily routine. Discharge to alternative level of care. SOBRIETY (If applicable): N/A Patient Data [place]-SUICIDE SEVERITY RATING SCALE Screen Version - Recent Past month Ask questions that are bolded and underlined. YES/NO Ask Questions 1 and 2 1) Have you wished you were or wished you could go to sleep and not wake up? No 2) Have you actually had any thoughts of killing yourself? No If YES to 2, ask questions 3, 4, 5, and 6. If NO to 2, go directly to question 6. 3) Have you been thinking about how you might do this? E.g. I thought about taking an overdose but I never made a specific plan as to when where or how I would actually do it .and I would never go through with it. 4) Have you had these thoughts and had some intention of acting on them? As opposed to I have the thoughts but I definitely will not do anything about them. 5) Have you started to work out or worked out the details of how to kill yourself? Do you intend to carry out this plan? 6) Have you ever done anything, started to do anything, or prepared to do anything to end your life? Examples: Collected pills, obtained a gun, gave away valuables, wrote a will or suicide note, took out pills but didn't swallow any, held a gun but changed your mind or it was grabbed from your hand, went to the roof but didn't jump; or actually took pills, tried to shoot yourself, cut yourself, tried to hang yourself, etc. If YES, ask: Was this within the past three months? YES/NO Yes No Low Risk Moderate Risk High Risk Generalized Anxiety Disorder Scale (SIMON-7) SIMON - 7 SCORES 03/24/2022 04/06/2022 04/15/2022 SIMON-7 Score 13 15 15 (0-4) minimal anxiety, (5-9) mild anxiety, (10-14) moderate anxiety, (15-21) severe anxiety IOP Daily Questionnaire IOP Daily 04/06/2022 04/06/2022 04/14/2022 Today, is your belief in your ability to use your Safety Plan in a crisis at 90%? Yes Yes Yes Today, have you wished you were or wished you could go to sleep and not wake up? No No No Today, have you actually had any thoughts of killing yourself? No No No On a scale of 1 to 10 how would you rate your mood now? 3 3 5 Patient Health Questionnaire (PHQ-9) PHQ-9 03/24/2022 04/06/2022 04/15/2022 Score 12 19 19 (0-4) minimal depression, (5-9) mild depression, (10-14) moderate depression, (15-19) moderately severe depression, (20-27) severe depression SIGNATURE: Lisa Grimes LPC PATIENT NAME: Jacque Dozier DATE: April 15, 2022 TIME: 9:00 AM PAGER/CONTACT #: documented in this encounter [facility] 04-15-2022 Hospital course Narrative BEHAVIORAL HEALTH IOP (INTENSIVE OUTPATIENT PROGRAM) CLOSING SUMMARY OPENING/ADMIT DATE: 03/03/22 CLOSING/TERMINATION DATE: 04/14/22 DATE OF LAST CONTACT: 04/14/22 PRESENTING COMPLAINT: Reuben Rodrigo Croft, [facility], assessment: History of Presenting Complaint: Jacque states that she has a long history of depression and anxiety, but that it has been worse over the past six months. She can't identify any stressors that are making things worse. She says her mind won't stop racing and sh can't sleep. She sleeps in 15 minute increments. She says she has been awake since 1230. Her anxiety is fair and she hasn't had any weight changes. She doesn't leave the house due to her anxiety. Her concentration is poor. Her energy fluctuates. She has loss of interest and enjoyment. She spends her days flipping through the channels and sometimes cleaning. She quit her job January 10 2022 due to her symptoms. She was working for 4-5 months. She says she has been diagnosed with bipolar disorder and has mood swings with episodes of laughing then gets mean and sad. She has episodes of increased irritability. She had an episode like this yesterday which lasted a few hours. She usually isolates herself when it gets like this. She denies any current suicidal thinking - My kids would be lost without me. She had one previous attempt over 10 years ago by overdose of tylenol PM and was admitted to [place] in pt at that time. She describes chronic anxiety and says my innerds get shaky. She rated her level of anxiety today at 9(10=worst) and depression at 8. Jacque denies any current stressors. Her in January 2021 from chronic emphysema but says she is over this. She has health issues including COPD. During today's interview Jacque gave brief answers and didn't elaborate . UNRESOLVED PROBLEMS: Patient continues to struggle with management of her symptoms. She struggles with skills implementation and challenging irrational and concrete thinking patterns. She continued to report concerns of maintaining healthy boundaries at home and with her family, as well as getting out of the house more and moving away from her avoidance cycle. She continues to struggle with sleep disturbances. GOALS MET: Patient has not met any of her stated objectives and has struggled overall with continued engagement and participation with group. She struggled to implement the skills outside of IOP. GOALS TO CONTINUE ON OUTPATIENT: Objective A Short Term Objective Statement (behavioral measurable time frame): Client will implement learned distress tolerance skills (IMPROVE the moment, TIPP, STOP, ACCEPTS), 2 times per week or as needed, to decrease symptoms related to recurrent anxious and depressive episodes. Client will report progress to group weekly. Slight progress: Patient has just finished learning these skills. She noted she is working on finding more ways to distract and self-soothe through her senses. Objective B Short Term Objective Statement (behavioral measurable time frame): Client will apply learned skill of opposite action daily and implement 2 pleasant/mastery tasks into her daily routine (e.g. exercise, cooking, driving, visiting family etc.), to address low motivation, depressed and anxious mood, low energy, and avoidance cycle concerns. Client will report progress to group weekly. Moderate progress: Client has worked on using opposite action during the week to get out of the house and drive to the gym. She has reported getting out to the gym for the first time since admittance and shared positive consequences from this experience. Objective C Short Term Objective Statement (behavioral measurable time frame): Client will implement learned mindfulness skills, 2 times per day or as needed, to address recurrent anxious symptoms, such as rumination, restlessness, and difficulty relaxing. Client will report progress to group weekly. Slight progress: Patient has reported some use of the tips for managing her monkey mind and staying present. MEDICATION SUMMARY: Current Outpatient Medications Medication Sig QUEtiapine (SEROQUEL) 50 mg tablet Take 1 tablet by mouth daily at bedtime. lamoTRIgine (LAMICTAL) 200 mg tablet TAKE 1 TABLET BY MOUTH EVERYDAY AT BEDTIME. THIS IS A DOSE INCREASE escitalopram oxalate (LEXAPRO) 20 mg tablet Take 1 tablet by mouth once daily. cariprazine (VRAYLAR) 3 mg capsule Take 1 capsule by mouth once daily. pantoprazole DR (PROTONIX) 40 mg tablet Take 1 tablet by mouth twice daily before meals. Take on empty stomach, 1/2 hr before meal. ipratropium 20 mcg-albuterol 100 mcg (COMBIVENT RESPIMAT) 20-100 mcg/actuation inhaler Inhale 1 Puff as instructed four times daily as needed. doxazosin (CARDURA) 1 mg tablet Take 1 tablet by mouth once daily. dycwoxnuwpk-tuyzettsp-cereguxq (TRELEGY ELLIPTA) 100-62.5-25 mcg inhalation powder Inhale 1 Puff as instructed once daily. famotidine (PEPCID) 20 mg tablet Take 1 tablet by mouth daily at bedtime. potassium chloride (K-TAB) 10 mEq tablet Take 1 tablet by mouth twice daily. amLODIPine (NORVASC) 10 mg tablet Take 1 tablet by mouth once daily. diphenhydrAMINE-Acetaminophen 25-500 mg tab Take by mouth once daily as needed. Current Facility-Administered Medications Medication Dose Route Frequency perflutren lipid microspheres 1.3 mL in NaCl (PF) 0.9% 10 mL injection (DEFINITY) INTRAVENOUS DIRECTED PRN sodium chloride 0.9 % (flush) 10 mL (BD POSIFLUSH) 10 mL INTRAVENOUS DIRECTED PRN FINAL DIAGNOSIS: Anxiety Disorder Generalized Anxiety Disorder Mood Disorder Bipolar II Disorder REASON FOR CLOSING/TERMINATION: Completed treatment and transitioning to alternative level of care, Outpatient REFERRALS: Psychiatrist Continue follow up care with Matt Vickers Therapist: Has been given resources for agencies/providers in her area SIGNATURE: Lisa Grimes LPC PATIENT NAME: Jacque Dozier DATE: April 14, 2022 TIME: 8:13 AM documented in this encounter [facility] 04-14-2022 Note HNO ID: [id number] Author: Lisa Grimes LPC Service: Behavioral Health IOP (Intensive Outpatient Program) Author Type: Therapist Type: Progress Notes Filed: 04/14/2022 2:04 PM Note Text: BEHAVIORAL HEALTH IOP (INTENSIVE OUTPATIENT PROGRAM) DAILY PROGRESS NOTE This is a Virtual Group and the patient agrees to virtual treatment due to COVID-19 protocol SERVICE DATE: 04/14/2022 SERVICE TIME: 8:13 AM INTERVAL PROGRESS: Same PATIENT'S PROGRESS: Limited BEHAVIOR: Appearance: Pleasant Attitude: Guarded Affect: Anxious/Tense Mood: Pleasant and calm Thought Process: Preoccupied Speech: Quiet Eye Contact: Intermittent Describe Change Noted Throughout the Day: Declined GROUP THERAPY: Illness Management Group Start Time: 9:00am End Time: 10:00am TotalTime: 60 minutes Number of Therapists: 2 Number of Patients: 10 Problem(s) Number Addressed: 1 Intervention: Active Listening, Encouraged, Engaged, Explored, Gave Feedback and Supported Explain: Patients shared a feeling word and two positive traits. They reviewed their treatment plans and identified areas in which they are working and not working. Response: Patient reported feeling awake and calm. She stated her positive traits are kind hearted and listening. She briefly explored treatment objectives, sharing what is working and not working. She stated she is feeling more confident with and proud of her use of opposite action and challenging her avoidance cycle, specifically with getting in exercise and going to [employer]. She shared she has also worked on self-soothing activities more frequently. She noted she is struggling some with preservation of her boundaries with her daughter. Coping Strategies Group Start Time: 10:10am End Time: 11:00am TotalTime: 50 minutes Number of Therapists: 2 Number of Patients: 9 Problem(s) Number Addressed: 1 Intervention: Active Listening, Encouraged, Engaged, Explored, Gave Feedback and Supported Explain: Patients reviewed homework and finished education on distress tolerance, specifically reviewing IMPROVE the moment and grounding techniques. Response: Patient was quiet. She did not contribute verbally. Her screen was dark and she was not super visible. Process and Emotion Management Group Start Time: 11:10am End Time: 12:00pm TotalTime: 50 minutes Number of Therapists: 2 Number of Patients: 10 Problem(s) Number Addressed: 1 Intervention: Active Listening, Encouraged, Engaged, Explored, Gave Feedback and Supported Explain: Patients began exploration of skills for anxiety and stress using given handouts. They shared a feeling word and their takeaway from today prior to the end of group. Response: Patient shared her example of eustress being when her grandkids are fighting in the morning and distress is when her muscles are hurting and she has headaches. Patient reported feeling calm. She stated her takeaway from today is taking a brief vacation, specifically from her phone. PLAN: Continue group treatment as stated in Treatment Plan. Continue to gain insights into problems. Continue to share feelings AND thoughts in group. Incorporate relaxation/coping strategies into daily routine. SOBRIETY (If applicable): N/A Patient Data IOP Daily Questionnaire IOP Daily 04/06/2022 04/06/2022 04/14/2022 Today, is your belief in your ability to use your Safety Plan in a crisis at 90%? Yes Yes Yes Today, have you wished you were or wished you could go to sleep and not wake up? No No No Today, have you actually had any thoughts of killing yourself? No No No On a scale of 1 to 10 how would you rate your mood now? 3 3 5 SIGNATURE: Lisa Grimes LPC PATIENT NAME: Jacque Dozier DATE: April 14, 2022 TIME: 8:13 AM PAGER/CONTACT #: [facility] 04-14-2022 History of Presen t illness Narrative BEHAVIORAL HEALTH IOP (INTENSIVE OUTPATIENT PROGRAM) DAILY PROGRESS NOTE This is a Virtual Group and the patient agrees to virtual treatment due to COVID-19 protocol SERVICE DATE: 04/14/2022 SERVICE TIME: 8:13 AM INTERVAL PROGRESS: Same PATIENT'S PROGRESS: Limited BEHAVIOR: Appearance: Pleasant Attitude: Guarded Affect: Anxious/Tense Mood: Pleasant and calm Thought Process: Preoccupied Speech: Quiet Eye Contact: Intermittent Describe Change Noted Throughout the Day: Declined GROUP THERAPY: Illness Management Group Start Time: 9:00am End Time: 10:00am TotalTime: 60 minutes Number of Therapists: 2 Number of Patients: 10 Problem(s) Number Addressed: 1 Intervention: Active Listening, Encouraged, Engaged, Explored, Gave Feedback and Supported Explain: Patients shared a feeling word and two positive traits. They reviewed their treatment plans and identified areas in which they are working and not working. Response: Patient reported feeling awake and calm. She stated her positive traits are kind hearted and listening. She briefly explored treatment objectives, sharing what is working and not working. She stated she is feeling more confident with and proud of her use of opposite action and challenging her avoidance cycle, specifically with getting in exercise and going to [employer]. She shared she has also worked on self-soothing activities more frequently. She noted she is struggling some with preservation of her boundaries with her daughter. Coping Strategies Group Start Time: 10:10am End Time: 11:00am TotalTime: 50 minutes Number of Therapists: 2 Number of Patients: 9 Problem(s) Number Addressed: 1 Intervention: Active Listening, Encouraged, Engaged, Explored, Gave Feedback and Supported Explain: Patients reviewed homework and finished education on distress tolerance, specifically reviewing IMPROVE the moment and grounding techniques. Response: Patient was quiet. She did not contribute verbally. Her screen was dark and she was not super visible. Process and Emotion Management Group Start Time: 11:10am End Time: 12:00pm TotalTime: 50 minutes Number of Therapists: 2 Number of Patients: 10 Problem(s) Number Addressed: 1 Intervention: Active Listening, Encouraged, Engaged, Explored, Gave Feedback and Supported Explain: Patients began exploration of skills for anxiety and stress using given handouts. They shared a feeling word and their takeaway from today prior to the end of group. Response: Patient shared her example of eustress being when her grandkids are fighting in the morning and distress is when her muscles are hurting and she has headaches. Patient reported feeling calm. She stated her takeaway from today is taking a brief vacation, specifically from her phone. PLAN: Continue group treatment as stated in Treatment Plan. Continue to gain insights into problems. Continue to share feelings & thoughts in group. Incorporate relaxation/coping strategies into daily routine. SOBRIETY (If applicable): N/A Patient Data IOP Daily Questionnaire IOP Daily 04/06/2022 04/06/2022 04/14/2022 Today, is your belief in your ability to use your Safety Plan in a crisis at 90%? Yes Yes Yes Today, have you wished you were or wished you could go to sleep and not wake up? No No No Today, have you actually had any thoughts of killing yourself? No No No On a scale of 1 to 10 how would you rate your mood now? 3 3 5 SIGNATURE: Lisa Grimes LPC PATIENT NAME: Jacque Dozier DATE: April 14, 2022 TIME: 8:13 AM PAGER/CONTACT #: documented in this encounter [facility] 04-13-2022 Note HNO ID: [id number] Author: Lisa Grimes LPC Service: Behavioral Health IOP (Intensive Outpatient Program) Author Type: Therapist Type: Progress Notes Filed: 04/13/2022 1:34 PM Note Text: BEHAVIORAL HEALTH IOP (INTENSIVE OUTPATIENT PROGRAM) DAILY PROGRESS NOTE This is a Virtual Group and the patient agrees to virtual treatment due to COVID-19 protocol SERVICE DATE: 04/13/2022 SERVICE TIME: 1:30 PM INTERVAL PROGRESS: Stable PATIENT'S PROGRESS: Limited BEHAVIOR: Appearance: Pleasant Attitude: Cooperative Affect: Appropriate Mood: Pleasant and happy Thought Process: [place] and Preoccupied Speech: Quiet Eye Contact: Intermittent Describe Change Noted Throughout the Day: Consistent GROUP THERAPY: Illness Management Group Start Time: 9:00am End Time: 10:00am TotalTime: 60 minutes Number of Therapists: 2 Number of Patients: 10 Problem(s) Number Addressed: 1 Intervention: Active Listening, Encouraged, Engaged, Explored, Gave Feedback and Supported Explain: Patients shared a feeling word and two positive traits. They shared something that they feel proud of accomplishing and something that they are struggling with. Response: Patient reported feeling happy. She stated her positive traits are accomplished and loving. She stated she is feeling proud of going to [employer], which has been a major goal for her since joining [facility]. She noted she asked her son for help with it and he joined her at the gym. She shared she felt accomplished and it was less threatening while there. She shared some anxiety during, however she worked through it. Patient reported she has plans to go again this weekend with her son. She shared she is struggling with anxiety and was encouraged to work on skills to manage in real time, such as distress tolerance and AWARE. Coping Strategies Group Start Time: 10:10am End Time: 11:00am TotalTime: 50 minutes Number of Therapists: 2 Number of Patients: 10 Problem(s) Number Addressed: 1 Intervention: Active Listening, Encouraged, Engaged, Explored, Gave Feedback and Supported Explain: Patients reviewed homework and continued education into the skill of distress tolerance using given handouts, group activities, and peer discussion. Response: Patient was quiet. She did not add any verbal contributions, however she appeared to participate with the activities. Process and Emotion Management Group Start Time: 11:10am End Time: 12:00pm TotalTime: 50 minutes Number of Therapists: 2 Number of Patients: 10 Problem(s) Number Addressed: 1 Intervention: Active Listening, Encouraged, Engaged, Explored, Gave Feedback and Supported Explain: Patients finished exploration for the skill, SELF-SOOTHE for distress tolerance and participated in an activity using music to change emotions. They shared a feeling word and their takeaway from today prior to the end of group. Response: Patient was quiet and overall observant. She reported feeling happy. She stated her takeaway from today is counting as a distraction and engaging in her senses during time of ?edginess? and anxiety. PLAN: Continue group treatment as stated in Treatment Plan. Continue to gain insights into problems. Continue to share feelings AND thoughts in group. Incorporate relaxation/coping strategies into daily routine. SOBRIETY (If applicable): N/A Patient Data IOP Daily Questionnaire IOP Daily 04/05/2022 04/06/2022 04/06/2022 Today, is your belief in your ability to use your Safety Plan in a crisis at 90%? Yes Yes Yes Today, have you wished you were or wished you could go to sleep and not wake up? No No No Today, have you actually had any thoughts of killing yourself? No No No On a scale of 1 to 10 how would you rate your mood now? 3 3 3 SIGNATURE: Lias Grimes LPC PATIENT NAME: Jacque Dozier DATE: April 13, 2022 TIME: 1:30 PM PAGER/CONTACT #: [facility] 04-13-2022 History of Presen t illness Narrative BEHAVIORAL HEALTH IOP (INTENSIVE OUTPATIENT PROGRAM) DAILY PROGRESS NOTE This is a Virtual Group and the patient agrees to virtual treatment due to COVID-19 protocol SERVICE DATE: 04/13/2022 SERVICE TIME: 1:30 PM INTERVAL PROGRESS: Stable PATIENT'S PROGRESS: Limited BEHAVIOR: Appearance: Pleasant Attitude: Cooperative Affect: Appropriate Mood: Pleasant and happy Thought Process: [place] and Preoccupied Speech: Quiet Eye Contact: Intermittent Describe Change Noted Throughout the Day: Consistent GROUP THERAPY: Illness Management Group Start Time: 9:00am End Time: 10:00am TotalTime: 60 minutes Number of Therapists: 2 Number of Patients: 10 Problem(s) Number Addressed: 1 Intervention: Active Listening, Encouraged, Engaged, Explored, Gave Feedback and Supported Explain: Patients shared a feeling word and two positive traits. They shared something that they feel proud of accomplishing and something that they are struggling with. Response: Patient reported feeling happy. She stated her positive traits are accomplished and loving. She stated she is feeling proud of going to [employer], which has been a major goal for her since joining [facility]. She noted she asked her son for help with it and he joined her at the gym. She shared she felt accomplished and it was less threatening while there. She shared some anxiety during, however she worked through it. Patient reported she has plans to go again this weekend with her son. She shared she is struggling with anxiety and was encouraged to work on skills to manage in real time, such as distress tolerance and AWARE. Coping Strategies Group Start Time: 10:10am End Time: 11:00am TotalTime: 50 minutes Number of Therapists: 2 Number of Patients: 10 Problem(s) Number Addressed: 1 Intervention: Active Listening, Encouraged, Engaged, Explored, Gave Feedback and Supported Explain: Patients reviewed homework and continued education into the skill of distress tolerance using given handouts, group activities, and peer discussion. Response: Patient was quiet. She did not add any verbal contributions, however she appeared to participate with the activities. Process and Emotion Management Group Start Time: 11:10am End Time: 12:00pm TotalTime: 50 minutes Number of Therapists: 2 Number of Patients: 10 Problem(s) Number Addressed: 1 Intervention: Active Listening, Encouraged, Engaged, Explored, Gave Feedback and Supported Explain: Patients finished exploration for the skill, SELF-SOOTHE for distress tolerance and participated in an activity using music to change emotions. They shared a feeling word and their takeaway from today prior to the end of group. Response: Patient was quiet and overall observant. She reported feeling happy. She stated her takeaway from today is counting as a distraction and engaging in her senses during time of edginess and anxiety. PLAN: Continue group treatment as stated in Treatment Plan. Continue to gain insights into problems. Continue to share feelings & thoughts in group. Incorporate relaxation/coping strategies into daily routine. SOBRIETY (If applicable): N/A Patient Data IOP Daily Questionnaire IOP Daily 04/05/2022 04/06/2022 04/06/2022 Today, is your belief in your ability to use your Safety Plan in a crisis at 90%? Yes Yes Yes Today, have you wished you were or wished you could go to sleep and not wake up? No No No Today, have you actually had any thoughts of killing yourself? No No No On a scale of 1 to 10 how would you rate your mood now? 3 3 3 SIGNATURE: Lisa Grimes LPC PATIENT NAME: Jacque Dozier DATE: April 13, 2022 TIME: 1:30 PM PAGER/CONTACT #: documented in this encounter [facility] 04-12-2022 Note HNO ID: [id number] Author: Lisa Grmies LPC Service: Behavioral Health IOP (Intensive Outpatient Program) Author Type: Therapist Type: Progress Notes Filed: 04/12/2022 1:33 PM Note Text: BEHAVIORAL HEALTH IOP (INTENSIVE OUTPATIENT PROGRAM) APPOINTMENT CANCELLATION COMMUNICATION DATE: 04/12/2022 Scheduled Intensive Outpatient Program appointment for Jacque Dozier was on 04/12/22 at 9am. Patient canceled the appointment. She spoke with IOP nurse, Penny Wadsworth, reporting concerns with physical illness. SIGNATURE: Lisa Grimes LPC PATIENT NAME: Jacque Dozier DATE: April 12, 2022 TIME: 1:32 PM [facility] 04-12-2022 History of Presen t illness Narrative BEHAVIORAL HEALTH IOP (INTENSIVE OUTPATIENT PROGRAM) APPOINTMENT CANCELLATION COMMUNICATION DATE: 04/12/2022 Scheduled Intensive Outpatient Program appointment for Jacque Dozier was on 04/12/22 at 9am. Patient canceled the appointment. She spoke with IOP nurse, Penny Wadsworth, reporting concerns with physical illness. SIGNATURE: Lisa Grimes LPC PATIENT NAME: Jacque Dozier DATE: April 12, 2022 TIME: 1:32 PM documented in this encounter [facility] 04-08-2022 Note HNO ID: [id number] Author: PARAM Vega Service: Behavioral Health IOP (Intensive Outpatient Program) Author Type: Bean Viner Type: Plan of Care Filed: 04/08/2022 7:07 PM Note Text: IOP TEAM NOTE IOP TEAM MEETING DATE: 04/08/2022 RECENT ASSESSMENTS/TREATMENT PLAN REVIEWS: Per GABI Bagley, assessment. SUICIDE RISK AND MITIGATION PLAN Low safety risk. Client has completed her safety plan with staff and has copy. WEEKLY REVIEW OF CLIENT PROGRESS: Client's mood is much improved this week. She is back on her medication and reports a happy mood and great sleep. Additionally, she is more active and getting things done around the home. She has managed to get of the house a couple of times this week and is excited about going to [employer]. Of note, she talked her way through an anxiety provoking situation and is quite proud of herself. DISCHARGE PLANNING/RECOMMENDATIONS: Client is set for a tentative discharge date of 04/08/22. She will need resources for an individual provider and will continue medication management with Matt Vickers upon discharge. Team Members Participation in this Plan of Care: Attending: Dr. Solorzano Nurse: Penny Arreola Bean Viner: Lisa Grimes DOCUMENTED BY: PARAM Vega PATIENT NAME: Jacque Dozier DATE: April 08, 2022 TIME: 7:01 PM [facility] 04-08-2022 Note HNO ID: [id number] Author: PARAM Vega Service: Behavioral Health IOP (Intensive Outpatient Program) Author Type: Bean Viner Type: Progress Notes Filed: 04/08/2022 2:32 PM Note Text: BEHAVIORAL HEALTH IOP (INTENSIVE OUTPATIENT PROGRAM) DAILY PROGRESS NOTE SERVICE DATE: 04/08/2022 SERVICE TIME: 2:26 PM This is a Virtual Group and the patient agrees to virtual treatment due to COVID-19 protocol. INTERVAL PROGRESS: Improving PATIENT'S PROGRESS: Attentive AND Involved BEHAVIOR: Appearance: Pleasant Attitude: Cooperative Affect: Appropriate Mood: Pleasant Thought Process: Logical and [place] Speech: Normal Eye Contact: Good Describe Change Noted Throughout the Day: Consistent GROUP THERAPY: Illness Management Group Start Time: 9:00am End Time: 10:00am TotalTime: 60 minutes Number of Therapists: 2 Number of Patients: 9 Problem(s) Number Addressed: 1 Intervention: Active Listening, Encouraged, Engaged, Explored, Gave Feedback and Supported Explain: Patients shared a feeling word and two positive traits. They discussed weekend plans and potential obstacles. Response: She is feeling happy because she was approved for SNAP benefits. Her traits are that she is dependable and relaxed. Reports sleeping well last night. Over the weekend she will visit her son, have lunch with her son, and rest. She will have the house to herself. No concerns about the weekend. Coping Strategies Group Start Time: 10:10am End Time: 11:00am TotalTime: 50 minutes Number of Therapists: 2 Number of Patients: 8 Problem(s) Number Addressed: 1 Intervention: Active Listening, Encouraged, Engaged, Explored, Gave Feedback and Supported Explain: Patients continued work with the topic of emotion regulation, specifically on mindfulness of current emotions and AWARE. Response: Did not say much during this session. Process and Emotion Management Group Start Time: 11:10am End Time: 12:00pm TotalTime: 50 minutes Number of Therapists: 2 Number of Patients: 8 Problem(s) Number Addressed: 1 Intervention: Active Listening, Encouraged, Engaged, Explored, Gave Feedback and Supported Explain: Patients finished education with emotion regulation and worked on understanding tips for building emotional resilience. They shared a feeling word and their takeaway from today prior to the end of group. Response: Shared that she is happy and not tired. She made the SNAP call and pushed through anxiety. Excited to go to [employer] on Tuesday. Plans to use the awareness skill. She is grateful for her children. PLAN: Continue group treatment as stated in Treatment Plan. Continue to gain insights into problems. Continue to share feelings AND thoughts in group. Incorporate relaxation/coping strategies into daily routine. SOBRIETY (If applicable): N/A Patient Data Generalized Anxiety Disorder Scale (SIMON-7) SIMON - 7 SCORES 03/09/2022 03/24/2022 04/06/2022 SIMON-7 Score 13 13 15 (0-4) minimal anxiety, (5-9) mild anxiety, (10-14) moderate anxiety, (15-21) severe anxiety IOP Daily Questionnaire IOP Daily 04/05/2022 04/06/2022 04/06/2022 Today, is your belief in your ability to use your Safety Plan in a crisis at 90%? Yes Yes Yes Today, have you wished you were or wished you could go to sleep and not wake up? No No No Today, have you actually had any thoughts of killing yourself? No No No On a scale of 1 to 10 how would you rate your mood now? 3 3 3 SIGNATURE: PARAM Vega PATIENT NAME: Jacque Dozier DATE: April 08, 2022 TIME: 2:26 PM PAGER/CONTACT #: [phone] [facility] 04-08-2022 History of Presen t illness Narrative BEHAVIORAL HEALTH IOP (INTENSIVE OUTPATIENT PROGRAM) DAILY PROGRESS NOTE SERVICE DATE: 04/08/2022 SERVICE TIME: 2:26 PM This is a Virtual Group and the patient agrees to virtual treatment due to COVID-19 protocol. INTERVAL PROGRESS: Improving PATIENT'S PROGRESS: Attentive & Involved BEHAVIOR: Appearance: Pleasant Attitude: Cooperative Affect: Appropriate Mood: Pleasant Thought Process: Logical and [place] Speech: Normal Eye Contact: Good Describe Change Noted Throughout the Day: Consistent GROUP THERAPY: Illness Management Group Start Time: 9:00am End Time: 10:00am TotalTime: 60 minutes Number of Therapists: 2 Number of Patients: 9 Problem(s) Number Addressed: 1 Intervention: Active Listening, Encouraged, Engaged, Explored, Gave Feedback and Supported Explain: Patients shared a feeling word and two positive traits. They discussed weekend plans and potential obstacles. Response: She is feeling happy because she was approved for SNAP benefits. Her traits are that she is dependable and relaxed. Reports sleeping well last night. Over the weekend she will visit her son, have lunch with her son, and rest. She will have the house to herself. No concerns about the weekend. Coping Strategies Group Start Time: 10:10am End Time: 11:00am TotalTime: 50 minutes Number of Therapists: 2 Number of Patients: 8 Problem(s) Number Addressed: 1 Intervention: Active Listening, Encouraged, Engaged, Explored, Gave Feedback and Supported Explain: Patients continued work with the topic of emotion regulation, specifically on mindfulness of current emotions and AWARE. Response: Did not say much during this session. Process and Emotion Management Group Start Time: 11:10am End Time: 12:00pm TotalTime: 50 minutes Number of Therapists: 2 Number of Patients: 8 Problem(s) Number Addressed: 1 Intervention: Active Listening, Encouraged, Engaged, Explored, Gave Feedback and Supported Explain: Patients finished education with emotion regulation and worked on understanding tips for building emotional resilience. They shared a feeling word and their takeaway from today prior to the end of group. Response: Shared that she is happy and not tired. She made the [employer]NAP call and pushed through anxiety. Excited to go to [employer] on Tuesday. Plans to use the awareness skill. She is grateful for her children. PLAN: Continue group treatment as stated in Treatment Plan. Continue to gain insights into problems. Continue to share feelings & thoughts in group. Incorporate relaxation/coping strategies into daily routine. SOBRIETY (If applicable): N/A Patient Data Generalized Anxiety Disorder Scale (SIMON-7) SIMON - 7 SCORES 03/09/2022 03/24/2022 04/06/2022 SIMON-7 Score 13 13 15 (0-4) minimal anxiety, (5-9) mild anxiety, (10-14) moderate anxiety, (15-21) severe anxiety IOP Daily Questionnaire IOP Daily 04/05/2022 04/06/2022 04/06/2022 Today, is your belief in your ability to use your Safety Plan in a crisis at 90%? Yes Yes Yes Today, have you wished you were or wished you could go to sleep and not wake up? No No No Today, have you actually had any thoughts of killing yourself? No No No On a scale of 1 to 10 how would you rate your mood now? 3 3 3 SIGNATURE: PARAM Vega PATIENT NAME: Jaqcue Dozier DATE: April 08, 2022 TIME: 2:26 PM PAGER/CONTACT #: [phone] documented in this encounter [facility] 04-08-2022 Miscellaneous Notes IOP TEAM NOTE IOP TEAM MEETING DATE: 04/08/2022 RECENT ASSESSMENTS/TREATMENT PLAN REVIEWS: Per Rodrigo Croft [facility], assessment. SUICIDE RISK AND MITIGATION PLAN Low safety risk. Client has completed her safety plan with staff and has copy. WEEKLY REVIEW OF CLIENT PROGRESS: Client's mood is much improved this week. She is back on her medication and reports a happy mood and great sleep. Additionally, she is more active and getting things done around the home. She has managed to get of the house a couple of times this week and is excited about going to [employer]. Of note, she talked her way through an anxiety provoking situation and is quite proud of herself. DISCHARGE PLANNING/RECOMMENDATIONS: Client is set for a tentative discharge date of 04/08/22. She will need resources for an individual provider and will continue medication management with Matt Vickers upon discharge. Team Members Participation in this Plan of Care: Attending: Dr. Solorzano Nurse: Penny Arreola Bean Viner: Lisa Grimes DOCUMENTED BY: PARAM Vega PATIENT NAME: Jacque Dozier DATE: April 08, 2022 TIME: 7:01 PM documented in this encounter [facility] 04-07-2022 Note HNO ID: [id number] Author: Love Solorzano MD Service: ? Author Type: Physician Type: Progress Notes Filed: 04/07/2022 1:03 PM Note Text: PSYC FOLLOW UP - PSYCHIATRIC PROGRESS NOTE CC: depression With the patient consent, visit was performed virtually. HPI: Patient is 66 yo female presenting for IOP with past psychiatry history of MDD, SIMON Patient states that she is improving and rated her depression 7/10(10=worst depression) and her anxiety 8/10(10=worst anxiety) Reports poor sleep with doxepin , agreed to discontinued it and start seroquel and good appetite Medication well tolerated. No side effects Denied CURRENT SI/HI/AVH Risks and benefits of the medication, including any black box warnings, were discussed with the patient. Interval Progress: Same PATIENT DATA: Generalized Anxiety Disorder Scale (SIMON-7) SIMON - 7 SCORES 03/09/2022 03/24/2022 04/06/2022 SIMON-7 Score 13 13 15 (0-4) minimal anxiety, (5-9) mild anxiety, (10-14) moderate anxiety, (15-21) severe anxiety Patient Health Questionnaire (PHQ-9) PHQ-9 03/09/2022 03/24/2022 04/06/2022 Score 17 12 19 (0-4) minimal depression, (5-9) mild depression, (10-14) moderate depression, (15-19) moderately severe depression, (20-27) severe depression PROMIS Global Health PROMIS Global Health - (T-Scores - the mean of general population = 50. Five points is a clinically meaningful difference.) 10/20/2021 01/28/2022 02/25/2022 Physical T-Score 39.8 - 32.4 Mental T-Score 36.3 33.8 31.3 IOP Daily Questionnaire IOP Daily 04/05/2022 04/06/2022 04/06/2022 Today, is your belief in your ability to use your Safety Plan in a crisis at 90%? Yes Yes Yes Today, have you wished you were or wished you could go to sleep and not wake up? No No No Today, have you actually had any thoughts of killing yourself? No No No On a scale of 1 to 10 how would you rate your mood now? 3 3 3 PAST MEDICAL HISTORY Diagnosis Date Abdominal pain, other specified site Alcohol abuse Back pain DDD Bipolar affect, depressed (HCC) COPD (chronic obstructive pulmonary disease) (HCC) Coronary artery disease Depression Esophagitis, unspecified Essential hypertension, benign Gastritis Hyperlipidemia Lung nodules Nausea Neuralgia Other forms of migraine Prediabetes Tobacco use PAST SURGICAL HISTORY Procedure Laterality Date APPENDECTOMY 1979 CARDIAC CATH 04/2011 Dr. Yang DELIVERY ONLY , low cervical x2 CHOLECYSTECTOMY 2007 Cholecystectomy COLONOSCOPY 09/14/02 RG - normal COLONOSCOPY FLX DX W/COLLJ SPEC WHEN PFRMD 04/13/2012 Colonoscopy DILATION AND CURETTAGE DXAND/THER NONOBSTETRIC Dilation AND curettage EGD 09/14/02 RG ESOPHAGOGASTRODUODENOSCOPY TRANSORAL DIAGNOSTIC 04/09/2010 EGD ESOPHAGOGASTRODUODENOSCOPY TRANSORAL DIAGNOSTIC 04/13/2012 EGD ESOPHAGOGASTRODUODENOSCOPY TRANSORAL DIAGNOSTIC 02/27/15 EGD EXTRACTION, ERUPTED TOOTH OR EXPOSED ROOT (ELEVATION AND/OR FORCEPS REMOVAL) Teeth removed HYSTERECTOMY HX 10/23/1985 LAPS ABD PRTMANDOMENTUM DX W/WO SPEC BR/WA SPX Laparoscopy Current Outpatient Medications Medication Sig Dispense Refill lamoTRIgine (LAMICTAL) 200 mg tablet TAKE 1 TABLET BY MOUTH EVERYDAY AT BEDTIME. THIS IS A DOSE INCREASE 30 tablet 1 escitalopram oxalate (LEXAPRO) 20 mg tablet Take 1 tablet by mouth once daily. 30 tablet 1 cariprazine (VRAYLAR) 3 mg capsule Take 1 capsule by mouth once daily. [address] (PROTONIX) 40 mg tablet Take 1 tablet by mouth twice daily before meals. Take on empty stomach, 1/2 hr before meal. 60 tablet 2 ipratropium 20 mcg-albuterol 100 mcg (COMBIVENT RESPIMAT) 20-100 mcg/actuation inhaler Inhale 1 Puff as instructed four times daily as needed. 4 g 5 doxazosin (CARDURA) 1 mg tablet Take 1 tablet by mouth once daily. 30 tablet 2 gtgsmtppdlv-giyxklkjq-atzpbmvb (TRELEGY ELLIPTA) 100-62.5-25 mcg inhalation powder Inhale 1 Puff as instructed once daily. 1 Each 5 famotidine (PEPCID) 20 mg tablet Take 1 tablet by mouth daily at bedtime. 90 tablet 1 potassium chloride (K-TAB) 10 mEq tablet Take 1 tablet by mouth twice daily. 60 tablet 5 amLODIPine (NORVASC) 10 mg tablet Take 1 tablet by mouth once daily. 90 tablet 3 diphenhydrAMINE-Acetaminophen 25-500 mg tab Take by mouth once daily as needed. Current Facility-Administered Medications Medication Dose Route Frequency Provider Last Rate Last Admin perflutren lipid microspheres 1.3 mL in NaCl (PF) 0.9% 10 mL injection (DEFINITY) INTRAVENOUS DIRECTED PRN Beatrice Reaves PA-C sodium chloride 0.9 % (flush) 10 mL (BD POSIFLUSH) 10 mL INTRAVENOUS DIRECTED PRN Beatrice Reaves PA-C ROS: GENERAL: Negative for malaise, significant weight loss and fever. HEENT: No changes in hearing or vision, no nose bleeds or other nasal problems. RESPIRATORY: Negative for cough, wheezing and shortness of breath. CARDIOVASCULAR: Negative for chest pain, (more content not included)... [facility] 04-07-2022 History of Presen t illness Narrative Images from the original note were not included. PSYC FOLLOW UP - PSYCHIATRIC PROGRESS NOTE CC: depression With the patient consent, visit was performed virtually. HPI: Patient is 66 yo female presenting for IOP with past psychiatry history of MDD, SIMON Patient states that she is improving and rated her depression 7/10(10=worst depression) and her anxiety 8/10(10=worst anxiety) Reports poor sleep with doxepin , agreed to discontinued it and start seroquel and good appetite Medication well tolerated. No side effects Denied CURRENT SI/HI/AVH Risks and benefits of the medication, including any black box warnings, were discussed with the patient. Interval Progress: Same PATIENT DATA: Generalized Anxiety Disorder Scale (SIMON-7) SIMON - 7 SCORES 03/09/2022 03/24/2022 04/06/2022 SIMON-7 Score 13 13 15 (0-4) minimal anxiety, (5-9) mild anxiety, (10-14) moderate anxiety, (15-21) severe anxiety Patient Health Questionnaire (PHQ-9) PHQ-9 03/09/2022 03/24/202204/0604/06/2022 Score 17 12 19 (0-4) minimal depression, (5-9) mild depression, (10-14) moderate depression, (15-19) moderately severe depression, (20-27) severe depression PROMIS Global Health PROMIS Global Health - (T-Scores - the mean of general population = 50. Five points is a clinically meaningful difference.) 10/20/2021 01/28/2022 02/25/2022 Physical T-Score 39.8 - 32.4 Mental T-Score 36.3 33.8 31.3 IOP Daily Questionnaire IOP Daily 04/05/2022 04/06/2022 04/06/2022 Today, is your belief in your ability to use your Safety Plan in a crisis at 90%? Yes Yes Yes Today, have you wished you were or wished you could go to sleep and not wake up? No No No Today, have you actually had any thoughts of killing yourself? No No No On a scale of 1 to 10 how would you rate your mood now? 3 3 3 PAST MEDICAL HISTORY Diagnosis Date Abdominal pain, other specified site Alcohol abuse Back pain DDD Bipolar affect, depressed (HCC) COPD (chronic obstructive pulmonary disease) (HCC) Coronary artery disease Depression Esophagitis, unspecified Essential hypertension, benign Gastritis Hyperlipidemia Lung nodules Nausea Neuralgia Other forms of migraine Prediabetes Tobacco use PAST SURGICAL HISTORY Procedure Laterality Date APPENDECTOMY 1980 CARDIAC CATH 04/2011 Dr. Yang DELIVERY ONLY , low cervical x2 CHOLECYSTECTOMY 2008 Cholecystectomy COLONOSCOPY 09/14/02 RG - normal COLONOSCOPY FLX DX W/COLLJ SPEC WHEN PFRMD 04/13/2012 Colonoscopy DILATION & CURETTAGE DX&/THER NONOBSTETRIC Dilation & curettage EGD 09/14/02 RG ESOPHAGOGASTRODUODENOSCOPY TRANSORAL DIAGNOSTIC 04/09/2010 EGD ESOPHAGOGASTRODUODENOSCOPY TRANSORAL DIAGNOSTIC 04/13/2012 EGD ESOPHAGOGASTRODUODENOSCOPY TRANSORAL DIAGNOSTIC 02/27/15 EGD EXTRACTION, ERUPTED TOOTH OR EXPOSED ROOT (ELEVATION AND/OR FORCEPS REMOVAL) Teeth removed HYSTERECTOMY HX 10/23/1985 LAPS ABD PRTM&OMENTUM DX W/WO SPEC BR/WA SPX Laparoscopy Current Outpatient Medications Medication Sig Dispense Refill lamoTRIgine (LAMICTAL) 200 mg tablet TAKE 1 TABLET BY MOUTH EVERYDAY AT BEDTIME. THIS IS A DOSE INCREASE 30 tablet 1 escitalopram oxalate (LEXAPRO) 20 mg tablet Take 1 tablet by mouth once daily. 30 tablet 1 cariprazine (VRAYLAR) 3 mg capsule Take 1 capsule by mouth once daily. [address] (PROTONIX) 40 mg tablet Take 1 tablet by mouth twice daily before meals. Take on empty stomach, 1/2 hr before meal. 60 tablet 2 ipratropium 20 mcg-albuterol 100 mcg (COMBIVENT RESPIMAT) 20-100 mcg/actuation inhaler Inhale 1 Puff as instructed four times daily as needed. 4 g 5 doxazosin (CARDURA) 1 mg tablet Take 1 tablet by mouth once daily. 30 tablet 2 kofhimojpbj-sdhkshcwt-zthumcrn (TRELEGY ELLIPTA) 100-62.5-25 mcg inhalation powder Inhale 1 Puff as instructed once daily. 1 Each 5 famotidine (PEPCID) 20 mg tablet Take 1 tablet by mouth daily at bedtime. 90 tablet 1 potassium chloride (K-TAB) 10 mEq tablet Take 1 tablet by mouth twice daily. 60 tablet 5 amLODIPine (NORVASC) 10 mg tablet Take 1 tablet by mouth once daily. 90 tablet 3 diphenhydrAMINE-Acetaminophen 25-500 mg tab Take by mouth once daily as needed. Current Facility-Administered Medications Medication Dose Route Frequency Provider Last Rate Last Admin perflutren lipid microspheres 1.3 mL in NaCl (PF) 0.9% 10 mL injection (DEFINITY) INTRAVENOUS DIRECTED PRN Beatrice Reaves PA-C sodium chloride 0.9 % (flush) 10 mL (BD POSIFLUSH) 10 mL INTRAVENOUS DIRECTED PRN Beatrice Reaves PA-C ROS: GENERAL: Negative for malaise, significant weight loss and fever. HEENT: No changes in hearing or vision, no nose bleeds or other nasal problems. RESPIRATORY: Negative for cough, wheezing and shortness of breath. CARDIOVASCULAR: Negative for chest pain, leg swelling and palpitations. GI: Negative for abdominal discomfort, blood in stools or black stools. : Negative for dysuria, frequency and incontinence. MUSCULOSKELETAL: Negative for joint pain or swelling, back pain, and muscle pain. SKIN: Negative for lesions, rash, and itching. HEMATOLOGY/LYMPHOLOGY Negative for prolonged bleeding, bruising easily, and swollen nodes. ENDOCRINE: Negative for cold or heat intolerance, polyuria, polydipsia and goiter. NEURO: Negative for headaches, syncope, seizures and paralysis. PFSH: No change VITAL SIGNS: There were no vitals filed for this visit. MENTAL STATUS EXAM: CONSTITUTIONAL: Well groomed, Appropriately dressed ORIENTATION: Person, Place, Time and Situation MEMORY: Recent intact, Remote intact CONCENTRATION: Normal MOOD: sad AFFECT: Restricted SPEECH : Clear & distinct LANGUAGE : Normal ASSOCIATIONS: Intact THOUGHT PROCESS : Logical, Coherent, and Rational PROGRESSION : There was no evidence of disturbance in thought perception or progression. FUND OF KNOWLEDGE : Appropriate and Adequate SUICIDE: None HOMICIDE: None DATA REVIEWED: Labs and Electronic medical record DIAGNOSIS: PRIMARY: Mood Disorder Major Depressive Disorder, Recurrent, Severe Without Psychotic Symptoms Secondary : Anxiety Disorder Generalized Anxiety Disorder Other : none GAF: 45 -50-41 Serious symptoms or any serious impairment in social, occupational or school functioning. TREATMENT PLAN: 1. Discontinue doxepin 2. Start seroquel 50 mg QHS 1. Continue with lamictal 200 mg daily 2. Continue with lexapro 20 mg daily 3 continue with vraylar 3 mg daily MEDICATION CHANGES: As above Follow Up: 2 weeks I spent a total of 30 minutes on the date of the service which included preparing to see the patient, completing clinical documentation, obtaining and/or reviewing separately obtained history, counseling and educating the patient/family/caregiver, and ordering medications, tests, or procedures. ADD ON PSYCHOTHERAPY CODE : No SIGNATURE: Love Solorzano MD PATIENT NAME: Jacque Dozier DATE: April 07, 2022 TIME: 12:52 PM PAGER: [phone] documented in this encounter [facility] 04-07-2022 Note HNO ID: [id number] Author: PARAM Vega Service: Behavioral Health IOP (Intensive Outpatient Program) Author Type: Bean Viner Type: Progress Notes Filed: 04/07/2022 5:58 PM Note Text: BEHAVIORAL HEALTH IOP (INTENSIVE OUTPATIENT PROGRAM) DAILY PROGRESS NOTE SERVICE DATE: 04/07/2022 SERVICE TIME: 5:54 PM This is a Virtual Group and the patient agrees to virtual treatment due to COVID-19 protocol. INTERVAL PROGRESS: Improving PATIENT'S PROGRESS: Attentive AND Involved BEHAVIOR: Appearance: Well-Groomed Attitude: Cooperative Affect: Appropriate Mood: Pleasant Thought Process: Logical and [place] Speech: Quiet Eye Contact: Good Describe Change Noted Throughout the Day: Consistent GROUP THERAPY: Illness Management Group Start Time: 9:00am End Time: 10:00am TotalTime: 60 minutes Number of Therapists: 2 Number of Patients: 8 Problem(s) Number Addressed: 1 Intervention: Active Listening, Encouraged, Engaged, Explored, Gave Feedback and Supported Explain: Patients shared a feeling word and two positive traits. They reviewed their treatment plans and identified areas in which they are working and not working. Response: She feels accomplished and tired. She went to the store yesterday and went into the store. Everything was fine. She practiced mindfulness. She rewarded herself with popsicles. She is considering going to [place]. The reward will be going to the tanning salon. Two traits are that she is happy and fun. A goal working well is her to do list. She writes down what she needs to do. Comments she breaks everything down, and if she does not get to it, she does not stress herself out. Coping Strategies Group Start Time: 10:10am End Time: 11:00am TotalTime: 50 minutes Number of Therapists: 2 Number of Patients: 8 Problem(s) Number Addressed: 1 Intervention: Active Listening, Encouraged, Engaged, Explored, Gave Feedback and Supported Explain: Patients reviewed use of the homework and continued exploration of skills for emotion regulation, such as healthy perspectives on emotions and STRONG. Response: Client listened throughout the session. Process and Emotion Management Group Start Time: 11:10am End Time: 12:00pm TotalTime: 50 minutes Number of Therapists: 2 Number of Patients: 8 Problem(s) Number Addressed: 1 Intervention: Active Listening, Encouraged, Engaged, Explored, Gave Feedback and Supported Explain: Patients worked on addressing sleep hygiene concerns and other vulnerabilities for regulating emotions. They shared a feeling word and their takeaway from today prior to the end of group. Response: Her feeling word is accomplished. Her take away is she will start writing down what is bothering her. PLAN: Continue group treatment as stated in Treatment Plan. Continue to gain insights into problems. Continue to share feelings AND thoughts in group. Incorporate relaxation/coping strategies into daily routine. SOBRIETY (If applicable): N/A Patient Data Generalized Anxiety Disorder Scale (SIMON-7) SIMON - 7 SCORES 03/09/2022 03/24/2022 04/06/2022 SIMON-7 Score 13 13 15 (0-4) minimal anxiety, (5-9) mild anxiety, (10-14) moderate anxiety, (15-21) severe anxiety IOP Daily Questionnaire IOP Daily 04/05/2022 04/06/2022 04/06/2022 Today, is your belief in your ability to use your Safety Plan in a crisis at 90%? Yes Yes Yes Today, have you wished you were or wished you could go to sleep and not wake up? No No No Today, have you actually had any thoughts of killing yourself? No No No On a scale of 1 to 10 how would you rate your mood now? 3 3 3 SIGNATURE: PARAM Vega PATIENT NAME: Jacque Dozier DATE: April 07, 2022 TIME: 5:54 PM PAGER/CONTACT #: [phone] [facility] 04-07-2022 History of Presen t illness Narrative BEHAVIORAL HEALTH IOP (INTENSIVE OUTPATIENT PROGRAM) DAILY PROGRESS NOTE SERVICE DATE: 04/07/2022 SERVICE TIME: 5:54 PM This is a Virtual Group and the patient agrees to virtual treatment due to COVID-19 protocol. INTERVAL PROGRESS: Improving PATIENT'S PROGRESS: Attentive & Involved BEHAVIOR: Appearance: Well-Groomed Attitude: Cooperative Affect: Appropriate Mood: Pleasant Thought Process: Logical and [place] Speech: Quiet Eye Contact: Good Describe Change Noted Throughout the Day: Consistent GROUP THERAPY: Illness Management Group Start Time: 9:00am End Time: 10:00am TotalTime: 60 minutes Number of Therapists: 2 Number of Patients: 8 Problem(s) Number Addressed: 1 Intervention: Active Listening, Encouraged, Engaged, Explored, Gave Feedback and Supported Explain: Patients shared a feeling word and two positive traits. They reviewed their treatment plans and identified areas in which they are working and not working. Response: She feels accomplished and tired. She went to the store yesterday and went into the store. Everything was fine. She practiced mindfulness. She rewarded herself with popsicles. She is considering going to [place]. The reward will be going to the tanning salon. Two traits are that she is happy and fun. A goal working well is her to do list. She writes down what she needs to do. Comments she breaks everything down, and if she does not get to it, she does not stress herself out. Coping Strategies Group Start Time: 10:10am End Time: 11:00am TotalTime: 50 minutes Number of Therapists: 2 Number of Patients: 8 Problem(s) Number Addressed: 1 Intervention: Active Listening, Encouraged, Engaged, Explored, Gave Feedback and Supported Explain: Patients reviewed use of the homework and continued exploration of skills for emotion regulation, such as healthy perspectives on emotions and STRONG. Response: Client listened throughout the session. Process and Emotion Management Group Start Time: 11:10am End Time: 12:00pm TotalTime: 50 minutes Number of Therapists: 2 Number of Patients: 8 Problem(s) Number Addressed: 1 Intervention: Active Listening, Encouraged, Engaged, Explored, Gave Feedback and Supported Explain: Patients worked on addressing sleep hygiene concerns and other vulnerabilities for regulating emotions. They shared a feeling word and their takeaway from today prior to the end of group. Response: Her feeling word is accomplished. Her take away is she will start writing down what is bothering her. PLAN: Continue group treatment as stated in Treatment Plan. Continue to gain insights into problems. Continue to share feelings & thoughts in group. Incorporate relaxation/coping strategies into daily routine. SOBRIETY (If applicable): N/A Patient Data Generalized Anxiety Disorder Scale (SIMON-7) SIMON - 7 SCORES 03/09/2022 03/24/2022 04/06/2022 SIMON-7 Score 13 13 15 (0-4) minimal anxiety, (5-9) mild anxiety, (10-14) moderate anxiety, (15-21) severe anxiety IOP Daily Questionnaire IOP Daily 04/05/2022 04/06/2022 04/06/2022 Today, is your belief in your ability to use your Safety Plan in a crisis at 90%? Yes Yes Yes Today, have you wished you were or wished you could go to sleep and not wake up? No No No Today, have you actually had any thoughts of killing yourself? No No No On a scale of 1 to 10 how would you rate your mood now? 3 3 3 SIGNATURE: PARAM Vega PATIENT NAME: Jacque Dozier DATE: April 07, 2022 TIME: 5:54 PM PAGER/CONTACT #: [phone] documented in this encounter [facility] 04-06-2022 Note HNO ID: [id number] Author: Lisa Grimes LPC Service: Behavioral Health IOP (Intensive Outpatient Program) Author Type: Therapist Type: Progress Notes Filed: 04/06/2022 2:40 PM Note Text: BEHAVIORAL HEALTH IOP (INTENSIVE OUTPATIENT PROGRAM) DAILY PROGRESS NOTE This is a Virtual Group and the patient agrees to virtual treatment due to COVID-19 protocol SERVICE DATE: 04/06/2022 SERVICE TIME: 8:30 AM INTERVAL PROGRESS: Same PATIENT'S PROGRESS: Limited BEHAVIOR: Appearance: Disheveled and Pleasant Attitude: Guarded Affect: Flat Mood: Anxious Thought Process: [place] and Preoccupied Speech: Quiet Eye Contact: Intermittent Describe Change Noted Throughout the Day: Consistent GROUP THERAPY: Illness Management Group Start Time: 9:00am End Time: 10:00am TotalTime: 60 minutes Number of Therapists: 2 Number of Patients: 9 Problem(s) Number Addressed: 1 Intervention: Active Listening, Encouraged, Engaged, Explored, Gave Feedback and Supported Explain: Clients shared a feeling word and two positive traits. Response: Client reported feeling anxious and tired. She stated her positive traits are loving caring. She stated she is struggling feelings of anxiety this week and noted disrupted sleep patterns. She was encouraged on working on a number of skills to manage these feelings, which include increasing exercise and activity level, sleep hygiene, and opposite action. Coping Strategies Group Start Time: 10:10am End Time: 11:00am TotalTime: 50 minutes Number of Therapists: 2 Number of Patients: 9 Problem(s) Number Addressed: 1 Intervention: Active Listening, Encouraged, Engaged, Explored, Gave Feedback and Supported Explain: Clients reviewed use of the homework and participated in a body scan. They began education into the skill of emotion regulation using given materials. Response: Client was quiet and did not share verbally. Process and Emotion Management Group Start Time: 11:10am End Time: 12:00pm TotalTime: 50 minutes Number of Therapists: 2 Number of Patients: 8 Problem(s) Number Addressed: 1 Intervention: Active Listening, Encouraged, Engaged, Explored, Gave Feedback and Supported Explain: Clients continued education of emotional regulation and agility using a video with Dr. Shruthi Mckoy. They shared a feeling word and their takeaway from today prior to the end of group. Response: Client did not share any thoughts on the video or in the discussion. Client reported feeling nervous. She stated her takeaway from today is working on using opposite action for her anxiety today and go to the store. PLAN: Continue group treatment as stated in Treatment Plan. Continue to gain insights into problems. Continue to share feelings AND thoughts in group. Incorporate relaxation/coping strategies into daily routine. SOBRIETY (If applicable): N/A Patient Data Generalized Anxiety Disorder Scale (SIMON-7) SIMON - 7 SCORES 03/09/2022 03/24/2022 04/06/2022 SIMON-7 Score 13 13 15 (0-4) minimal anxiety, (5-9) mild anxiety, (10-14) moderate anxiety, (15-21) severe anxiety IOP Daily Questionnaire IOP Daily 04/05/2022 04/05/2022 04/06/2022 Today, is your belief in your ability to use your Safety Plan in a crisis at 90%? Yes Yes Yes Today, have you wished you were or wished you could go to sleep and not wake up? No No No Today, have you actually had any thoughts of killing yourself? No No No On a scale of 1 to 10 how would you rate your mood now? 3 3 3 Patient Health Questionnaire (PHQ-9) PHQ-9 03/09/2022 03/24/2022 04/06/2022 Score 17 12 19 (0-4) minimal depression, (5-9) mild depression, (10-14) moderate depression, (15-19) moderately severe depression, (20-27) severe depression SIGNATURE: Lisa Grimes LPC PATIENT NAME: Jacque Dozier DATE: April 06, 2022 TIME: 8:30 AM PAGER/CONTACT #: [facility] 04-06-2022 History of Presen t illness Narrative BEHAVIORAL HEALTH IOP (INTENSIVE OUTPATIENT PROGRAM) DAILY PROGRESS NOTE This is a Virtual Group and the patient agrees to virtual treatment due to COVID-19 protocol SERVICE DATE: 04/06/2022 SERVICE TIME: 8:30 AM INTERVAL PROGRESS: Same PATIENT'S PROGRESS: Limited BEHAVIOR: Appearance: Disheveled and Pleasant Attitude: Guarded Affect: Flat Mood: Anxious Thought Process: [place] and Preoccupied Speech: Quiet Eye Contact: Intermittent Describe Change Noted Throughout the Day: Consistent GROUP THERAPY: Illness Management Group Start Time: 9:00am End Time: 10:00am TotalTime: 60 minutes Number of Therapists: 2 Number of Patients: 9 Problem(s) Number Addressed: 1 Intervention: Active Listening, Encouraged, Engaged, Explored, Gave Feedback and Supported Explain: Clients shared a feeling word and two positive traits. Response: Client reported feeling anxious and tired. She stated her positive traits are loving caring. She stated she is struggling feelings of anxiety this week and noted disrupted sleep patterns. She was encouraged on working on a number of skills to manage these feelings, which include increasing exercise and activity level, sleep hygiene, and opposite action. Coping Strategies Group Start Time: 10:10am End Time: 11:00am TotalTime: 50 minutes Number of Therapists: 2 Number of Patients: 9 Problem(s) Number Addressed: 1 Intervention: Active Listening, Encouraged, Engaged, Explored, Gave Feedback and Supported Explain: Clients reviewed use of the homework and participated in a body scan. They began education into the skill of emotion regulation using given materials. Response: Client was quiet and did not share verbally. Process and Emotion Management Group Start Time: 11:10am End Time: 12:00pm TotalTime: 50 minutes Number of Therapists: 2 Number of Patients: 8 Problem(s) Number Addressed: 1 Intervention: Active Listening, Encouraged, Engaged, Explored, Gave Feedback and Supported Explain: Clients continued education of emotional regulation and agility using a video with Dr. Shruthi Mckoy. They shared a feeling word and their takeaway from today prior to the end of group. Response: Client did not share any thoughts on the video or in the discussion. Client reported feeling nervous. She stated her takeaway from today is working on using opposite action for her anxiety today and go to the store. PLAN: Continue group treatment as stated in Treatment Plan. Continue to gain insights into problems. Continue to share feelings & thoughts in group. Incorporate relaxation/coping strategies into daily routine. SOBRIETY (If applicable): N/A Patient Data Generalized Anxiety Disorder Scale (SIMON-7) SIMON - 7 SCORES 03/09/2022 03/24/2022 04/06/2022 SIMON-7 Score 13 13 15 (0-4) minimal anxiety, (5-9) mild anxiety, (10-14) moderate anxiety, (15-21) severe anxiety IOP Daily Questionnaire IOP Daily 04/05/2022 04/05/2022 04/06/2022 Today, is your belief in your ability to use your Safety Plan in a crisis at 90%? Yes Yes Yes Today, have you wished you were or wished you could go to sleep and not wake up? No No No Today, have you actually had any thoughts of killing yourself? No No No On a scale of 1 to 10 how would you rate your mood now? 3 3 3 Patient Health Questionnaire (PHQ-9) PHQ-9 03/09/2022 03/24/2022 04/06/2022 Score 17 12 19 (0-4) minimal depression, (5-9) mild depression, (10-14) moderate depression, (15-19) moderately severe depression, (20-27) severe depression SIGNATURE: Lisa Grimes LPC PATIENT NAME: Jacque Dozier DATE: April 06, 2022 TIME: 8:30 AM PAGER/CONTACT #: documented in this encounter [facility] 04-05-2022 Note HNO ID: [id number] Author: PARAM Vega Service: Behavioral Health IOP (Intensive Outpatient Program) Author Type: Bean Viner Type: Progress Notes Filed: 04/05/2022 3:15 PM Note Text: BEHAVIORAL HEALTH IOP (INTENSIVE OUTPATIENT PROGRAM) DAILY PROGRESS NOTE SERVICE DATE: 04/05/2022 SERVICE TIME: 3:09 PM This is a Virtual Group and the patient agrees to virtual treatment due to COVID-19 protocol. INTERVAL PROGRESS: Same PATIENT'S PROGRESS: Attentive AND Involved BEHAVIOR: Appearance: Well-Groomed Attitude: Cooperative Affect: Flat Mood: Depressed Thought Process: Logical and [place] Speech: Slow Eye Contact: Good Describe Change Noted Throughout the Day: Consistent GROUP THERAPY: Illness Management Group Start Time: 9:00am End Time: 10:00am TotalTime: 60 minutes Number of Therapists: 2 Number of Patients: 8 Problem(s) Number Addressed: 1 Intervention: Active Listening, Encouraged, Engaged, Explored, Gave Feedback and Supported Explain: Clients shared a feeling word and two positive traits. They discussed their weekend, skills used and concerns. Response: She is feeling great meaning she feels calmer. Her sleep is still poor. To discuss with Penny ZAMORA. Reports she is back on her medication regimen. Her 2 positive traits are that she his positive and accomplished. Her daughter did her hair and her granddaughter did her nails. She had the house to herself. Reports panic attacks all weekend. Responded with breathing and mindfulness. This brought her out of panic attacks. Discussed sometimes we do not get a why as to why something is happening. Skills used Coping Strategies Group Start Time: 10:10am End Time: 11:00am TotalTime: 50 minutes Number of Therapists: 2 Number of Patients: 8 Problem(s) Number Addressed: 1 Intervention: Active Listening, Encouraged, Engaged, Explored, Gave Feedback and Supported Explain: Clients reviewed use of the homework and continued education in to the topic of mindfulness. Response: include mindfulness and setting boundaries. No comment during this session. Process and Emotion Management Group Start Time: 11:10am End Time: 12:00pm TotalTime: 50 minutes Number of Therapists: 2 Number of Patients: 8 Problem(s) Number Addressed: 1 Intervention: Active Listening, Encouraged, Engaged, Explored, Gave Feedback and Supported Explain: Clients finished exploration of the skills for mindfulness and practiced using group activities. They shared a feeling word and their takeaway from today prior to the end of group. Response: Still feels calm. Her take away is she is going to keep trying mindfulness with food. Her goal is to be less judgmental about self. PLAN: Continue group treatment as stated in Treatment Plan. Continue to gain insights into problems. Continue to share feelings AND thoughts in group. Incorporate relaxation/coping strategies into daily routine. SOBRIETY (If applicable): N/A Patient Data Generalized Anxiety Disorder Scale (SIMON-7) SIMON - 7 SCORES 03/03/2022 03/09/2022 03/24/2022 SIMON-7 Score 15 13 13 (0-4) minimal anxiety, (5-9) mild anxiety, (10-14) moderate anxiety, (15-21) severe anxiety IOP Daily Questionnaire IOP Daily 03/24/2022 04/05/2022 04/05/2022 Today, is your belief in your ability to use your Safety Plan in a crisis at 90%? Yes Yes Yes Today, have you wished you were or wished you could go to sleep and not wake up? No No No Today, have you actually had any thoughts of killing yourself? No No No On a scale of 1 to 10 how would you rate your mood now? 3 3 3 SIGNATURE: PARAM Vega PATIENT NAME: Jacque Dozier DATE: April 05, 2022 TIME: 3:09 PM PAGER/CONTACT #: [phone] [facility] 04-05-2022 Miscellaneous Notes Images from the original note were not included. Patient has been identified by name and date of : Yes Requested Prescriptions Pending Prescriptions Disp Refills lamoTRIgine (LAMICTAL) 200 mg tablet [Pharmacy Med Name: LAMOTRIGINE 200 MG TABLET] 30 tablet 1 Sig: TAKE 1 TABLET BY MOUTH EVERYDAY AT BEDTIME. THIS IS A DOSE INCREASE BRENDA: 02/26/2022 FOV: 04/29/2022 Anticonvulsant Refill Checklist Failed 04/02/2022 11:33 AM Protocol Details CBC within the last 12 months Lytes within the last 12 months LFT within the last 12 months Serum Creatinine within the last 12 month Visit with provider within the last 12 months RX INSTRUCTIONS: Pharmacy initiated this request. No need to notify patient. Yanira Eisenberg documented in this encounter [facility] 04-05-2022 History of Presen t illness Narrative BEHAVIORAL HEALTH IOP (INTENSIVE OUTPATIENT PROGRAM) DAILY PROGRESS NOTE SERVICE DATE: 04/05/2022 SERVICE TIME: 3:09 PM This is a Virtual Group and the patient agrees to virtual treatment due to COVID-19 protocol. INTERVAL PROGRESS: Same PATIENT'S PROGRESS: Attentive & Involved BEHAVIOR: Appearance: Well-Groomed Attitude: Cooperative Affect: Flat Mood: Depressed Thought Process: Logical and [place] Speech: Slow Eye Contact: Good Describe Change Noted Throughout the Day: Consistent GROUP THERAPY: Illness Management Group Start Time: 9:00am End Time: 10:00am TotalTime: 60 minutes Number of Therapists: 2 Number of Patients: 8 Problem(s) Number Addressed: 1 Intervention: Active Listening, Encouraged, Engaged, Explored, Gave Feedback and Supported Explain: Clients shared a feeling word and two positive traits. They discussed their weekend, skills used and concerns. Response: She is feeling great meaning she feels calmer. Her sleep is still poor. To discuss with Penny ZAMORA. Reports she is back on her medication regimen. Her 2 positive traits are that she his positive and accomplished. Her daughter did her hair and her granddaughter did her nails. She had the house to herself. Reports panic attacks all weekend. Responded with breathing and mindfulness. This brought her out of panic attacks. Discussed sometimes we do not get a why as to why something is happening. Skills used Coping Strategies Group Start Time: 10:10am End Time: 11:00am TotalTime: 50 minutes Number of Therapists: 2 Number of Patients: 8 Problem(s) Number Addressed: 1 Intervention: Active Listening, Encouraged, Engaged, Explored, Gave Feedback and Supported Explain: Clients reviewed use of the homework and continued education in to the topic of mindfulness. Response: include mindfulness and setting boundaries. No comment during this session. Process and Emotion Management Group Start Time: 11:10am End Time: 12:00pm TotalTime: 50 minutes Number of Therapists: 2 Number of Patients: 8 Problem(s) Number Addressed: 1 Intervention: Active Listening, Encouraged, Engaged, Explored, Gave Feedback and Supported Explain: Clients finished exploration of the skills for mindfulness and practiced using group activities. They shared a feeling word and their takeaway from today prior to the end of group. Response: Still feels calm. Her take away is she is going to keep trying mindfulness with food. Her goal is to be less judgmental about self. PLAN: Continue group treatment as stated in Treatment Plan. Continue to gain insights into problems. Continue to share feelings & thoughts in group. Incorporate relaxation/coping strategies into daily routine. SOBRIETY (If applicable): N/A Patient Data Generalized Anxiety Disorder Scale (SIMON-7) SIMON - 7 SCORES 03/03/2022 03/09/2022 03/24/2022 SIMON-7 Score 15 13 13 (0-4) minimal anxiety, (5-9) mild anxiety, (10-14) moderate anxiety, (15-21) severe anxiety IOP Daily Questionnaire IOP Daily 03/24/2022 04/05/2022 04/05/2022 Today, is your belief in your ability to use your Safety Plan in a crisis at 90%? Yes Yes Yes Today, have you wished you were or wished you could go to sleep and not wake up? No No No Today, have you actually had any thoughts of killing yourself? No No No On a scale of 1 to 10 how would you rate your mood now? 3 3 3 SIGNATURE: PARAM Vega PATIENT NAME: Jacque Dozier DATE: April 05, 2022 TIME: 3:09 PM PAGER/CONTACT #: [phone] documented in this encounter [facility] 04-01-2022 Note HNO ID: [id number] Author: PARAM Vega Service: Behavioral Health IOP (Intensive Outpatient Program) Author Type: Bean Viner Type: Progress Notes Filed: 04/01/2022 5:16 PM Note Text: BEHAVIORAL HEALTH IOP (INTENSIVE OUTPATIENT PROGRAM) DAILY PROGRESS NOTE SERVICE DATE: 04/01/2022 SERVICE TIME: 5:11 PM INTERVAL PROGRESS: Same PATIENT'S PROGRESS: Limited BEHAVIOR: Appearance: Disheveled Attitude: Cooperative Affect: Flat Mood: Depressed Thought Process: [place] Speech: Quiet Eye Contact: Good Describe Change Noted Throughout the Day: Consistent This is a Virtual Group and the patient agrees to virtual treatment due to COVID-19 protocol. GROUP THERAPY: Illness Management Group Start Time: 9:00am End Time: 10:00am TotalTime: 60 minutes Number of Therapists: 2 Number of Patients: 7 Problem(s) Number Addressed: 1 Intervention: Active Listening, Encouraged, Engaged, Explored, Gave Feedback and Supported Explain: Clients shared a feeling word and two positive traits. They discussed weekend plans and potential obstacles. Response: Her feeling word is tired and depressed. Her positive traits are dependable and fun. She spoke with Penny and restarted her meds yesterday. Some days she feels her meds are not working and wonders what is the point? Suggested that she speak with her provider. This weekend she does not have any concrete plans. She may visit son. Reports a low mood. Suggest the activity list and other skills. Client does not seem motivated to improve mood. Coping Strategies Group Start Time: 10:10am End Time: 11:00am TotalTime: 50 minutes Number of Therapists: 2 Number of Patients: 6 Problem(s) Number Addressed: 1 Intervention: Active Listening, Encouraged, Engaged, Explored, Gave Feedback and Supported Explain: Clients reviewed use of the homework and began education in to the topic of mindfulness. Response: Client listened attentively to the discussion on mindfulness. Process and Emotion Management Group Start Time: 11:10am End Time: 12:00pm TotalTime: 50 minutes Number of Therapists: 2 Number of Patients: 5 Problem(s) Number Addressed: 1 Intervention: Active Listening, Encouraged, Engaged, Explored, Gave Feedback and Supported Explain: Clients continued exploration of the skills for mindfulness and practiced using group activities. They shared a feeling word and their takeaway from today prior to the end of group. Response: The mindfulness exercise was fun activity. Her feeling word is happy and not so tired now. Her take away is to start using mindfulness. She if grateful for her children and her wiper staying on her car. Also, laughing to day was helpful. PLAN: Continue group treatment as stated in Treatment Plan. Continue to gain insights into problems. Continue to share feelings AND thoughts in group. Incorporate relaxation/coping strategies into daily routine. SOBRIETY (If applicable): N/A Patient Data Generalized Anxiety Disorder Scale (SIMON-7) SIMON - 7 SCORES 03/03/2022 03/09/2022 03/24/2022 SIMON-7 Score 15 13 13 (0-4) minimal anxiety, (5-9) mild anxiety, (10-14) moderate anxiety, (15-21) severe anxiety IOP Daily Questionnaire IOP Daily 03/19/2022 03/24/2022 03/24/2022 Today, is your belief in your ability to use your Safety Plan in a crisis at 90%? Yes Yes Yes Today, have you wished you were or wished you could go to sleep and not wake up? No No No Today, have you actually had any thoughts of killing yourself? No No No On a scale of 1 to 10 how would you rate your mood now? 3 3 3 SIGNATURE: PARAM Vega PATIENT NAME: Jacque Dozier DATE: April 01, 2022 TIME: 5:11 PM PAGER/CONTACT #: [phone] [facility] 04-01-2022 Note HNO ID: [id number] Author: PARAM Vega Service: Behavioral Health IOP (Intensive Outpatient Program) Author Type: Bean Viner Type: Plan of Care Filed: 04/01/2022 3:08 PM Note Text: IOP TEAM NOTE IOP TEAM MEETING DATE: 04/01/2022 RECENT ASSESSMENTS/TREATMENT PLAN REVIEWS: Per Rodrigo Croft [facility], assessment. SUICIDE RISK AND MITIGATION PLAN Low safety risk. Client has completed her safety plan with staff and has copy. WEEKLY REVIEW OF CLIENT PROGRESS: Client continues to vacillate between reporting that she feels better and is getting things done to reporting her mood is low and she can't get things done. Encouraged to rely on the skills learned in group to keep from going to a darker space. She's been off meds for 2 days. Reports she has resumed taking them. At times she feels the meds are not working and feels what is the use. Encouraged to speak with her provider. DISCHARGE PLANNING/RECOMMENDATIONS: Client is set for a tentative discharge date of 04/08/22. She will need resources for an individual provider and will continue medication management with Matt Vickers upon discharge. Team Members Participation in this Plan of Care: Team did not meet this week DOCUMENTED BY: PARAM Vega PATIENT NAME: Jacque Dozier DATE: April 01, 2022 TIME: 3:00 PM [facility] 04-01-2022 History of Presen t illness Narrative BEHAVIORAL HEALTH IOP (INTENSIVE OUTPATIENT PROGRAM) DAILY PROGRESS NOTE SERVICE DATE: 04/01/2022 SERVICE TIME: 5:11 PM INTERVAL PROGRESS: Same PATIENT'S PROGRESS: Limited BEHAVIOR: Appearance: Disheveled Attitude: Cooperative Affect: Flat Mood: Depressed Thought Process: [place] Speech: Quiet Eye Contact: Good Describe Change Noted Throughout the Day: Consistent This is a Virtual Group and the patient agrees to virtual treatment due to COVID-19 protocol. GROUP THERAPY: Illness Management Group Start Time: 9:00am End Time: 10:00am TotalTime: 60 minutes Number of Therapists: 2 Number of Patients: 7 Problem(s) Number Addressed: 1 Intervention: Active Listening, Encouraged, Engaged, Explored, Gave Feedback and Supported Explain: Clients shared a feeling word and two positive traits. They discussed weekend plans and potential obstacles. Response: Her feeling word is tired and depressed. Her positive traits are dependable and fun. She spoke with Penny and restarted her meds yesterday. Some days she feels her meds are not working and wonders what is the point? Suggested that she speak with her provider. This weekend she does not have any concrete plans. She may visit son. Reports a low mood. Suggest the activity list and other skills. Client does not seem motivated to improve mood. Coping Strategies Group Start Time: 10:10am End Time: 11:00am TotalTime: 50 minutes Number of Therapists: 2 Number of Patients: 6 Problem(s) Number Addressed: 1 Intervention: Active Listening, Encouraged, Engaged, Explored, Gave Feedback and Supported Explain: Clients reviewed use of the homework and began education in to the topic of mindfulness. Response: Client listened attentively to the discussion on mindfulness. Process and Emotion Management Group Start Time: 11:10am End Time: 12:00pm TotalTime: 50 minutes Number of Therapists: 2 Number of Patients: 5 Problem(s) Number Addressed: 1 Intervention: Active Listening, Encouraged, Engaged, Explored, Gave Feedback and Supported Explain: Clients continued exploration of the skills for mindfulness and practiced using group activities. They shared a feeling word and their takeaway from today prior to the end of group. Response: The mindfulness exercise was fun activity. Her feeling word is happy and not so tired now. Her take away is to start using mindfulness. She if grateful for her children and her wiper staying on her car. Also, laughing to day was helpful. PLAN: Continue group treatment as stated in Treatment Plan. Continue to gain insights into problems. Continue to share feelings & thoughts in group. Incorporate relaxation/coping strategies into daily routine. SOBRIETY (If applicable): N/A Patient Data Generalized Anxiety Disorder Scale (SIMON-7) SIMON - 7 SCORES 03/03/2022 03/09/2022 03/24/2022 SIMON-7 Score 15 13 13 (0-4) minimal anxiety, (5-9) mild anxiety, (10-14) moderate anxiety, (15-21) severe anxiety IOP Daily Questionnaire IOP Daily 03/19/2022 03/24/2022 03/24/2022 Today, is your belief in your ability to use your Safety Plan in a crisis at 90%? Yes Yes Yes Today, have you wished you were or wished you could go to sleep and not wake up? No No No Today, have you actually had any thoughts of killing yourself? No No No On a scale of 1 to 10 how would you rate your mood now? 3 3 3 SIGNATURE: PARAM Vega PATIENT NAME: Jacque Dozier DATE: April 01, 2022 TIME: 5:11 PM PAGER/CONTACT #: [phone] documented in this encounter [facility] 04-01-2022 Miscellaneous Notes IOP TEAM NOTE IOP TEAM MEETING DATE: 04/01/2022 RECENT ASSESSMENTS/TREATMENT PLAN REVIEWS: Per Rodrigo Croft [facility], assessment. SUICIDE RISK AND MITIGATION PLAN Low safety risk. Client has completed her safety plan with staff and has copy. WEEKLY REVIEW OF CLIENT PROGRESS: Client continues to vacillate between reporting that she feels better and is getting things done to reporting her mood is low and she can't get things done. Encouraged to rely on the skills learned in group to keep from going to a darker space. She's been off meds for 2 days. Reports she has resumed taking them. At times she feels the meds are not working and feels what is the use. Encouraged to speak with her provider. DISCHARGE PLANNING/RECOMMENDATIONS: Client is set for a tentative discharge date of 04/08/22. She will need resources for an individual provider and will continue medication management with Matt Vickers upon discharge. Team Members Participation in this Plan of Care: Team did not meet this week DOCUMENTED BY: PARAM Vega PATIENT NAME: Jacque Dozier DATE: April 01, 2022 TIME: 3:00 PM documented in this encounter [facility] 03-31-2022 Note HNO ID: [id number] Author: PARAM Vega Service: Behavioral Health IOP (Intensive Outpatient Program) Author Type: Bean Viner Type: Progress Notes Filed: 03/31/2022 3:39 PM Note Text: BEHAVIORAL HEALTH IOP (INTENSIVE OUTPATIENT PROGRAM) DAILY PROGRESS NOTE SERVICE DATE: 03/31/2022 SERVICE TIME: 3:34 PM INTERVAL PROGRESS: Same PATIENT'S PROGRESS: Limited BEHAVIOR: Appearance: Well-Groomed Attitude: Cooperative Affect: Flat Mood: Depressed Thought Process: [place] Speech: Quiet Eye Contact: Good Describe Change Noted Throughout the Day: Consistent GROUP THERAPY: Illness Management Group Start Time: 9:00am End Time: 10:00am TotalTime: 60 minutes Number of Therapists: 2 Number of Patients: 9 Problem(s) Number Addressed: 1 Intervention: Active Listening, Encouraged, Engaged, Explored, Gave Feedback and Supported Explain: Clients shared a feeling word and two positive traits. They reviewed their treatment plans and identified areas in which they are working and not working. Response: Client's feeling word is that she tired and she has a headache. The lack of sun is not helping. She also feels accomplished because she ran errands. Client has been out of meds for 2 days. Discussed avoiding running out of meds by setting alarms on her telephone. Issue reported to Penny ZAMORA. Reports her anxiety is high. Plan is to start a to do list and opposite action. She has not been in the mood to do things. A goal going well is controlling the panic attacks. She takes a bath to get some relief. A goal giving her a hard a time is lessening her anxiety. Skills that can be used is prioritizing activities and doing a little each day. She has no questions about her treatment plan. Coping Strategies Group Start Time: 10:10am End Time: 11:00am TotalTime: 50 minutes Number of Therapists: 2 Number of Patients: 8 Problem(s) Number Addressed: 1 Intervention: Active Listening, Encouraged, Engaged, Explored, Gave Feedback and Supported Explain: Clients continued education into setting and preserving boundaries using given handouts. They worked in small group discussions. Response: Client engaged in small group discussion and appeared observant during full group reading. Process and Emotion Management Group Start Time: 11:10am End Time: 12:00pm TotalTime: 50 minutes Number of Therapists: 2 Number of Patients: 8 Problem(s) Number Addressed: 1 Intervention: Active Listening, Encouraged, Engaged, Explored, Gave Feedback and Supported Explain: Clients finished exploration of setting boundaries, specifically education into ?fair fighting?. They shared a feeling word and their takeaway from today prior to the end of group. 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 Her feeling word is tired and she has a headache. To call Penny regarding medication. PLAN: Continue group treatment as stated in Treatment Plan. Continue to gain insights into problems. Continue to share feelings AND thoughts in group. Incorporate relaxation/coping strategies into daily routine. SOBRIETY (If applicable): N/A Patient Data Generalized Anxiety Disorder Scale (SIMON-7) SIMON - 7 SCORES 03/03/2022 03/09/2022 03/24/2022 SIMON-7 Score 15 13 13 (0-4) minimal anxiety, (5-9) mild anxiety, (10-14) moderate anxiety, (15-21) severe anxiety IOP Daily Questionnaire IOP Daily 03/19/2022 03/24/2022 03/24/2022 Today, is your belief in your ability to use your Safety Plan in a crisis at 90%? Yes Yes Yes Today, have you wished you were or wished you could go to sleep and not wake up? No No No Today, have you actually had any thoughts of killing yourself? No No No On a scale of 1 to 10 how would you rate your mood now? 3 3 3 SIGNATURE: PARAM Vega PATIENT NAME: Jacque Dozier DATE: March 31, 2022 TIME: 3:34 PM PAGER/CONTACT #: [phone] [facility] 03-31-2022 History of Presen t illness Narrative BEHAVIORAL HEALTH IOP (INTENSIVE OUTPATIENT PROGRAM) DAILY PROGRESS NOTE SERVICE DATE: 03/31/2022 SERVICE TIME: 3:34 PM INTERVAL PROGRESS: Same PATIENT'S PROGRESS: Limited BEHAVIOR: Appearance: Well-Groomed Attitude: Cooperative Affect: Flat Mood: Depressed Thought Process: [place] Speech: Quiet Eye Contact: Good Describe Change Noted Throughout the Day: Consistent GROUP THERAPY: Illness Management Group Start Time: 9:00am End Time: 10:00am TotalTime: 60 minutes Number of Therapists: 2 Number of Patients: 9 Problem(s) Number Addressed: 1 Intervention: Active Listening, Encouraged, Engaged, Explored, Gave Feedback and Supported Explain: Clients shared a feeling word and two positive traits. They reviewed their treatment plans and identified areas in which they are working and not working. Response: Client's feeling word is that she tired and she has a headache. The lack of sun is not helping. She also feels accomplished because she ran errands. Client has been out of meds for 2 days. Discussed avoiding running out of meds by setting alarms on her telephone. Issue reported to Penny ZAMORA. Reports her anxiety is high. Plan is to start a to do list and opposite action. She has not been in the mood to do things. A goal going well is controlling the panic attacks. She takes a bath to get some relief. A goal giving her a hard a time is lessening her anxiety. Skills that can be used is prioritizing activities and doing a little each day. She has no questions about her treatment plan. Coping Strategies Group Start Time: 10:10am End Time: 11:00am TotalTime: 50 minutes Number of Therapists: 2 Number of Patients: 8 Problem(s) Number Addressed: 1 Intervention: Active Listening, Encouraged, Engaged, Explored, Gave Feedback and Supported Explain: Clients continued education into setting and preserving boundaries using given handouts. They worked in small group discussions. Response: Client engaged in small group discussion and appeared observant during full group reading. Process and Emotion Management Group Start Time: 11:10am End Time: 12:00pm TotalTime: 50 minutes Number of Therapists: 2 Number of Patients: 8 Problem(s) Number Addressed: 1 Intervention: Active Listening, Encouraged, Engaged, Explored, Gave Feedback and Supported Explain: Clients finished exploration of setting boundaries, specifically education into fair fighting . They shared a feeling word and their takeaway from today prior to the end of group. 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 Her feeling word is tired and she has a headache. To call Penny regarding medication. PLAN: Continue group treatment as stated in Treatment Plan. Continue to gain insights into problems. Continue to share feelings & thoughts in group. Incorporate relaxation/coping strategies into daily routine. SOBRIETY (If applicable): N/A Patient Data Generalized Anxiety Disorder Scale (SIMON-7) SIMON - 7 SCORES 03/03/2022 03/09/2022 03/24/2022 SIMON-7 Score 15 13 13 (0-4) minimal anxiety, (5-9) mild anxiety, (10-14) moderate anxiety, (15-21) severe anxiety IOP Daily Questionnaire IOP Daily 03/19/2022 03/24/2022 03/24/2022 Today, is your belief in your ability to use your Safety Plan in a crisis at 90%? Yes Yes Yes Today, have you wished you were or wished you could go to sleep and not wake up? No No No Today, have you actually had any thoughts of killing yourself? No No No On a scale of 1 to 10 how would you rate your mood now? 3 3 3 SIGNATURE: PARAM Vega PATIENT NAME: Jacque Dozier DATE: March 31, 2022 TIME: 3:34 PM PAGER/CONTACT #: [phone] documented in this encounter [facility] 03-30-2022 Note HNO ID: [id number] Author: PARAM Vega Service: Behavioral Health IOP (Intensive Outpatient Program) Author Type: Bean Viner Type: Progress Notes Filed: 03/30/2022 1:18 PM Note Text: BEHAVIORAL HEALTH IOP (INTENSIVE OUTPATIENT PROGRAM) DAILY PROGRESS NOTE SERVICE DATE: 03/30/2022 SERVICE TIME: 1:12 PM This is a Virtual Group and the patient agrees to virtual treatment due to COVID-19 protocol. INTERVAL PROGRESS: Same PATIENT'S PROGRESS: Limited BEHAVIOR: Appearance: Well-Groomed Attitude: Cooperative Affect: Appropriate Mood: Pleasant Thought Process: Logical and [place] Speech: Quiet Eye Contact: Good Describe Change Noted Throughout the Day: Consistent GROUP THERAPY: Illness Management Group Start Time: 9:00am End Time: 10:00am TotalTime: 60 minutes Number of Therapists: 2 Number of Patients: 6 Problem(s) Number Addressed: 1 Intervention: Active Listening, Encouraged, Engaged, Explored, Gave Feedback and Supported Explain: Clients shared a feeling word and two positive traits. They discussed their weekend, skills used and concerns. Response: She feels great and her emotion is very satisfied. She took down some [place] decor and feels relaxed. Her 2 positive traits are confident and determined. Now the goal is to get her living room finished. She is breaking things down into manageable parts. Her weekend was relaxing. The entire family was gone and she had time to herself. She took a long bath and relaxed and watched TV. She wants more of this. Coping Strategies Group Start Time: 10:10am End Time: 11:00am TotalTime: 50 minutes Number of Therapists: 2 Number of Patients: 6 Problem(s) Number Addressed: 1 Intervention: Active Listening, Encouraged, Engaged, Explored, Gave Feedback and Supported Explain: Clients finished education with the skills for communication, specifically reviewing homework and BEE. Response: Client listened attentively to other members. Process and Emotion Management Group Start Time: 11:10am End Time: 12:00pm TotalTime: 50 minutes Number of Therapists: 2 Number of Patients: 6 Problem(s) Number Addressed: 1 Intervention: Active Listening, Encouraged, Engaged, Explored, Gave Feedback and Supported Explain: Clients began exploration of setting and preserving boundaries using given material. They shared a feeling word and their takeaway from today prior to the end of group. Response: Reports she does not let others know how she is feeling. She respects the boundaries of others though. Her feeling word is content. Her take away is she is going to assert time for herself and not feel guilty. Advised to feel the guilt she experiences and process it. PLAN: Continue group treatment as stated in Treatment Plan. Continue to gain insights into problems. Continue to share feelings AND thoughts in group. Monitor thinking/complete thought sheets. Incorporate relaxation/coping strategies into daily routine. SOBRIETY (If applicable): N/A Patient Data Generalized Anxiety Disorder Scale (SIMON-7) SIMON - 7 SCORES 03/03/2022 03/09/2022 03/24/2022 SIMON-7 Score 15 13 13 (0-4) minimal anxiety, (5-9) mild anxiety, (10-14) moderate anxiety, (15-21) severe anxiety IOP Daily Questionnaire IOP Daily 03/19/2022 03/24/2022 03/24/2022 Today, is your belief in your ability to use your Safety Plan in a crisis at 90%? Yes Yes Yes Today, have you wished you were or wished you could go to sleep and not wake up? No No No Today, have you actually had any thoughts of killing yourself? No No No On a scale of 1 to 10 how would you rate your mood now? 3 3 3 SIGNATURE: PARAM Vega PATIENT NAME: Jacque Dozier DATE: March 30, 2022 TIME: 1:12 PM PAGER/CONTACT #: [phone] [facility] 03-30-2022 History of Presen t illness Narrative BEHAVIORAL HEALTH IOP (INTENSIVE OUTPATIENT PROGRAM) DAILY PROGRESS NOTE SERVICE DATE: 03/30/2022 SERVICE TIME: 1:12 PM This is a Virtual Group and the patient agrees to virtual treatment due to COVID-19 protocol. INTERVAL PROGRESS: Same PATIENT'S PROGRESS: Limited BEHAVIOR: Appearance: Well-Groomed Attitude: Cooperative Affect: Appropriate Mood: Pleasant Thought Process: Logical and [place] Speech: Quiet Eye Contact: Good Describe Change Noted Throughout the Day: Consistent GROUP THERAPY: Illness Management Group Start Time: 9:00am End Time: 10:00am TotalTime: 60 minutes Number of Therapists: 2 Number of Patients: 6 Problem(s) Number Addressed: 1 Intervention: Active Listening, Encouraged, Engaged, Explored, Gave Feedback and Supported Explain: Clients shared a feeling word and two positive traits. They discussed their weekend, skills used and concerns. Response: She feels great and her emotion is very satisfied. She took down some [place] and feels relaxed. Her 2 positive traits are confident and determined. Now the goal is to get her living room finished. She is breaking things down into manageable parts. Her weekend was relaxing. The entire family was gone and she had time to herself. She took a long bath and relaxed and watched TV. She wants more of this. Coping Strategies Group Start Time: 10:10am End Time: 11:00am TotalTime: 50 minutes Number of Therapists: 2 Number of Patients: 6 Problem(s) Number Addressed: 1 Intervention: Active Listening, Encouraged, Engaged, Explored, Gave Feedback and Supported Explain: Clients finished education with the skills for communication, specifically reviewing homework and BEE. Response: Client listened attentively to other members. Process and Emotion Management Group Start Time: 11:10am End Time: 12:00pm TotalTime: 50 minutes Number of Therapists: 2 Number of Patients: 6 Problem(s) Number Addressed: 1 Intervention: Active Listening, Encouraged, Engaged, Explored, Gave Feedback and Supported Explain: Clients began exploration of setting and preserving boundaries using given material. They shared a feeling word and their takeaway from today prior to the end of group. Response: Reports she does not let others know how she is feeling. She respects the boundaries of others though. Her feeling word is content. Her take away is she is going to assert time for herself and not feel guilty. Advised to feel the guilt she experiences and process it. PLAN: Continue group treatment as stated in Treatment Plan. Continue to gain insights into problems. Continue to share feelings & thoughts in group. Monitor thinking/complete thought sheets. Incorporate relaxation/coping strategies into daily routine. SOBRIETY (If applicable): N/A Patient Data Generalized Anxiety Disorder Scale (SIMON-7) SIMON - 7 SCORES 03/03/2022 03/09/2022 03/24/2022 SIMON-7 Score 15 13 13 (0-4) minimal anxiety, (5-9) mild anxiety, (10-14) moderate anxiety, (15-21) severe anxiety IOP Daily Questionnaire IOP Daily 03/19/2022 03/24/2022 03/24/2022 Today, is your belief in your ability to use your Safety Plan in a crisis at 90%? Yes Yes Yes Today, have you wished you were or wished you could go to sleep and not wake up? No No No Today, have you actually had any thoughts of killing yourself? No No No On a scale of 1 to 10 how would you rate your mood now? 3 3 3 SIGNATURE: PARAM Vega PATIENT NAME: Jacque Dozier DATE: March 30, 2022 TIME: 1:12 PM PAGER/CONTACT #: [phone] documented in this encounter [facility] 03-25-2022 Note HNO ID: [id number] Author: Lisa Grimes LPC Service: Behavioral Health IOP (Intensive Outpatient Program) Author Type: Therapist Type: Plan of Care Filed: 03/25/2022 3:29 PM Note Text: TREATMENT PLAN REVIEW OUTLINE Date of Review: 03/25/2022 Date of Admission: March 03, 2022 [facility] Current Length of Stay: 4 weeks Identifying Information: Jacque Dozier is a 66 year old female diagnosed with recurrent MDD and SIMON. The client is scheduled to attend group sessions: Four days per week for 6 weeks Observable Symptomatology and Clinical Response: Client remains quiet throughout majority of her group sessions. She has reported concerns of Bipolar symptoms, however she does not observably meet these symptoms or criteria. Client has noted most recently that she is going into a manic phase, however she presents without any known criteria for that. She is observably and reportedly managing symptoms of anxiety and depression, specifically anxious thinking, low mood, flat affect, worrying, lack of motivation and decreased pleasure, and isolating behaviors. Client appears open to overall program and learned skills, however it is unclear whether client is actually implementing the skills outside of group. Client is not often participatory with any of the group discussions, however she reports to listening and taking away from her peers. Client may warrant additional consultation on diagnosis and further education on her symptoms. Specific Master Treatment Plan Problems/Goal Status Report: Objective A Short Term Objective Statement (behavioral measurable time frame): Client will implement learned distress tolerance skills (IMPROVE the moment, TIPP, STOP, ACCEPTS), 2 times per week or as needed, to decrease symptoms related to recurrent anxious and depressive episodes. Client will report progress to group weekly. No progress: Client has not reported to any use of this skill outside of group time. Objective B Short Term Objective Statement (behavioral measurable time frame): Client will apply learned skill of opposite action daily and implement 2 pleasant/mastery tasks into her daily routine (e.g. exercise, cooking, driving, visiting family etc.), to address low motivation, depressed and anxious mood, low energy, and avoidance cycle concerns. Client will report progress to group weekly. Moderate progress: Client has worked on using opposite action during the week to get out of the house and drive to the gym. She has not gotten into the gym yet, however she is working on other mastery tasks such as cooking and visiting with family. Objective C Short Term Objective Statement (behavioral measurable time frame): Client will implement learned mindfulness skills, 2 times per day or as needed, to address recurrent anxious symptoms, such as rumination, restlessness, and difficulty relaxing. Client will report progress to group weekly. Slight progress: Client has reported some use of the tips for managing her ?monkey mind? and staying present. Additional Treatment Concerns and/or Client Needs: Client has been encouraged to work on skills for managing sleep and working on challenging her avoidance cycle. Recommendations AND Medical Necessity of Continued Treatment: Client will benefit from continued treatment in the [facility] to address current concerns, manage progress toward treatment goals, and improve overall functioning. She would also benefit from work with an individual provider to work for intensely on processing unresolved issues. SIGNATURE: Lisa Grimes LPC PATIENT NAME: Jacque Dozier DATE: March 25, 2022 TIME: 9:33 AM PAGER/CONTACT #: [facility] 03-25-2022 Note HNO ID: [id number] Author: PARAM Vega Service: Behavioral Health IOP (Intensive Outpatient Program) Author Type: Bean Viner Type: Progress Notes Filed: 03/25/2022 8:10 PM Note Text: BEHAVIORAL HEALTH IOP (INTENSIVE OUTPATIENT PROGRAM) DAILY PROGRESS NOTE SERVICE DATE: 03/25/2022 SERVICE TIME: 8:02 PM This is a Virtual Group and the patient agrees to virtual treatment due to COVID-19 protocol INTERVAL PROGRESS: Same PATIENT'S PROGRESS: Limited BEHAVIOR: Appearance: Disheveled Attitude: Cooperative Affect: Flat Mood: Depressed Thought Process: [place] Speech: Normal Eye Contact: Intermittent Describe Change Noted Throughout the Day: Consistent GROUP THERAPY: Illness Management Group Start Time: 9:00am End Time: 10:00am TotalTime: 60 minutes Number of Therapists: 2 Number of Patients: 12 Problem(s) Number Addressed: 1 Intervention: Active Listening, Encouraged, Engaged, Explored, Gave Feedback and Supported Explain: Clients shared a feeling word and two positive traits. They discussed weekend plans and potential obstacles. Response: Reports she is tired because her grandson woke her up in the middle of the night. Two positive traits are that she is dependable and ambitious. All the kids are leaving and she is looking forward to a break. No concerns about the weekend. Coping Strategies Group Start Time: 10:10am End Time: 11:00am TotalTime: 50 minutes Number of Therapists: 2 Number of Patients: 11 Problem(s) Number Addressed: 1 Intervention: Active Listening, Encouraged, Engaged, Explored, Gave Feedback and Supported Explain: Clients continued education into assertiveness training and understanding their rights. Response: Client listened to other group members. Process and Emotion Management Group Start Time: 11:10am End Time: 12:00pm TotalTime: 50 minutes Number of Therapists: 2 Number of Patients: 11 Problem(s) Number Addressed: 1 Intervention: Active Listening, Encouraged, Engaged, Explored, Gave Feedback and Supported Explain: Clients explored communication skills using given handouts and peer discussion. They shared a feeling word and their takeaway from today prior to the end of group. Response Commented that she is calmer and she feels better. She is grateful for her children and the group. Her take way is that she has the right to make mistakes and she will correct them. PLAN: Continue group treatment as stated in Treatment Plan. Continue to gain insights into problems. Continue to share feelings AND thoughts in group. Incorporate relaxation/coping strategies into daily routine. SOBRIETY (If applicable): N/A Patient Data Generalized Anxiety Disorder Scale (SIMON-7) SIMON - 7 SCORES 03/03/2022 03/09/2022 03/24/2022 SIMON-7 Score 15 13 13 (0-4) minimal anxiety, (5-9) mild anxiety, (10-14) moderate anxiety, (15-21) severe anxiety IOP Daily Questionnaire IOP Daily 03/19/2022 03/24/2022 03/24/2022 Today, is your belief in your ability to use your Safety Plan in a crisis at 90%? Yes Yes Yes Today, have you wished you were or wished you could go to sleep and not wake up? No No No Today, have you actually had any thoughts of killing yourself? No No No On a scale of 1 to 10 how would you rate your mood now? 3 3 3 SIGNATURE: PARAM Vega PATIENT NAME: Jacque Dozier DATE: March 25, 2022 TIME: 8:02 PM PAGER/CONTACT #: [phone] [facility] 03-25-2022 Note HNO ID: [id number] Author: PARAM Vega Service: Behavioral Health IOP (Intensive Outpatient Program) Author Type: Bean Viner Type: Progress Notes Filed: 03/25/2022 11:44 AM Note Text: IOP TEAM NOTE IOP TEAM MEETING DATE: 03/25/2022 RECENT ASSESSMENTS/TREATMENT PLAN REVIEWS: Per Rodrigo Croft [facility], assessment. SUICIDE RISK AND MITIGATION PLAN Low safety risk. Client has completed her safety plan with staff and has copy. WEEKLY REVIEW OF CLIENT PROGRESS: Client has participated more during sessions. She has had up and down days. More anxious days than not. She counteracts with word games. Client encouraged to apply skills more to counteract anxious moods. DISCHARGE PLANNING/RECOMMENDATIONS: Client is set for a tentative discharge date of 04/08/22. She will need resources for an individual provider and will continue medication management with Matt Vickers upon discharge. Team Members Participation in this Plan of Care: Team did not meet this week. DOCUMENTED BY: PARAM Vega PATIENT NAME: Jacque Rodriguez Ernie DATE: March 25, 2022 TIME: 11:42 AM [facility] 03-25-2022 History of Presen t illness Narrative BEHAVIORAL HEALTH IOP (INTENSIVE OUTPATIENT PROGRAM) DAILY PROGRESS NOTE SERVICE DATE: 03/25/2022 SERVICE TIME: 8:02 PM This is a Virtual Group and the patient agrees to virtual treatment due to COVID-19 protocol INTERVAL PROGRESS: Same PATIENT'S PROGRESS: Limited BEHAVIOR: Appearance: Disheveled Attitude: Cooperative Affect: Flat Mood: Depressed Thought Process: [place] Speech: Normal Eye Contact: Intermittent Describe Change Noted Throughout the Day: Consistent GROUP THERAPY: Illness Management Group Start Time: 9:00am End Time: 10:00am TotalTime: 60 minutes Number of Therapists: 2 Number of Patients: 12 Problem(s) Number Addressed: 1 Intervention: Active Listening, Encouraged, Engaged, Explored, Gave Feedback and Supported Explain: Clients shared a feeling word and two positive traits. They discussed weekend plans and potential obstacles. Response: Reports she is tired because her grandson woke her up in the middle of the night. Two positive traits are that she is dependable and ambitious. All the kids are leaving and she is looking forward to a break. No concerns about the weekend. Coping Strategies Group Start Time: 10:10am End Time: 11:00am TotalTime: 50 minutes Number of Therapists: 2 Number of Patients: 11 Problem(s) Number Addressed: 1 Intervention: Active Listening, Encouraged, Engaged, Explored, Gave Feedback and Supported Explain: Clients continued education into assertiveness training and understanding their rights. Response: Client listened to other group members. Process and Emotion Management Group Start Time: 11:10am End Time: 12:00pm TotalTime: 50 minutes Number of Therapists: 2 Number of Patients: 11 Problem(s) Number Addressed: 1 Intervention: Active Listening, Encouraged, Engaged, Explored, Gave Feedback and Supported Explain: Clients explored communication skills using given handouts and peer discussion. They shared a feeling word and their takeaway from today prior to the end of group. Response Commented that she is calmer and she feels better. She is grateful for her children and the group. Her take way is that she has the right to make mistakes and she will correct them. PLAN: Continue group treatment as stated in Treatment Plan. Continue to gain insights into problems. Continue to share feelings & thoughts in group. Incorporate relaxation/coping strategies into daily routine. SOBRIETY (If applicable): N/A Patient Data Generalized Anxiety Disorder Scale (SIMON-7) SIMON - 7 SCORES 03/03/2022 03/09/2022 03/24/2022 SIMON-7 Score 15 13 13 (0-4) minimal anxiety, (5-9) mild anxiety, (10-14) moderate anxiety, (15-21) severe anxiety IOP Daily Questionnaire IOP Daily 03/19/2022 03/24/2022 03/24/2022 Today, is your belief in your ability to use your Safety Plan in a crisis at 90%? Yes Yes Yes Today, have you wished you were or wished you could go to sleep and not wake up? No No No Today, have you actually had any thoughts of killing yourself? No No No On a scale of 1 to 10 how would you rate your mood now? 3 3 3 SIGNATURE: PARAM Vega PATIENT NAME: Jacque Dozier DATE: March 25, 2022 TIME: 8:02 PM PAGER/CONTACT #: [phone] documented in this encounter [facility] 03-25-2022 Miscellaneous Notes TREATMENT PLAN REVIEW OUTLINE Date of Review: 03/25/2022 Date of Admission: March 03, 2022 Program Name/Level of Care: [facility] Current Length of Stay: 4 weeks Identifying Information: Jacque Dozier is a 66 year old female diagnosed with recurrent MDD and SIMON. The client is scheduled to attend group sessions: Four days per week for 6 weeks Observable Symptomatology and Clinical Response: Client remains quiet throughout majority of her group sessions. She has reported concerns of Bipolar symptoms, however she does not observably meet these symptoms or criteria. Client has noted most recently that she is going into a manic phase, however she presents without any known criteria for that. She is observably and reportedly managing symptoms of anxiety and depression, specifically anxious thinking, low mood, flat affect, worrying, lack of motivation and decreased pleasure, and isolating behaviors. Client appears open to overall program and learned skills, however it is unclear whether client is actually implementing the skills outside of group. Client is not often participatory with any of the group discussions, however she reports to listening and taking away from her peers. Client may warrant additional consultation on diagnosis and further education on her symptoms. Specific Master Treatment Plan Problems/Goal Status Report: Objective A Short Term Objective Statement (behavioral measurable time frame): Client will implement learned distress tolerance skills (IMPROVE the moment, TIPP, STOP, ACCEPTS), 2 times per week or as needed, to decrease symptoms related to recurrent anxious and depressive episodes. Client will report progress to group weekly. No progress: Client has not reported to any use of this skill outside of group time. Objective B Short Term Objective Statement (behavioral measurable time frame): Client will apply learned skill of opposite action daily and implement 2 pleasant/mastery tasks into her daily routine (e.g. exercise, cooking, driving, visiting family etc.), to address low motivation, depressed and anxious mood, low energy, and avoidance cycle concerns. Client will report progress to group weekly. Moderate progress: Client has worked on using opposite action during the week to get out of the house and drive to the gym. She has not gotten into the gym yet, however she is working on other mastery tasks such as cooking and visiting with family. Objective C Short Term Objective Statement (behavioral measurable time frame): Client will implement learned mindfulness skills, 2 times per day or as needed, to address recurrent anxious symptoms, such as rumination, restlessness, and difficulty relaxing. Client will report progress to group weekly. Slight progress: Client has reported some use of the tips for managing her monkey mind and staying present. Additional Treatment Concerns and/or Client Needs: Client has been encouraged to work on skills for managing sleep and working on challenging her avoidance cycle. Recommendations & Medical Necessity of Continued Treatment: Client will benefit from continued treatment in the [facility] to address current concerns, manage progress toward treatment goals, and improve overall functioning. She would also benefit from work with an individual provider to work for intensely on processing unresolved issues. SIGNATURE: Lisa Grimes LPC PATIENT NAME: Jacque Dozier DATE: March 25, 2022 TIME: 9:33 AM PAGER/CONTACT #: documented in this encounter [facility] 03-24-2022 Miscellaneous Notes Patient has been identified by name and date of : Yes Requested Prescriptions Pending Prescriptions Disp Refills escitalopram oxalate (LEXAPRO) 20 mg tablet [Pharmacy Med Name: ESCITALOPRAM 20 MG TABLET] 30 tablet 1 Sig: TAKE 1 TABLET BY MOUTH EVERY DAY BRENDA: 02/26/2022 FOV: 04/29/2022 RX INSTRUCTIONS: Pharmacy initiated this request. No need to notify patient. Yanira Eisenberg documented in this encounter [facility] 03-24-2022 Note HNO ID: [id number] Author: PARAM Vega Service: Behavioral Health IOP (Intensive Outpatient Program) Author Type: Bean Viner Type: Progress Notes Filed: 03/24/2022 3:07 PM Note Text: BEHAVIORAL HEALTH IOP (INTENSIVE OUTPATIENT PROGRAM) DAILY PROGRESS NOTE SERVICE DATE: 03/24/2022 SERVICE TIME: 2:53 PM INTERVAL PROGRESS: Improving PATIENT'S PROGRESS: Attentive AND Involved BEHAVIOR: Appearance: Disheveled Attitude: Cooperative Affect: Flat and Sad Mood: Depressed Thought Process: [place] Speech: Quiet and Slow Eye Contact: Intermittent Describe Change Noted Throughout the Day: Consistent GROUP THERAPY: Illness Management Group Start Time: 9:00am End Time: 10:00am TotalTime: 60 minutes Number of Therapists: 2 Number of Patients: 9 Problem(s) Number Addressed: 1 Intervention: Active Listening, Encouraged, Engaged, Explored, Gave Feedback and Supported Explain: Clients shared a feeling word and two positive traits. They reviewed their treatment plans and identified areas in which they are working and not working. Response: She is in a dark placed and depressed. It just happened and cannot point to a trigger. She played word games to help with the depression. She is in a manic mode. Two positive traits are she is trying to be positive today. She washed the dishes, which have not been done in 3 days. The plan is to concentrate on word games. She is still struggling with concentration. Coping Strategies Group Start Time: 10:10am End Time: 11:00am TotalTime: 50 minutes Number of Therapists: 2 Number of Patients: 9 Problem(s) Number Addressed: 1 Intervention: Active Listening, Encouraged, Engaged, Explored, Gave Feedback and Supported Explain: Clients began education into the topic of communication, specifically regarding the different communication styles. Response: Client listened attentively. Process and Emotion Management Group Start Time: 11:10am End Time: 12:00pm TotalTime: 50 minutes Number of Therapists: 2 Number of Patients: 8 Problem(s) Number Addressed: 1 Intervention: Active Listening, Encouraged, Engaged, Explored, Gave Feedback and Supported Explain: Clients continued exploration of communication skills using given handouts and peer discussion. They shared a feeling word and their takeaway from today prior to the end of group. Response: Still feels in a dark space but is motivated. Her take away is she can step back from her teenager and let her yell. PLAN: Continue group treatment as stated in Treatment Plan. Continue to gain insights into problems. Continue to share feelings AND thoughts in group. Monitor thinking/complete thought sheets. Incorporate relaxation/coping strategies into daily routine. SOBRIETY (If applicable): N/A Patient Data Generalized Anxiety Disorder Scale (SIMON-7) SIMON - 7 SCORES 03/03/2022 03/09/2022 03/24/2022 SIMON-7 Score 15 13 13 (0-4) minimal anxiety, (5-9) mild anxiety, (10-14) moderate anxiety, (15-21) severe anxiety IOP Daily Questionnaire IOP Daily 03/19/2022 03/24/2022 03/24/2022 Today, is your belief in your ability to use your Safety Plan in a crisis at 90%? Yes Yes Yes Today, have you wished you were or wished you could go to sleep and not wake up? No No No Today, have you actually had any thoughts of killing yourself? No No No On a scale of 1 to 10 how would you rate your mood now? 3 3 3 SIGNATURE: PARAM Vega PATIENT NAME: Jacque Dozier DATE: March 24, 2022 TIME: 2:53 PM PAGER/CONTACT #: [phone] [facility] 03-24-2022 History of Presen t illness Narrative BEHAVIORAL HEALTH IOP (INTENSIVE OUTPATIENT PROGRAM) DAILY PROGRESS NOTE SERVICE DATE: 03/24/2022 SERVICE TIME: 2:53 PM INTERVAL PROGRESS: Improving PATIENT'S PROGRESS: Attentive & Involved BEHAVIOR: Appearance: Disheveled Attitude: Cooperative Affect: Flat and Sad Mood: Depressed Thought Process: [place] Speech: Quiet and Slow Eye Contact: Intermittent Describe Change Noted Throughout the Day: Consistent GROUP THERAPY: Illness Management Group Start Time: 9:00am End Time: 10:00am TotalTime: 60 minutes Number of Therapists: 2 Number of Patients: 9 Problem(s) Number Addressed: 1 Intervention: Active Listening, Encouraged, Engaged, Explored, Gave Feedback and Supported Explain: Clients shared a feeling word and two positive traits. They reviewed their treatment plans and identified areas in which they are working and not working. Response: She is in a dark placed and depressed. It just happened and cannot point to a trigger. She played word games to help with the depression. She is in a manic mode. Two positive traits are she is trying to be positive today. She washed the dishes, which have not been done in 3 days. The plan is to concentrate on word games. She is still struggling with concentration. Coping Strategies Group Start Time: 10:10am End Time: 11:00am TotalTime: 50 minutes Number of Therapists: 2 Number of Patients: 9 Problem(s) Number Addressed: 1 Intervention: Active Listening, Encouraged, Engaged, Explored, Gave Feedback and Supported Explain: Clients began education into the topic of communication, specifically regarding the different communication styles. Response: Client listened attentively. Process and Emotion Management Group Start Time: 11:10am End Time: 12:00pm TotalTime: 50 minutes Number of Therapists: 2 Number of Patients: 8 Problem(s) Number Addressed: 1 Intervention: Active Listening, Encouraged, Engaged, Explored, Gave Feedback and Supported Explain: Clients continued exploration of communication skills using given handouts and peer discussion. They shared a feeling word and their takeaway from today prior to the end of group. Response: Still feels in a dark space but is motivated. Her take away is she can step back from her teenager and let her yell. PLAN: Continue group treatment as stated in Treatment Plan. Continue to gain insights into problems. Continue to share feelings & thoughts in group. Monitor thinking/complete thought sheets. Incorporate relaxation/coping strategies into daily routine. SOBRIETY (If applicable): N/A Patient Data Generalized Anxiety Disorder Scale (SIMON-7) SIMON - 7 SCORES 03/03/2022 03/09/2022 03/24/2022 SIMON-7 Score 15 13 13 (0-4) minimal anxiety, (5-9) mild anxiety, (10-14) moderate anxiety, (15-21) severe anxiety IOP Daily Questionnaire IOP Daily 03/19/2022 03/24/2022 03/24/2022 Today, is your belief in your ability to use your Safety Plan in a crisis at 90%? Yes Yes Yes Today, have you wished you were or wished you could go to sleep and not wake up? No No No Today, have you actually had any thoughts of killing yourself? No No No On a scale of 1 to 10 how would you rate your mood now? 3 3 3 SIGNATURE: PARAM Vega PATIENT NAME: Jacque Dozier DATE: March 24, 2022 TIME: 2:53 PM PAGER/CONTACT #: [phone] documented in this encounter [facility] 03-23-2022 Note HNO ID: [id number] Author: Lisa Grimes LPC Service: Behavioral Health IOP (Intensive Outpatient Program) Author Type: Therapist Type: Progress Notes Filed: 03/23/2022 10:32 AM Note Text: BEHAVIORAL HEALTH IOP (INTENSIVE OUTPATIENT PROGRAM) APPOINTMENT CANCELLATION COMMUNICATION DATE: 03/23/2022 Scheduled Intensive Outpatient Program appointment for Jacque Dozier was on 03/23/22 at 9am. Client spoke with nurse, Penny Bailey, and reported she did not sleep well and is going back to bed. SIGNATURE: Lisa Grimes LPC PATIENT NAME: Jacque Dozier DATE: March 23, 2022 TIME: 10:32 AM [facility] 03-23-2022 History of Presen t illness Narrative BEHAVIORAL HEALTH IOP (INTENSIVE OUTPATIENT PROGRAM) APPOINTMENT CANCELLATION COMMUNICATION DATE: 03/23/2022 Scheduled Intensive Outpatient Program appointment for Jacque Dozier was on 03/23/22 at 9am. Client spoke with nurse, Penny Bailey, and reported she did not sleep well and is going back to bed. SIGNATURE: Lisa Grimes LPC PATIENT NAME: Jacque Dozier DATE: March 23, 2022 TIME: 10:32 AM documented in this encounter [facility] 03-17-2022 Note HNO ID: [id number] Author: PARAM Vega Service: Behavioral Health IOP (Intensive Outpatient Program) Author Type: Bean Viner Type: Progress Notes Filed: 03/17/2022 2:34 PM Note Text: BEHAVIORAL HEALTH IOP (INTENSIVE OUTPATIENT PROGRAM) DAILY PROGRESS NOTE SERVICE DATE: 03/17/2022 SERVICE TIME: 9:50 AM This is a Virtual Group and the patient agrees to virtual treatment due to COVID-19 protocol INTERVAL PROGRESS: Improving PATIENT'S PROGRESS: Attentive AND Involved BEHAVIOR: Appearance: Well-Groomed Attitude: Cooperative Affect: Appropriate Mood: Elated Thought Process: Logical Speech: Normal Eye Contact: Good Describe Change Noted Throughout the Day: Consistent GROUP THERAPY: Illness Management Group Start Time: 9:00am End Time: 10:00am TotalTime: 60 minutes Number of Therapists: 2 Number of Patients: 8. Problem(s) Number Addressed: 1 Intervention: Active Listening, Encouraged, Engaged, Explored, Gave Feedback and Supported Explain: Clients shared a feeling word and two positive traits. They discussed weekend plans and potential obstacles. Response: She is calm today. Her traits are content and happy. The influence is that she went out and fixed her wiper, she washed clothes, and instead of having a fit about towels on the floor she didn't get mad. Sleep is better. She had a rubber band to pay attention to her monkey mind. She told herself that she is not sick and tired and she feels good. This weekend she will have family over for [place]. Suggested TIP if anxiety starts to rise. Process and Emotion Management Group Start Time: 11:10am End Time: 12:00pm TotalTime: 50 minutes Number of Therapists: 2 Number of Patients: 7 Problem(s) Number Addressed: 1 Intervention: Active Listening, Encouraged, Engaged, Explored, Gave Feedback and Supported Explain: Clients continued education into the topic of reality acceptance using given handouts and peer discussion. They shared a feeling word and their takeaway from today prior to the end of group. Response: Client listened attentively during this session. Process and Emotion Management Group Start Time: 11:10am End Time: 12:00pm TotalTime: 50 minutes Number of Therapists: 2 Number of Patients: 7 Problem(s) Number Addressed: 1 Intervention: Active Listening, Encouraged, Engaged, Explored, Gave Feedback and Supported Explain: Clients continued education into the topic of reality acceptance using given handouts and peer discussion. They shared a feeling word and their takeaway from today prior to the end of group. Response: Client is grateful for family putting up with her. Also, her children are healthy and her animals. She is more accepting and still feels calm. Encoourage to set an intent to keep the momentum going over the weekend. PLAN: Continue group treatment as stated in Treatment Plan. Continue to gain insights into problems. Continue to share feelings AND thoughts in group. Incorporate relaxation/coping strategies into daily routine. SOBRIETY (If applicable): N/A Patient Data IOP Daily Questionnaire IOP Daily 03/10/2022 03/16/2022 03/16/2022 Today, is your belief in your ability to use your Safety Plan in a crisis at 90%? Yes - - Today, have you wished you were or wished you could go to sleep and not wake up? No - - Today, have you actually had any thoughts of killing yourself? No - - On a scale of 1 to 10 how would you rate your mood now? 3 3 3 [place] Social Anxiety Scale How anxious or fearful do you feel in the situation? No flowsheet data found. How often do you avoid the situation? No flowsheet data found. SIGNATURE: PARAM Vega PATIENT NAME: Jacque Dozier DATE: March 17, 2022 TIME: 9:50 AM PAGER/CONTACT #: [phone] [facility] 03-17-2022 Note HNO ID: [id number] Author: PARAM Vega Service: Behavioral Health IOP (Intensive Outpatient Program) Author Type: Bean Viner Type: Plan of Care Filed: 03/17/2022 2:44 PM Note Text: IOP TEAM NOTE IOP TEAM MEETING DATE: 03/17/2022 RECENT ASSESSMENTS/TREATMENT PLAN REVIEWS: Per Rodrigo Croft [facility], assessment. SUICIDE RISK AND MITIGATION PLAN Low safety risk. Client has completed her safety plan with staff and has copy. WEEKLY REVIEW OF CLIENT PROGRESS: Client has participated more during sessions. She was not feeling well yesterday and sat through all of the sessions. Additionally, client managed to get out more this week, which is quite an a accomplishment. She continues to be receptive to applying group topics to her life. Her sleep is much improved with medication. Her goals for the weekend are to cook for family and set an intent to maintain the improvement she has accomplished this week. DISCHARGE PLANNING/RECOMMENDATIONS: Client is set for a tentative discharge date of 04/08/22. She will need resources for an individual provider and will continue medication management with Matt Vickers upon discharge. Team Members Participation in this Plan of Care: Team did not meet this week. DOCUMENTED BY: PARAM Vega PATIENT NAME: Jacque Dozier DATE: March 17, 2022 TIME: 2:38 PM [facility] 03-17-2022 History of Presen t illness Narrative BEHAVIORAL HEALTH IOP (INTENSIVE OUTPATIENT PROGRAM) DAILY PROGRESS NOTE SERVICE DATE: 03/17/2022 SERVICE TIME: 9:50 AM This is a Virtual Group and the patient agrees to virtual treatment due to COVID-19 protocol INTERVAL PROGRESS: Improving PATIENT'S PROGRESS: Attentive & Involved BEHAVIOR: Appearance: Well-Groomed Attitude: Cooperative Affect: Appropriate Mood: Elated Thought Process: Logical Speech: Normal Eye Contact: Good Describe Change Noted Throughout the Day: Consistent GROUP THERAPY: Illness Management Group Start Time: 9:00am End Time: 10:00am TotalTime: 60 minutes Number of Therapists: 2 Number of Patients: 8. Problem(s) Number Addressed: 1 Intervention: Active Listening, Encouraged, Engaged, Explored, Gave Feedback and Supported Explain: Clients shared a feeling word and two positive traits. They discussed weekend plans and potential obstacles. Response: She is calm today. Her traits are content and happy. The influence is that she went out and fixed her wiper, she washed clothes, and instead of having a fit about towels on the floor she didn't get mad. Sleep is better. She had a rubber band to pay attention to her monkey mind. She told herself that she is not sick and tired and she feels good. This weekend she will have family over for [place]. Suggested TIP if anxiety starts to rise. Process and Emotion Management Group Start Time: 11:10am End Time: 12:00pm TotalTime: 50 minutes Number of Therapists: 2 Number of Patients: 7 Problem(s) Number Addressed: 1 Intervention: Active Listening, Encouraged, Engaged, Explored, Gave Feedback and Supported Explain: Clients continued education into the topic of reality acceptance using given handouts and peer discussion. They shared a feeling word and their takeaway from today prior to the end of group. Response: Client listened attentively during this session. Process and Emotion Management Group Start Time: 11:10am End Time: 12:00pm TotalTime: 50 minutes Number of Therapists: 2 Number of Patients: 7 Problem(s) Number Addressed: 1 Intervention: Active Listening, Encouraged, Engaged, Explored, Gave Feedback and Supported Explain: Clients continued education into the topic of reality acceptance using given handouts and peer discussion. They shared a feeling word and their takeaway from today prior to the end of group. Response: Client is grateful for family putting up with her. Also, her children are healthy and her animals. She is more accepting and still feels calm. Encoourage to set an intent to keep the momentum going over the weekend. PLAN: Continue group treatment as stated in Treatment Plan. Continue to gain insights into problems. Continue to share feelings & thoughts in group. Incorporate relaxation/coping strategies into daily routine. SOBRIETY (If applicable): N/A Patient Data IOP Daily Questionnaire IOP Daily 03/10/2022 03/16/2022 03/16/2022 Today, is your belief in your ability to use your Safety Plan in a crisis at 90%? Yes - - Today, have you wished you were or wished you could go to sleep and not wake up? No - - Today, have you actually had any thoughts of killing yourself? No - - On a scale of 1 to 10 how would you rate your mood now? 3 3 3 [place] Social Anxiety Scale How anxious or fearful do you feel in the situation? No flowsheet data found. How often do you avoid the situation? No flowsheet data found. SIGNATURE: PARAM Vega PATIENT NAME: Jacque Dozier DATE: March 17, 2022 TIME: 9:50 AM PAGER/CONTACT #: [phone] documented in this encounter [facility] 03-17-2022 Miscellaneous Notes IOP TEAM NOTE IOP TEAM MEETING DATE: 03/17/2022 RECENT ASSESSMENTS/TREATMENT PLAN REVIEWS: [facility]. SUICIDE RISK AND MITIGATION PLAN Low safety risk. Client has completed her safety plan with staff and has copy. WEEKLY REVIEW OF CLIENT PROGRESS: Client has participated more during sessions. She was not feeling well yesterday and sat through all of the sessions. Additionally, client managed to get out more this week, which is quite an a accomplishment. She continues to be receptive to applying group topics to her life. Her sleep is much improved with medication. Her goals for the weekend are to cook for family and set an intent to maintain the improvement she has accomplished this week. DISCHARGE PLANNING/RECOMMENDATIONS: Client is set for a tentative discharge date of 04/08/22. She will need resources for an individual provider and will continue medication management with Matt Vickers upon discharge. Team Members Participation in this Plan of Care: Team did not meet this week. DOCUMENTED BY: PARAM Vega PATIENT NAME: Jacque Dozier DATE: March 17, 2022 TIME: 2:38 PM Encounter addended by: PARAM Vega on: 03/17/2022 3:05 PM Actions taken: Clinical Note Signed documented in this encounter [facility] 03-16-2022 Note HNO ID: [id number] Author: PARAM Vega Service: Behavioral Health IOP (Intensive Outpatient Program) Author Type: Bean Viner Type: Progress Notes Filed: 03/16/2022 5:01 PM Note Text: BEHAVIORAL HEALTH IOP (INTENSIVE OUTPATIENT PROGRAM) DAILY PROGRESS NOTE SERVICE DATE: 03/16/2022 SERVICE TIME: 4:52 PM INTERVAL PROGRESS: Improving PATIENT'S PROGRESS: Attentive AND Involved BEHAVIOR: Appearance: Disheveled Attitude: Cooperative Affect: Appropriate and Anxious/Tense Mood: Anxious Thought Process: Logical Speech: Normal Eye Contact: Good Describe Change Noted Throughout the Day: Consistent GROUP THERAPY: Illness Management Group Start Time: 9:00am End Time: 10:00am TotalTime: 60 minutes Number of Therapists: 2 Number of Patients: 8 Problem(s) Number Addressed: 1 Intervention: Active Listening, Encouraged, Engaged, Explored, Gave Feedback and Supported Explain: Clients shared a feeling word and two positive traits. They shared something that they feel proud of accomplishing and something that they are struggling with. Response: She is sick with a headache. Feels she has the flu from her grandson. Sleep was good. The medication is helping. Encouraged to review sleep hygiene. Her traits are that she is proud that she let the dishes wait. She got out of the house yesterday to get cat food. She is proud of this too. She is struggling with a headache. Coping Strategies Group Start Time: 10:10am End Time: 11:00am TotalTime: 50 minutes Number of Therapists: 2 Number of Patients: 9 Problem(s) Number Addressed: 1 Intervention: Active Listening, Encouraged, Engaged, Explored, Gave Feedback and Supported Explain: Clients continued education into the topic of self-compassion, specifically exploring unhelpful myths on self-compassion and skills for building it. Response: Client listened attentively during the session. Process and Emotion Management Group Start Time: 11:10am End Time: 12:00pm TotalTime: 50 minutes Number of Therapists: 2 Number of Patients: 8 Problem(s) Number Addressed: 1 Intervention: Active Listening, Encouraged, Engaged, Explored, Gave Feedback and Supported Explain: Clients finished exploration of skills for self-compassion using given handouts and participated in a guided meditation. They shared a feeling word and their takeaway from today prior to the end of group. Response: Reports she is still sick, but feels more energetic. She realizes things happen referring to a broken windshield. PLAN: Continue group treatment as stated in Treatment Plan. Continue to gain insights into problems. Continue to share feelings AND thoughts in group. Incorporate relaxation/coping strategies into daily routine. SOBRIETY (If applicable): N/A Patient Data Generalized Anxiety Disorder Scale (SIMON-7) SIMON - 7 SCORES 03/03/2022 03/03/2022 03/09/2022 SIMON-7 Score 20 15 13 (0-4) minimal anxiety, (5-9) mild anxiety, (10-14) moderate anxiety, (15-21) severe anxiety IOP Daily Questionnaire IOP Daily 03/10/2022 03/16/2022 03/16/2022 Today, is your belief in your ability to use your Safety Plan in a crisis at 90%? Yes - - Today, have you wished you were or wished you could go to sleep and not wake up? No - - Today, have you actually had any thoughts of killing yourself? No - - On a scale of 1 to 10 how would you rate your mood now? 3 3 3 SIGNATURE: PARAM Vega PATIENT NAME: Jacque Dozier DATE: March 16, 2022 TIME: 4:52 PM PAGER/CONTACT #: [phone] [facility] 03-16-2022 History of Presen t illness Narrative BEHAVIORAL HEALTH IOP (INTENSIVE OUTPATIENT PROGRAM) DAILY PROGRESS NOTE SERVICE DATE: 03/16/2022 SERVICE TIME: 4:52 PM INTERVAL PROGRESS: Improving PATIENT'S PROGRESS: Attentive & Involved BEHAVIOR: Appearance: Disheveled Attitude: Cooperative Affect: Appropriate and Anxious/Tense Mood: Anxious Thought Process: Logical Speech: Normal Eye Contact: Good Describe Change Noted Throughout the Day: Consistent GROUP THERAPY: Illness Management Group Start Time: 9:00am End Time: 10:00am TotalTime: 60 minutes Number of Therapists: 2 Number of Patients: 8 Problem(s) Number Addressed: 1 Intervention: Active Listening, Encouraged, Engaged, Explored, Gave Feedback and Supported Explain: Clients shared a feeling word and two positive traits. They shared something that they feel proud of accomplishing and something that they are struggling with. Response: She is sick with a headache. Feels she has the flu from her grandson. Sleep was good. The medication is helping. Encouraged to review sleep hygiene. Her traits are that she is proud that she let the dishes wait. She got out of the house yesterday to get cat food. She is proud of this too. She is struggling with a headache. Coping Strategies Group Start Time: 10:10am End Time: 11:00am TotalTime: 50 minutes Number of Therapists: 2 Number of Patients: 9 Problem(s) Number Addressed: 1 Intervention: Active Listening, Encouraged, Engaged, Explored, Gave Feedback and Supported Explain: Clients continued education into the topic of self-compassion, specifically exploring unhelpful myths on self-compassion and skills for building it. Response: Client listened attentively during the session. Process and Emotion Management Group Start Time: 11:10am End Time: 12:00pm TotalTime: 50 minutes Number of Therapists: 2 Number of Patients: 8 Problem(s) Number Addressed: 1 Intervention: Active Listening, Encouraged, Engaged, Explored, Gave Feedback and Supported Explain: Clients finished exploration of skills for self-compassion using given handouts and participated in a guided meditation. They shared a feeling word and their takeaway from today prior to the end of group. Response: Reports she is still sick, but feels more energetic. She realizes things happen referring to a broken windshield. PLAN: Continue group treatment as stated in Treatment Plan. Continue to gain insights into problems. Continue to share feelings & thoughts in group. Incorporate relaxation/coping strategies into daily routine. SOBRIETY (If applicable): N/A Patient Data Generalized Anxiety Disorder Scale (SIMON-7) SIMON - 7 SCORES 03/03/2022 03/03/2022 03/09/2022 SIMON-7 Score 20 15 13 (0-4) minimal anxiety, (5-9) mild anxiety, (10-14) moderate anxiety, (15-21) severe anxiety IOP Daily Questionnaire IOP Daily 03/10/2022 03/16/2022 03/16/2022 Today, is your belief in your ability to use your Safety Plan in a crisis at 90%? Yes - - Today, have you wished you were or wished you could go to sleep and not wake up? No - - Today, have you actually had any thoughts of killing yourself? No - - On a scale of 1 to 10 how would you rate your mood now? 3 3 3 SIGNATURE: PARAM Vega PATIENT NAME: Jacque Dozier DATE: March 16, 2022 TIME: 4:52 PM PAGER/CONTACT #: [phone] documented in this encounter [facility] 03-15-2022 Note HNO ID: [id number] Author: Love Solorzano MD Service: ? Author Type: Physician Type: Progress Notes Filed: 03/15/2022 2:12 PM Note Text: PSYC FOLLOW UP - PSYCHIATRIC PROGRESS NOTE CC: depression With the patient consent, visit was performed virtually. HPI: Patient is 66 yo female presenting for IOP with past psychiatry history of MDD, SIMON Patient states that she still feels anxious and rated it 8/10 (10=worst anxiety) and rated her depression 7-8/10 (10=worst depression) Reports poor sleep, agreed to increase doxepin. Reports good appetite Medication well tolerated. No side effects Denied CURRENT SI/HI/AVH Risks and benefits of the medication, including any black box warnings, were discussed with the patient. Interval Progress: Same PATIENT DATA: Generalized Anxiety Disorder Scale (SIMON-7) SIMON - 7 SCORES 03/03/2022 03/03/2022 03/09/2022 SIMON-7 Score 20 15 13 (0-4) minimal anxiety, (5-9) mild anxiety, (10-14) moderate anxiety, (15-21) severe anxiety Patient Health Questionnaire (PHQ-9) PHQ-9 03/03/2022 03/03/2022 03/09/2022 Score 13 23 17 (0-4) minimal depression, (5-9) mild depression, (10-14) moderate depression, (15-19) moderately severe depression, (20-27) severe depression PROMIS Global Health PROMIS Global Health - (T-Scores - the mean of general population = 50. Five points is a clinically meaningful difference.) 10/20/2021 01/28/2022 02/25/2022 Physical T-Score 39.8 - 32.4 Mental T-Score 36.3 33.8 31.3 IOP Daily Questionnaire IOP Daily 03/02/2022 03/08/2022 03/10/2022 Today, is your belief in your ability to use your Safety Plan in a crisis at 90%? Yes Yes Yes Today, have you wished you were or wished you could go to sleep and not wake up? No No No Today, have you actually had any thoughts of killing yourself? No No No On a scale of 1 to 10 how would you rate your mood now? 3 3 3 PAST MEDICAL HISTORY Diagnosis Date Abdominal pain, other specified site Alcohol abuse Back pain DDD Bipolar affect, depressed (HCC) COPD (chronic obstructive pulmonary disease) (HCC) Coronary artery disease Depression Esophagitis, unspecified Essential hypertension, benign Gastritis Hyperlipidemia Lung nodules Nausea Neuralgia Other forms of migraine Prediabetes Tobacco use PAST SURGICAL HISTORY Procedure Laterality Date APPENDECTOMY 1980 CARDIAC CATH 04/2011 Dr. Yang DELIVERY ONLY , low cervical x2 CHOLECYSTECTOMY 2007 Cholecystectomy COLONOSCOPY 09/14/02 RG - normal COLONOSCOPY FLX DX W/COLLJ SPEC WHEN PFRMD 04/13/2012 Colonoscopy DILATION AND CURETTAGE DXAND/THER NONOBSTETRIC Dilation AND curettage EGD 09/14/02 RG ESOPHAGOGASTRODUODENOSCOPY TRANSORAL DIAGNOSTIC 04/09/2010 EGD ESOPHAGOGASTRODUODENOSCOPY TRANSORAL DIAGNOSTIC 04/13/2012 EGD ESOPHAGOGASTRODUODENOSCOPY TRANSORAL DIAGNOSTIC 02/27/15 EGD EXTRACTION, ERUPTED TOOTH OR EXPOSED ROOT (ELEVATION AND/OR FORCEPS REMOVAL) Teeth removed HYSTERECTOMY HX 10/23/1985 LAPS ABD PRTMANDOMENTUM DX W/WO SPEC BR/WA SPX Laparoscopy Current Outpatient Medications Medication Sig Dispense Refill doxepin capsule 25 mg Take 1 capsule by mouth daily at bedtime. 30 capsule 0 traZODone (DESYREL) 50 mg tablet Take 1 tablet by mouth daily at bedtime. 30 tablet 2 lamoTRIgine (LAMICTAL) 200 mg tablet Take 1 tablet by mouth daily at bedtime. 30 tablet 1 escitalopram oxalate (LEXAPRO) 20 mg tablet Take 1 tablet by mouth once daily. 30 tablet 1 cariprazine (VRAYLAR) 3 mg capsule Take 1 capsule by mouth once daily. [address] (PROTONIX) 40 mg tablet Take 1 tablet by mouth twice daily before meals. Take on empty stomach, 1/2 hr before meal. 60 tablet 2 ipratropium 20 mcg-albuterol 100 mcg (COMBIVENT RESPIMAT) 20-100 mcg/actuation inhaler Inhale 1 Puff as instructed four times daily as needed. 4 g 5 doxazosin (CARDURA) 1 mg tablet Take 1 tablet by mouth once daily. 30 tablet 2 mpvwaxnzzva-irzbzwthu-syofvusp (TRELEGY ELLIPTA) 100-62.5-25 mcg inhalation powder Inhale 1 Puff as instructed once daily. 1 Each 5 famotidine (PEPCID) 20 mg tablet Take 1 tablet by mouth daily at bedtime. 90 tablet 1 potassium chloride (K-TAB) 10 mEq tablet Take 1 tablet by mouth twice daily. 60 tablet 5 amLODIPine (NORVASC) 10 mg tablet Take 1 tablet by mouth once daily. 90 tablet 3 diphenhydrAMINE-Acetaminophen 25-500 mg tab Take by mouth once daily as needed. Current Facility-Administered Medications Medication Dose Route Frequency Provider Last Rate Last Admin perflutren lipid microspheres 1.3 mL in NaCl (PF) 0.9% 10 mL injection (DEFINITY) INTRAVENOUS DIRECTED PRN Beatrice Reaves PA-C sodium chloride 0.9 % (flush) 10 mL (BD POSIFLUSH) 10 mL INTRAVENOUS DIRECTED PRN Beatrice Reaves PA-C ROS: GENERAL: Negative for malaise, significant weight loss and fever. HEENT: No changes in hearing or vision, no nose bleeds or other nasal (more content not included)... [facility] 03-15-2022 History of Presen t illness Narrative Images from the original note were not included. PSYC FOLLOW UP - PSYCHIATRIC PROGRESS NOTE CC: depression With the patient consent, visit was performed virtually. HPI: Patient is 66 yo female presenting for IOP with past psychiatry history of MDD, SIMON Patient states that she still feels anxious and rated it 8/10 (10=worst anxiety) and rated her depression 7-8/10 (10=worst depression) Reports poor sleep, agreed to increase doxepin. Reports good appetite Medication well tolerated. No side effects Denied CURRENT SI/HI/AVH Risks and benefits of the medication, including any black box warnings, were discussed with the patient. Interval Progress: Same PATIENT DATA: Generalized Anxiety Disorder Scale (SIMON-7) SIMON - 7 SCORES 03/03/2022 03/03/2022 03/09/2022 SIMON-7 Score 20 15 13 (0-4) minimal anxiety, (5-9) mild anxiety, (10-14) moderate anxiety, (15-21) severe anxiety Patient Health Questionnaire (PHQ-9) PHQ-9 03/03/2022 03/03/2022 03/09/2022 Score 13 23 17 (0-4) minimal depression, (5-9) mild depression, (10-14) moderate depression, (15-19) moderately severe depression, (20-27) severe depression PROMIS Global Health PROMIS Global Health - (T-Scores - the mean of general population = 50. Five points is a clinically meaningful difference.) 10/20/2021 01/28/2022 02/25/2022 Physical T-Score 39.8 - 32.4 Mental T-Score 36.3 33.8 31.3 IOP Daily Questionnaire IOP Daily 03/02/2022 03/08/2022 03/10/2022 Today, is your belief in your ability to use your Safety Plan in a crisis at 90%? Yes Yes Yes Today, have you wished you were or wished you could go to sleep and not wake up? No No No Today, have you actually had any thoughts of killing yourself? No No No On a scale of 1 to 10 how would you rate your mood now? 3 3 3 PAST MEDICAL HISTORY Diagnosis Date Abdominal pain, other specified site Alcohol abuse Back pain DDD Bipolar affect, depressed (HCC) COPD (chronic obstructive pulmonary disease) (HCC) Coronary artery disease Depression Esophagitis, unspecified Essential hypertension, benign Gastritis Hyperlipidemia Lung nodules Nausea Neuralgia Other forms of migraine Prediabetes Tobacco use PAST SURGICAL HISTORY Procedure Laterality Date APPENDECTOMY 1979 CARDIAC CATH 04/2011 Dr. Yang DELIVERY ONLY , low cervical x2 CHOLECYSTECTOMY 2007 Cholecystectomy COLONOSCOPY 09/14/02 RG - normal COLONOSCOPY FLX DX W/COLLJ SPEC WHEN PFRMD 04/13/2012 Colonoscopy DILATION & CURETTAGE DX&/THER NONOBSTETRIC Dilation & curettage EGD 09/14/02 RG ESOPHAGOGASTRODUODENOSCOPY TRANSORAL DIAGNOSTIC 04/09/2010 EGD ESOPHAGOGASTRODUODENOSCOPY TRANSORAL DIAGNOSTIC 04/13/2012 EGD ESOPHAGOGASTRODUODENOSCOPY TRANSORAL DIAGNOSTIC 02/27/15 EGD EXTRACTION, ERUPTED TOOTH OR EXPOSED ROOT (ELEVATION AND/OR FORCEPS REMOVAL) Teeth removed HYSTERECTOMY HX 10/23/1985 LAPS ABD PRTM&OMENTUM DX W/WO SPEC BR/WA SPX Laparoscopy Current Outpatient Medications Medication Sig Dispense Refill doxepin capsule 25 mg Take 1 capsule by mouth daily at bedtime. 30 capsule 0 traZODone (DESYREL) 50 mg tablet Take 1 tablet by mouth daily at bedtime. 30 tablet 2 lamoTRIgine (LAMICTAL) 200 mg tablet Take 1 tablet by mouth daily at bedtime. 30 tablet 1 escitalopram oxalate (LEXAPRO) 20 mg tablet Take 1 tablet by mouth once daily. 30 tablet 1 cariprazine (VRAYLAR) 3 mg capsule Take 1 capsule by mouth once daily. [address] (PROTONIX) 40 mg tablet Take 1 tablet by mouth twice daily before meals. Take on empty stomach, 1/2 hr before meal. 60 tablet 2 ipratropium 20 mcg-albuterol 100 mcg (COMBIVENT RESPIMAT) 20-100 mcg/actuation inhaler Inhale 1 Puff as instructed four times daily as needed. 4 g 5 doxazosin (CARDURA) 1 mg tablet Take 1 tablet by mouth once daily. 30 tablet 2 pqocsscboyh-udyerfdzj-rwfxpjex (TRELEGY ELLIPTA) 100-62.5-25 mcg inhalation powder Inhale 1 Puff as instructed once daily. 1 Each 5 famotidine (PEPCID) 20 mg tablet Take 1 tablet by mouth daily at bedtime. 90 tablet 1 potassium chloride (K-TAB) 10 mEq tablet Take 1 tablet by mouth twice daily. 60 tablet 5 amLODIPine (NORVASC) 10 mg tablet Take 1 tablet by mouth once daily. 90 tablet 3 diphenhydrAMINE-Acetaminophen 25-500 mg tab Take by mouth once daily as needed. Current Facility-Administered Medications Medication Dose Route Frequency Provider Last Rate Last Admin perflutren lipid microspheres 1.3 mL in NaCl (PF) 0.9% 10 mL injection (DEFINITY) INTRAVENOUS DIRECTED PRN Beatrice Reaves PA-C sodium chloride 0.9 % (flush) 10 mL (BD POSIFLUSH) 10 mL INTRAVENOUS DIRECTED PRN Beatrice Reaves PA-C ROS: GENERAL: Negative for malaise, significant weight loss and fever. HEENT: No changes in hearing or vision, no nose bleeds or other nasal problems. RESPIRATORY: Negative for cough, wheezing and shortness of breath. CARDIOVASCULAR: Negative for chest pain, leg swelling and palpitations. GI: Negative for abdominal discomfort, blood in stools or black stools. : Negative for dysuria, frequency and incontinence. MUSCULOSKELETAL: Negative for joint pain or swelling, back pain, and muscle pain. SKIN: Negative for lesions, rash, and itching. HEMATOLOGY/LYMPHOLOGY Negative for prolonged bleeding, bruising easily, and swollen nodes. ENDOCRINE: Negative for cold or heat intolerance, polyuria, polydipsia and goiter. NEURO: Negative for headaches, syncope, seizures and paralysis. PFSH: No change VITAL SIGNS: There were no vitals filed for this visit. MENTAL STATUS EXAM: CONSTITUTIONAL: Well groomed, Appropriately dressed ORIENTATION: Person, Place, Time and Situation MEMORY: Recent intact, Remote intact CONCENTRATION: Normal MOOD: sad AFFECT: Full and appropriate to topic SPEECH : Clear & distinct LANGUAGE : Normal ASSOCIATIONS: Intact THOUGHT PROCESS : Logical, Coherent, and Rational PROGRESSION : There was no evidence of disturbance in thought perception or progression. FUND OF KNOWLEDGE : Appropriate and Adequate SUICIDE: None HOMICIDE: None DATA REVIEWED: Labs and Electronic medical record DIAGNOSIS: PRIMARY: Mood Disorder Major Depressive Disorder, Recurrent, Severe Without Psychotic Symptoms Secondary : Anxiety Disorder Generalized Anxiety Disorder Other : none GAF: 45 -50-41 Serious symptoms or any serious impairment in social, occupational or school functioning. TREATMENT PLAN: 1. Increase Doxepin to 75 mg QHS 2. Continue with current meds 1. Continue with lamictal 200 mg daily 2. Continue with lexapro 20 mg daily 3 continue with vraylar 3 mg daily MEDICATION CHANGES: As above Follow Up: 2 weeks I spent a total of 30 minutes on the date of the service which included preparing to see the patient, completing clinical documentation, obtaining and/or reviewing separately obtained history, counseling and educating the patient/family/caregiver, and care coordination (not separately reported). ADD ON PSYCHOTHERAPY CODE : No SIGNATURE: Love Solorzano MD PATIENT NAME: Jacque Dozier DATE: March 15, 2022 TIME: 2:02 PM PAGER: [phone] documented in this encounter [facility] 03-15-2022 Note HNO ID: [id number] Author: PARAM Vega Service: Behavioral Health IOP (Intensive Outpatient Program) Author Type: Bean Viner Type: Progress Notes Filed: 03/15/2022 9:52 PM Note Text: BEHAVIORAL HEALTH IOP (INTENSIVE OUTPATIENT PROGRAM) DAILY PROGRESS NOTE SERVICE DATE: 03/15/2022 SERVICE TIME: 9:38 PM This is a Virtual Group and the patient agrees to virtual treatment due to COVID-19 protocol. INTERVAL PROGRESS: Improving PATIENT'S PROGRESS: Attentive AND Involved BEHAVIOR: Appearance: Well-Groomed Attitude: Cooperative Affect: Anxious/Tense Mood: Anxious Thought Process: [place] Speech: Normal Eye Contact: Good Describe Change Noted Throughout the Day: Consistent GROUP THERAPY: Illness Management Group Start Time: 9:00am End Time: 10:00am TotalTime: 60 minutes Number of Therapists: 2 Number of Patients: 8 Problem(s) Number Addressed: 1 Intervention: Active Listening, Encouraged, Engaged, Explored, Gave Feedback and Supported Explain: Clients shared a feeling word and two positive traits. They discussed their weekend, skills used and concerns. Response: She feels good. She is rested. She feels the meds are helping. She is smiling and is brighter. She feels determined and willing to change things. She used the breathing technique when her windshield wiper broke. Normally this would have stressed her out. She visited her son and played darts. She did not go to [employer]. She made it to the door and did not go in because it was crowded. She went to the [employer]. She is proud of her self. She did her to do list. It felt good to get out of the house. Coping Strategies Group Start Time: 10:10am End Time: 11:00am TotalTime: 50 minutes Number of Therapists: 2 Number of Patients: 9 Problem(s) Number Addressed: 1 Intervention: Active Listening, Encouraged, Engaged, Explored, Gave Feedback and Supported Explain: Clients watched an educational video on self-compassion by Dr. Mckeon and started work on the topic using group discussion. Response: Patient listened attentively and offered feedback to other members. Process and Emotion Management Group Start Time: 11:10am End Time: 12:00pm TotalTime: 50 minutes Number of Therapists: 2 Number of Patients: 8 Problem(s) Number Addressed: 1 Intervention: Active Listening, Encouraged, Engaged, Explored, Gave Feedback and Supported Explain: Clients continued exploration of skills for self-compassion using given handouts. They shared a feeling word and their takeaway from today prior to the end of group. Response: She doesn't know how she feels right now. Later that she is determine. She wants to start taking the mask off. Plans to working on being more real with others. PLAN: Continue group treatment as stated in Treatment Plan. Continue to gain insights into problems. Continue to share feelings AND thoughts in group. Incorporate relaxation/coping strategies into daily routine. SOBRIETY (If applicable): N/A Patient Data Generalized Anxiety Disorder Scale (SIMON-7) SIMON - 7 SCORES 03/03/2022 03/03/2022 03/09/2022 SIMON-7 Score 20 15 13 (0-4) minimal anxiety, (5-9) mild anxiety, (10-14) moderate anxiety, (15-21) severe anxiety IOP Daily Questionnaire IOP Daily 03/02/2022 03/08/2022 03/10/2022 Today, is your belief in your ability to use your Safety Plan in a crisis at 90%? Yes Yes Yes Today, have you wished you were or wished you could go to sleep and not wake up? No No No Today, have you actually had any thoughts of killing yourself? No No No On a scale of 1 to 10 how would you rate your mood now? 3 3 3 SIGNATURE: PARAM Vega PATIENT NAME: Jacque Dozier DATE: March 15, 2022 TIME: 9:38 PM PAGER/CONTACT #: [phone] [facility] 03-15-2022 History of Presen t illness Narrative BEHAVIORAL HEALTH IOP (INTENSIVE OUTPATIENT PROGRAM) DAILY PROGRESS NOTE SERVICE DATE: 03/15/2022 SERVICE TIME: 9:38 PM This is a Virtual Group and the patient agrees to virtual treatment due to COVID-19 protocol. INTERVAL PROGRESS: Improving PATIENT'S PROGRESS: Attentive & Involved BEHAVIOR: Appearance: Well-Groomed Attitude: Cooperative Affect: Anxious/Tense Mood: Anxious Thought Process: [place] Speech: Normal Eye Contact: Good Describe Change Noted Throughout the Day: Consistent GROUP THERAPY: Illness Management Group Start Time: 9:00am End Time: 10:00am TotalTime: 60 minutes Number of Therapists: 2 Number of Patients: 8 Problem(s) Number Addressed: 1 Intervention: Active Listening, Encouraged, Engaged, Explored, Gave Feedback and Supported Explain: Clients shared a feeling word and two positive traits. They discussed their weekend, skills used and concerns. Response: She feels good. She is rested. She feels the meds are helping. She is smiling and is brighter. She feels determined and willing to change things. She used the breathing technique when her [employer] wiper broke. Normally this would have stressed her out. She visited her son and played darts. She did not go to [employer]. She made it to the door and did not go in because it was crowded. She went to the [employer]. She is proud of her self. She did her to do list. It felt good to get out of the house. Coping Strategies Group Start Time: 10:10am End Time: 11:00am TotalTime: 50 minutes Number of Therapists: 2 Number of Patients: 9 Problem(s) Number Addressed: 1 Intervention: Active Listening, Encouraged, Engaged, Explored, Gave Feedback and Supported Explain: Clients watched an educational video on self-compassion by Dr. Mckeon and started work on the topic using group discussion. Response: Patient listened attentively and offered feedback to other members. Process and Emotion Management Group Start Time: 11:10am End Time: 12:00pm TotalTime: 50 minutes Number of Therapists: 2 Number of Patients: 8 Problem(s) Number Addressed: 1 Intervention: Active Listening, Encouraged, Engaged, Explored, Gave Feedback and Supported Explain: Clients continued exploration of skills for self-compassion using given handouts. They shared a feeling word and their takeaway from today prior to the end of group. Response: She doesn't know how she feels right now. Later that she is determine. She wants to start taking the mask off. Plans to working on being more real with others. PLAN: Continue group treatment as stated in Treatment Plan. Continue to gain insights into problems. Continue to share feelings & thoughts in group. Incorporate relaxation/coping strategies into daily routine. SOBRIETY (If applicable): N/A Patient Data Generalized Anxiety Disorder Scale (SIMON-7) SIMON - 7 SCORES 03/03/2022 03/03/2022 03/09/2022 SIMON-7 Score 20 15 13 (0-4) minimal anxiety, (5-9) mild anxiety, (10-14) moderate anxiety, (15-21) severe anxiety IOP Daily Questionnaire IOP Daily 03/02/2022 03/08/2022 03/10/2022 Today, is your belief in your ability to use your Safety Plan in a crisis at 90%? Yes Yes Yes Today, have you wished you were or wished you could go to sleep and not wake up? No No No Today, have you actually had any thoughts of killing yourself? No No No On a scale of 1 to 10 how would you rate your mood now? 3 3 3 SIGNATURE: PARAM Vega PATIENT NAME: Jacque Dozier DATE: March 15, 2022 TIME: 9:38 PM PAGER/CONTACT #: [phone] documented in this encounter [facility] 03-11-2022 Note HNO ID: [id number] Author: Lisa Grimes LPC Service: Behavioral Health IOP (Intensive Outpatient Program) Author Type: Therapist Type: Progress Notes Filed: 03/11/2022 8:46 AM Note Text: BEHAVIORAL HEALTH IOP (INTENSIVE OUTPATIENT PROGRAM) APPOINTMENT CANCELLATION COMMUNICATION DATE: 03/11/2022 Scheduled Intensive Outpatient Program appointment for Jacque Dozier was on 03/11/22 at 9am. Client reported to IOP nurse she would not be attending today. Per IOP nurse email: Allison Gaines called off today from group, she slept 3 hrs last night and stated the Doxepin had ordered was not filled. She plans on going to pharmacy this morning to poultry picking machine tender prescription and does not feel well. SIGNATURE: Lisa Grimes LPC PATIENT NAME: Jacque Dozier DATE: March 11, 2022 TIME: 8:46 AM [facility] 03-11-2022 Note HNO ID: [id number] Author: Lisa Grimes LPC Service: Behavioral Health IOP (Intensive Outpatient Program) Author Type: Therapist Type: Plan of Care Filed: 03/11/2022 8:51 AM Note Text: IOP TEAM NOTE IOP TEAM MEETING DATE: 03/11/2022 RECENT ASSESSMENTS/TREATMENT PLAN REVIEWS: Per GABI Bagley, assessment. SUICIDE RISK AND MITIGATION PLAN Low safety risk. Client has completed her safety plan with staff and has copy. WEEKLY REVIEW OF CLIENT PROGRESS: Client has remained quiet and observant. She has reported intended goals for this week/weekend which include getting back to exercising and [employer]. She shared she has had some phone calls she has been procrastinating and was able to use learned skills from this week to work on prioritizing them. Client has reportedly been struggling with very poor sleep since this past weekend, reporting between 15 minutes to 3-4 hours each night. Client has discussed these sleep concerns with Dr. Solorzano and nurse Penny Bailey. She is planning to poultry picking machine tender a new medication for sleep today. DISCHARGE PLANNING/RECOMMENDATIONS: Client is set for a tentative discharge date of 04/08/22. She will need resources for an individual provider and will continue medication management with Matt Vickers upon discharge. Team Members Participation in this Plan of Care: Team did not meet this week. DOCUMENTED BY: Lisa Grimes LPC PATIENT NAME: Jacque Dozier DATE: March 11, 2022 TIME: 8:47 AM [facility] 03-11-2022 History of Presen t illness Narrative BEHAVIORAL HEALTH IOP (INTENSIVE OUTPATIENT PROGRAM) APPOINTMENT CANCELLATION COMMUNICATION DATE: 03/11/2022 Scheduled Intensive Outpatient Program appointment for Jacque Dozier was on 03/11/22 at 9am. Client reported to IOP nurse she would not be attending today. Per IOP nurse email: Allison Gaines called off today from group, she slept 3 hrs last night and stated the Doxepin had ordered was not filled. She plans on going to pharmacy this morning to poultry picking machine tender prescription and does not feel well. SIGNATURE: Lisa Grimes LPC PATIENT NAME: Jacque Dozier DATE: March 11, 2022 TIME: 8:46 AM documented in this encounter [facility] 03-11-2022 Miscellaneous Notes IOP TEAM NOTE IOP TEAM MEETING DATE: 03/11/2022 RECENT ASSESSMENTS/TREATMENT PLAN REVIEWS: Per GABI Bagley, assessment. SUICIDE RISK AND MITIGATION PLAN Low safety risk. Client has completed her safety plan with staff and has copy. WEEKLY REVIEW OF CLIENT PROGRESS: Client has remained quiet and observant. She has reported intended goals for this week/weekend which include getting back to exercising and [employer]. She shared she has had some phone calls she has been procrastinating and was able to use learned skills from this week to work on prioritizing them. Client has reportedly been struggling with very poor sleep since this past weekend, reporting between 15 minutes to 3-4 hours each night. Client has discussed these sleep concerns with Dr. Solorzano and nurse Penny Bailey. She is planning to poultry picking machine tender a new medication for sleep today. DISCHARGE PLANNING/RECOMMENDATIONS: Client is set for a tentative discharge date of 04/08/22. She will need resources for an individual provider and will continue medication management with Matt Vickers upon discharge. Team Members Participation in this Plan of Care: Team did not meet this week. DOCUMENTED BY: Lisa Grimes LPC PATIENT NAME: Jacque Dozier DATE: March 11, 2022 TIME: 8:47 AM documented in this encounter [facility] 03-10-2022 Note HNO ID: [id number] Author: PARAM Vega Service: Behavioral Health IOP (Intensive Outpatient Program) Author Type: Bean Viner Type: Progress Notes Filed: 03/12/2022 6:24 AM Note Text: BEHAVIORAL HEALTH IOP (INTENSIVE OUTPATIENT PROGRAM) DAILY PROGRESS NOTE SERVICE DATE: 03/10/2022 SERVICE TIME: 5:14 PM This is a Virtual Group and the patient agrees to virtual treatment due to COVID-19 protocol. INTERVAL PROGRESS: Improving PATIENT'S PROGRESS: Attentive AND Involved BEHAVIOR: Appearance: Well-Groomed Attitude: Cooperative Affect: Anxious/Tense Mood: Anxious Thought Process: [place] Speech: Normal Eye Contact: Good Describe Change Noted Throughout the Day: Consistent GROUP THERAPY: Illness Management Group Start Time: 9:00am End Time: 10:00am TotalTime: 60 minutes Number of Therapists: 2 Number of Patients: 8 Problem(s) Number Addressed: 1 Intervention: Active Listening, Encouraged, Engaged, Explored, Gave Feedback and Supported Explain: Clients shared a feeling word and two positive traits. They reviewed homework from yesterday and explored areas in need of skill implementation. Response: Client reported feeling tired and reports poor sleep. To discuss with Dr. Solorzano. Provided information on sleep hygiene. Two positive attributes are that she is fun loving and a good cook. Regarding treatment goals she is using the to do list. Suggested prioritizing tasks and adding pleasant tasks to the list. She plans to go to [employer] but states she talks herself out of it while sitting in the car. Suggested spending less time in the car and reward herself for each step she takes. She does not have any questions regarding her treatment plan. Coping Strategies Group Start Time: 10:10am End Time: 11:00am TotalTime: 50 minutes Number of Therapists: 2 Number of Patients: 7 Problem(s) Number Addressed: 1 Intervention: Active Listening, Encouraged, Engaged, Explored, Gave Feedback and Supported Explain: Clients started session on Self Esteem and reviewed information on what increases and decreases rational and irrational thoughts and reviewed tips to reduce unproductive thoughts. Response: Client participated with readings and appeared observant. Process and Emotion Management Group Start Time: 11:10am End Time: 12:00pm TotalTime: 50 minutes Number of Therapists: 2 Number of Patients: Problem(s) Number Addressed: 1 Intervention: Active Listening, Encouraged, Engaged, Explored, Gave Feedback and Supported Explain: Clients continued exploration of rational and irrational thoughts. They shared a feeling word and their takeaway from today prior to the end of group. Response: Client reports being less anxious. She liked the [employer] information. PLAN: Continue group treatment as stated in Treatment Plan. Continue to gain insights into problems. Continue to share feelings AND thoughts in group. Monitor thinking/complete thought sheets. Incorporate self esteem tip and strategies into daily routine. SOBRIETY (If applicable): N/A Patient Data Generalized Anxiety Disorder Scale (SIMON-7) SIMON - 7 SCORES 03/03/2022 03/03/2022 03/09/2022 SIMON-7 Score 20 15 13 (0-4) minimal anxiety, (5-9) mild anxiety, (10-14) moderate anxiety, (15-21) severe anxiety IOP Daily Questionnaire IOP Daily 03/02/2022 03/08/2022 03/10/2022 Today, is your belief in your ability to use your Safety Plan in a crisis at 90%? Yes Yes Yes Today, have you wished you were or wished you could go to sleep and not wake up? No No No Today, have you actually had any thoughts of killing yourself? No No No On a scale of 1 to 10 how would you rate your mood now? 3 3 3 SIGNATURE: PARAM Vega PATIENT NAME: Jacque Dozier DATE: March 10, 2022 TIME: 5:14 PM PAGER/CONTACT #: [phone] [facility] 03-10-2022 History of Presen t illness Narrative BEHAVIORAL HEALTH IOP (INTENSIVE OUTPATIENT PROGRAM) DAILY PROGRESS NOTE SERVICE DATE: 03/10/2022 SERVICE TIME: 5:14 PM This is a Virtual Group and the patient agrees to virtual treatment due to COVID-19 protocol. INTERVAL PROGRESS: Improving PATIENT'S PROGRESS: Attentive & Involved BEHAVIOR: Appearance: Well-Groomed Attitude: Cooperative Affect: Anxious/Tense Mood: Anxious Thought Process: [place] Speech: Normal Eye Contact: Good Describe Change Noted Throughout the Day: Consistent GROUP THERAPY: Illness Management Group Start Time: 9:00am End Time: 10:00am TotalTime: 60 minutes Number of Therapists: 2 Number of Patients: 8 Problem(s) Number Addressed: 1 Intervention: Active Listening, Encouraged, Engaged, Explored, Gave Feedback and Supported Explain: Clients shared a feeling word and two positive traits. They reviewed homework from yesterday and explored areas in need of skill implementation. Response: Client reported feeling tired and reports poor sleep. To discuss with Dr. Solorzano. Provided information on sleep hygiene. Two positive attributes are that she is fun loving and a good cook. Regarding treatment goals she is using the to do list. Suggested prioritizing tasks and adding pleasant tasks to the list. She plans to go to [employer] but states she talks herself out of it while sitting in the car. Suggested spending less time in the car and reward herself for each step she takes. She does not have any questions regarding her treatment plan. Coping Strategies Group Start Time: 10:10am End Time: 11:00am TotalTime: 50 minutes Number of Therapists: 2 Number of Patients: 7 Problem(s) Number Addressed: 1 Intervention: Active Listening, Encouraged, Engaged, Explored, Gave Feedback and Supported Explain: Clients started session on Self Esteem and reviewed information on what increases and decreases rational and irrational thoughts and reviewed tips to reduce unproductive thoughts. Response: Client participated with readings and appeared observant. Process and Emotion Management Group Start Time: 11:10am End Time: 12:00pm TotalTime: 50 minutes Number of Therapists: 2 Number of Patients: Problem(s) Number Addressed: 1 Intervention: Active Listening, Encouraged, Engaged, Explored, Gave Feedback and Supported Explain: Clients continued exploration of rational and irrational thoughts. They shared a feeling word and their takeaway from today prior to the end of group. Response: Client reports being less anxious. She liked the [employer] information. PLAN: Continue group treatment as stated in Treatment Plan. Continue to gain insights into problems. Continue to share feelings & thoughts in group. Monitor thinking/complete thought sheets. Incorporate self esteem tip and strategies into daily routine. SOBRIETY (If applicable): N/A Patient Data Generalized Anxiety Disorder Scale (SIMON-7) SIMON - 7 SCORES 03/03/2022 03/03/2022 03/09/2022 SIMON-7 Score 20 15 13 (0-4) minimal anxiety, (5-9) mild anxiety, (10-14) moderate anxiety, (15-21) severe anxiety IOP Daily Questionnaire IOP Daily 03/02/2022 03/08/2022 03/10/2022 Today, is your belief in your ability to use your Safety Plan in a crisis at 90%? Yes Yes Yes Today, have you wished you were or wished you could go to sleep and not wake up? No No No Today, have you actually had any thoughts of killing yourself? No No No On a scale of 1 to 10 how would you rate your mood now? 3 3 3 SIGNATURE: PARAM Vega PATIENT NAME: Jacque Dozier DATE: March 10, 2022 TIME: 5:14 PM PAGER/CONTACT #: [id number] documented in this encounter [facility] 03-09-2022 Note HNO ID: [id number] Author: Lisa Grimes LPC Service: Behavioral Health IOP (Intensive Outpatient Program) Author Type: Therapist Type: Progress Notes Filed: 03/09/2022 1:10 PM Note Text: BEHAVIORAL HEALTH IOP (INTENSIVE OUTPATIENT PROGRAM) DAILY PROGRESS NOTE This is a Virtual Group and the patient agrees to virtual treatment due to COVID-19 protocol SERVICE DATE: 03/09/2022 SERVICE TIME: 8:06 AM INTERVAL PROGRESS: Same PATIENT'S PROGRESS: Limited BEHAVIOR: Appearance: Pleasant Attitude: Guarded Affect: Appropriate and Anxious/Tense Mood: Anxious and tired Thought Process: [place] and Preoccupied Speech: Quiet Eye Contact: Intermittent Describe Change Noted Throughout the Day: Consistent GROUP THERAPY: Illness Management Group Start Time: 9:00am End Time: 10:00am TotalTime: 60 minutes Number of Therapists: 2 Number of Patients: 8 Problem(s) Number Addressed: 1 Intervention: Active Listening, Encouraged, Engaged, Explored, Gave Feedback and Supported Explain: Clients shared a feeling word and two positive traits. They reviewed the results of their PHQ-9 and SIMON-7 questionnaires and explored areas in need of skill implementation. Response: Client reported feeling anxious and accomplished. She stated her positive traits are organized and accomplished. Client explored symptoms from her questionnaires. She stated she is struggling with feeling anxious and on edge. Client noted use of to-do lists yesterday which helped to alleviate some of the anxiety. She briefly explored how she is getting in her own way with using skills or tasks to help with her symptoms. Coping Strategies Group Start Time: 10:10am End Time: 11:00am TotalTime: 50 minutes Number of Therapists: 2 Number of Patients: 8 Problem(s) Number Addressed: 1 Intervention: Active Listening, Encouraged, Engaged, Explored, Gave Feedback and Supported Explain: Clients continued education into tips for managing problematic procrastination and the [employer] box/time management quadrants. Response: Client was quiet and did not share verbally. Process and Emotion Management Group Start Time: 11:10am End Time: 12:00pm TotalTime: 50 minutes Number of Therapists: 2 Number of Patients: Problem(s) Number Addressed: 1 Intervention: Active Listening, Encouraged, Engaged, Explored, Gave Feedback and Supported Explain: Clients finished exploration of procrastination and tips for building and staying motivated. They shared a feeling word and their takeaway from today prior to the end of group. Response: Client reported feeling ?very anxious? and tired. She stated her takeaway from today is ?celebrating her accomplishments? from this morning. PLAN: Continue group treatment as stated in Treatment Plan. Continue to gain insights into problems. Continue to share feelings AND thoughts in group. Incorporate relaxation/coping strategies into daily routine. SOBRIETY (If applicable): N/A Patient Data Generalized Anxiety Disorder Scale (SIMON-7) SIMON - 7 SCORES 03/03/2022 03/03/2022 03/09/2022 SIMON-7 Score 20 15 13 (0-4) minimal anxiety, (5-9) mild anxiety, (10-14) moderate anxiety, (15-21) severe anxiety IOP Daily Questionnaire IOP Daily 03/02/2022 03/02/2022 03/08/2022 Today, is your belief in your ability to use your Safety Plan in a crisis at 90%? Yes Yes Yes Today, have you wished you were or wished you could go to sleep and not wake up? No No No Today, have you actually had any thoughts of killing yourself? No No No On a scale of 1 to 10 how would you rate your mood now? 3 3 3 Patient Health Questionnaire (PHQ-9) PHQ-9 03/03/2022 03/03/2022 03/09/2022 Score 13 23 17 (0-4) minimal depression, (5-9) mild depression, (10-14) moderate depression, (15-19) moderately severe depression, (20-27) severe depression SIGNATURE: Lisa Grimes LPC PATIENT NAME: Jacque Dozier DATE: March 09, 2022 TIME: 8:06 AM PAGER/CONTACT #: [facility] 03-09-2022 History of Presen t illness Narrative BEHAVIORAL HEALTH IOP (INTENSIVE OUTPATIENT PROGRAM) DAILY PROGRESS NOTE This is a Virtual Group and the patient agrees to virtual treatment due to COVID-19 protocol SERVICE DATE: 03/09/2022 SERVICE TIME: 8:06 AM INTERVAL PROGRESS: Same PATIENT'S PROGRESS: Limited BEHAVIOR: Appearance: Pleasant Attitude: Guarded Affect: Appropriate and Anxious/Tense Mood: Anxious and tired Thought Process: [place] and Preoccupied Speech: Quiet Eye Contact: Intermittent Describe Change Noted Throughout the Day: Consistent GROUP THERAPY: Illness Management Group Start Time: 9:00am End Time: 10:00am TotalTime: 60 minutes Number of Therapists: 2 Number of Patients: 8 Problem(s) Number Addressed: 1 Intervention: Active Listening, Encouraged, Engaged, Explored, Gave Feedback and Supported Explain: Clients shared a feeling word and two positive traits. They reviewed the results of their PHQ-9 and SIMON-7 questionnaires and explored areas in need of skill implementation. Response: Client reported feeling anxious and accomplished. She stated her positive traits are organized and accomplished. Client explored symptoms from her questionnaires. She stated she is struggling with feeling anxious and on edge. Client noted use of to-do lists yesterday which helped to alleviate some of the anxiety. She briefly explored how she is getting in her own way with using skills or tasks to help with her symptoms. Coping Strategies Group Start Time: 10:10am End Time: 11:00am TotalTime: 50 minutes Number of Therapists: 2 Number of Patients: 8 Problem(s) Number Addressed: 1 Intervention: Active Listening, Encouraged, Engaged, Explored, Gave Feedback and Supported Explain: Clients continued education into tips for managing problematic procrastination and the [employer] box/time management quadrants. Response: Client was quiet and did not share verbally. Process and Emotion Management Group Start Time: 11:10am End Time: 12:00pm TotalTime: 50 minutes Number of Therapists: 2 Number of Patients: Problem(s) Number Addressed: 1 Intervention: Active Listening, Encouraged, Engaged, Explored, Gave Feedback and Supported Explain: Clients finished exploration of procrastination and tips for building and staying motivated. They shared a feeling word and their takeaway from today prior to the end of group. Response: Client reported feeling very anxious and tired. She stated her takeaway from today is celebrating her accomplishments from this morning. PLAN: Continue group treatment as stated in Treatment Plan. Continue to gain insights into problems. Continue to share feelings & thoughts in group. Incorporate relaxation/coping strategies into daily routine. SOBRIETY (If applicable): N/A Patient Data Generalized Anxiety Disorder Scale (SIMON-7) SIMON - 7 SCORES 03/03/2022 03/03/2022 03/09/2022 SIMON-7 Score 20 15 13 (0-4) minimal anxiety, (5-9) mild anxiety, (10-14) moderate anxiety, (15-21) severe anxiety IOP Daily Questionnaire IOP Daily 03/02/2022 03/02/2022 03/08/2022 Today, is your belief in your ability to use your Safety Plan in a crisis at 90%? Yes Yes Yes Today, have you wished you were or wished you could go to sleep and not wake up? No No No Today, have you actually had any thoughts of killing yourself? No No No On a scale of 1 to 10 how would you rate your mood now? 3 3 3 Patient Health Questionnaire (PHQ-9) PHQ-9 03/03/2022 03/03/2022 03/09/2022 Score 13 23 17 (0-4) minimal depression, (5-9) mild depression, (10-14) moderate depression, (15-19) moderately severe depression, (20-27) severe depression SIGNATURE: Lisa Grimes LPC PATIENT NAME: Jacque Dozier DATE: March 09, 2022 TIME: 8:06 AM PAGER/CONTACT #: documented in this encounter [facility] 03-08-2022 Note HNO ID: [id number] Author: Lisa Grimes LPC Service: Behavioral Health IOP (Intensive Outpatient Program) Author Type: Therapist Type: Progress Notes Filed: 03/08/2022 2:54 PM Note Text: BEHAVIORAL HEALTH IOP (INTENSIVE OUTPATIENT PROGRAM) DAILY PROGRESS NOTE This is a Virtual Group and the patient agrees to virtual treatment due to COVID-19 protocol SERVICE DATE: 03/08/2022 SERVICE TIME: 8:21 AM INTERVAL PROGRESS: Same PATIENT'S PROGRESS: Limited BEHAVIOR: Appearance: Unable to determine Attitude: Guarded Affect: Anxious/Tense Mood: Anxious Thought Process: Preoccupied Speech: Quiet Eye Contact: Intermittent Describe Change Noted Throughout the Day: Declined GROUP THERAPY: Illness Management Group Start Time: 9:00am End Time: 10:00am TotalTime: 60 minutes Number of Therapists: 2 Number of Patients: 7 Problem(s) Number Addressed: 1 Intervention: Active Listening, Encouraged, Engaged, Explored, Gave Feedback and Supported Explain: Clients shared a feeling word and two positive traits. They discussed their weekend, skills used and concerns. Response: Client reported feeling anxious. She stated her positive traits are dependable and funny. Client shared activities from her weekend and skills used. She stated she watched her great-grandson, spent time with her family, and the dishes. She shared she took a hot bath this weekend, which is helpful for her. Client noted she struggled to do much and had difficulty sleeping all weekend. Coping Strategies Group Start Time: 10:10am End Time: 11:00am TotalTime: 50 minutes Number of Therapists: 2 Number of Patients: 6 Problem(s) Number Addressed: 1 Intervention: Active Listening, Encouraged, Engaged, Explored, Gave Feedback and Supported Explain: Clients shared use of the homework and began education into procrastination skills. Response: Client was quiet and only shared when called on. Client shared a common procrastination excuse she uses is she can do it tomorrow. Process and Emotion Management Group Start Time: 11:10am End Time: 12:00pm TotalTime: 50 minutes Number of Therapists: 2 Number of Patients: 6 Problem(s) Number Addressed: 1 Intervention: Active Listening, Encouraged, Engaged, Explored, Gave Feedback and Supported Explain: Clients continued exploration of procrastination education and understanding consequences. They shared a feeling word and their takeaway from today prior to the end of group. PLAN: Continue group treatment as stated in Treatment Plan. Continue to gain insights into problems. Continue to share feelings AND thoughts in group. Incorporate relaxation/coping strategies into daily routine. SOBRIETY (If applicable): N/A Patient Data IOP Daily Questionnaire IOP Daily 03/01/2022 03/02/2022 03/02/2022 Today, is your belief in your ability to use your Safety Plan in a crisis at 90%? No Yes Yes Today, have you wished you were or wished you could go to sleep and not wake up? No No No Today, have you actually had any thoughts of killing yourself? No No No On a scale of 1 to 10 how would you rate your mood now? 2 3 3 SIGNATURE: Lisa Grimes LPC PATIENT NAME: Jacque Dozier DATE: March 08, 2022 TIME: 8:21 AM PAGER/CONTACT #: [facility] 03-04-2022 Note HNO ID: [id number] Author: Lisa Grimes LPC Service: Behavioral Health IOP (Intensive Outpatient Program) Author Type: Therapist Type: Progress Notes Filed: 03/04/2022 8:51 AM Note Text: BEHAVIORAL HEALTH IOP (INTENSIVE OUTPATIENT PROGRAM) APPOINTMENT CANCELLATION COMMUNICATION DATE: 03/04/2022 Scheduled Intensive Outpatient Program appointment for Jacque Dozier was on 03/04/22 at 9am. Client reported to front office spec staff that she would not be attending because of a conflicting medical appointment. SIGNATURE: Lisa Grimes LPC PATIENT NAME: Jacque Dozier DATE: March 04, 2022 TIME: 8:51 AM [facility] 03-04-2022 Note HNO ID: [id number] Author: Lisa Grimes LPC Service: Behavioral Health IOP (Intensive Outpatient Program) Author Type: Therapist Type: Plan of Care Filed: 03/04/2022 8:54 AM Note Text: IOP TEAM NOTE IOP TEAM MEETING DATE: 03/04/2022 RECENT ASSESSMENTS/TREATMENT PLAN REVIEWS: [facility]. SUICIDE RISK AND MITIGATION PLAN Low safety risk. Client has completed her safety plan with staff and has copy. WEEKLY REVIEW OF CLIENT PROGRESS: Client has only been present for one day this week. She was quiet and observant. Client completed her safety plan and treatment plan with IOP therapist. Client is set to work on goals for distress tolerance, mindfulness, and opposite action. She has reported concerns with high anxiety and mood instability with her Bipolar diagnosis. Client does not appear to have a large support system, however she feels comfortable with her loved ones discussing mental health concerns. DISCHARGE PLANNING/RECOMMENDATIONS: Client is set for a tentative discharge date of 04/08/22. She will need resources for an individual provider and will continue medication management with Matt Vickers upon discharge. Team Members Participation in this Plan of Care: Team did not meet this week. DOCUMENTED BY: Lisa Grimes LPC PATIENT NAME: Jacque Dozier DATE: March 04, 2022 TIME: 8:18 AM [facility] 03-04-2022 History of Presen t illness Narrative BEHAVIORAL HEALTH IOP (INTENSIVE OUTPATIENT PROGRAM) APPOINTMENT CANCELLATION COMMUNICATION DATE: 03/04/2022 Scheduled Intensive Outpatient Program appointment for Jacque Dozier was on 03/04/22 at 9am. Client reported to front office spec staff that she would not be attending because of a conflicting medical appointment. SIGNATURE: Lisa Grimes LPC PATIENT NAME: Jacque Dozier DATE: March 04, 2022 TIME: 8:51 AM documented in this encounter [facility] 03-04-2022 Miscellaneous Notes IOP TEAM NOTE IOP TEAM MEETING DATE: 03/04/2022 RECENT ASSESSMENTS/TREATMENT PLAN REVIEWS: Per GABI Bagley, assessment. SUICIDE RISK AND MITIGATION PLAN Low safety risk. Client has completed her safety plan with staff and has copy. WEEKLY REVIEW OF CLIENT PROGRESS: Client has only been present for one day this week. She was quiet and observant. Client completed her safety plan and treatment plan with IOP therapist. Client is set to work on goals for distress tolerance, mindfulness, and opposite action. She has reported concerns with high anxiety and mood instability with her Bipolar diagnosis. Client does not appear to have a large support system, however she feels comfortable with her loved ones discussing mental health concerns. DISCHARGE PLANNING/RECOMMENDATIONS: Client is set for a tentative discharge date of 04/08/22. She will need resources for an individual provider and will continue medication management with Matt Vickers upon discharge. Team Members Participation in this Plan of Care: Team did not meet this week. DOCUMENTED BY: Lisa Grimes LPC PATIENT NAME: Jacque Dozier DATE: March 04, 2022 TIME: 8:18 AM documented in this encounter [facility] 03-03-2022 Note HNO ID: [id number] Author: Lisa Grimes LPC Service: Behavioral Health IOP (Intensive Outpatient Program) Author Type: Therapist Type: Plan of Care Filed: 03/03/2022 1:37 PM Note Text: Patient name: Allison Date of this plan: 03/03/22 Step 1: Warning signs - Things that may trigger me to feel that terribly again: Anxiety increases Rumination Medical health changes Financial stress Step 2: Internal coping strategies - Things I can do to take my mind off my problems without contacting another person: Staying in bed Watching TV Connecting/talking with my daughter and son Cooking Step 3: People and social settings that provide a distraction - Where could I go or who could I see that would help me feel better: Name: Dayami, daughter, lives with Denis Name: piter Reich [facility] Step 4: People I can ask for help - Who can I contact and talk to about how I am feeling: Name: Dayami, daughter, lives with Denis Name: piter Reich Will I share this plan with any of the above people: Yes Step 5: Professionals or agencies I can contact during a crisis: [place] Mobile Crisis/Suicide Prevention Line / 666.222.3585 Text ?4Hope? to 626150 National Suicide Prevention Lifeline / 285.245.6444 [facility] Hotline [facility] Hotline [facility] Hotline [facility] Mental Health Hotline [facility] Crisis Hotline [place] Crisis Hotline Other Local Emergency Service : Phone: Clinician Name: Matt [facility] Phone: [phone] Step 6: Making the environment safe - What do I need to get rid of, who can stay with me, or where can I stay in order to feel safe: Denis stays with me Can go stay at [facility] Step 7: Access to this information - Where will I keep this plan so that I can easily access it when needed: Print out and put on bedside Save it on my tablet Client reported feeling 90%+ confident with use of the plan for crisis. She reported she will let this therapist know if that changes. [facility] 03-03-2022 Note HNO ID: [id number] Author: Lisa Grimes LPC Service: Behavioral Health IOP (Intensive Outpatient Program) Author Type: Therapist Type: Plan of Care Filed: 04/15/2022 1:25 PM Note Text: MASTER TREATMENT PLAN SERVICE DATE: 03/03/2022 ADMISSION DATE: 03/02/22 SERVICE TIME: 2:00pm Team Members Participating in the Plan of Care: Program Physician: Dr. Rashad MD Primary Therapist: Lisa Grimes LPC Registered Nurse: Penny Bailey RN ASSESSMENT Diagnosis: Anxiety Disorder Generalized Anxiety Disorder Mood Disorders Bipolar Disorders Bipolar I Disorder, Most Recent Episode Depressed Severe Without Psychotic Features Estimated LOS: 6 weeks Problem: Anxiety and mood stability As Evidenced by: Anxious thoughts, rumination, inappropriate feelings of guilt, muscle tension, headaches, GI upset, and panic attacks. Low and depressed mood, isolation, feelings of hopeless and worthlessness, GI upset, low appetite, poor hygiene, low motivation, low energy, and sleep disturbances (with depressive and manic episodes), and decreased concentration. Resulting in (Functional Impact): Functional impair with ADLs, interpersonal relationships, hygiene, and self-esteem. [facility]ci Goal/Discharge Criteria: Client reported she would like to ?get back to [employer]?, ?relaxing more?, decreasing avoidance cycles, and decreasing panic attacks. Goal Relevant Strengths/Supports: Client reported she is a good ?mom and grandma?, loving, and caring. She shared her support system includes her children and grandchildren. Date Open: 03/03/22 Goal-(in patient's own words) ?relaxing more and decreasing panic attacks?, mood stability Objective A Short Term Objective Statement (behavioral measurable time frame): Client will implement learned distress tolerance skills (IMPROVE the moment, TIPP, STOP, ACCEPTS), 2 times per week or as needed, to decrease symptoms related to recurrent anxious and depressive episodes. Client will report progress to group weekly. Date Initiated: 03/03/22 Target Date: 04/08/22 Review Date: 03/31/22 Intervention - IOP level of care and medication evaluation and treatment. Goal-(in patient's own words) ?getting back to [employer], decreasing avoidance, getting out of the house? Objective B Short Term Objective Statement (behavioral measurable time frame): Client will apply learned skill of opposite action daily and implement 2 pleasant/mastery tasks into her daily routine (e.g. exercise, cooking, driving, visiting family etc.), to address low motivation, depressed and anxious mood, low energy, and avoidance cycle concerns. Client will report progress to group weekly. Date Initiated: 03/03/22 Target Date: 04/08/22 Review Date: 03/31/22 Intervention - IOP level of care and medication evaluation and treatment. Goal-(in patient's own words) ?trouble relaxing and anxious feelings? Objective C Short Term Objective Statement (behavioral measurable time frame): Client will implement learned mindfulness skills, 2 times per day or as needed, to address recurrent anxious symptoms, such as rumination, restlessness, and difficulty relaxing. Client will report progress to group weekly. Date Initiated: 03/03/22 Target Date: 04/08/22 Review Date: 03/31/22 Intervention - IOP level of care and medication evaluation and treatment. Problems identified integral to treatment and referred out: N/A Problems identified but deferred , not a priority: N/A Problems identified but patient declined to address: N/A DOCUMENTED BY: Lisa Grimes LPC PATIENT NAME: Jacque Dozier DATE: March 03, 2022 TIME: 1:41 PM [facility] 03-03-2022 Note HNO ID: [id number] Author: Lisa Grimes LPC Service: Behavioral Health IOP (Intensive Outpatient Program) Author Type: Therapist Type: Progress Notes Filed: 03/03/2022 1:41 PM Note Text: BEHAVIORAL HEALTH IOP (INTENSIVE OUTPATIENT PROGRAM) DAILY PROGRESS NOTE This is a Virtual Group and the patient agrees to virtual treatment due to COVID-19 protocol SERVICE DATE: 03/03/2022 SERVICE TIME: 8:10 AM INTERVAL PROGRESS: First day PATIENT'S PROGRESS: Limited BEHAVIOR: Appearance: Pleasant Attitude: Guarded Affect: Appropriate and Anxious/Tense Mood: Anxious Thought Process: [place] and Preoccupied Speech: Quiet Eye Contact: Intermittent Describe Change Noted Throughout the Day: Consistent GROUP THERAPY: Illness Management Group Start Time: 9:00am End Time: 10:00am TotalTime: 60 minutes Number of Therapists: 2 Number of Patients: 5 Problem(s) Number Addressed: 1 Intervention: Active Listening, Encouraged, Engaged, Explored, Gave Feedback and Supported Explain: Clients shared a feeling word and two positive traits. They reviewed their treatment plans and identified areas in which they are working and not working. Response: Client reported feeling low mood and ?dark?. She stated her positive traits are dependable and loving. Coping Strategies Group Start Time: 10:10am End Time: 11:00am TotalTime: 50 minutes Number of Therapists: 2 Number of Patients: 5 Problem(s) Number Addressed: 1 Intervention: Active Listening, Encouraged, Engaged, Explored, Gave Feedback and Supported Explain: Clients shared use of homework and continued working through the handout on irrational thinking examples. Response: Client was quiet and did not share. She was off screen for majority of the session. Client did noted she tends to struggle with the should statements. Process and Emotion Management Group Start Time: 11:10am End Time: 12:00pm TotalTime: 50 minutes Number of Therapists: 2 Number of Patients: 5 Problem(s) Number Addressed: 1 Intervention: Active Listening, Encouraged, Engaged, Explored, Gave Feedback and Supported Explain: Clients began exploration with the skill of thought records using peer examples and having the client's work individually on their own. They shared a feeling word and their takeaway from today prior to the end of group. Response: Client reported feeling anxious and more calm. She stated her takeaway from today is ?I am not alone, struggle with these thoughts?. PLAN: Continue group treatment as stated in Treatment Plan. Continue to gain insights into problems. Continue to share feelings AND thoughts in group. Incorporate relaxation/coping strategies into daily routine. SOBRIETY (If applicable): N/A Patient Data Generalized Anxiety Disorder Scale (SIMON-7) SIMON - 7 SCORES 02/16/2022 02/19/2022 03/03/2022 SIMON-7 Score 19 19 20 (0-4) minimal anxiety, (5-9) mild anxiety, (10-14) moderate anxiety, (15-21) severe anxiety IOP Daily Questionnaire IOP Daily 03/01/2022 03/02/2022 03/02/2022 Today, is your belief in your ability to use your Safety Plan in a crisis at 90%? No Yes Yes Today, have you wished you were or wished you could go to sleep and not wake up? No No No Today, have you actually had any thoughts of killing yourself? No No No On a scale of 1 to 10 how would you rate your mood now? 2 3 3 Patient Health Questionnaire (PHQ-9) PHQ-9 02/19/2022 03/03/2022 03/03/2022 Score 20 13 23 (0-4) minimal depression, (5-9) mild depression, (10-14) moderate depression, (15-19) moderately severe depression, (20-27) severe depression SIGNATURE: Lisa Grimes LPC PATIENT NAME: Jacque Dozier DATE: March 03, 2022 TIME: 8:10 AM PAGER/CONTACT #: [facility] 03-02-2022 Note HNO ID: [id number] Author: Lisa Grimes LPC Service: Behavioral Health IOP (Intensive Outpatient Program) Author Type: Therapist Type: Progress Notes Filed: 03/02/2022 11:26 AM Note Text: BEHAVIORAL HEALTH IOP (INTENSIVE OUTPATIENT PROGRAM) APPOINTMENT CANCELLATION COMMUNICATION DATE: 03/02/2022 Scheduled Intensive Outpatient Program appointment for Jacque Dozier was on 03/02/22 at 9am. Client had not shown for the appointment. She was called. Client reported she informed Dr. Solorzano she would not be attending today because of a conflicting appointment. She stated she will be starting tomorrow. SIGNATURE: Lisa Grimes LPC PATIENT NAME: Jacque Dozier DATE: March 02, 2022 TIME: 11:25 AM [facility] 03-01-2022 Note HNO ID: [id number] Author: Love Solorzano MD Service: ? Author Type: Physician Type: Progress Notes Filed: 03/01/2022 11:09 AM Note Text: PSYC FOLLOW UP - PSYCHIATRIC PROGRESS NOTE CC: depression With the patient consent, visit was performed virtually. HPI: Patient is 66 yo female presenting for IOP with past psychiatry history of MDD, SIMON Patient has been feeling depressed and rated it 8/10 (10=worst depression), with poor sleep, poor appetite, low energy, poor concentration, anhedonia, feels guilty, feeling hopeless and helpless for 5 months but becoming worse overtime. She was diagnosed with MDD in her 20's. Since then she tried prozac, zoloft, doxepin, abilify, seroquel, ativan, buspar, xanax, ambien, cymbalta but they were discontinued due to ineffectiveness. She is currently on lamictal 200 mg daily, lexapro 20 mg daily and vraylar 3 mg daily She feels anxious and rated 7.5 /10 (10=worst depression) She was hospitalized once in the past due to worsening symptoms of depression and SI. She attempted to suicide by OD on pills. No self mutilation behaviors Denied CURRENT SI/HI/AVH. Denied access to guns at guns at home Risks and benefits of the medication, including any black box warnings, were discussed with the patient. Interval Progress: Same PATIENT DATA: Generalized Anxiety Disorder Scale (SIMON-7) SIMON - 7 SCORES 01/18/2022 02/16/2022 02/19/2022 SIMON-7 Score 18 19 19 (0-4) minimal anxiety, (5-9) mild anxiety, (10-14) moderate anxiety, (15-21) severe anxiety Patient Health Questionnaire (PHQ-9) PHQ-9 01/18/2022 02/16/2022 02/19/2022 Score 20 21 20 (0-4) minimal depression, (5-9) mild depression, (10-14) moderate depression, (15-19) moderately severe depression, (20-27) severe depression PROMIS Global Health PROMIS Global Health - (T-Scores - the mean of general population = 50. Five points is a clinically meaningful difference.) 10/20/2021 01/28/2022 02/25/2022 Physical T-Score 39.8 - 32.4 Mental T-Score 36.3 33.8 31.3 IOP Daily Questionnaire IOP Daily 02/25/2022 Today, have you wished you were or wished you could go to sleep and not wake up? No Today, have you actually had any thoughts of killing yourself? No On a scale of 1 to 10 how would you rate your mood now? 8 PAST MEDICAL HISTORY Diagnosis Date Abdominal pain, other specified site Alcohol abuse Back pain DDD Bipolar affect, depressed (HCC) COPD (chronic obstructive pulmonary disease) (HCC) Coronary artery disease Depression Esophagitis, unspecified Essential hypertension, benign Gastritis Hyperlipidemia Lung nodules Nausea Neuralgia Other forms of migraine Prediabetes Tobacco use PAST SURGICAL HISTORY Procedure Laterality Date APPENDECTOMY 1979 CARDIAC CATH 04/2011 Dr. Yang DELIVERY ONLY , low cervical x2 CHOLECYSTECTOMY 2007 Cholecystectomy COLONOSCOPY 09/14/02 RG - normal COLONOSCOPY FLX DX W/COLLJ SPEC WHEN PFRMD 04/13/2012 Colonoscopy DILATION AND CURETTAGE DXAND/THER NONOBSTETRIC Dilation AND curettage EGD 09/14/02 RG ESOPHAGOGASTRODUODENOSCOPY TRANSORAL DIAGNOSTIC 04/09/2010 EGD ESOPHAGOGASTRODUODENOSCOPY TRANSORAL DIAGNOSTIC 04/13/2012 EGD ESOPHAGOGASTRODUODENOSCOPY TRANSORAL DIAGNOSTIC 02/27/15 EGD EXTRACTION, ERUPTED TOOTH OR EXPOSED ROOT (ELEVATION AND/OR FORCEPS REMOVAL) Teeth removed HYSTERECTOMY HX 10/23/1985 LAPS ABD PRTMANDOMENTUM DX W/WO SPEC BR/WA SPX Laparoscopy Current Outpatient Medications Medication Sig Dispense Refill lamoTRIgine (LAMICTAL) 200 mg tablet Take 1 tablet by mouth daily at bedtime. 30 tablet 1 escitalopram oxalate (LEXAPRO) 20 mg tablet Take 1 tablet by mouth once daily. 30 tablet 1 cariprazine (VRAYLAR) 3 mg capsule Take 1 capsule by mouth once daily. [address] (PROTONIX) 40 mg tablet Take 1 tablet by mouth twice daily before meals. Take on empty stomach, 1/2 hr before meal. 60 tablet 2 ipratropium 20 mcg-albuterol 100 mcg (COMBIVENT RESPIMAT) 20-100 mcg/actuation inhaler Inhale 1 Puff as instructed four times daily as needed. 4 g 5 doxazosin (CARDURA) 1 mg tablet Take 1 tablet by mouth once daily. 30 tablet 2 hrdbzhgfrqm-pqyyrdcfn-rebfcnhd (TRELEGY ELLIPTA) 100-62.5-25 mcg inhalation powder Inhale 1 Puff as instructed once daily. 1 Each 5 famotidine (PEPCID) 20 mg tablet Take 1 tablet by mouth daily at bedtime. 90 tablet 1 potassium chloride (K-TAB) 10 mEq tablet Take 1 tablet by mouth twice daily. 60 tablet 5 amLODIPine (NORVASC) 10 mg tablet Take 1 tablet by mouth once daily. 90 tablet 3 diphenhydrAMINE-Acetaminophen 25-500 mg tab Take by mouth once daily as needed. Current Facility-Administered Medications Medication Dose Route Frequency Provider Last Rate Last Admin perflutren lipid microspheres 1.3 mL in NaCl (PF) 0.9% 10 mL injection (DEFINITY) INTRAVENOUS DIRECTED PRN Beatrice Reaves PA-C sodium chloride 0. (more content not included)... [facility] 03-01-2022 History of Presen t illness Narrative Images from the original note were not included. PSYC FOLLOW UP - PSYCHIATRIC PROGRESS NOTE CC: depression With the patient consent, visit was performed virtually. HPI: Patient is 66 yo female presenting for IOP with past psychiatry history of MDD, SIMON Patient has been feeling depressed and rated it 8/10 (10=worst depression), with poor sleep, poor appetite, low energy, poor concentration, anhedonia, feels guilty, feeling hopeless and helpless for 5 months but becoming worse overtime. She was diagnosed with MDD in her 20's. Since then she tried prozac, zoloft, doxepin, abilify, seroquel, ativan, buspar, xanax, ambien, cymbalta but they were discontinued due to ineffectiveness. She is currently on lamictal 200 mg daily, lexapro 20 mg daily and vraylar 3 mg daily She feels anxious and rated 7.5 /10 (10=worst depression) She was hospitalized once in the past due to worsening symptoms of depression and SI. She attempted to suicide by OD on pills. No self mutilation behaviors Denied CURRENT SI/HI/AVH. Denied access to guns at guns at home Risks and benefits of the medication, including any black box warnings, were discussed with the patient. Interval Progress: Same PATIENT DATA: Generalized Anxiety Disorder Scale (SIMON-7) SIMON - 7 SCORES 01/18/2022 02/16/2022 02/19/2022 SIMON-7 Score 18 19 19 (0-4) minimal anxiety, (5-9) mild anxiety, (10-14) moderate anxiety, (15-21) severe anxiety Patient Health Questionnaire (PHQ-9) PHQ-9 01/18/2022 02/16/2022 02/19/2022 Score 20 21 20 (0-4) minimal depression, (5-9) mild depression, (10-14) moderate depression, (15-19) moderately severe depression, (20-27) severe depression PROMIS Global Health PROMIS Global Health - (T-Scores - the mean of general population = 50. Five points is a clinically meaningful difference.) 10/20/2021 01/28/2022 02/25/2022 Physical T-Score 39.8 - 32.4 Mental T-Score 36.3 33.8 31.3 IOP Daily Questionnaire IOP Daily 02/25/2022 Today, have you wished you were or wished you could go to sleep and not wake up? No Today, have you actually had any thoughts of killing yourself? No On a scale of 1 to 10 how would you rate your mood now? 8 PAST MEDICAL HISTORY Diagnosis Date Abdominal pain, other specified site Alcohol abuse Back pain DDD Bipolar affect, depressed (HCC) COPD (chronic obstructive pulmonary disease) (HCC) Coronary artery disease Depression Esophagitis, unspecified Essential hypertension, benign Gastritis Hyperlipidemia Lung nodules Nausea Neuralgia Other forms of migraine Prediabetes Tobacco use PAST SURGICAL HISTORY Procedure Laterality Date APPENDECTOMY 1979 CARDIAC CATH 04/2011 Dr. Yang DELIVERY ONLY , low cervical x2 CHOLECYSTECTOMY 2007 Cholecystectomy COLONOSCOPY 09/14/02 RG - normal COLONOSCOPY FLX DX W/COLLJ SPEC WHEN PFRMD 04/13/2012 Colonoscopy DILATION & CURETTAGE DX&/THER NONOBSTETRIC Dilation & curettage EGD 09/14/02 RG ESOPHAGOGASTRODUODENOSCOPY TRANSORAL DIAGNOSTIC 04/09/2010 EGD ESOPHAGOGASTRODUODENOSCOPY TRANSORAL DIAGNOSTIC 04/13/2012 EGD ESOPHAGOGASTRODUODENOSCOPY TRANSORAL DIAGNOSTIC 02/27/15 EGD EXTRACTION, ERUPTED TOOTH OR EXPOSED ROOT (ELEVATION AND/OR FORCEPS REMOVAL) Teeth removed HYSTERECTOMY HX 10/23/1985 LAPS ABD PRTM&OMENTUM DX W/WO SPEC BR/WA SPX Laparoscopy Current Outpatient Medications Medication Sig Dispense Refill lamoTRIgine (LAMICTAL) 200 mg tablet Take 1 tablet by mouth daily at bedtime. 30 tablet 1 escitalopram oxalate (LEXAPRO) 20 mg tablet Take 1 tablet by mouth once daily. 30 tablet 1 cariprazine (VRAYLAR) 3 mg capsule Take 1 capsule by mouth once daily. [address] (PROTONIX) 40 mg tablet Take 1 tablet by mouth twice daily before meals. Take on empty stomach, 1/2 hr before meal. 60 tablet 2 ipratropium 20 mcg-albuterol 100 mcg (COMBIVENT RESPIMAT) 20-100 mcg/actuation inhaler Inhale 1 Puff as instructed four times daily as needed. 4 g 5 doxazosin (CARDURA) 1 mg tablet Take 1 tablet by mouth once daily. 30 tablet 2 eavebbcopdy-jxqoyruem-ulxvdcmk (TRELEGY ELLIPTA) 100-62.5-25 mcg inhalation powder Inhale 1 Puff as instructed once daily. 1 Each 5 famotidine (PEPCID) 20 mg tablet Take 1 tablet by mouth daily at bedtime. 90 tablet 1 potassium chloride (K-TAB) 10 mEq tablet Take 1 tablet by mouth twice daily. 60 tablet 5 amLODIPine (NORVASC) 10 mg tablet Take 1 tablet by mouth once daily. 90 tablet 3 diphenhydrAMINE-Acetaminophen 25-500 mg tab Take by mouth once daily as needed. Current Facility-Administered Medications Medication Dose Route Frequency Provider Last Rate Last Admin perflutren lipid microspheres 1.3 mL in NaCl (PF) 0.9% 10 mL injection (DEFINITY) INTRAVENOUS DIRECTED PRN Beatrice Reaves PA-C sodium chloride 0.9 % (flush) 10 mL (BD POSIFLUSH) 10 mL INTRAVENOUS DIRECTED PRN Beatrice Reaves PA-C ROS: GENERAL: Negative for malaise, significant weight loss and fever. HEENT: No changes in hearing or vision, no nose bleeds or other nasal problems. RESPIRATORY: Negative for cough, wheezing and shortness of breath. CARDIOVASCULAR: Negative for chest pain, leg swelling and palpitations. GI: Negative for abdominal discomfort, blood in stools or black stools. : Negative for dysuria, frequency and incontinence. MUSCULOSKELETAL: Negative for joint pain or swelling, back pain, and muscle pain. SKIN: Negative for lesions, rash, and itching. HEMATOLOGY/LYMPHOLOGY Negative for prolonged bleeding, bruising easily, and swollen nodes. ENDOCRINE: Negative for cold or heat intolerance, polyuria, polydipsia and goiter. NEURO: Negative for headaches, syncope, seizures and paralysis. PFSH: Per Rodrigo Croft [facility] Personal/Family History: Jacque [place] She says it was fine. She has two brothers and two sisters-she is 2nd oldest. Her dad worked as a meat manager and her mom raised the family. The family moved to [place] when she was 14 to get out of [place]. Her parents are both . One sibling lives in [place]-the rest are in [place]. Jacque was over 40 years. Her in January 2021. She has two children: Damir, 42, and Dayami, 35, and 9 grand children. Her daughter and 3 grandkids live with her. ETHNIC/SIKHISM BACKGROUND: Does your ethnic or uatsdin background require special considerations? No Does spirituality play a role in your life? No Do you have any language/communication needs: No Primary language: Eritrean Preferred language for Health Care Information: Eritrean SOCIAL HISTORY: Education: GED Employment: Unemployed, not seeking work. Worked at [employer] for 4-5 months but quit in December 2021. Financial concerns: Yes, we all do. Marital Status: Children: 2 Current Supports: Include adult children. Legal Hx: None Service: No VITAL SIGNS: There were no vitals filed for this visit. MENTAL STATUS EXAM: CONSTITUTIONAL: Well groomed, Appropriately dressed ORIENTATION: Person, Place, Time and Situation MEMORY: Recent intact, Remote intact, Immediate intact CONCENTRATION: Normal MOOD: sad AFFECT: Restricted SPEECH : Clear & distinct LANGUAGE : Normal ASSOCIATIONS: Intact THOUGHT PROCESS : Logical, Coherent, and Rational PROGRESSION : There was no evidence of disturbance in thought perception or progression. FUND OF KNOWLEDGE : Appropriate and Adequate SUICIDE: None HOMICIDE: None DATA REVIEWED: Labs and Electronic medical record DIAGNOSIS: PRIMARY: Mood Disorder Major Depressive Disorder, Recurrent, Severe Without Psychotic Symptoms Secondary : Anxiety Disorder Generalized Anxiety Disorder Other : none GAF: 45 -50-41 Serious symptoms or any serious impairment in social, occupational or school functioning. TREATMENT PLAN: 1. Continue with lamictal 200 mg daily 2. Continue with lexapro 20 mg daily 3 continue with vraylar 3 mg daily 4 start trazodone 50-100 mg QHS 5. Start IOP MEDICATION CHANGES: As above Follow Up: 2 weeks I spent a total of 45 minutes on the date of the service which included preparing to see the patient, completing clinical documentation, obtaining and/or reviewing separately obtained history, counseling and educating the patient/family/caregiver, ordering medications, tests, or procedures, and care coordination (not separately reported). ADD ON PSYCHOTHERAPY CODE : No SIGNATURE: Love Solorzano MD PATIENT NAME: Jacque Dozier DATE: March 01, 2022 TIME: 10:50 AM PAGER: [phone] documented in this encounter [facility] 02-26-2022 History of Presen t illness Narrative Images from the original note were not included. PSYC FOLLOW UP - PSYCHIATRIC PROGRESS NOTE CC: medication management With the patient consent, visit was performed virtually. HPI: Last visit was 01/25/22 with the following treatment plan: TREATMENT PLAN: 1. follow up 02/26/22 at 10am 2. increase Lexapro 20mg daily to target symptoms of anxiety/panic and any remaining depressive symptoms of bipolar disorder 3. no changes with Vraylar or Lamictal \stop Lamictal if rash develops; last aims was normal on 08/2021; no abnormal movements noted 4. She declines therapy today; I don't want to go through that again. Discussed how therapy and medication go hand in hand for best outcome for mood/anxiety. Discussed option of IOP group for mood disorders and she is in agreement to attend an evaluation; would be able to do this now that she quit her job. Consult placed for IOP group for mood disorders and this provider will message Rodrigo Croft via [employer] to coordinate care. Today, Allison returns for a medication management follow-up appointment. She has been having panic attacks daily. Sleep schedule is still off (was working nights) and reports she has been waking up very early in the middle of the night and then can't get back to sleep. She is averaging about 4 hours of restless sleep. She is drinking one cup of coffee per day and denies drinking alcohol. Appetite is low; has been only eating one meal per day. She still feels irritable. She reports her anxiety was so increased on Thanksgi that she locked herself in the bathroom; son almost took me to the hospital that day. She denies si/hi. I would never hurt myself because my kids would be lost without me. Last visit, the Lexapro was increased to 20mg; I have not noticed any improvement with the anxiety. She feels shortness of breath daily and reports smoking 2 packs of cigarettes per day. She reports taking the Vraylar, Lexapro and Lamictal daily as ordered; denies side effects. She will starting the IOP group for mood disorders next week; has an evaluation with Dr. Solorzano on Tuesday; completed the IOP group evaluation with Rodrigo Croft last week. Treatment options discussed and she is willing to increase the Lamictal to total 200mg daily at to target racing thoughts, irritability and depression. Risks and benefits of the medication, including any black box warnings, were discussed with the patient. Allison verbalized understanding to all instructions and is in agreement with the treatment plan; confirmed that she would get to ER if needed for increase symptoms or safety concerns. Interval Progress: Same PATIENT DATA: Generalized Anxiety Disorder Scale (SIMON-7) SIMON - 7 SCORES 01/18/2022 02/16/2022 02/19/2022 SIMON-7 Score 18 19 19 (0-4) minimal anxiety, (5-9) mild anxiety, (10-14) moderate anxiety, (15-21) severe anxiety Patient Health Questionnaire (PHQ-9) PHQ-9 01/18/2022 02/16/2022 02/19/2022 Score 20 21 20 (0-4) minimal depression, (5-9) mild depression, (10-14) moderate depression, (15-19) moderately severe depression, (20-27) severe depression PROMIS Global Health PROMIS Global Health - (T-Scores - the mean of general population = 50. Five points is a clinically meaningful difference.) 10/20/2021 01/28/2022 02/25/2022 Physical T-Score 39.8 - 32.4 Mental T-Score 36.3 33.8 31.3 PAST MEDICAL HISTORY Diagnosis Date Abdominal pain, other specified site Alcohol abuse Back pain DDD Bipolar affect, depressed (HCC) COPD (chronic obstructive pulmonary disease) (HCC) Coronary artery disease Depression Esophagitis, unspecified Essential hypertension, benign Gastritis Hyperlipidemia Lung nodules Nausea Neuralgia Other forms of migraine Prediabetes Tobacco use PAST SURGICAL HISTORY Procedure Laterality Date APPENDECTOMY 1979 CARDIAC CATH 04/2011 Dr. Yang DELIVERY ONLY , low cervical x2 CHOLECYSTECTOMY 2007 Cholecystectomy COLONOSCOPY 09/14/02 RG - normal COLONOSCOPY FLX DX W/COLLJ SPEC WHEN PFRMD 04/13/2012 Colonoscopy DILATION & CURETTAGE DX&/THER NONOBSTETRIC Dilation & curettage EGD 09/14/02 RG ESOPHAGOGASTRODUODENOSCOPY TRANSORAL DIAGNOSTIC 04/09/2010 EGD ESOPHAGOGASTRODUODENOSCOPY TRANSORAL DIAGNOSTIC 04/13/2012 EGD ESOPHAGOGASTRODUODENOSCOPY TRANSORAL DIAGNOSTIC 02/27/15 EGD EXTRACTION, ERUPTED TOOTH OR EXPOSED ROOT (ELEVATION AND/OR FORCEPS REMOVAL) Teeth removed HYSTERECTOMY HX 10/23/1985 LAPS ABD PRTM&OMENTUM DX W/WO SPEC BR/WA SPX Laparoscopy Current Outpatient Medications Medication Sig Dispense Refill escitalopram oxalate (LEXAPRO) 20 mg tablet TAKE 1 TABLET BY MOUTH EVERY DAY 30 tablet 0 lamoTRIgine (LAMICTAL) 150 mg tablet TAKE 1 TABLET BY MOUTH EVERY DAY 30 tablet 0 cariprazine (VRAYLAR) 3 mg capsule Take 1 capsule by mouth once daily. [address] (PROTONIX) 40 mg tablet Take 1 tablet by mouth twice daily before meals. Take on empty stomach, 1/2 hr before meal. 60 tablet 2 ipratropium 20 mcg-albuterol 100 mcg (COMBIVENT RESPIMAT) 20-100 mcg/actuation inhaler Inhale 1 Puff as instructed four times daily as needed. 4 g 5 doxazosin (CARDURA) 1 mg tablet Take 1 tablet by mouth once daily. 30 tablet 2 syiukxxaozb-qqnngmbxs-uxulsyoz (TRELEGY ELLIPTA) 100-62.5-25 mcg inhalation powder Inhale 1 Puff as instructed once daily. 1 Each 5 famotidine (PEPCID) 20 mg tablet Take 1 tablet by mouth daily at bedtime. 90 tablet 1 potassium chloride (K-TAB) 10 mEq tablet Take 1 tablet by mouth twice daily. 60 tablet 5 amLODIPine (NORVASC) 10 mg tablet Take 1 tablet by mouth once daily. 90 tablet 3 diphenhydrAMINE-Acetaminophen 25-500 mg tab Take by mouth once daily as needed. Current Facility-Administered Medications Medication Dose Route Frequency Provider Last Rate Last Admin perflutren lipid microspheres 1.3 mL in NaCl (PF) 0.9% 10 mL injection (DEFINITY) INTRAVENOUS DIRECTED PRN Beatrice Reaves PA-C sodium chloride 0.9 % (flush) 10 mL (BD POSIFLUSH) 10 mL INTRAVENOUS DIRECTED PRN Beatrice Reaves PA-C ROS: GENERAL: Negative for malaise, significant weight loss and fever. HEENT: No changes in hearing or vision, no nose bleeds or other nasal problems. RESPIRATORY: Negative for cough, wheezing and has shortness of breath daily related to copd CARDIOVASCULAR: Negative for chest pain, leg swelling and palpitations. GI: Negative for abdominal discomfort, blood in stools or black stools. : Negative for dysuria, frequency and incontinence. MUSCULOSKELETAL: Negative for joint pain or swelling, back pain, and muscle pain Neuro: gets daily headaches stress headaches starts at back of neck PFSH: see hpi VITAL SIGNS: There were no vitals filed for this visit. MENTAL STATUS EXAM: CONSTITUTIONAL: Appropriately dressed ORIENTATION: Person, Place, Time and Situation MEMORY: Recent intact, Remote intact, Immediate intact CONCENTRATION: Anxiety interferes MOOD: snappy irritability AFFECT: Restricted SPEECH : Clear & distinct LANGUAGE : Normal ASSOCIATIONS: Intact THOUGHT PROCESS : Logical, Coherent, and Rational PROGRESSION : There was no evidence of disturbance in thought perception or progression. FUND OF KNOWLEDGE : Appropriate and Adequate SUICIDE: None HOMICIDE: None DATA REVIEWED: Electronic medical record DIAGNOSIS: PRIMARY: Mood Disorder Bipolar II Disorder Secondary : Anxiety Disorder Generalized Anxiety Disorder Other : panic attacks GAF: 52 -60-51 Moderate symptoms or moderate difficulty in social, occupational or school functioning. TREATMENT PLAN: 1. follow up 04/29/21 at 9:30am after completed IOP program for mood disorders 2. continue Lexapro 20mg daily to target symptoms of anxiety/panic and any remaining depressive symptoms of bipolar disorder 3. no changes with Vraylar; last aims test was 08/2021 and was normal; no abnormal movements noted today 4. treatment options discussed and she is willing to increase the Lamictal to total 200mg daily at to target racing thoughts, irritability and depression.; verbalized understanding to stop if rash develops and to call office 5. I do not recommend benzodiazepines for panic attacks as she has copd with sob; smoking 2 packs of cigarettes per day MEDICATION CHANGES: See Treatment Plan Follow Up: See Treatment Plan I spent a total of 25 minutes on the date of the service which included preparing to see the patient, [id number] patient care, completing clinical documentation, obtaining and/or reviewing separately obtained history, performing a medically appropriate examination, counseling and educating the patient/family/caregiver, ordering medications, tests, or procedures, and care coordination (not separately reported). ADD ON PSYCHOTHERAPY CODE : No SIGNATURE: Matt Vickers APRN.CNP PATIENT NAME: Jacque Dozier DATE: February 26, 2022 TIME: 10:03 AM PAGER: n/a documented in this encounter [facility] 02-24-2022 Miscellaneous Notes Patient has been identified by name and date of : Yes Requested Prescriptions Pending Prescriptions Disp Refills escitalopram oxalate (LEXAPRO) 20 mg tablet [Pharmacy Med Name: ESCITALOPRAM 20 MG TABLET] 30 tablet 0 Sig: TAKE 1 TABLET BY MOUTH EVERY DAY lamoTRIgine (LAMICTAL) 150 mg tablet [Pharmacy Med Name: LAMOTRIGINE 150 MG TABLET] 30 tablet 1 Sig: TAKE 1 TABLET BY MOUTH EVERY DAY BRENDA: 01/25/2022 FOV: 02/26/2022 RX INSTRUCTIONS: Pharmacy initiated this request. No need to notify patient. Yanira Eisenberg documented in this encounter [facility] 02-23-2022 Miscellaneous Notes Spoke with patient confirming today's virtual visit at 8:30 AM. Reviewed allergies, medications and preferred pharmacy. Yanira Eisenberg documented in this encounter [facility] 02-22-2022 Note HNO ID: [id number] Author: Carola Croft [facility] Service: ? Author Type: Bean Viner Type: Progress Notes Filed: 02/22/2022 11:43 AM Note Text: DIAGNOSTIC ASSESSMENT FOR IOP (INTENSIVE OUTPATIENT PROGRAM) SERVICE DATE: 02/22/2022 SERVICE TIME: [id number] REFERRED BY: Matt Vickers CNP Virtual Zoom visit. Virtual IOP Emergency contact: Damir Rossi-son: [phone] Email: . Due to the federal emergency declaration and the need for ongoing mental health services, the following visit was completed virtually and informed consent obtained orally to reduce the risk of COVID-19 exposure. Oral consent to services related to virtual visits was obtained after information was sent via [employer] or read to patient if [facility] not available. Introductory letter was discussed with the patient. Patient was informed that as part of being accepted into the IOP, they will meet with the attending psychiatrist for an assessment, and if indicated, a follow up appointment. Upon discharge from the IOP, the patient will return to their current provider; if they do not have one, IOP staff will help arrange that. The IOP attending psychiatrist will not follow up with patients after they have completed the program. Patient agrees to reside in [facility] to participate in virtual IOP. Identifying Information: Jacque Dozier is a 66 year old female who is accompanied by Self Chief Complaint: I'm in this state-my brain and mind won't stop racing. History of Presenting Complaint: Jacque states that she has a long history of depression and anxiety, but that it has been worse over the past six months. She can't identify any stressors that are making things worse. She says her mind won't stop racing and sh can't sleep. She sleeps in 15 minute increments. She says she has been awake since 1230. Her anxiety is fair and she hasn't had any weight changes. She doesn't leave the house due to her anxiety. Her concentration is poor. Her energy fluctuates. She has loss of interest and enjoyment. She spends her days flipping through the channels and sometimes cleaning. She quit her job January 10 2022 due to her symptoms. She was working for 4-5 months. She says she has been diagnosed with bipolar disorder and has mood swings with episodes of laughing then gets mean and sad. She has episodes of increased irritability. She had an episode like this yesterday which lasted a few hours. She usually isolates herself when it gets like this. She denies any current suicidal thinking - My kids would be lost without me. She had one previous attempt over 10 years ago by overdose of tylenol PM and was admitted to [facility] in at that time. She describes chronic anxiety and says my innerds get shaky. She rated her level of anxiety today at 9(10=worst) and depression at 8. Jacque denies any current stressors. Her in January 2021 from chronic emphysema but says she is over this. She has health issues including COPD. During today's interview Jacque gave brief answers and didn't elaborate . Strengths: Patience- at times. Interests are crossword puzzles, used to matthieu. Patient Goals for Treatment: Get my depression and anxiety under control. Review of Psychiatric Signs and Symptoms: Depression, anxiety, loss of interest, poor concentration, insomnia. Personal/Family History: [place] She says it was fine. She has two brothers and two sisters-she is 2nd oldest. Her dad worked as a meat manager and her mom raised the family. The family moved to [place] when she was 14 to get out of [place]. Her parents are both . One sibling lives in [place]-the rest are in [place]. Jacque was over 40 years. Her in January 2021. She has two children: Damir, 42, and Dayami, 35, and 9 grand children. Her daughter and 3 grandkids live with her. ETHNIC/SIKHISM BACKGROUND: Does your ethnic or uatsdin background require special considerations? No Does spirituality play a role in your life? No Do you have any language/communication needs: No Primary language: Eritrean Preferred language for Health Care Information: Eritrean SOCIAL HISTORY: Education: GED Employment: Unemployed, not seeking work. Worked at [employer] for 4-5 months but quit in December 2021. Financial concerns: Yes, we all do. Marital Status: Children: 2 Current Supports: Include adult children. Legal Hx: None Service: No Are you in need of assistance to identify and explore career interests, aptitudes, and skills and to formulate immediate and extermination supervisor vocational goals? No PSYCHIATRIC HISTORY: One in pt at [facility] over 10 years ago following an overdose. Out pt: Matt Vickers CNP. [facility] [place]. Prior Diagnosis: Major Depressive Disorder Previous M (more content not included)... [facility] 02-22-2022 History of Presen t illness Narrative DIAGNOSTIC ASSESSMENT FOR IOP (INTENSIVE OUTPATIENT PROGRAM) SERVICE DATE: 02/22/2022 SERVICE TIME: [id number] REFERRED BY: Matt Vickers CNP Virtual Zoom visit. Virtual IOP Emergency contact: Damir Rossi-son: [phone] Email: . Due to the federal emergency declaration and the need for ongoing mental health services, the following visit was completed virtually and informed consent obtained orally to reduce the risk of COVID-19 exposure. Oral consent to services related to virtual visits was obtained after information was sent via [employer] or read to patient if [facility] not available. Introductory letter was discussed with the patient. Patient was informed that as part of being accepted into the IOP, they will meet with the attending psychiatrist for an assessment, and if indicated, a follow up appointment. Upon discharge from the IOP, the patient will return to their current provider; if they do not have one, IOP staff will help arrange that. The IOP attending psychiatrist will not follow up with patients after they have completed the program. Patient agrees to reside in [facility] to participate in virtual IOP. Identifying Information: Jacque Dozier is a 66 year old female who is accompanied by Self Chief Complaint: I'm in this state-my brain and mind won't stop racing. History of Presenting Complaint: Jacque states that she has a long history of depression and anxiety, but that it has been worse over the past six months. She can't identify any stressors that are making things worse. She says her mind won't stop racing and sh can't sleep. She sleeps in 15 minute increments. She says she has been awake since 1230. Her anxiety is fair and she hasn't had any weight changes. She doesn't leave the house due to her anxiety. Her concentration is poor. Her energy fluctuates. She has loss of interest and enjoyment. She spends her days flipping through the channels and sometimes cleaning. She quit her job January 10 2022 due to her symptoms. She was working for 4-5 months. She says she has been diagnosed with bipolar disorder and has mood swings with episodes of laughing then gets mean and sad. She has episodes of increased irritability. She had an episode like this yesterday which lasted a few hours. She usually isolates herself when it gets like this. She denies any current suicidal thinking - My kids would be lost without me. She had one previous attempt over 10 years ago by overdose of tylenol PM and was admitted to [facility] in at that time. She describes chronic anxiety and says my innerds get shaky. She rated her level of anxiety today at 9(10=worst) and depression at 8. Jacque denies any current stressors. Her in January 2021 from chronic emphysema but says she is over this. She has health issues including COPD. During today's interview Jacque gave brief answers and didn't elaborate . Strengths: Patience- at times. Interests are crossword puzzles, used to matthieu. Patient Goals for Treatment: Get my depression and anxiety under control. Review of Psychiatric Signs and Symptoms: Depression, anxiety, loss of interest, poor concentration, insomnia. Personal/Family History: [place] She says it was [place]. She has two brothers and two sisters-she is 2nd oldest. Her dad worked as a meat manager and her mom raised the family. The family moved to [place] when she was 14 to get out of [place]. Her parents are both . One sibling lives in [place]-the rest are in [place]. Jacque was over 40 years. Her in January 2021. She has two children: Damir, 42, and Dayami, 35, and 9 grand children. Her daughter and 3 grandkids live with her. ETHNIC/SIKHISM BACKGROUND: Does your ethnic or uatsdin background require special considerations? No Does spirituality play a role in your life? No Do you have any language/communication needs: No Primary language: Eritrean Preferred language for Health Care Information: Eritrean SOCIAL HISTORY: Education: GED Employment: Unemployed, not seeking work. Worked at [employer] for 4-5 months but quit in December 2021. Financial concerns: Yes, we all do. Marital Status: Children: 2 Current Supports: Include adult children. Legal Hx: None Service: No Are you in need of assistance to identify and explore career interests, aptitudes, and skills and to formulate immediate and extermination supervisor vocational goals? No PSYCHIATRIC HISTORY: One in pt at [facility] over 10 years ago following an overdose. Out pt: Matt Rancho PAT. WAs previously [facility] [place]. Prior Diagnosis: Major Depressive Disorder Previous Medications: Most all medications Current Medications: Current Outpatient Medications Medication Sig escitalopram oxalate (LEXAPRO) 20 mg tablet Take 1 tablet by mouth once daily. lamoTRIgine (LAMICTAL) 150 mg tablet Take 1 tablet by mouth once daily. cariprazine (VRAYLAR) 3 mg capsule Take 1 capsule by mouth once daily. pantoprazole DR (PROTONIX) 40 mg tablet Take 1 tablet by mouth twice daily before meals. Take on empty stomach, 1/2 hr before meal. ipratropium 20 mcg-albuterol 100 mcg (COMBIVENT RESPIMAT) 20-100 mcg/actuation inhaler Inhale 1 Puff as instructed four times daily as needed. doxazosin (CARDURA) 1 mg tablet Take 1 tablet by mouth once daily. utepxxmgyeu-rhfzmesct-hzebuwwd (TRELEGY ELLIPTA) 100-62.5-25 mcg inhalation powder Inhale 1 Puff as instructed once daily. famotidine (PEPCID) 20 mg tablet Take 1 tablet by mouth daily at bedtime. potassium chloride (K-TAB) 10 mEq tablet Take 1 tablet by mouth twice daily. amLODIPine (NORVASC) 10 mg tablet Take 1 tablet by mouth once daily. diphenhydrAMINE-Acetaminophen 25-500 mg tab Take by mouth once daily as needed. Current Facility-Administered Medications Medication Dose Route Frequency perflutren lipid microspheres 1.3 mL in NaCl (PF) 0.9% 10 mL injection (DEFINITY) INTRAVENOUS DIRECTED PRN sodium chloride 0.9 % (flush) 10 mL (BD POSIFLUSH) 10 mL INTRAVENOUS DIRECTED PRN FAMILY PSYCHIATRIC HISTORY: Depression (Mother and Maternal Aunt) PERSONAL SUBSTANCE ABUSE HISTORY: ETOH: No history of abuse or dependence., once in a great while-last time one week ago-2 beers; past DWI 20+ years ago Marijuana: None currently-past use-caused paranoia Cocaine: No history of abuse or dependence. Opioids: No history of abuse or dependence. -OTHER SUBSTANCE USE: None Tobacco products: 2 packs a day Family Substance Abuse History: Yes - Relative: paternal uncles and Substance of choice: alcohol Health Screening Check if patient has a history of any of the following: [x] COPD, emphysema [] Allergies [] Asthma/Lung Problems [] Arthritis [] Cancer [] Diabetes [] Gastrointestinal Problems (Heartburn, GERD, etc.) [x] Heart Problems [x] High Blood Pressure [x] High Cholesterol [] Irritable Bowel [] Osteoporosis [] Sleep Apnea [] Tobacco Use [] Thyroid Problems Primary care physician Patient's last date of history and physical: Song Da Silva PA-C. Was referral to Primary Care provided? Yes, date of last history and physical exceeds one year. Referred patient to Primary Care [phone]. States she will call her PCP for this. PAST MEDICAL HISTORY Diagnosis Date Abdominal pain, other specified site Alcohol abuse Back pain DDD Bipolar affect, depressed (HCC) COPD (chronic obstructive pulmonary disease) (HCC) Coronary artery disease Depression Esophagitis, unspecified Essential hypertension, benign Gastritis Hyperlipidemia Lung nodules Nausea Neuralgia Other forms of migraine Prediabetes Tobacco use Pain Screening: Are you experiencing pain? No Is the patient being treated for pain? No Pain Management referral provided? No Nutritional Screening: Did the patient have any unintentional weight loss or gain of greater than 10 pounds in the last 3 months? No Does the patient have any food allergies or intolerance? No Does the patient have a decrease in food intake and/or appetite? No Does the patient have any dental problems? Yes dentures Does the patient have any eating habits or behaviors that may be indicators of an eating disorder? No Nutrition Services referral provided? No, not indicated. Abuse/Trauma/Neglect/Exploitatio n Screening Did you experience abuse?: No Did you experience trauma?: No Did you experience neglect?: No Did you experience exploitation?: No Referral for Trauma Assessment provided? No, not indicated. Do you ever feel unsafe at home at present or in the past? No Significant Childhood Events: None reported Did you experience any household challenges (substance abuse by family member, mental illness of family member, violent treatment, parental separation, household member in correction)? From Childhood: None Response / Significance to Patient: NA From Adulthood: None MENTAL STATUS EXAMINATION: Appearance: Casually dressed Behavior: Behaves appropriately during the encounter Social Relatedness: Anxious/Nervousness and Melancholic Speech/Language:The patient demonstrates appropriate tone, prosody, armond, phonetics, and syntax Mood: depressed Affect: Restricted Orientation: Person, Place, Time and Situation Associations: Intact and linear Hallucinations: None Delusions: None Suicidal Ideation: No suicidal ideation, intent or plan Homicidal Ideation: No homicidal ideation, intent or plan. Insight: Fair Judgment: Appropriate SUICIDE RISK ASSESSMENT APPLICABLE: Yes SUICIDE RISK ASSESSMENT SUICIDAL IDEATIONS: As per HPI RECENT ACUTE EVENTS: As per HPI LETHALITY FACTORS: Access to Means: Any firearms in home? No Moved a firearm recently? No Any current suicide plan not involving firearm? No Demographic Factors: Marital Status: Ethnicity: White(Highest risk is ) Gender: female (Highest risk is male) Age: [age] year old (Highest risk is >65) Family history of suicide? No Evidence of Intentional Self-Harm History of prior suicide attempts? Yes Past thoughts of self-harm? Yes Self-Mutilation: History of past self-mutilation without expressed suicide intent? No Sexual Orientation: Is patient homosexual or bisexual? No Recent Increase in Drug or Alcohol Use? No Rural or Isolated Home Environment? No PROTECTIVE FACTORS: Clinician Judgment of Insight: fair Social Resources: Family or friends who are concerned about pt? Yes Lives with others? Yes Presence of Dependents(e.g. children, elderly parents, pets)? Yes Recent Psychiatric Inpatient Treatment? No Presence of Meaningful Daily Activities? No Currently employed? No Scientology Affiliation? No Therapeutic Frederica: Does pt believe treatment can help his/her negative feelings? unsure History of good medication compliance in past? Yes FORMULATION OF SUICIDE RISK: Moderate due to past suicide attempt. Will any interventions be undertaken to address above-listed Lethality or Protective Factors? Enhance/create therapeutic alliance Reconnect with family/friends SAFE-T Protocol with C-SSRS - Recent Step 1: Identify Risk Factors C-SSRS Suicidal Ideation Severity Month Wish to be Have you wished you were or wished you could go to sleep and not wake up? No Current suicidal thoughts Have you actually had any thoughts of killing yourself? No Suicidal thoughts w/ Method (w/no specific Plan or Intent or act) Have you been thinking about how you might do this? Suicidal Intent without Specific Plan Have you had these thoughts and had some intention of acting on them? Intent with Plan Have you started to work out or worked out the details of how to kill yourself? Do you intend to carry out this plan? C-SSRS Suicidal Behavior: Have you ever done anything, started to do anything, or prepared to do anything to end your life? Examples: Collected pills, obtained a gun, gave away valuables, wrote a will or suicide note, took out pills but didn t swallow any, held a gun but changed your mind or it was grabbed from your hand, went to the roof but didn t jump; or actually took pills, tried to shoot yourself, cut yourself, tried to hang yourself, etc. If YES Was it within the past 3 months? Lifetime Yes Past 3 Months No Current and Past Psychiatric Dx: Mood Disorder Presenting Symptoms: Anhedonia, Anxiety and/or panic, and Insomnia Family History: depression Precipitants/Stressors: Financial, health. Change in treatment: Change in provider or treatment (i.e., medications, psychotherapy, milieu) Access to lethal methods: Asked SPECIFICALLY about presence or absence of a firearm in the home or ease of accessing and no guns present. Step 2: Identify Protective Factors (Protective factors may not counteract significant acute suicide risk factors) Internal: Identifies reasons for living External: Responsibility to children and Supportive social network of family or friends Step 3: Specific questioning about Thoughts, Plans, and Suicidal Intent - (see Step 1 for Ideation Severity and Behavior) If semi-structured interview is preferred to complete this section, clinicians may opt to complete C-SSRS Lifetime/Recent for comprehensive behavior/lethality assessment. C-SSRS Suicidal Ideation Intensity (with respect to the most severe ideation 1-5 identified above) Month Frequency How many times have you had these thoughts? (1) Less than once a week (2) Once a week (3) 2-5 times in week (4) Daily or almost daily (5) Many times each day None Duration When you have the thoughts how long do they last? (1) Fleeting - few seconds or minutes (2) Less than 1 hour/some of the time (3) 1-4 hours/a lot of time (4) 4-8 hours/most of day (5) More than 8 hours/persistent or continuous NA Controllability Could/can you stop thinking about killing yourself or wanting to if you want to? (1) Easily able to control thoughts (2) Can control thoughts with little difficulty (3) Can control thoughts with some difficulty (4) Can control thoughts with a lot of difficulty (5) Unable to control thoughts (0) Does not attempt to control thoughts NA Deterrents Are there things - anyone or anything (e.g., family, mandaeism, pain of ) - that stopped you from wanting to or acting on thoughts of suicide? (1) Deterrents definitely stopped you from attempting suicide (2) Deterrents probably stopped you (3) Uncertain that deterrents stopped you (4) Deterrents most likely did not stop you (5) Deterrents definitely did not stop you (0) Does not apply NA Reasons for Ideation What sort of reasons did you have for thinking about wanting to or killing yourself? Was it to end the pain or stop the way you were feeling (in other words you couldn t go on living with this pain or how you were feeling) or was it to get attention, revenge or a reaction from others? Or both? (1) Completely to get attention, revenge or a reaction from others (2) Mostly to get attention, revenge or a reaction from others living with the pain or how you were feeling) (3) Equally to get attention, revenge or a reaction from others (4) Mostly to end or stop the pain (you couldn t go on (5) Completely to end or stop the pain (you couldn t go on and to end/stop the pain living with the pain or how you were feeling) (0) Does not apply NA Total Score 0 Step 4: Guidelines to Determine Level of Risk and Develop Interventions to LOWER Risk Level The estimation of suicide risk, at the culmination of the suicide assessment, is the quintessential clinical judgment, since no study has identified one specific risk factor or set of risk factors as specifically predictive of suicide or other suicidal behavior. From The [employer] Practice Guidelines for the Assessment and Treatment of Patients with Suicidal Behaviors, page 24. RISK STRATIFICATION TRIAGE High Suicide Risk Moderate Suicide Risk Suicidal behavior more than 3 months ago (C-SSRS Suicidal Behavior Lifetime) Directly address suicide risk, implementing suicide prevention strategies Low Suicide Risk Step 5: Documentation Risk Level : Moderate Suicide Risk Clinical Note: Your Clinical Observation, Relevant Mental Status Information, and Methods of Suicide Risk Evaluation SUMMARY: Jacque has a long history of anxiety and mood disorder with worsening symptoms over the past 6 months. She recently quit her job due to her symptoms. She is being referred to the [facility] for more intensive help. (Assessment adapted from Suicide Prevention Toolkit for Implementation of NPSG 15A by [facility]) DIAGNOSTIC IMPRESSION: Primary: Mood Disorder Bipolar II Disorder Risk Assessment Suicide: moderate Homicide: low Deliberate Self-Harm: low Aggression: low RECOMMENDATIONS: Admission to Intensive Outpatient Program. To be called with a start date. SIGNATURE: GABI Rendon PATIENT NAME: Jacque Dozier DATE: February 22, 2022 TIME: 10:51 AM documented in this encounter [facility] 01-28-2022 Procedure note Associated Ord er(s): OXIMETRY WITH AMBULATION RESPIRATORY THERAPY OXIMETRY WITH AMBULATION Oximetry with Ambulation Test for This Encounter O2 Device O2 Adapter NC O2 Flow SpO2% HR Activity Ft Walked (ft) Time (min) Avg Speed (MPH) R/A 97 85 Resting R/A 96 94 Walking, usual pace 450 3 1.7 R/A 95 103 Walking, fastest pace 510 3 1.93 General Information Pulse Oximetry Site Total Time Spent O2 Supply Carrier Walking Assistance/Device Forehead 20 -- -- NAME: GRACIA Lambert PATIENT NAME: Jacque Dozier DATE: January 28, 2022 TIME: 9:09 AM Comment: documented in this encounter [facility] 01-28-2022 History of Presen t illness Narrative Patient: Jacque Dozier PCP: Boyd Da Silva PA-C CC: COPD HPI: Jacque Dozier 66 year old female current smoker with PMH significant for bipolar disorder, alcohol abuse, HTN, CAD, COPD, and lung nodules due to granulomatous disease. Since the last Pulmonary Clinic visit 10/26/[address] Hale, the patient has not required ED care for exacerbation. There has been no hospital admission for exacerbation. Claims to be consistently compliant with prescribed maintenance Rx Trelegy daily. Patient states she did not notice a change in SOB with the change to Trelegy. Uses Combivent inhaler a lot . Typically 3-4 times daily due to shortness of breath. Daily cough. Occasionally expels yellow/green sputum. No hemoptysis. Frequent wheezing. Occasionally will feel SOB at rest, but typically feels SOB with exertion. Reports minimal effort causes her to have to stop. Difficulty climbing stairs and walking from the parking lot into the office. No lower extremity edema. Occasionally has heart palpitations and chest tightness. Currently smoking 1 ppd. Had been down to half a pack, but has been stressed. Has never quit. First am cigarette is within 30-45 minutes of waking. Daughter who is in home also smokes. PAST MEDICAL HISTORY Diagnosis Date Abdominal pain, other specified site Alcohol abuse Back pain DDD Bipolar affect, depressed (HCC) COPD (chronic obstructive pulmonary disease) (HCC) Coronary artery disease Depression Esophagitis, unspecified Essential hypertension, benign Gastritis Hyperlipidemia Lung nodules Nausea Neuralgia Other forms of migraine Prediabetes Tobacco use Allergies: Codeine Vomiting escitalopram oxalate (LEXAPRO) 20 mg tablet Take 1 tablet by mouth once daily. lamoTRIgine (LAMICTAL) 150 mg tablet Take 1 tablet by mouth once daily. cariprazine (VRAYLAR) 3 mg capsule Take 1 capsule by mouth once daily. pantoprazole DR (PROTONIX) 40 mg tablet Take 1 tablet by mouth twice daily before meals. Take on empty stomach, 1/2 hr before meal. ipratropium 20 mcg-albuterol 100 mcg (COMBIVENT RESPIMAT) 20-100 mcg/actuation inhaler Inhale 1 Puff as instructed four times daily as needed. budesonide-formoterol (SYMBICORT) 160-4.5 mcg/actuation inhaler Inhale 2 Puffs as instructed twice daily. doxazosin (CARDURA) 1 mg tablet Take 1 tablet by mouth once daily. (Patient not taking: Reported on 12/07/2021) yfawjwsnhui-iibdfwsmn-veloablw (TRELEGY ELLIPTA) 100-62.5-25 mcg inhalation powder Inhale 1 Puff as instructed once daily. famotidine (PEPCID) 20 mg tablet Take 1 tablet by mouth daily at bedtime. potassium chloride (K-TAB) 10 mEq tablet Take 1 tablet by mouth twice daily. amLODIPine (NORVASC) 10 mg tablet Take 1 tablet by mouth once daily. diphenhydrAMINE-Acetaminophen 25-500 mg tab Take by mouth once daily as needed. Social History Tobacco Use Smoking status: Every Day Packs/day: 1.50 Years: 52.00 Pack years: 78.00 Types: Cigarettes Start date: 1973 Smokeless tobacco: Never Tobacco comments: started age 14- 2 ppd per day in past, down to 1 ppd Substance Use Topics Alcohol use: Not Currently Comment: Not locally. Drug use: No Family History Problem Relation Age of Onset Diabetes Mother Ischemic Heart Disease Mother CHF Hypertension Mother Colon Cancer Father Colon Polyps Father Genetic Father Parkinsonism Sister 2018 other (hemochromatosis) Sister 2018 Diabetes Brother Lung Cancer Paternal Grandfather other (throat cancer) Paternal Grandfather COPD Maternal Aunt Cancer Paternal Uncle COPD Paternal Uncle PAST SURGICAL HISTORY Procedure Laterality Date APPENDECTOMY 1979 CARDIAC CATH 04/2011 Dr. Yang DELIVERY ONLY , low cervical x2 CHOLECYSTECTOMY 2007 Cholecystectomy COLONOSCOPY 09/14/02 RG - normal COLONOSCOPY FLX DX W/COLLJ SPEC WHEN PFRMD 04/13/2012 Colonoscopy DILATION & CURETTAGE DX&/THER NONOBSTETRIC Dilation & curettage EGD 09/14/02 RG ESOPHAGOGASTRODUODENOSCOPY TRANSORAL DIAGNOSTIC 04/09/2010 EGD ESOPHAGOGASTRODUODENOSCOPY TRANSORAL DIAGNOSTIC 04/13/2012 EGD ESOPHAGOGASTRODUODENOSCOPY TRANSORAL DIAGNOSTIC 02/27/15 EGD EXTRACTION, ERUPTED TOOTH OR EXPOSED ROOT (ELEVATION AND/OR FORCEPS REMOVAL) Teeth removed HYSTERECTOMY HX 10/23/1985 LAPS ABD PRTM&OMENTUM DX W/WO SPEC BR/WA SPX Laparoscopy I reviewed the past medical history, family history, social history and surgical history with changes noted above and updated in EMR. IMMUNIZATIONS Prevnar - 11/02/2021 Pneumovax 06/16/2018 Influenza - 01/28/2022 COVID-19 - xx ROS: General: Generally feels well. Appetite goo. Eyes, Ears, nose, throat: No post nasal drip, rhinorrhea, purulent nasal discharge, epistaxis. No hoarseness. Vision stable. Cardiac: No angina, edema, orthopnea. Resp: See HPI. GI: No heartburn, dysphagia. Musculoskeletal: No pain. Neuro: Frequent headaches. No focal weakness, tremor. Skin: No rash. Otherwise negative. PHYSICAL EXAMINATION: BP 168/84 Pulse 86 Resp 14 Ht 154.9 cm (5' 1 ) Wt 51.3 kg (113 lb) SpO2 97% BMI 21.35 kg/m Gen: No acute distress. Cooperative with examination. ENT: Oral hygeine and dentition good. Pharynx clear. No sign of oral thrush. Resp: No stridor, accessory respiratory muscle use, supra-sternal or intercostal retractions. No wheezes, crackles. CV: Regular rythm. Heart tones normal. Radial pulses normal. Abd: Non distended. MSK: No kyphoscoliosis. Ext: Warm and well perfused. No clubbing, cyanosis, edema. Skin: No rash, ecchymoses. Neuro: Mental status normal. Affect normal. No tremor. DATA: Oximetry, 01/28/2022 Oximetry with Ambulation Test for This Encounter O2 Device O2 Adapter NC O2 Flow SpO2% HR Activity Ft Walked (ft) Time (min) Avg Speed (MPH) R/A 97 85 Resting R/A 96 94 Walking, usual pace 450 3 1.7 R/A 95 103 Walking, fastest pace 510 3 1.93 PFT, 10/26/2021 IMPRESSION: Spirometry indicates severe obstruction. There was not a significant bronchodilator response. Electronically Signed On 10-26-2021 14:02:23 EDT by Caty Hale M.D. CXR, 07/31/2021 IMPRESSION: No acute radiographic abnormality. COMPARISON: 11/08/2017 RESULT: Lines, tubes, and devices: None. Lungs and pleura: Hyperinflation. No consolidation. No lung mass. Calcified granuloma in the right lower lung. Vague rounded density at the right base, likely nipple shadow. No pleural effusion. No pneumothorax. Cardiomediastinal silhouette: Stable cardiomediastinal silhouette. Bones and soft tissues: Unremarkable. CT chest, 04/17/2019 IMPRESSION: No acute pulmonary process identified. Emphysema with mild, diffuse bronchiectasis. Mild bronchial wall thickening. Sequela of remote granulomatous disease. Stable subcentimeter pulmonary nodules, most likely benign, given stability since 2014. No follow-up examination is required. Prominent, less than 1 cm mediastinal lymph nodes, likely reactive. Biliary dilation. Status post cholecystectomy. Question dropped gallstone within the right upper quadrant. Comparison: Chest radiograph dated 11/08/2017. Prior chest CT dated 12/09/2014 RESULT: Limitations: None. Lines, tubes, and devices: None. Lung parenchyma and pleura: There is emphysema with mild, diffuse bronchiectasis. Calcified granulomas are again seen within the right lung. There is mild, diffuse bronchial wall thickening. There is no CT evidence for pneumonia. There is no pleural effusion, pneumothorax, or endobronchial lesion. There are stable subcentimeter noncalcified pulmonary nodules. For example, there is a stable, approximately 3 mm noncalcified nodule seen within the apicoposterior segment of the left upper lobe (series 5, image #29). Thoracic inlet, heart, and mediastinum: Atherosclerotic calcifications are present within the thoracic aorta. The heart is normal in size, and there is no significant pericardial effusion. Calcified subcarinal and right perihilar lymph nodes from remote granulomatous disease. There are prominent, less than 1 cm mediastinal lymph nodes, likely reactive. Prominent bilateral axillary lymph nodes are also likely reactive. The heart is normal in size, and there is no significant pericardial effusion. Bones and soft tissues: There is no destructive bony lesion. There is mild scoliosis and multilevel degenerative change seen within the visualized spine. Upper abdomen: There is biliary dilation. The patient is status post cholecystectomy. Peripheral calcified density seen within the right upper quadrant. This may relate to a dropped gallstone. ASSESSMENT/PLAN: 1. Stage 3 severe COPD by GOLD classification (HCC) - ICD9: 496, ICD10: J44.9 (primary diagnosis) Symptomatically continues with significant dyspnea. Based on oximetry with ambulation today, patient is not requiring supplemental oxygen. Continue Trelegy ellipta 1 inhalation daily. Rinse mouth after each use to help prevent oral thrush. Combivent inhaler, 2 inhalations 10-15 minutes prior to activities associated with shortness of breath, and as needed for rescue relief of shortness of breath or wheezing, up to 4 times daily. Smoking cessation is crucial. However, patient does not have an interest in quitting. Annual influenza vaccine today. 2. Cigarette smoker - ICD9: 305.1, ICD10: F17.210 Cessation encouraged. Physiologic and physical aspects of tobacco addiction as well as strategies for quitting were discussed. Counseling was given focusing on the harmful effects of this addiction especially given the patient's medical condition(s) which will be worsened because of the chemicals in tobacco. Patient enrolled in Lung Cancer Screening Program. She has not scheduled her LDCT. Provided the phone number for her to schedule. 3. Need for influenza vaccination - ICD9: V04.81, ICD10: Z23 - INFLUENZA VACCINE QUADRIVALENT 6 MO - 64 YRS IM 4. Dyspnea and respiratory abnormalities - ICD9: 786.09, ICD10: R06.00, R06.89 Most likely multi-factorial, including severe COPD and anxiety. Will obtain an echo to rule out pulmonary HTN or valvular issues. - ECHO - PERFLUTREN LIPID MICROSPHERES 1.1 MG/ML INJECTION IN NS 10 ML - SODIUM CHLORIDE 0.9 % (FLUSH) INJECTION SYRINGE Beatrice Reaves PA-C documented in this encounter [facility] 01-28-2022 History of Presen t illness Narrative PULM FUNCTION SMARTBLOCK: Provider: Caty Hale MD Assisting Tech: GRACIA Lambert Oximetry - Ambulation: 1 documented in this encounter [facility] 01-25-2022 Instructions Matt Vickers APRN.[employer] - 01/25/2022 9:11 AM EDT [facility] intensive outpatient program call Rodrigo Croft to set up evaluation [phone]. [facility] documented in this encounter [facility] 01-25-2022 History of Presen t illness Narrative Images from the original note were not included. PSYC FOLLOW UP - PSYCHIATRIC PROGRESS NOTE CC: medication management With the patient consent, visit was performed virtually. HPI: Last visit was 12/23/21 with the following treatment plan: 1. follow up in December as scheduled 2. add low dose Lexapro 10mg 1/2 tablet daily for 2 weeks then increase to one tablet daily and continue to target symptoms of anxiety and any remaining depressive symptoms 3. no changes with Vraylar or Lamictal as depression level has improved, stop Lamictal if rash develops Allison returns for a medication management follow-up appointment. She reports she is not doing well and has been having issues with increased anxiety and not wanting to leave the house. I am crawling out of my skin; I just feel so worried and anxious. She had to quit her job related to the panic/anxiety. She has only been able to go to her son's house and needs someone with her. She is not sleeping well and will sleep in 2 hour increments; totally 4 hours per night. 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 She did message that she has been feeling more short of breath related to her copd; has an appointment with her study abroad coordinator soon; this could be contributing to to her increased anxiety. She states she is feeling worse. She denies si/hi,but states I don't want to continue on like this. She denies plan or intent. She declines therapy today; I don't want to go through that again. Discussed how therapy and medication go hand in hand for best outcome for mood/anxiety. Discussed option of IOP group for mood disorders and she is in agreement to attend an evaluation; would be able to do this now that she quit her job. Consult placed for IOP group for mood disorders and this provider will message Rodrigo Croft via [employer] to coordinate care. She reports taking her medications as ordered (Vraylar, Lexapro and Lamictal); denies side effects. She has not noticed much benefit from Lexapro,but is in agreement to increased the dose to target symptoms of anxiety and depression. Risks and benefits of the medication, including any black box warnings, were discussed with the patient. Allison verbalized understanding to all instructions and is in agreement with the treatment plan; confirmed that she would get to ER if needed for increase symptoms or safety concerns. Interval Progress: Same PATIENT DATA: Generalized Anxiety Disorder Scale (SIMON-7) SIMON - 7 SCORES 12/01/2021 12/21/2021 01/18/2022 SIMON-7 Score 11 14 18 (0-4) minimal anxiety, (5-9) mild anxiety, (10-14) moderate anxiety, (15-21) severe anxiety Patient Health Questionnaire (PHQ-9) PHQ-9 12/21/2021 12/23/2021 01/18/2022 Score 13 8 20 (0-4) minimal depression, (5-9) mild depression, (10-14) moderate depression, (15-19) moderately severe depression, (20-27) severe depression PROMIS Global Health PROMIS Global Health - (T-Scores - the mean of general population = 50. Five points is a clinically meaningful difference.) 03/09/2021 05/11/2021 10/20/2021 Physical T-Score 39.8 - 39.8 Mental T-Score 28.4 31.3 36.3 PAST MEDICAL HISTORY Diagnosis Date Abdominal pain, other specified site Alcohol abuse Back pain DDD Bipolar affect, depressed (HCC) COPD (chronic obstructive pulmonary disease) (HCC) Coronary artery disease Depression Esophagitis, unspecified Essential hypertension, benign Gastritis Hyperlipidemia Lung nodules Nausea Neuralgia Other forms of migraine Prediabetes Tobacco use PAST SURGICAL HISTORY Procedure Laterality Date APPENDECTOMY 1979 CARDIAC CATH 04/2011 Dr. Yang DELIVERY ONLY , low cervical x2 CHOLECYSTECTOMY 2007 Cholecystectomy COLONOSCOPY 09/14/02 RG - normal COLONOSCOPY FLX DX W/COLLJ SPEC WHEN PFRMD 04/13/2012 Colonoscopy DILATION & CURETTAGE DX&/THER NONOBSTETRIC Dilation & curettage EGD 09/14/02 RG ESOPHAGOGASTRODUODENOSCOPY TRANSORAL DIAGNOSTIC 04/09/2010 EGD ESOPHAGOGASTRODUODENOSCOPY TRANSORAL DIAGNOSTIC 04/13/2012 EGD ESOPHAGOGASTRODUODENOSCOPY TRANSORAL DIAGNOSTIC 02/27/15 EGD EXTRACTION, ERUPTED TOOTH OR EXPOSED ROOT (ELEVATION AND/OR FORCEPS REMOVAL) Teeth removed HYSTERECTOMY HX 10/23/1985 LAPS ABD PRTM&OMENTUM DX W/WO SPEC BR/WA SPX Laparoscopy Current Outpatient Medications Medication Sig Dispense Refill escitalopram oxalate (LEXAPRO) 10 mg tablet Take 1 tablet by mouth once daily. 30 tablet 0 lamoTRIgine (LAMICTAL) 150 mg tablet TAKE 1 TABLET BY MOUTH EVERY DAY 30 tablet 0 VRAYLAR 3 mg capsule TAKE 1 CAPSULE BY MOUTH ONCE DAILY [address] (PROTONIX) 40 mg tablet Take 1 tablet by mouth twice daily before meals. Take on empty stomach, 1/2 hr before meal. 60 tablet 2 ipratropium 20 mcg-albuterol 100 mcg (COMBIVENT RESPIMAT) 20-100 mcg/actuation inhaler Inhale 1 Puff as instructed four times daily as needed. 4 g 5 budesonide-formoterol (SYMBICORT) 160-4.5 mcg/actuation inhaler Inhale 2 Puffs as instructed twice daily. 3 Inhaler 1 wiwjxxgaxtr-jwzsmwrrv-aqwltnot (TRELEGY ELLIPTA) 100-62.5-25 mcg inhalation powder Inhale 1 Puff as instructed once daily. 1 Each 5 famotidine (PEPCID) 20 mg tablet Take 1 tablet by mouth daily at bedtime. 90 tablet 1 potassium chloride (K-TAB) 10 mEq tablet Take 1 tablet by mouth twice daily. 60 tablet 5 amLODIPine (NORVASC) 10 mg tablet Take 1 tablet by mouth once daily. 90 tablet 3 diphenhydrAMINE-Acetaminophen 25-500 mg tab Take by mouth once daily as needed. doxazosin (CARDURA) 1 mg tablet Take 1 tablet by mouth once daily. (Patient not taking: Reported on 12/07/2021) 30 tablet 2 No current facility-administered medications for this visit. ROS: GENERAL: Negative for malaise, significant weight loss and fever. HEENT: No changes in hearing or vision, no nose bleeds or other nasal problems. RESPIRATORY: Negative for cough, wheezing,but has some shortness of breath related to copd (has copd and has an appointment with her study abroad coordinator) CARDIOVASCULAR: Negative for chest pain, leg swelling and palpitations. GI: Negative for abdominal discomfort, blood in stools or black stools. : Negative for dysuria, frequency and incontinence. MUSCULOSKELETAL: Negative for joint pain or swelling, back pain, and muscle pain. SKIN: Negative for lesions, rash, and itching. HEMATOLOGY/LYMPHOLOGY Negative for prolonged bleeding, bruising easily, and swollen nodes. ENDOCRINE: Negative for cold or heat intolerance, polyuria, polydipsia and goiter. NEURO: Negative for headaches, syncope, seizures and paralysis. PFSH: see hpi VITAL SIGNS: There were no vitals filed for this visit. MENTAL STATUS EXAM: CONSTITUTIONAL: Casually dressed ORIENTATION: Person, Place, Time and Situation MEMORY: Recent intact, Remote intact, Immediate intact CONCENTRATION: Anxiety interferes MOOD: worried AFFECT: Flat SPEECH : Clear & distinct LANGUAGE : Normal ASSOCIATIONS: Intact THOUGHT PROCESS : Logical, Coherent, and Rational PROGRESSION : There was no evidence of disturbance in thought perception or progression. FUND OF KNOWLEDGE : Appropriate and Adequate SUICIDE: Thoughts-No plan, No means, No intent; thoughts of not wanting to feel like this anymore. HOMICIDE: None DATA REVIEWED: Electronic medical record DIAGNOSIS: PRIMARY: Mood Disorder Bipolar II Disorder Secondary : anxiety disorder: Generalized anxiety disorder with panic attacks GAF: 52 -60-51 Moderate symptoms or moderate difficulty in social, occupational or school functioning. TREATMENT PLAN: 1. follow up 02/26/22 at 10am 2. increase Lexapro 20mg daily to target symptoms of anxiety/panic and any remaining depressive symptoms of bipolar disorder 3. no changes with Vraylar or Lamictal \stop Lamictal if rash develops; last aims was normal on 08/2021; no abnormal movements noted 4. She declines therapy today; I don't want to go through that again. Discussed how therapy and medication go hand in hand for best outcome for mood/anxiety. Discussed option of IOP group for mood disorders and she is in agreement to attend an evaluation; would be able to do this now that she quit her job. Consult placed for IOP group for mood disorders and this provider will message Rodrigo Croft via [employer] to coordinate care. MEDICATION CHANGES: See Treatment Plan Follow Up: See Treatment Plan I spent a total of 30 minutes on the date of the service which included preparing to see the patient, [id number]-nlxi patient care, completing clinical documentation, obtaining and/or reviewing separately obtained history, performing a medically appropriate examination, counseling and educating the patient/family/caregiver, ordering medications, tests, or procedures, communicating with other HCPs (not separately reported), and care coordination (not separately reported). ADD ON PSYCHOTHERAPY CODE : No SIGNATURE: Matt Vickers APRN.CNP PATIENT NAME: Jacque Dozier DATE: January 25, 2022 TIME: 9:01 AM PAGER: n/a documented in this encounter [facility] 01-25-2022 Miscellaneous Notes Spoke with patient confirming today's virtual visit at 8:30 AM. Reviewed allergies, medications and preferred pharmacy. Yanira Eisenberg documented in this encounter [facility] 01-01-2022 Miscellaneous Notes 30 day supply provided to cover until established provider can refill documented in this encounter [facility] 12-22-2021 Miscellaneous Notes Spoke to patient confirming tomorrow's virtual visit at 10:00 AM. Yanira Eisenberg Left voicemail message for patient regarding a schedule change d/t difficulty with today's Zoom appointment. Also, sent patient a MyChart message rescheduling patient for a virtual visit on Tuesday, December 23, 2021 at 10:00 AM. Yanira Eisenberg Spoke with patient confirming today's VV at 3:00 PM. Reviewed allergies, medications and preferred pharmacy. Yanira Eisenberg documented in this encounter [facility] 12-22-2021 History of Presen t illness Narrative unable to connect on Zoom, sent link and also tried duo chat; will try to reschedule for tomorrow. Asked office to try to reschedule her documented in this encounter [facility] 12-07-2021 History of Presen t illness Narrative Images from the original note were not included. PSYC FOLLOW UP - PSYCHIATRIC PROGRESS NOTE CC: medication management With the patient consent, visit was performed virtually. HPI: Allison returns for a medication management follow-up appointment. She reports she has been having panic attacks about 3 per day. Her mood is up/down. She is taking the Vraylar as ordered and states it has been helpful for depression. She has been taking the Lamictal daily as ordered and denies side effects. She is working her job and was hoping it would be helpful for her mood,but is having hard time with the panic attacks. She denies si/hi. She is only sleeping 4 hours of sleep per night. She works from 1am-6am for total of 20 hours per week. She reports drinking 1-1 1/2 cups of coffee per day. 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 She denies any alcohol use; states used to drink about 6 pack of beer per week and quit about 6 mos ago. She has noticed heart racing; will order TSH to make sure no issues with thyroid function. She is willing to call and establish with a therapist;state she will call the counseling center (had a therapist there in past) to schedule this. Risks and benefits of the medication, including any black box warnings, were discussed with the patient. Allison verbalized understanding to all instructions and is in agreement with the treatment plan; confirmed that she would get to ER if needed for increase symptoms or safety concerns. Interval Progress: Slightly improved PATIENT DATA: Generalized Anxiety Disorder Scale (SIMON-7) SIMON - 7 SCORES 07/31/2021 10/16/2021 12/01/2021 SIMON-7 Score 12 15 11 (0-4) minimal anxiety, (5-9) mild anxiety, (10-14) moderate anxiety, (15-21) severe anxiety Patient Health Questionnaire (PHQ-9) PHQ-9 07/31/2021 10/16/2021 12/01/2021 Score 12 19 15 (0-4) minimal depression, (5-9) mild depression, (10-14) moderate depression, (15-19) moderately severe depression, (20-27) severe depression PROMIS Global Health PROMIS Global Health - (T-Scores - the mean of general population = 50. Five points is a clinically meaningful difference.) 03/09/2021 05/11/2021 10/20/2021 Physical T-Score 39.8 - 39.8 Mental T-Score 28.4 31.3 36.3 PAST MEDICAL HISTORY Diagnosis Date Abdominal pain, other specified site Alcohol abuse Back pain DDD Bipolar affect, depressed (HCC) COPD (chronic obstructive pulmonary disease) (HCC) Coronary artery disease Depression Esophagitis, unspecified Essential hypertension, benign Gastritis Hyperlipidemia Lung nodules Nausea Neuralgia Other forms of migraine Prediabetes Tobacco use PAST SURGICAL HISTORY Procedure Laterality Date APPENDECTOMY 1979 CARDIAC CATH 04/2011 Dr. Yang DELIVERY ONLY , low cervical x2 CHOLECYSTECTOMY 2007 Cholecystectomy COLONOSCOPY 09/14/02 RG - normal COLONOSCOPY FLX DX W/COLLJ SPEC WHEN PFRMD 04/13/2012 Colonoscopy DILATION & CURETTAGE DX&/THER NONOBSTETRIC Dilation & curettage EGD 09/14/02 RG ESOPHAGOGASTRODUODENOSCOPY TRANSORAL DIAGNOSTIC 04/09/2010 EGD ESOPHAGOGASTRODUODENOSCOPY TRANSORAL DIAGNOSTIC 04/13/2012 EGD ESOPHAGOGASTRODUODENOSCOPY TRANSORAL DIAGNOSTIC 02/27/15 EGD EXTRACTION, ERUPTED TOOTH OR EXPOSED ROOT (ELEVATION AND/OR FORCEPS REMOVAL) Teeth removed HYSTERECTOMY HX 10/23/1985 LAPS ABD PRTM&OMENTUM DX W/WO SPEC BR/WA SPX Laparoscopy Current Outpatient Medications Medication Sig Dispense Refill gabapentin (NEURONTIN) 100 mg capsule TAKE 1 CAPSULE BY MOUTH THREE TIMES DAILY FOR 60 DAYS. 90 capsule 1 VRAYLAR 3 mg capsule TAKE 1 CAPSULE BY MOUTH ONCE DAILY [address] (PROTONIX) 40 mg tablet Take 1 tablet by mouth twice daily before meals. Take on empty stomach, 1/2 hr before meal. 60 tablet 2 ipratropium 20 mcg-albuterol 100 mcg (COMBIVENT RESPIMAT) 20-100 mcg/actuation inhaler Inhale 1 Puff as instructed four times daily as needed. 4 g 5 budesonide-formoterol (SYMBICORT) 160-4.5 mcg/actuation inhaler Inhale 2 Puffs as instructed twice daily. 3 Inhaler 1 hprbcuyspur-mjhonqllh-fzmnzuci (TRELEGY ELLIPTA) 100-62.5-25 mcg inhalation powder Inhale 1 Puff as instructed once daily. 1 Each 5 lamoTRIgine (LAMICTAL) 100 mg tablet Take 1 tablet by mouth once daily. do not start until completed the 25mg tablets 30 tablet 1 famotidine (PEPCID) 20 mg tablet Take 1 tablet by mouth daily at bedtime. 90 tablet 1 Promethazine-DM (PHENERGAN-DM) 6.25-15 mg/5 mL syrup Take 5 mL by mouth four times daily as needed. 120 mL 0 potassium chloride (K-TAB) 10 mEq tablet Take 1 tablet by mouth twice daily. 60 tablet 5 amLODIPine (NORVASC) 10 mg tablet Take 1 tablet by mouth once daily. 90 tablet 3 diphenhydrAMINE-Acetaminophen 25-500 mg tab Take by mouth once daily as needed. doxazosin (CARDURA) 1 mg tablet Take 1 tablet by mouth once daily. (Patient not taking: Reported on 12/07/2021) 30 tablet 2 No current facility-administered medications for this visit. ROS: GENERAL: Negative for malaise, significant weight loss and fever. HEENT: No changes in hearing or vision, no nose bleeds or other nasal problems. RESPIRATORY: Negative for cough, wheezing and shortness of breath. CARDIOVASCULAR: Negative for chest pain, leg swelling, but experiencing heart palpitations several times per day when anxious GI: Negative for abdominal discomfort, blood in stools or black stools. : Negative for dysuria, frequency and incontinence. MUSCULOSKELETAL: Negative for joint pain or swelling, back pain, and muscle pain. SKIN: Negative for lesions, rash, and itching. HEMATOLOGY/LYMPHOLOGY Negative for prolonged bleeding, bruising easily, and swollen nodes. ENDOCRINE: Negative for cold or heat intolerance, polyuria, polydipsia and goiter. NEURO: Negative for headaches, syncope, seizures and paralysis. PFSH: back to work and working 20 hours per week during the night VITAL SIGNS: There were no vitals filed for this visit. MENTAL STATUS EXAM: CONSTITUTIONAL: Appropriately dressed ORIENTATION: Person, Place, Time and Situation MEMORY: Recent intact, Remote intact, Immediate intact CONCENTRATION: intact MOOD: depressed AFFECT: Restricted SPEECH : Clear & distinct LANGUAGE : Normal ASSOCIATIONS: Intact THOUGHT PROCESS : Logical, Coherent, and Rational PROGRESSION : There was no evidence of disturbance in thought perception or progression. FUND OF KNOWLEDGE : Appropriate and Adequate SUICIDE: None HOMICIDE: None DATA REVIEWED: Electronic medical record DIAGNOSIS: PRIMARY: Mood Disorder Bipolar II Disorder Secondary : Anxiety Disorder Anxiety Disorder NOS GAF: 59 -60-51 Moderate symptoms or moderate difficulty in social, occupational or school functioning. TREATMENT PLAN: 1. some improvement with depression/anxiety since started Lamictal and tolerating dose at 100mg; willing to increase the dose to 150mg to target remaining symptoms of depression and racing thoughts No changes with Vraylar gabapentin discontinued as not helpful for anxiety reports she has not been drinking for the past 6 mos 2. sleep is poor and has issues with heart palpitations when anxious will check TSH and Free T4 to make sure no issues with thyroid function 3. willing to establish with therapist; wants to return to [facility] 4. no abnormal movements noted; last aims test was 08/2021 MEDICATION CHANGES: - Reviewed Lamictal titration & risk of severe rash. Instructed to call JARRETT if this occurs. Follow Up: follow up as scheduled on 12/22; also scheduled for 01/25 to monitor closer until stabilized I spent a total of 28 minutes on the date of the service which included preparing to see the patient, [id number] patient care, completing clinical documentation, obtaining and/or reviewing separately obtained history, performing a medically appropriate examination, counseling and educating the patient/family/caregiver, ordering medications, tests, or procedures, and care coordination (not separately reported). ADD ON PSYCHOTHERAPY CODE : No SIGNATURE: Matt Vickers APRN.CNP PATIENT NAME: Jacque Dozier DATE: December 07, 2021 TIME: 2:52 PM PAGER: n/a documented in this encounter [facility] 12-07-2021 Miscellaneous Notes Spoke with Allison to confirm appt for today. Would prefer to use Duo to connect. Meds and allergies reviewed. documented in this encounter [facility] 11-25-2021 Nurse Note Patient refused blood pressure recheck. Provider notified. documented in this encounter [facility] 11-25-2021 Instructions Wilma Pickard APRN.[employer] - 11/25/2021 9:53 AM EDT [email or web address] CT Lung Screen Results The CT scan that you will have done today will show if you have any nodules (small spots) in your lungs that are suspicious for cancer. Around 90% of the patients who have this scan done are found to have at least one nodule. Most nodules are benign (not cancer) and of no harm to you at all. A specialist will make a scientific evaluation about whether or not a nodule is worrisome based on its size and shape. The radiologist who will read your scan will put it into one of four categories: LUNG-RADS Category Description Overall Probability of Malignancy Recommended Follow-Up 1 Negative No nodules and definitely benign (non-cancerous nodules) Essentially 0. 1 Year - Follow-up Low dose CT 2 Benign Appearance or Behavior Nodules with a very low likelihood of becoming cancer due to size or lack of growth Less than 1% 1 Year - Follow-up Low dose CT 3 Probably Benign Probably benign finding, short term follow-up recommended 1 to 2% 6 Months - Follow-up Low dose CT 4 Suspicious Findings for which additional diagnostic testing and/or biopsy is recommended Will be calculated based on nodule characteristics. Dependent on what is seen on the exam. At times, we may see something outside of the lungs on the scan that could be a health concern. Below are some of the most common findings: S Clinically Significant or Potentially Clinically Significant Findings (non lung cancer) Referral or additional imaging/labs depending on result. Approximately 10% of people receive this result. Coronary Artery Calcifications (Moderate or Severe) - Referral to cardiology for further work-up and recommendations. Thyroid Nodule - TSH level and Thyroid Ultrasound dependent on size, referral to endocrinology. Adrenal Nodule - Blood work and referral to endocrinology. Others Lung Cancer Screening hotline: [phone] Lung Cancer Screening [phone] Billing Questions: or [email or web address] Lung Cancer Screening Team: Bela Montez CNP; Justine Pickard CNP; Aislinn Calvert CNP; Blanquita Wei CNP, Tyra Morrison PA-C: [phone] Leticia Saha PA-C Cigarette Logs : Record every single smoked cigarette on a cigarette log (either on their smartphone or with paper and pencil) contiguous to the smoking. Logging your smoked cigarettes in real-time (while smoking) helps quantify consumption accurately and helps you and your act of smoking become more mindful versus automatically, habitually without thought or cognizance. You can't change something if you can't measure the change. We discussed behavioral modification methods in order to unpair certain habits of smoking with specific activities and to help wean down the patient's smoking over time in order to minimize withdrawal effects of reduction in nicotine intake. Patient was instructed to smoke every hour on the hour during waking hours and not pair the cigarette with a normal activity such as coffee or driving as he or she normally would have. Patient was instructed to do this for a week and then cut back to smoking one cigarette every other hour for the second week, then cut back to smoking a cigarette every third hour on the third week, and quit on week 4. I instructed patient when starting this method to not smoke any more cigarettes than they normally would have smoked in a day and if they smoke 20 cigarettes per day to set those cigarettes out ahead of time and space them out evenly throughout the day to ensure they aren't increasing their cigarette consumption. Oral Substitutes/Hydration Drinking water is a superb coping technique. Snacking on crunchy, nutrient dense, low calorie foods such as chopped peppers, celery, or carrots can be extremely helpful. Using cinnamon sticks, plastic straws, and sugarless gum/ candy are also excellent oral substitutes. Phone [phone] ([phone]) as additional resource. documented in this encounter [facility] 11-25-2021 History of Presen t illness Narrative Images from the original note were not included. LUNG SCREENING VISIT PRIMARY CARE PHYSICIAN: Boyd Da Silva PA-C PULMONARY PROVIDER: Caty Hale MD Results will be communicated via letter or electronic record if applicable. Visit Delivery: In Person Patient Visit Type: New to Screening Current Exam Type: baseline LDCT Number of Pack Years: 78 Current smoker (=0) The patient's smoking history is not similar to prior year shared decision visit. N/a The reason for the discrepancy is n/a Results will be communicated via letter or electronic record. REQUESTER: The referring provider advised the patient to have screening. HISTORY OF PRESENT ILLNESS: Jacque Dozier is a 66 year old active smoker who presents for lung screening. Respiratory symptoms include: SOB: Yes, with ambulating < 0.5 mile. Tolerate routine ADLs without any assistance. Chest tightness: Yes occasional Coughing: Yes, thick not sure of the color Hemoptysis: No Wheezing: Yes, uses daily inhalers Trelegy and prn Combivent Fever/Chills: Yes Recent Respiratory Infection: No Unintentional weight loss: No Last 6 Encounter Wt Readings: Date: Wt: 10/26/2021 50.8 kg (112 lb) 10/26/2021 50.8 kg (112 lb) 08/04/2021 49.1 kg (108 lb 3.2 oz) 07/31/2021 49.2 kg (108 lb 6.4 oz) 06/29/2021 49.9 kg (110 lb) 04/21/2021 50.3 kg (111 lb) ECOG PERFORMANCE STATUS: 1- Restricted in physically strenuous activity. Carries out light duty. Modified Medical Research [place] Dyspnea Scale (MMRC) I get short of breath when hurrying on level ground or walking up a slight hill 1 Lung Cancer Risk Factors: 1.Tobacco Use: Start Age 14, Quit Age N/A , Average packs per day 1.5, Pack Years 78. 2. Passive Smoke Exposure: Yes as a child and as an adult. 3. Personal hx of malignancy: No. 4. Significant exposures (1 year or more of exposure): None. 5. Race: White. 6. Education:Highschool graduate 7. BMI:Body mass index is 21.16 kg/m . 8. COPD: Yes 9. Pneumonia in the past 5 years: No 10. Is there a history of lung cancer in a first degree relative? No. 11. Is there a history of lung cancer in a non first degree relative? Paternal GF, paternal uncle 12. Is there a history of any other cancer in a first degree relative? No. PAST MEDICAL HISTORY Diagnosis Date Abdominal pain, other specified site Alcohol abuse Back pain DDD Bipolar affect, depressed (HCC) COPD (chronic obstructive pulmonary disease) (HCC) Coronary artery disease Depression Esophagitis, unspecified Essential hypertension, benign Gastritis Hyperlipidemia Lung nodules Nausea Neuralgia Other forms of migraine Prediabetes Tobacco use PAST SURGICAL HISTORY Procedure Laterality Date APPENDECTOMY 1979 CARDIAC CATH 04/2011 Dr. Yang DELIVERY ONLY , low cervical x2 CHOLECYSTECTOMY 2007 Cholecystectomy COLONOSCOPY 09/14/02 RG - normal COLONOSCOPY FLX DX W/COLLJ SPEC WHEN PFRMD 04/13/2012 Colonoscopy DILATION & CURETTAGE DX&/THER NONOBSTETRIC Dilation & curettage EGD 09/14/02 RG ESOPHAGOGASTRODUODENOSCOPY TRANSORAL DIAGNOSTIC 04/09/2010 EGD ESOPHAGOGASTRODUODENOSCOPY TRANSORAL DIAGNOSTIC 04/13/2012 EGD ESOPHAGOGASTRODUODENOSCOPY TRANSORAL DIAGNOSTIC 02/27/15 EGD EXTRACTION, ERUPTED TOOTH OR EXPOSED ROOT (ELEVATION AND/OR FORCEPS REMOVAL) Teeth removed HYSTERECTOMY HX 10/23/1985 LAPS ABD PRTM&OMENTUM DX W/WO SPEC BR/WA SPX Laparoscopy FAMILY HISTORY Problem Relation Age of Onset Diabetes Mother Ischemic Heart Disease Mother CHF Hypertension Mother Colon Cancer Father Colon Polyps Father Genetic Father Parkinsonism Sister 2018 other (hemochromatosis) Sister 2018 Diabetes Brother COPD Maternal Aunt Cancer Paternal Uncle COPD Paternal Uncle gabapentin (NEURONTIN) 100 mg capsule TAKE 1 CAPSULE BY MOUTH THREE TIMES DAILY FOR 60 DAYS. VRAYLAR 3 mg capsule TAKE 1 CAPSULE BY MOUTH ONCE DAILY pantoprazole DR (PROTONIX) 40 mg tablet Take 1 tablet by mouth twice daily before meals. Take on empty stomach, 1/2 hr before meal. ipratropium 20 mcg-albuterol 100 mcg (COMBIVENT RESPIMAT) 20-100 mcg/actuation inhaler Inhale 1 Puff as instructed four times daily as needed. budesonide-formoterol (SYMBICORT) 160-4.5 mcg/actuation inhaler Inhale 2 Puffs as instructed twice daily. doxazosin (CARDURA) 1 mg tablet Take 1 tablet by mouth once daily. fghajcpfzup-zwldsvehi-aqfyccid (TRELEGY ELLIPTA) 100-62.5-25 mcg inhalation powder Inhale 1 Puff as instructed once daily. lamoTRIgine (LAMICTAL) 100 mg tablet Take 1 tablet by mouth once daily. do not start until completed the 25mg tablets famotidine (PEPCID) 20 mg tablet Take 1 tablet by mouth daily at bedtime. Promethazine-DM (PHENERGAN-DM) 6.25-15 mg/5 mL syrup Take 5 mL by mouth four times daily as needed. potassium chloride (K-TAB) 10 mEq tablet Take 1 tablet by mouth twice daily. amLODIPine (NORVASC) 10 mg tablet Take 1 tablet by mouth once daily. Diphenhydramine-Acetaminophen (TYLENOL PM EXTRA STRENGTH) 25-500 mg ORAL Tab Take by mouth once daily as needed. ALLERGIES Allergen Reactions Codeine Vomiting The medications and allergies were reviewed and reconciled for this patient and deemed current. Health Maintenance Immunization History Administered Date(s) Administered Influenza Seasonal Inj Age 3+ 01/03/2015 Influenza Seasonal Inj Quad Age 6 Mo - 64 Yrs 04/27/2017 12/19/2017 12/12/2019 03/09/2021 Pneumovax 06/16/2018 Tetanus Diphtheria Booster (Age >7) Pres Free 12/12/2019 pneumococcal (PCV20) vaccine, 20 valent (PREVNAR 20) 11/02/2021 Colonoscopy: 06/24/2021 Mammogram: 04/17/2019 DATA REVIEW I have directly visualized the testing documented: Prior Imaging: CT: Yes 2019 Abnormal There is emphysema with mild, diffuse bronchiectasis. Calcified granulomas are again seen within the right lung. There is mild, diffuse bronchial wall thickening. There is no CT evidence for pneumonia. There is no pleural effusion, pneumothorax, or endobronchial lesion. There are stable subcentimeter noncalcified pulmonary nodules. For example, there is a stable, approximately 3 mm noncalcified nodule seen within the apicoposterior segment of the left upper lobe (series 5, image #29). Thoracic inlet, heart, and mediastinum: Atherosclerotic calcifications are present within the thoracic aorta. The heart is normal in size, and there is no significant pericardial effusion. Calcified subcarinal and right perihilar lymph nodes from remote granulomatous disease. There are prominent, less than 1 cm mediastinal lymph nodes, likely reactive. Prominent bilateral axillary lymph nodes are also likely reactive. The heart is normal in size, and there is no significant pericardial effusion CXR: Yes Year 2021 Abnormal. Pulmonary Function Testing: PFT: SPIROMETRY WITH DILATOR IF OBSTRUCTED ([id number]) - ordered on 10/26/21 No textual results for order. 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 4 puffs of albuterol (360mcg) delivered by MDI via valved holding chamber, HR pre 96, HR post 96. Medications and allergies were reviewed for possible drug interactions per policy MM-102. No Contraindications or sensitivities were noted. IMPRESSION: Spirometry indicates severe obstruction. The flow volume demonstrates an obstructive pattern. There is no significant bronchodilator response. Electronically Signed On 12-21-2017 15:58:34 EDT by Carola Núñez [facility] [address] [place], [place] [address] PFT Lab Report Name: JACQUE DOZIER ID: [id number] Date: 12/21/17 Physician: [id number] Nix Age: 62 Height(in): 61.0 Weight(lb): 119 Gender: Female Race: Diagnosis: Medication Set 1: Dyspnea Rest: No Dyspnea Exercise: No Cough: No Persistent: No Productive (cc): Smoker: No How Long: Stopped: Cigarettes: No Hand Assembler For Pull[employer] Over: Bambi Cronin RCP Temp: 21 PBar: 736 PF Reference: ######## Spirometry Hb: gm/dL Ref Pre Pre Post Post Post Thuy % Ref Thuy % Ref % Chg FVC Liters 2.95 2.62 89 2.61 88 -0 FEV1 Liters 2.28 1.10 48 1.21 53 10 FEV1/FVC % 78 42 46 CJZ21-52% L/sec 2.18 0.39 18 0.41 19 6 ShoCBC01-69 L/sec 2.41 0.39 16 0.52 22 34 PEF L/sec 5.85 1.71 29 2.64 45 54 IVW645% Sec 11.62 11.00 -5 MVV L/min 91 f BPM Lung Volumes TLC Liters 4.61 VC Liters 2.95 IC Liters 1.80 FRC N2 Liters 2.58 ERV Liters 0.90 RV Liters 1.84 RV/TLC % 39 Diffusing Capacity DLCO mL/mmHg/min 20.4 DL Adj mL/mmHg/min 20.4 DLCO/VA mL/mHg/min/L 4. 58 DL/VA Adj mL/mHg/min/L 4.58 VA Liters 4.45 IVC Liters BHT Sec Resistance Raw cmH2O/L/sec 1.49 sGaw L/s/cmH2O/L 0.260 Respiratory Muscle Force PI max cmH2O 73 PE max cmH2O 138 null PHYSICAL EXAM: BP 181/100 (BP Site: Right Arm, BP Position: Sitting, BP Cuff Size: Regular Adult) Pulse 74 Wt 50.8 kg (112 lb) SpO2 94% BMI 21.16 kg/m Declined BP recheck. ASSESSMENT and RECOMMENDATIONS: 1. Screening for lung cancer: [email or web address] I have determined that the patient is eligible for a low dose CT based on age, absence of signs or symptoms of lung cancer, and total pack years: Yes. The patient and I engaged in shared decision making, including the use of one or more decision aids, to include benefits, harms, follow-up diagnostic testing, over-diagnosis, false positive rate, and total radiation exposure. The patient understands and feels comfortable with it: Yes. The patient was counseled on the importance of adherence to annual LDCT lung cancer screening, impact of comorbidities and ability or willingness to undergo diagnosis and treatment. The patient understands and feels comfortable with it:Yes. 2. Nicotine dependence: The patient was counseled on the importance of smoking cessation if current smoker and, if appropriate, offered additional tobacco cessation counseling services - Smoking Cessation Counseling. SMOKING CESSATION COUNSELING Smoking cessation methods including Nicotine Replacement Therapies and Behavior Modification were discussed with the patient and assistance offered. Declined NRT, not ready to quit. Discussed Behavior Modification Cigarette Logs : Record every single smoked cigarette on a cigarette log (either on their smartphone or with paper and pencil) contiguous to the smoking. Logging your smoked cigarettes in real-time (while smoking) helps quantify consumption accurately and helps you and your act of smoking become more mindful versus automatically, habitually without thought or cognizance. You can't change something if you can't measure the change. We discussed behavioral modification methods in order to unpair certain habits of smoking with specific activities and to help wean down the patient's smoking over time in order to minimize withdrawal effects of reduction in nicotine intake. Patient was instructed to smoke every hour on the hour during waking hours and not pair the cigarette with a normal activity such as coffee or driving as he or she normally would have. Patient was instructed to do this for a week and then cut back to smoking one cigarette every other hour for the second week, then cut back to smoking a cigarette every third hour on the third week, and quit on week 4. I instructed patient when starting this method to not smoke any more cigarettes than they normally would have smoked in a day and if they smoke 20 cigarettes per day to set those cigarettes out ahead of time and space them out evenly throughout the day to ensure they aren't increasing their cigarette consumption. Oral Substitutes/Hydration Drinking water is a superb coping technique. Snacking on crunchy, nutrient dense, low calorie foods such as chopped peppers, celery, or carrots can be extremely helpful. Using cinnamon sticks, plastic straws, and sugarless gum/ candy are also excellent oral substitutes. Phone [phone] ([phone]) as additional resource. The medical conditions adversely affected by cigarette use include:COPD and Emphysema. The patient is currently not ready to quit. I personally spent 6 minutes in counseling. The time spent in smoking cessation counseling is exclusive of any other counseling during this visit. 3. COPD: Continue Daily Trelegy and Symbicort. Advised to rinse after each use. Continue daily prn Combivent Continue routine follow up with pulmonology Wilma Pickard APRN.[employer] NPI #: November 25, 2021 8:53 AM documented in this encounter [facility] 11-23-2021 Miscellaneous Notes Patient has been identified by name and date of : Yes BRENDA 10/19/21 FOV 12/07/21 Scheduled to start Lamictal 100 mg 11/16/21 Requested Prescriptions Pending Prescriptions Disp Refills gabapentin (NEURONTIN) 100 mg capsule [Pharmacy Med Name: GABAPENTIN 100 MG CAPSULE] 90 capsule 1 Sig: TAKE 1 CAPSULE BY MOUTH THREE TIMES DAILY FOR 60 DAYS. lamoTRIgine (LAMICTAL) 25 mg tablet [Pharmacy Med Name: LAMOTRIGINE 25 MG TABLET] 42 tablet 0 Sig: INITIATE LAMICTAL TITRATION: TAKE 1 TAB DAILY AT BEDTIME FOR 2 WEEKS, THEN TAKE TWO TABS AT BEDTIME FOR 2 WEEKS. VRAYLAR 3 mg capsule [Pharmacy Med Name: VRAYLAR 3 MG CAPSULE] 30 capsule 1 Sig: TAKE 1 CAPSULE BY MOUTH ONCE DAILY RX INSTRUCTIONS: Patient aware RX will be sent to pharmacy. No need to notify patient. Kimberly Jessica RN documented in this encounter [facility] 11-16-2021 Miscellaneous Notes Patient has been identified by name and date of : Yes BRENDA 10/19/21 FOV 12/07/21 Should be starting the 100 mg dose. Notified Pt. Told her Rx will be denied at this time. She has filled the Rx for Lamictal 100mg. Requested Prescriptions Pending Prescriptions Disp Refills lamoTRIgine (LAMICTAL) 25 mg tablet [Pharmacy Med Name: LAMOTRIGINE 25 MG TABLET] 42 tablet 0 Sig: INITIATE LAMICTAL TITRATION: TAKE 1 TAB DAILY AT BEDTIME FOR 2 WEEKS, THEN TAKE TWO TABS AT BEDTIME FOR 2 WEEKS. RX INSTRUCTIONS: Patient aware RX will be sent to pharmacy. No need to notify patient. Kimberly Jessica RN documented in this encounter [facility] 11-12-2021 Miscellaneous Notes ? Not suppose be starting until 11/16? documented in this encounter [facility] 11-02-2021 History of Presen t illness Narrative Patient presents for Prevnar 20 vaccine. Denies any problems at this time. Tolerated injection well. Fallon Vanegas LPN documented in this encounter [facility] 10-29-2021 Miscellaneous Notes Patient scheduled for nurse visit 11/02/21 to receive Pneumococcal vaccine. Please place order at this time. Fallon Vanegas LPN documented in this encounter [facility] 10-27-2021 Miscellaneous Notes Patient has been identified by name and date of : Yes BRENDA 10/19/21 FOV 12/07/21, 12/22/21 Should still be taking one 25 mg until 11/02 Pending Prescriptions Disp Refills LAMOTRIGINE 25 MG TABLET 42 tablet 0 Sig: INITIATE LAMICTAL TITRATION: TAKE 1 TAB DAILY AT BEDTIME FOR 2 WEEKS, THEN TAKE TWO TABS AT BEDTIME FOR 2 WEEKS. NOEL: No RX INSTRUCTIONS: Patient aware RX will be sent to pharmacy. No need to notify patient. Kimberly Jessica RN documented in this encounter [facility] 10-27-2021 Miscellaneous Notes Last office visit: 07/31/21 F/u scheduled: none Lisy Brooks Ma documented in this encounter [facility] 10-26-2021 Instructions Caty Hale MD - 10/26/2021 8:[address] [facility] to contact you to set up your Low Dose Chest CT for cancer screening documented in this encounter [facility] 10-26-2021 History of Presen t illness Narrative Images from the original note were not included. . [facility] [place] Note Patient name: Jacque Dozier PCP: Boyd Da Silva PA-C CC: COPD, last seen in pulmonary clinic 2014 HPI: Jacque Dozier 65 year old female current smoker with PMH significant for bipolar disorder, alcohol abuse, HTN, CAD, COPD, lung nodules due to granulomatous disease, last seen in pulmonary clinic in 2014. She presents today to reestablish care. Initial PFTs showed moderate obstruction with FEV1 1.40 L 59%. Inhaled therapy at that time consisted of Spiriva with the addition of Foradil and as needed albuterol along with recommendations for smoking cessation. Last pulmonary function test 2018 showed decrement in her FEV1 to 1.10 L 48%. Currently on Symbicort and Combivent which she feels is inadequate. She feels very winded walking from the living room to her kitchen. If she is carrying heavy objects she has to stop and rest. She has heard occasional wheezing. No chronic cough or chronic sputum production. Denies a history of recurrent bronchitis. Occasional lower extremity edema if she is on her feet for a long period of time. She has been using her Combivent on a daily basis in addition to her Symbicort without relief of her dyspnea. She has not required hospitalization nor has she been intubated for her COPD. DATA: COPD Assessment Test I never cough 0 1 2 3 4 5 I cough all the time; Score 2 I have no phlegm 0 1 2 3 4 5 My chest is completely full of phlegm; Score 1 My chest does not feel tight at all 0 1 2 3 4 5 My chest chest feels very tight; Score 2 When I walk up a hill or one flight of stairs I am not breathless 0 1 2 3 4 5 When I walk up a hill or one flight or stairs I am very breathless; Score 3 I am not limited doing any activities at home 0 1 2 3 4 5 I am very limited doing activities at home; Score 2 I am confident leaving my home despite my lung condition 0 1 2 3 4 5 I am not at all confident leaving my home because of my lung condition; Score 2 I sleep soundly 0 1 2 3 4 5 don't sleep soundly because of my lungs; Score 1 I have lots of energy 0 1 2 3 4 5 I have no energy at all; Score 3 Total Score: 16 PFT today: Review of pulmonary function test shows moderately severe obstruction without improvement post-bronchodilator. No significant change from PFTs 2018 PFT 11/2017: Labs: Component Ref Range & Units 7 mo ago WBC 3.70 - 11.00 k/uL 8.22 RBC 3.90 - 5.20 m/uL 5.04 Hemoglobin 11.5 - 15.5 g/dL 16.7 High Hematocrit 36.0 - 46.0 % 50.6 High MCV 80.0 - 100.0 fL 100.4 High MCH 26.0 - 34.0 pG 33.1 MCHC 30.5 - 36.0 g/dL 33.0 RDW-CV 11.5 - 15.0 % 12.6 Platelet Count 150 - 400 k/uL 275 MPV 9.0 - 12.7 fL 9.7 Neut% % 61.8 Abs Neut (ANC) 1.45 - 7.50 k/uL 5.08 Lymph% % 30.2 Abs Lymph 1.00 - 4.00 k/uL 2.48 Metcalfe% % 7.4 Abs Metcalfe <0.87 k/uL 0.61 Eosin% % 0.2 Abs Eosin <0.46 k/uL <0.03 Baso% % 0.4 Abs Baso <0.11 k/uL 0.03 Nucleated Reds 0 /100 WBC 0.0 Absolute nRBC <0.01 k/uL <0.01 Imaging / Diagnostic Studies: DATE OF EXAM: Apr 17 2019 8:45AM [facility] [id number] - CT CHEST WO IVCON / PROCEDURE REASON: Shortness of breath EXAMINATION: CHEST CT WITHOUT CONTRAST Indication: Shortness of breath Comparison: Chest radiograph dated 11/08/2017. Prior chest CT dated 12/09/2014 RESULT: Limitations: None. Lines, tubes, and devices: None. Lung parenchyma and pleura: There is emphysema with mild, diffuse bronchiectasis. Calcified granulomas are again seen within the right lung. There is mild, diffuse bronchial wall thickening. There is no CT evidence for pneumonia. There is no pleural effusion, pneumothorax, or endobronchial lesion. There are stable subcentimeter noncalcified pulmonary nodules. For example, there is a stable, approximately 3 mm noncalcified nodule seen within the apicoposterior segment of the left upper lobe (series 5, image #29). Thoracic inlet, heart, and mediastinum: Atherosclerotic calcifications are present within the thoracic aorta. The heart is normal in size, and there is no significant pericardial effusion. Calcified subcarinal and right perihilar lymph nodes from remote granulomatous disease. There are prominent, less than 1 cm mediastinal lymph nodes, likely reactive. Prominent bilateral axillary lymph nodes are also likely reactive. The heart is normal in size, and there is no significant pericardial effusion. Bones and soft tissues: There is no destructive bony lesion. There is mild scoliosis and multilevel degenerative change seen within the visualized spine. Upper abdomen: There is biliary dilation. The patient is status post cholecystectomy. Peripheral calcified density seen within the right upper quadrant. This may relate to a dropped gallstone. IMPRESSION: No acute pulmonary process identified. Emphysema with mild, diffuse bronchiectasis. Mild bronchial wall thickening. Sequela of remote granulomatous disease. Stable subcentimeter pulmonary nodules, most likely benign, given stability since 2014. No follow-up examination is required. Prominent, less than 1 cm mediastinal lymph nodes, likely reactive. Biliary dilation. Status post cholecystectomy. Question dropped gallstone within the right upper quadrant. I personally reviewed images and agree with the above assessment PAST MEDICAL HISTORY Diagnosis Date Abdominal pain, other specified site Alcohol abuse Back pain DDD Bipolar affect, depressed (HCC) COPD (chronic obstructive pulmonary disease) (HCC) Coronary artery disease Depression Esophagitis, unspecified Essential hypertension, benign Gastritis Hyperlipidemia Lung nodules Nausea Neuralgia Other forms of migraine Prediabetes Tobacco use ALLERGIES Allergen Reactions Codeine Vomiting famotidine (PEPCID) 20 mg tablet Take 1 tablet by mouth daily at bedtime. ipratropium 20 mcg-albuterol 100 mcg (COMBIVENT RESPIMAT) 20-100 mcg/actuation inhaler Inhale 1 Puff as instructed four times daily as needed. budesonide-formoterol (SYMBICORT) 160-4.5 mcg/actuation inhaler Inhale 2 Puffs as instructed twice daily. pantoprazole DR (PROTONIX) 40 mg tablet Take 1 tablet by mouth twice daily before meals. Take on empty stomach, 1/2 hr before meal. dfbjddzpnxk-ecxxmmnzd-drhlzgjo (TRELEGY ELLIPTA) 100-62.5-25 mcg inhalation powder Inhale 1 Puff as instructed once daily. cariprazine (VRAYLAR) 3 mg capsule Take 1 capsule by mouth once daily. lamoTRIgine (LAMICTAL) 25 mg tablet Initiate Lamictal titration: take one 25mg tablet daily at bedtime for 2 weeks then take two 25mg tablets at bedtime for 2 weeks. [START ON 11/16/2021] lamoTRIgine (LAMICTAL) 100 mg tablet Take 1 tablet by mouth once daily. do not start until completed the 25mg tablets gabapentin (NEURONTIN) 100 mg capsule Take 1 capsule by mouth three times daily for 60 days. doxazosin (CARDURA) 1 mg tablet Take 1 tablet by mouth once daily. Promethazine-DM (PHENERGAN-DM) 6.25-15 mg/5 mL syrup Take 5 mL by mouth four times daily as needed. potassium chloride (K-TAB) 10 mEq tablet Take 1 tablet by mouth twice daily. amLODIPine (NORVASC) 10 mg tablet Take 1 tablet by mouth once daily. Diphenhydramine-Acetaminophen (TYLENOL PM EXTRA STRENGTH) 25-500 mg ORAL Tab Take by mouth once daily as needed. Social History Tobacco Use Smoking status: Current Every Day Smoker Packs/day: 2.00 Years: 40.00 Pack years: 80.00 Types: Cigarettes Start date: 1973 Smokeless tobacco: Never Used Tobacco comment: 2 ppd per day in past, current 1/2 ppd Substance Use Topics Alcohol use: Not Currently Comment: Not locally. Drug use: No Employed at [employer]. Pets: Cat, dog FAMILY HISTORY Problem Relation Age of Onset Diabetes Mother Ischemic Heart Disease Mother CHF Hypertension Mother Colon Cancer Father Colon Polyps Father Genetic Father Parkinsonism Sister 2018 other (hemochromatosis) Sister 2018 Diabetes Brother COPD Maternal Aunt Cancer Paternal Uncle COPD Paternal Uncle PAST SURGICAL HISTORY Procedure Laterality Date APPENDECTOMY 1979 CARDIAC CATH 04/2011 Dr. Yang DELIVERY ONLY , low cervical x2 CHOLECYSTECTOMY 2007 Cholecystectomy COLONOSCOPY 09/14/02 RG - normal COLONOSCOPY FLX DX W/COLLJ SPEC WHEN PFRMD 04/13/2012 Colonoscopy DILATION & CURETTAGE DX&/THER NONOBSTETRIC Dilation & curettage EGD 09/14/02 RG ESOPHAGOGASTRODUODENOSCOPY TRANSORAL DIAGNOSTIC 04/09/2010 EGD ESOPHAGOGASTRODUODENOSCOPY TRANSORAL DIAGNOSTIC 04/13/2012 EGD ESOPHAGOGASTRODUODENOSCOPY TRANSORAL DIAGNOSTIC 02/27/15 EGD EXTRACTION, ERUPTED TOOTH OR EXPOSED ROOT (ELEVATION AND/OR FORCEPS REMOVAL) Teeth removed HYSTERECTOMY HX 10/23/1985 LAPS ABD PRTM&OMENTUM DX W/WO SPEC BR/WA SPX Laparoscopy PMH, Social history, family history and surgical history reviewed and updated in EMR REVIEW OF SYSTEMS: CONSTITUTIONAL: No fevers, chills, nightsweats, unintended weight loss HEENT: Denies frequent or severe heaches, nasal congestion/sinus symptoms, problematic allergy problems. EYES: No diplopia or blurry vision. CARDIOVASCULAR: No palpitations, orthopnea, PND. Chest tightness, PENDLETON, occasional lower extremity edema PULM: See HPI GI: No dysphagia/odynophagia, problematic reflux, constipation, diarrhea, changes in stool habits : No urinary complaints, including dysuria, gross hematuria or pyuria. NEURO: No new balance problems, peripheral weakness/paresthesias or numbness of concern. MUSC-SKEL: No joint pain, swelling, or erythema. PSY: No concerns regarding depression, anxiety. Bipolar disorder INTEGUMENTARY: No new skin changes, rashes, eczema. Skin sensitivity PHYSICAL EXAMINATION: BP 138/78 Pulse 77 Resp 14 Ht 5' 1 (1.55m) Wt 112 lb (50.8kg) SpO2 96% BMI 21.17 kg/(m^2). General Appearance: Age-appropriate female no acute distress Skin: Skin color, texture, turgor normal, no suspicious rashes or lesions. Head: Normocephalic, no masses, lesions, tenderness or abnormalities. Eyes: Sclera, conjunctiva Oropharynx: Upper plate, dry mucosa, no Neck: No JVD, no masses, no bruits Chest wall:, Mild scoliosis, increased AP diam Lungs: Not labored, mild hyperresonance to percussion, no wheezes or crackles Heart: RRR, no murmurs Extremities: No edema or clubbing Musculoskeletal: No joint deformities or joint effusion Neurologic: Alert and oriented, no focal fine Lymph Nodes: No cervical lymphadenopathy and No supraclavicular lymphadenopathy. Assessment/Plan: 1. Severe COPD, GOLD stage 3 -Despite continued smoking, she has not had marked decline in her FEV1 compared to PFTs in 2018. Clinical worsening by symptoms. -Change inhaled therapy to Trelegy Ellipta with continued as needed Combivent -Smoking cessation is paramount -Qualifies for and agrees to low-dose chest CT for cancer screening but prefers [facility] -Ambulatory oxygen assessment 2. Cigarette smoker -Former 2 pack/day smoker current 1/2 pack a day smoker with emphysema and COPD -Discussed smoking cessation Caty Hale MD [facility] [place] documented in this encounter [facility] 10-26-2021 Nurse Note Intake information documented in the prior visit with GRACIA Lambert today. documented in this encounter [facility] 10-26-2021 History of Presen t illness Narrative PULM FUNCTION SMARTBLOCK: Provider: Caty Hale MD Assisting Tech: GRACIA Lambert Spirometry w/BD: 1 documented in this encounter [facility] 10-19-2021 History of Presen t illness Narrative Images from the original note were not included. PSYC FOLLOW UP - PSYCHIATRIC PROGRESS NOTE CC: medication management With the patient consent, visit was performed virtually. HPI: Allison returns for a medication management follow-up appointment. She reports she has a new job and is working at [employer] in [place] 3 days per week. She likes it and likes being out of the house. She works 3am to 9am in the morning. She works in the bakery. 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 She does feel better with the Vraylar,but states she is not where she wants to be. She is still having periods of depression and is still having about 4 days per week where the depression is very elevated. She denies si/hi. Affect is brighter today and smiling at times; more interactive with this provider. She is getting 3 hours total and then is up every half of an hour. She is in bed about 6-7 hours,but doesn't sleep the entire time. She drinks about 2 cups of coffee per day and denies alcohol use She never did decrease the Vraylar to 1.5mg and has continued to take the 3mg daily. She wants continue with the Vraylar at this dose now. Treatment options discussed and she is willing to add Lamictal to target the remaining symptoms of depression and unstable mood. Risks and benefits of the medication, including any black box warnings, were discussed with the patient. Allison verbalized understanding to all instructions and is in agreement with the treatment plan; confirmed that she would get to ER if needed for increase symptoms or safety concerns. Interval Progress: Slightly improved PATIENT DATA: Generalized Anxiety Disorder Scale (SIMON-7) SIMON - 7 SCORES 06/29/2021 07/31/2021 10/16/2021 SIMON-7 Score 15 12 15 (0-4) minimal anxiety, (5-9) mild anxiety, (10-14) moderate anxiety, (15-21) severe anxiety Patient Health Questionnaire (PHQ-9) PHQ-9 06/29/2021 07/31/2021 10/16/2021 Score 16 12 19 (0-4) minimal depression, (5-9) mild depression, (10-14) moderate depression, (15-19) moderately severe depression, (20-27) severe depression PROMIS Global Health PROMIS Global Health - (T-Scores - the mean of general population = 50. Five points is a clinically meaningful difference.) 11/09/2016 03/09/2021 05/11/2021 Physical T-Score 34.9 39.8 - Mental T-Score 28.4 28.4 31.3 PAST MEDICAL HISTORY Diagnosis Date Abdominal pain, other specified site Alcohol abuse Back pain DDD Bipolar affect, depressed (HCC) COPD (chronic obstructive pulmonary disease) (HCC) Coronary artery disease Depression Esophagitis, unspecified Essential hypertension, benign Gastritis Hyperlipidemia Lung nodules Nausea Neuralgia Other forms of migraine Prediabetes Tobacco use PAST SURGICAL HISTORY Procedure Laterality Date APPENDECTOMY 1979 CARDIAC CATH 04/2011 Dr. Yang DELIVERY ONLY , low cervical x2 CHOLECYSTECTOMY 2008 Cholecystectomy COLONOSCOPY 09/14/02 RG - normal COLONOSCOPY FLX DX W/COLLJ SPEC WHEN PFRMD 04/13/2012 Colonoscopy DILATION & CURETTAGE DX&/THER NONOBSTETRIC Dilation & curettage EGD 09/14/02 RG ESOPHAGOGASTRODUODENOSCOPY TRANSORAL DIAGNOSTIC 04/09/2010 EGD ESOPHAGOGASTRODUODENOSCOPY TRANSORAL DIAGNOSTIC 04/13/2012 EGD ESOPHAGOGASTRODUODENOSCOPY TRANSORAL DIAGNOSTIC 02/27/15 EGD EXTRACTION, ERUPTED TOOTH OR EXPOSED ROOT (ELEVATION AND/OR FORCEPS REMOVAL) Teeth removed HYSTERECTOMY HX 10/23/1985 LAPS ABD PRTM&OMENTUM DX W/WO SPEC BR/WA SPX Laparoscopy Current Outpatient Medications Medication Sig Dispense Refill gabapentin (NEURONTIN) 100 mg capsule Take 1 capsule by mouth three times daily for 60 days. 90 capsule 1 famotidine (PEPCID) 20 mg tablet Take 1 tablet by mouth daily at bedtime. 90 tablet 1 cariprazine (VRAYLAR) 1.5 mg capsule Take 1 capsule by mouth once daily. 30 capsule 2 ipratropium 20 mcg-albuterol 100 mcg (COMBIVENT RESPIMAT) 20-100 mcg/actuation inhaler Inhale 1 Puff as instructed four times daily as needed. 4 g 5 budesonide-formoterol (SYMBICORT) 160-4.5 mcg/actuation inhaler Inhale 2 Puffs as instructed twice daily. 3 Inhaler 1 doxazosin (CARDURA) 1 mg tablet Take 1 tablet by mouth once daily. 30 tablet 2 Promethazine-DM (PHENERGAN-DM) 6.25-15 mg/5 mL syrup Take 5 mL by mouth four times daily as needed. 120 mL 0 potassium chloride (K-TAB) 10 mEq tablet Take 1 tablet by mouth twice daily. [address] (PROTONIX) 40 mg tablet Take 1 tablet by mouth twice daily before meals. Take on empty stomach, 1/2 hr before meal. 60 tablet 2 amLODIPine (NORVASC) 10 mg tablet Take 1 tablet by mouth once daily. 90 tablet 3 Diphenhydramine-Acetaminophen (TYLENOL PM EXTRA STRENGTH) 25-500 mg ORAL Tab Take by mouth once daily as needed. No current facility-administered medications for this visit. ROS: GENERAL: Negative for malaise, significant weight loss and fever. HEENT: No changes in hearing or vision, no nose bleeds or other nasal problems. RESPIRATORY: Negative for cough, wheezing and shortness of breath. CARDIOVASCULAR: Negative for chest pain, leg swelling and palpitations. GI: Negative for abdominal discomfort, blood in stools or black stools. : Negative for dysuria, frequency and incontinence. MUSCULOSKELETAL: Negative for joint pain or swelling, back pain, and muscle pain. SKIN: Negative for lesions, rash, and itching. HEMATOLOGY/LYMPHOLOGY Negative for prolonged bleeding, bruising easily, and swollen nodes. ENDOCRINE: Negative for cold or heat intolerance, polyuria, polydipsia and goiter. NEURO: Negative for syncope, seizures and paralysis,but does get frequent headaches PFSH: see hpi VITAL SIGNS: There were no vitals filed for this visit. MENTAL STATUS EXAM: CONSTITUTIONAL: Appropriately dressed ORIENTATION: Person, Place, Time and Situation MEMORY: Recent intact, Remote intact, Immediate intact CONCENTRATION: Normal MOOD: depressed, but improved AFFECT: Full and appropriate to topic SPEECH : Clear & distinct LANGUAGE : Normal ASSOCIATIONS: Intact THOUGHT PROCESS : Logical, Coherent and Rational PROGRESSION : There was no evidence of disturbance in thought perception or progression. FUND OF KNOWLEDGE : Appropriate and Adequate SUICIDE: None HOMICIDE: None DATA REVIEWED: Electronic medical record DIAGNOSIS: 1. PRIMARY: Mood Disorder Bipolar II Disorder 2. Secondary : Anxiety Disorder unspecified type GAF: 58 -60-51 Moderate symptoms or moderate difficulty in social, occupational or school functioning. TREATMENT PLAN: 1. Mood is improved with Vraylar (she never reduced the dose and has continued to take the 3mg daily) she would like to continue with this dose now able to leave house and has a job 2. Lamictal titration to 100mg added to target remaining symptoms of depression and irritability 3. work on sleep hygeine; aim for 7 hours sleep per day MEDICATION CHANGES: - Reviewed Lamictal titration & risk of severe rash. Instructed to call JARRETT if this occurs. Follow Up: 12/22 at 3p I spent a total of 25 minutes on the date of the service which included preparing to see the patient, [id number] patient care, completing clinical documentation, obtaining and/or reviewing separately obtained history, performing a medically appropriate examination, counseling and educating the patient/family/caregiver and ordering medications, tests, or procedures. ADD ON PSYCHOTHERAPY CODE : No SIGNATURE: Matt Vickers APRN.CNP PATIENT NAME: Jacque Dozier DATE: October 19, 2021 TIME: 4:08 PM PAGER: n/a documented in this encounter [facility] 10-19-2021 Miscellaneous Notes Spoke to patient confirming today's VV @ 4:00 PM. documented in this encounter [facility] 08-26-2021 History of Presen t illness Narrative Images from the original note were not included. PSYC FOLLOW UP - PSYCHIATRIC PROGRESS NOTE CC: medication management With the patient consent, visit was performed virtually. HPI: Allison returns for a medication management follow-up appointment. She reports she lost her 3 mos ago. She is still grieving and hasn't been wanting to leave the house. She tries to go to the store and can't go in and turns around and goes back home. She has daily crying spells. I am a wreck. She is sleeping only 1-2 hours during the night and is not napping. She states I can't sit still. She paces the house at night and all day; feels restless. She denies si/hi. She has been taking the Vraylar since May. Will try a lower dose of the Vraylar at 1.5mg daily to see if decreases the vraylar. Risks and benefits of the medication, including any black box warnings, were discussed with the patient. Allison verbalized understanding to all instructions and is in agreement with the treatment plan; confirmed that she would get to ER if needed for increase symptoms or safety concerns. Interval Progress: Same PATIENT DATA: Generalized Anxiety Disorder Scale (SIMON-7) SIMON - 7 SCORES 04/08/2021 06/29/2021 07/31/2021 SIMON-7 Score 10 15 12 (0-4) minimal anxiety, (5-9) mild anxiety, (10-14) moderate anxiety, (15-21) severe anxiety Patient Health Questionnaire (PHQ-9) PHQ-9 06/02/2021 06/29/2021 07/31/2021 Score 8 16 12 (0-4) minimal depression, (5-9) mild depression, (10-14) moderate depression, (15-19) moderately severe depression, (20-27) severe depression PROMIS Global Health PROMIS Global Health - (T-Scores - the mean of general population = 50. Five points is a clinically meaningful difference.) 11/09/2016 03/09/2021 05/11/2021 Physical T-Score 34.9 39.8 - Mental T-Score 28.4 28.4 31.3 Abnormal Involuntary Movement Scale Abnormal Involuntary Movement Scale (AIMS) 08/26/2021 Muscles of facial expression None, normal Lips and perioral area None, normal Jaw None, normal Tongue None, normal Upper (arms, wrists, hands, fingers) None, normal Lower (legs, knees, ankles, toes) None, normal Neck, shoulders, hips None, normal Severity of abnormal movements None, normal Incapacitation due to abnormal movements None, normal Patient's awareness of abnormal movements No awareness Current problems with teeth and/or dentures? (0=no, 1=yes) 0 Does patient usually wear dentures? (0=no, 1=yes) 1 Edentia? (0=no, 1=yes) 0 PAST MEDICAL HISTORY Diagnosis Date Abdominal pain, other specified site Alcohol abuse Back pain DDD Bipolar affect, depressed (HCC) COPD (chronic obstructive pulmonary disease) (HCC) Coronary artery disease Depression Esophagitis, unspecified Essential hypertension, benign Gastritis Hyperlipidemia Lung nodules Nausea Neuralgia Other forms of migraine Prediabetes Tobacco use PAST SURGICAL HISTORY Procedure Laterality Date APPENDECTOMY 1979 CARDIAC CATH 04/2011 Dr. Yang DELIVERY ONLY , low cervical x2 CHOLECYSTECTOMY 2007 Cholecystectomy COLONOSCOPY 09/14/02 RG - normal COLONOSCOPY FLX DX W/COLLJ SPEC WHEN PFRMD 04/13/2012 Colonoscopy DILATION & CURETTAGE DX&/THER NONOBSTETRIC Dilation & curettage EGD 09/14/02 RG ESOPHAGOGASTRODUODENOSCOPY TRANSORAL DIAGNOSTIC 04/09/2010 EGD ESOPHAGOGASTRODUODENOSCOPY TRANSORAL DIAGNOSTIC 04/13/2012 EGD ESOPHAGOGASTRODUODENOSCOPY TRANSORAL DIAGNOSTIC 02/27/15 EGD EXTRACTION, ERUPTED TOOTH OR EXPOSED ROOT (ELEVATION AND/OR FORCEPS REMOVAL) Teeth removed HYSTERECTOMY HX 10/23/1985 LAPS ABD PRTM&OMENTUM DX W/WO SPEC BR/WA SPX Laparoscopy Current Outpatient Medications Medication Sig Dispense Refill famotidine (PEPCID) 20 mg tablet Take 1 tablet by mouth daily at bedtime. 90 tablet 1 ipratropium 20 mcg-albuterol 100 mcg (COMBIVENT RESPIMAT) 20-100 mcg/actuation inhaler Inhale 1 Puff as instructed four times daily as needed. 4 g 5 budesonide-formoterol (SYMBICORT) 160-4.5 mcg/actuation inhaler Inhale 2 Puffs as instructed twice daily. 3 Inhaler 1 doxazosin (CARDURA) 1 mg tablet Take 1 tablet by mouth once daily. 30 tablet 2 Promethazine-DM (PHENERGAN-DM) 6.25-15 mg/5 mL syrup Take 5 mL by mouth four times daily as needed. 120 mL 0 potassium chloride (K-TAB) 10 mEq tablet Take 1 tablet by mouth twice daily. [address] (PROTONIX) 40 mg tablet Take 1 tablet by mouth twice daily before meals. Take on empty stomach, 1/2 hr before meal. 60 tablet 2 cariprazine (VRAYLAR) 3 mg capsule Take 1 capsule by mouth once daily. 30 capsule 2 amLODIPine (NORVASC) 10 mg tablet Take 1 tablet by mouth once daily. 90 tablet 3 Diphenhydramine-Acetaminophen (TYLENOL PM EXTRA STRENGTH) 25-500 mg ORAL Tab Take by mouth once daily as needed. No current facility-administered medications for this visit. ROS: GENERAL: Negative for malaise, significant weight loss and fever. HEENT: No changes in hearing or vision, no nose bleeds or other nasal problems. RESPIRATORY: Negative for cough, wheezing and shortness of breath, but does experience shortness of breath with increased activity CARDIOVASCULAR: Negative for chest pain, leg swelling and palpitations. GI: Negative for abdominal discomfort, blood in stools or black stools. : Negative for dysuria, frequency and incontinence. MUSCULOSKELETAL: Negative for joint pain or swelling, back pain, and muscle pain. SKIN: Negative for lesions, rash, and itching. HEMATOLOGY/LYMPHOLOGY Negative for prolonged bleeding, bruising easily, and swollen nodes. ENDOCRINE: Negative for cold or heat intolerance, polyuria, polydipsia and goiter. NEURO: Negative for headaches, syncope, seizures and paralysis. PFSH: lost her 3 mos ago VITAL SIGNS: There were no vitals filed for this visit. MENTAL STATUS EXAM: CONSTITUTIONAL: Appropriately dressed ORIENTATION: Person, Place, Time and Situation MEMORY: Recent intact, Remote intact, Immediate intact CONCENTRATION: Variable MOOD: depressed AFFECT: Flat SPEECH : Clear & distinct LANGUAGE : Normal ASSOCIATIONS: Intact THOUGHT PROCESS : Logical, Coherent and Rational PROGRESSION : There was no evidence of disturbance in thought perception or progression. FUND OF KNOWLEDGE : Appropriate and Adequate SUICIDE: None HOMICIDE: None DATA REVIEWED: Electronic medical record DIAGNOSIS: 1. PRIMARY: Mood Disorder Bipolar II Disorder 2. Secondary : Anxiety Disorder Anxiety Disorder NOS 3. Other : grief GAF: [id number] Moderate symptoms or moderate difficulty in social, occupational or school functioning. TREATMENT PLAN: 1. lower dose of vraylar to see if feels less restless; most likely causing akathesia Vraylar 1.5mg daily 2. follow up October 19 at virtual MEDICATION CHANGES: See Treatment Plan Follow Up: See Treatment Plan I spent a total of 26 minutes on the date of the service which included preparing to see the patient, [id number] patient care, completing clinical documentation, obtaining and/or reviewing separately obtained history, performing a medically appropriate examination, counseling and educating the patient/family/caregiver and ordering medications, tests, or procedures. ADD ON PSYCHOTHERAPY CODE : No SIGNATURE: Matt Vickers APRN.CNP PATIENT NAME: Jacque Dozier DATE: August 26, 2021 TIME: 2:08 PM PAGER: n/a documented in this encounter [facility] documented as of this encounter (statuses as of 12/22/2021) [facility] History of Past illness Narrative* Problem Noted Date Resolved Date Anxiety neurosis 08/26/2021 12/22/2021 Epigastric pain 02/27/2015 02/27/2015 Gastroesophageal reflux disease 02/27/2015 02/27/2015 Anxiety 02/17/2015 07/10/2019 Lung nodules 02/17/2015 03/08/2021 Overview: 08/05/17 CXR stable 7-8mm RLL from 12/03/[address] [facility] 03/14/15 read as prior granulomatous disease with concern, reviewed by study abroad coordinator Rodrigo Núñez. Plan: no need for further work up. Acute gastritis without mention of hemorrhage 03/05/2021 Abdominal pain, other specified site 03/27/2010 documented as of this encounter (statuses as of 12/22/2021) [facility] History of Past illness Narrative* Problem Noted Date Resolved Date Anxiety neurosis 08/26/2021 12/22/2021 Epigastric pain 02/27/2015 02/27/2015 Gastroesophageal reflux disease 02/27/2015 02/27/2015 Anxiety 02/17/2015 07/10/2019 Lung nodules 02/17/2015 03/08/2021 Overview: 08/05/17 CXR stable 7-8mm RLL from 12/03/[address] [facility] 03/14/15 read as prior granulomatous disease with concern, reviewed by study abroad coordinator Rodrigo Núñez. Plan: no need for further work up. Acute gastritis without mention of hemorrhage 03/05/2021 Abdominal pain, other specified site 03/27/2010 documented as of this encounter (statuses as of 01/01/2022) [facility] History of Past illness Narrative* Problem Noted Date Resolved Date Anxiety neurosis 08/26/2021 12/22/2021 Epigastric pain 02/27/2015 02/27/2015 Gastroesophageal reflux disease 02/27/2015 02/27/2015 Anxiety 02/17/2015 07/10/2019 Lung nodules 02/17/2015 03/08/2021 Overview: 08/05/17 CXR stable 7-8mm RLL from 12/03/[address] [facility] 03/14/15 read as prior granulomatous disease with concern, reviewed by study abroad coordinator Rodrigo Núñez. Plan: no need for further work up. Acute gastritis without mention of hemorrhage 03/05/2021 Abdominal pain, other specified site 03/27/2010 documented as of this encounter (statuses as of 01/19/2022) [facility] History of Past illness Narrative* Problem Noted Date Resolved Date Anxiety neurosis 08/26/2021 12/22/2021 Epigastric pain 02/27/2015 02/27/2015 Gastroesophageal reflux disease 02/27/2015 02/27/2015 Anxiety 02/17/2015 07/10/2019 Lung nodules 02/17/2015 03/08/2021 Overview: 08/05/17 CXR stable 7-8mm RLL from 12/03/[address] [facility] 03/14/15 read as prior granulomatous disease with concern, reviewed by study abroad coordinator Rodrigo Núñez. Plan: no need for further work up. Acute gastritis without mention of hemorrhage 03/05/2021 Abdominal pain, other specified site 03/27/2010 documented as of this encounter (statuses as of 01/25/2022) [facility] History of Past illness Narrative* Problem Noted Date Resolved Date Anxiety neurosis 08/26/2021 12/22/2021 Epigastric pain 02/27/2015 02/27/2015 Gastroesophageal reflux disease 02/27/2015 02/27/2015 Anxiety 02/17/2015 07/10/2019 Lung nodules 02/17/2015 03/08/2021 Overview: 08/05/17 CXR stable 7-8mm RLL from 12/03/[address] [facility] 03/14/15 read as prior granulomatous disease with concern, reviewed by study abroad coordinator Rodrigo Núñez. Plan: no need for further work up. Acute gastritis without mention of hemorrhage 03/05/2021 Abdominal pain, other specified site 03/27/2010 documented as of this encounter (statuses as of 01/25/2022) [facility] History of Past illness Narrative* Problem Noted Date Resolved Date Anxiety neurosis 08/26/2021 12/22/2021 Epigastric pain 02/27/2015 02/27/2015 Gastroesophageal reflux disease 02/27/2015 02/27/2015 Anxiety 02/17/2015 07/10/2019 Lung nodules 02/17/2015 03/08/2021 Overview: 08/05/17 CXR stable 7-8mm RLL from 12/03/[address] [facility] 03/14/15 read as prior granulomatous disease with concern, reviewed by study abroad coordinator Rodrigo Núñez. Plan: no need for further work up. Acute gastritis without mention of hemorrhage 03/05/2021 Abdominal pain, other specified site 03/27/2010 documented as of this encounter (statuses as of 01/28/2022) [facility] History of Past illness Narrative* Problem Noted Date Resolved Date Anxiety neurosis 08/26/2021 12/22/2021 Epigastric pain 02/27/2015 02/27/2015 Gastroesophageal reflux disease 02/27/2015 02/27/2015 Anxiety 02/17/2015 07/10/2019 Lung nodules 02/17/2015 03/08/2021 Overview: 08/05/17 CXR stable 7-8mm RLL from 12/03/[address] [facility] 03/14/15 read as prior granulomatous disease with concern, reviewed by study abroad coordinator Rodrigo Núñez. Plan: no need for further work up. Acute gastritis without mention of hemorrhage 03/05/2021 Abdominal pain, other specified site 03/27/2010 documented as of this encounter (statuses as of 01/28/2022) [facility] History of Past illness Narrative* Problem Noted Date Resolved Date Anxiety neurosis 08/26/2021 12/22/2021 Epigastric pain 02/27/2015 02/27/2015 Gastroesophageal reflux disease 02/27/2015 02/27/2015 Anxiety 02/17/2015 07/10/2019 Lung nodules 02/17/2015 03/08/2021 Overview: 08/05/17 CXR stable 7-8mm RLL from 12/03/[address] [facility] 03/14/15 read as prior granulomatous disease with concern, reviewed by study abroad coordinator Rodrigo Núñez. Plan: no need for further work up. Acute gastritis without mention of hemorrhage 03/05/2021 Abdominal pain, other specified site 03/27/2010 documented as of this encounter (statuses as of 02/22/2022) [facility] History of Past illness Narrative* Problem Noted Date Resolved Date Anxiety neurosis 08/26/2021 12/22/2021 Epigastric pain 02/27/2015 02/27/2015 Gastroesophageal reflux disease 02/27/2015 02/27/2015 Anxiety 02/17/2015 07/10/2019 Lung nodules 02/17/2015 03/08/2021 Overview: 08/05/17 CXR stable 7-8mm RLL from 12/03/[address] [facility] 03/14/15 read as prior granulomatous disease with concern, reviewed by study abroad coordinator Rodrigo Núñez. Plan: no need for further work up. Acute gastritis without mention of hemorrhage 03/05/2021 Abdominal pain, other specified site 03/27/2010 documented as of this encounter (statuses as of 02/23/2022) [facility] History of Past illness Narrative* Problem Noted Date Resolved Date Anxiety neurosis 08/26/2021 12/22/2021 Epigastric pain 02/27/2015 02/27/2015 Gastroesophageal reflux disease 02/27/2015 02/27/2015 Anxiety 02/17/2015 07/10/2019 Lung nodules 02/17/2015 03/08/2021 Overview: 08/05/17 CXR stable 7-8mm RLL from 12/03/[address] [facility] 03/14/15 read as prior granulomatous disease with concern, reviewed by study abroad coordinator Rodrigo Núñez. Plan: no need for further work up. Acute gastritis without mention of hemorrhage 03/05/2021 Abdominal pain, other specified site 03/27/2010 documented as of this encounter (statuses as of 02/24/2022) [facility] History of Past illness Narrative* Problem Noted Date Resolved Date Anxiety neurosis 08/26/2021 12/22/2021 Epigastric pain 02/27/2015 02/27/2015 Gastroesophageal reflux disease 02/27/2015 02/27/2015 Anxiety 02/17/2015 07/10/2019 Lung nodules 02/17/2015 03/08/2021 Overview: 08/05/17 CXR stable 7-8mm RLL from 12/03/[address] [facility] 03/14/15 read as prior granulomatous disease with concern, reviewed by study abroad coordinator Rodrigo Núñez. Plan: no need for further work up. 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 [facility] 03/14/15 read as prior granulomatous disease with concern, reviewed by study abroad coordinator Rodrigo Núñez. Plan: no need for further work up. 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 [facility] 03/14/15 read as prior granulomatous disease with concern, reviewed by study abroad coordinator Rodrigo Núñez. Plan: no need for further work up. 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 [facility] 03/14/15 read as prior granulomatous disease with concern, reviewed by study abroad coordinator Rodrigo Núñez. Plan: no need for further work up. 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 [facility] 03/14/15 read as prior granulomatous disease with concern, reviewed by study abroad coordinator Rodrigo Núñez. Plan: no need for further work up. 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 [facility] 03/14/15 read as prior granulomatous disease with concern, reviewed by study abroad coordinator Rodrigo Núñez. Plan: no need for further work up. 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 [facility] 03/14/15 read as prior granulomatous disease with concern, reviewed by study abroad coordinator Rodrigo Núñez. Plan: no need for further work up. 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 [facility] 03/14/15 read as prior granulomatous disease with concern, reviewed by study abroad coordinator Rodrigo Núñez. Plan: no need for further work up. 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 [facility] 03/14/15 read as prior granulomatous disease with concern, reviewed by study abroad coordinator Rodrigo Núñez. Plan: no need for further work up. 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 [facility] 03/14/15 read as prior granulomatous disease with concern, reviewed by study abroad coordinator Rodrigo Núñez. Plan: no need for further work up. 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 [facility] 03/14/15 read as prior granulomatous disease with concern, reviewed by study abroad coordinator Rodrigo Núñez. Plan: no need for further work up. 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 [facility] 03/14/15 read as prior granulomatous disease with concern, reviewed by study abroad coordinator Rodrigo Núñez. Plan: no need for further work up. 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 [facility] 03/14/15 read as prior granulomatous disease with concern, reviewed by study abroad coordinator Rodrigo Núñez. Plan: no need for further work up. 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 [facility] 03/14/15 read as prior granulomatous disease with concern, reviewed by study abroad coordinator Rodrigo Núñez. Plan: no need for further work up. 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 [facility] 03/14/15 read as prior granulomatous disease with concern, reviewed by study abroad coordinator Rodrigo Núñez. Plan: no need for further work up. 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 [facility] 03/14/15 read as prior granulomatous disease with concern, reviewed by study abroad coordinator Rodrigo Núñez. Plan: no need for further work up. 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 [facility] 03/14/15 read as prior granulomatous disease with concern, reviewed by study abroad coordinator Rodrigo Núñez. Plan: no need for further work up. 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 [facility] 03/14/15 read as prior granulomatous disease with concern, reviewed by study abroad coordinator Rodrigo Núñez. Plan: no need for further work up. 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 [facility] 03/14/15 read as prior granulomatous disease with concern, reviewed by study abroad coordinator Rodrigo Núñez. Plan: no need for further work up. 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 [facility] 03/14/15 read as prior granulomatous disease with concern, reviewed by study abroad coordinator Rodrigo Núñez. Plan: no need for further work up. 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 [facility] 03/14/15 read as prior granulomatous disease with concern, reviewed by study abroad coordinator Rodrigo Núñez. Plan: no need for further work up. 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 [facility] 03/14/15 read as prior granulomatous disease with concern, reviewed by study abroad coordinator Rodrigo Núñez. Plan: no need for further work up. 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 [facility] 03/14/15 read as prior granulomatous disease with concern, reviewed by study abroad coordinator Rodrigo Núñez. Plan: no need for further work up. 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 [facility] 03/14/15 read as prior granulomatous disease with concern, reviewed by study abroad coordinator Rodrigo Núñez. Plan: no need for further work up. 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 [facility] 03/14/15 read as prior granulomatous disease with concern, reviewed by study abroad coordinator Rodrigo Núñez. Plan: no need for further work up. 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 [facility] 03/14/15 read as prior granulomatous disease with concern, reviewed by study abroad coordinator Rodrigo Núñez. Plan: no need for further work up. 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 [facility] 03/14/15 read as prior granulomatous disease with concern, reviewed by study abroad coordinator Rodrigo Núñez. Plan: no need for further work up. 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 [facility] 03/14/15 read as prior granulomatous disease with concern, reviewed by study abroad coordinator Rodrigo Núñez. Plan: no need for further work up. 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 [facility] 03/14/15 read as prior granulomatous disease with concern, reviewed by study abroad coordinator Rodrigo Núñez. Plan: no need for further work up. 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 [facility] 03/14/15 read as prior granulomatous disease with concern, reviewed by study abroad coordinator Rodrigo Núñez. Plan: no need for further work up. 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 [facility] 03/14/15 read as prior granulomatous disease with concern, reviewed by study abroad coordinator Rodrigo Núñez. Plan: no need for further work up. 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 [facility] 03/14/15 read as prior granulomatous disease with concern, reviewed by study abroad coordinator Rodrigo Núñez. Plan: no need for further work up. 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 [facility] 03/14/15 read as prior granulomatous disease with concern, reviewed by study abroad coordinator Rodrigo Núñez. Plan: no need for further work up. 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 [facility] 03/14/15 read as prior granulomatous disease with concern, reviewed by study abroad coordinator Rodrigo Núñez. Plan: no need for further work up. 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 [facility] 03/14/15 read as prior granulomatous disease with concern, reviewed by study abroad coordinator Rodrigo Núñez. Plan: no need for further work up. 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 [facility] 03/14/15 read as prior granulomatous disease with concern, reviewed by study abroad coordinator Rodrigo Núñez. Plan: no need for further work up. 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 [facility] 03/14/15 read as prior granulomatous disease with concern, reviewed by study abroad coordinator Rodrigo Núñez. Plan: no need for further work up. 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 [facility] 03/14/15 read as prior granulomatous disease with concern, reviewed by study abroad coordinator Rodrigo Núñez. Plan: no need for further work up. 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 [facility] 03/14/15 read as prior granulomatous disease with concern, reviewed by study abroad coordinator Rodrigo Núñez. Plan: no need for further work up. 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 [facility] 03/14/15 read as prior granulomatous disease with concern, reviewed by study abroad coordinator Rodrigo Núñez. Plan: no need for further work up. 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 [facility] 03/14/15 read as prior granulomatous disease with concern, reviewed by study abroad coordinator Rodrigo Núñez. Plan: no need for further work up. 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 [facility] 03/14/15 read as prior granulomatous disease with concern, reviewed by study abroad coordinator Rodrigo Núñez. Plan: no need for further work up. 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 [facility] 03/14/15 read as prior granulomatous disease with concern, reviewed by study abroad coordinator Rodrigo Núñez. Plan: no need for further work up. 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 [facility] 03/14/15 read as prior granulomatous disease with concern, reviewed by study abroad coordinator Rodrigo Núñez. Plan: no need for further work up. 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 [facility] 03/14/15 read as prior granulomatous disease with concern, reviewed by study abroad coordinator Rodrigo Núñez. Plan: no need for further work up. 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 [facility] 03/14/15 read as prior granulomatous disease with concern, reviewed by study abroad coordinator Rodrigo Núñez. Plan: no need for further work up. 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 [facility] 03/14/15 read as prior granulomatous disease with concern, reviewed by study abroad coordinator Rodrigo Núñez. Plan: no need for further work up. 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 [facility] 03/14/15 read as prior granulomatous disease with concern, reviewed by study abroad coordinator Rodrigo Núñez. Plan: no need for further work up. 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 [facility] 03/14/15 read as prior granulomatous disease with concern, reviewed by study abroad coordinator Rodrigo Núñez. Plan: no need for further work up. 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 [facility] 03/14/15 read as prior granulomatous disease with concern, reviewed by study abroad coordinator Rodrigo Núñez. Plan: no need for further work up. 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 [facility] 03/14/15 read as prior granulomatous disease with concern, reviewed by study abroad coordinator Rodrigo Núñez. Plan: no need for further work up. 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 [facility] 03/14/15 read as prior granulomatous disease with concern, reviewed by study abroad coordinator Rodrigo Núñez. Plan: no need for further work up. 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 [facility] 03/14/15 read as prior granulomatous disease with concern, reviewed by study abroad coordinator Rodrigo Núñez. Plan: no need for further work up. 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 [facility] 03/14/15 read as prior granulomatous disease with concern, reviewed by study abroad coordinator Rodrigo Núñez. Plan: no need for further work up. 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 [facility] 03/14/15 read as prior granulomatous disease with concern, reviewed by study abroad coordinator Rodrigo Núñez. Plan: no need for further work up. 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 [facility] 03/14/15 read as prior granulomatous disease with concern, reviewed by study abroad coordinator Rodrigo Núñez. Plan: no need for further work up. 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 [facility] 03/14/15 read as prior granulomatous disease with concern, reviewed by study abroad coordinator Rodrigo Núñez. Plan: no need for further work up. 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 [facility] 03/14/15 read as prior granulomatous disease with concern, reviewed by study abroad coordinator Rodrigo Núñez. Plan: no need for further work up. 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 [facility] 03/14/15 read as prior granulomatous disease with concern, reviewed by study abroad coordinator Rodrigo Núñez. Plan: no need for further work up. 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 [facility] 03/14/15 read as prior granulomatous disease with concern, reviewed by study abroad coordinator Rodrigo Núñez. Plan: no need for further work up. 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 [facility] 03/14/15 read as prior granulomatous disease with concern, reviewed by study abroad coordinator Rodrigo Núñez. Plan: no need for further work up. 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 [facility] 03/14/15 read as prior granulomatous disease with concern, reviewed by study abroad coordinator Rodrigo Núñez. Plan: no need for further work up. 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 [facility] 03/14/15 read as prior granulomatous disease with concern, reviewed by study abroad coordinator Rodrigo Núñez. Plan: no need for further work up. 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 [facility] 03/14/15 read as prior granulomatous disease with concern, reviewed by study abroad coordinator Rodrigo Núñez. Plan: no need for further work up. 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 [facility] 03/14/15 read as prior granulomatous disease with concern, reviewed by study abroad coordinator Rodrigo Núñez. Plan: no need for further work up. 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 [facility] 03/14/15 read as prior granulomatous disease with concern, reviewed by study abroad coordinator Rodrigo Núñez. Plan: no need for further work up. 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 [facility] 03/14/15 read as prior granulomatous disease with concern, reviewed by study abroad coordinator Rodrigo Núñez. Plan: no need for further work up. 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 [facility] 03/14/15 read as prior granulomatous disease with concern, reviewed by study abroad coordinator Rodrigo Núñez. Plan: no need for further work up. Acute gastritis without mention of hemorrhage 04/09/19 11 03/05/2021 Abdominal pain, other specified site 03/27/2010 documented as of this encounter (statuses as of 05/12/2023) [facility] Miscellaneous Notes* Telephone Encounter - Reuben Roche RN - 08/26/2021 11:10 AM EDT Spoke with pt confirming today's 2 pm VV [facility] Miscellaneous Notes* Telephone Encounter - Caty Hahn Ma - 08/21/2021 11:18 AM EDT Patient last visit 07/31/21 Follow up appointment scheduled none Caty Hahn Ma documented [facility] Instructions* Patient Instructions* Bettie Ron APRN.CNP - 08/04/2021 1:36 PM EDT Repeat colonoscopy in 5 years Continue pantoprazole 40mg and pepcid at bedtime - use Gaviscon as needed for upset stomach - if noimprovement we can consider changing medication Avoid NSAIDs (such as Advil, Ibuprofen, Excedrin, Mobic), tobacco, alcohol, carbonated beverages, caffeine, chocolate, tomato based sauces, spicy/fatty foods, and peppermint Avoid eating large meals. Avoid eating less than 3 hours before bed. Weight loss. Elevate the head of the bed 6 inches, or at least invest in a wedge pillow. [facility] History of Present illness Narrative* Bettie Ron APRN.CNP - 08/04/2021 1:34 PM EDT CHIEF COMPLAINT: Patient presents with: Follow Up The patient was seen by on 06/24/2021 for upper endoscopy and colonoscopy. The procedureswere performed with Fentanyl 50 micrograms IV, Midazolam 5 mg IV, Benzocaine spray sedation. The procedure report has been reviewed and findings as follows: Impression: - Non-bleeding internal hemorrhoids. - No specimens collected. Impression: - 1 cm hiatal hernia. - LA Grade A reflux esophagitis. - Normal stomach. Biopsied. - Normal examined duodenum. FINAL DIAGNOSIS Stomach, biopsy: - Oxyntic and antral mucosa with features suggestive of proton pump inhibitor effect. - No morphological evidence of Helicobacter pylori organisms. - Repeat colonoscopy in 5 years for surveillance. AMANDA Dozier is a 65 year old female here today for follow up EGD and colonoscopy. Patient reports nauseated and sick to her stomach last night - She reports eating [employer] pie - but reports this was not greasy - She states that the nausea occurs intermittently and does not notice a change since adding pepcid at night. She also purchased a wedge pillow. Current Outpatient Medications Medication Sig Promethazine-DM (PHENERGAN-DM) 6.25-15 mg/5 mL syrup Take 5 mL by mouth four times daily as needed. potassium chloride (K-TAB) 10 mEq tablet Take 1 tablet by mouth twice daily. pantoprazole DR (PROTONIX) 40 mg tablet Take 1 tablet by mouth twice daily before meals. Take on empty stomach, 1/2 hr before meal. doxazosin (CARDURA) 1 mg tablet Take 1 tablet by mouth once daily. cariprazine (VRAYLAR) 3 mg capsule Take 1 capsule by mouth once daily. budesonide-formoterol (SYMBICORT) 160-4.5 mcg/actuation inhaler Inhale 2 Puffs as instructed twice daily. ipratropium 20 mcg-albuterol 100 mcg (COMBIVENT RESPIMAT) 20-100 mcg/actuation inhaler Inhale 1 Puff as instructed four times daily as needed. famotidine (PEPCID) 20 mg tablet TAKE 1 TABLET BY MOUTH EVERYDAY AT BEDTIME amLODIPine (NORVASC) 10 mg tablet Take 1 tablet by mouth once daily. Diphenhydramine-Acetaminophen (TYLENOL PM EXTRA STRENGTH) 25-500 mg ORAL Tab Take by mouth once daily as needed. No current facility-administered medications for this visit. ALLERGIES Allergen Reactions Codeine Vomiting Social History Tobacco Use Smoking status: Current Every Day Smoker Packs/day: 0.30 Years: 40.00 Pack years: 12.00 Types: Cigarettes Start date: 1973 Smokeless tobacco: Never Used Substance Use Topics Alcohol use: Not Currently Comment: Not locally. Drug use: No PAST MEDICAL HISTORY Diagnosis Date Abdominal pain, other specified site Alcohol abuse Back pain DDD Bipolar affect, depressed (HCC) COPD (chronic obstructive pulmonary disease) (HCC) Coronary artery disease Depression Esophagitis, unspecified Essential hypertension, benign Gastritis Hyperlipidemia Lung nodules Nausea Neuralgia Other forms of migraine Prediabetes Tobacco use PAST SURGICAL HISTORY Procedure Laterality Date APPENDECTOMY 1979 CARDIAC CATH 04/2011 Dr. Yang DELIVERY ONLY , low cervical x2 CHOLECYSTECTOMY 2007 Cholecystectomy COLONOSCOPY 09/14/02 RG - normal COLONOSCOPY FLX DX W/COLLJ SPEC WHEN PFRMD 04/13/2012 Colonoscopy DILATION & CURETTAGE DX&/THER NONOBSTETRIC Dilation & curettage EGD 09/14/02 RG ESOPHAGOGASTRODUODENOSCOPY TRANSORAL DIAGNOSTIC 04/09/2010 EGD ESOPHAGOGASTRODUODENOSCOPY TRANSORAL DIAGNOSTIC 04/13/2012 EGD ESOPHAGOGASTRODUODENOSCOPY TRANSORAL DIAGNOSTIC 02/27/15 EGD EXTRACTION, ERUPTED TOOTH OR EXPOSED ROOT (ELEVATION AND/OR FORCEPS REMOVAL) Teeth removed HYSTERECTOMY HX 10/23/1985 LAPS ABD PRTM&OMENTUM DX W/WO SPEC BR/WA SPX Laparoscopy FAMILY HISTORY Problem Relation Age of Onset Diabetes Mother Ischemic Heart Disease Mother CHF Hypertension Mother Colon Cancer Father Colon Polyps Father Genetic Father Parkinsonism Sister 2018 other (hemochromatosis) Sister 2018 COPD Maternal Aunt Cancer Paternal Uncle COPD Paternal Uncle REVIEW OF SYSTEMS Review of Systems PHYSICAL EXAM BP 148/80 Pulse 90 Resp 16 Ht 5' 1.75 (1.57m) Wt 108 lb 3.2 oz (49.1kg) BMI 19.96 kg/(m^2). Physical Exam Constitutional: Appearance: Normal appearance. She is normal weight. HENT: Head: Normocephalic and atraumatic. Eyes: Extraocular Movements: Extraocular movements intact. Pupils: Pupils are equal, round, and reactive to light. Cardiovascular: Rate and Rhythm: Normal rate and regular rhythm. Pulses: Normal pulses. Heart sounds: Normal heart sounds. Pulmonary: Effort: Pulmonary effort is normal. Breath sounds: Normal breath sounds. Abdominal: General: Abdomen is flat. Bowel sounds are normal. Palpations: Abdomen is soft. Musculoskeletal: General: Normal range of motion. Cervical back: Normal range of motion and neck supple. Skin: General: Skin is warm and dry. Neurological: General: No focal deficit present. Mental Status: She is alert and oriented to person, place, and time. Psychiatric: Mood and Affect: Mood normal. Behavior: Behavior normal. ASSESSMENT: Gastroesophageal reflux disease with esophagitis without hemorrhage (primary encounter diagnosis) PLAN: Assessment/Plan (K21.00) Gastroesophageal reflux disease with esophagitis without hemorrhage (primary encounter diagnosis) 1. Gastroesophageal reflux disease with esophagitis without hemorrhage Assessment/Plan I have reviewed the procedure and pathology reports, as well as the images, with the patient. Discussed with patient hernia with esophagitis - discussed GERD lifstyle changes continue current medication regimen. She is still having the feeling nausea and at times stomach upset. Continue pantoprazole 40 mg and 20 mg of Pepcid at bedtime. -Colonoscopy nonbleeding internal hemorrhoids no specimens were collected. Repeat colonoscopy in 5 years for surveillance Follow up in office 3 months/PRN. Recommended to please call office/go to ER if fever, chills, chest pain, SOB, diarrhea, nausea, emesis, worsening abdominal pain, dehydration occurs I spent 30 minutes in the visit, with more than 50% of the total [id number] time of the visit in counseling / coordination of care. I have confirmed and edited as necessary, the PFSH and ROS obtained by others. Bettie Ron APRN.CNP DATE: 08/04/21 TIME: 1:34 PM documented in this encounterOhio[facility] Miscellaneous Notes* Telephone Encounter - Estefania Ruiz LPN - 07/01/2021 2:12 PM EDT PATIENT NOTIFIED OF SAME. Follow up scheduled 07/15/2021 * Telephone Encounter - Bettie Ron APRN.CNP - 07/01/2021 11:13 AM EDT Please call patient results of EGD and colonoscopy. EGD results 1 cm hiatal hernia, esophagitis normal stomach normal duodenum- stomach biopsy came backnormal changes were seen but this was due to history of taking PPI- Please continue to take pantoprazole 40 mg(make sure this is on empty stomach and wait 30 minutes before eating) and Pepcid 20 mg at bedtime GERD lifestyle changes Avoid NSAIDs (such as Advil, Ibuprofen, Excedrin, Mobic), tobacco, alcohol, carbonated beverages, caffeine, chocolate, tomato based sauces, spicy/fatty foods, and peppermint Avoid eating large meals. Avoid eating less than 3 hours before bed. Weight loss. Elevate the head of the bed 6 inches, or at least invest in a wedge pillow. Colonoscopy small internal hemorrhoids no specimens collected repeat colonoscopy in [address] patient on recall You can schedule patient appointment for follow-up. Thanks Bettie Ron APRN.CNP documented in this encounterOhio[facility] Instructions* Patient Instructions* Boyd Da Silva PA-C - 06/29/2021 11:31 AM EDT See hand out on pirformis exercises. Also see internet site: [email or web address] documented in this encounterOhio[facility]04[facility]22 History of Present illness Narrative* Boyd Da Silva PA-C - 06/29/2021 10:40 AM EDT 65 year old female with c/o Headaches Start at back of neck to occipital. Knows it is r/t to stress. No N/V, photophobia, phonophobia. No visual scotomata. Tylenol PM 500mg 2 tabs: seems to help. 2-3 times a day some times. Ibuprofen helps. Grief reaction Bipolar II Generalized anxiety Current medications: Cariprazine 3mg daily Tylenol PM extra strength 25-500 mg once daily as needed Patient Health Questionnaire (PHQ-9) PHQ-9 Levels: 0 - 4 Minimal depression 5 - 9 Mild depression 10-14 Moderate depression 15-19 Moderately severe depression 20-27 Severe depression PHQ-9 Score: 16 PHQ-2 Score: 4 (0-3) 1. Little interest or pleasure in doing things: More than half the days 2. Feeling down, depressed, or hopeless: More than half the days 3. Trouble falling or staying asleep, or sleeping too much: Nearly every day 4. Feeling tired or having little energy: Nearly every day 5. Poor appetite or overeating: Several days 6. Feeling bad about yourself - or that you are a failure or have let yourself or your family down:Several days 7. Trouble concentrating on things, such as reading the newspaper or watching television: Several days 8. Moving or speaking so slowly that other people could have noticed. Or the opposite - being so fidgety or restless that you have been moving around a lot more than usual: Nearly every day 9. Thoughts that you would be better off , or of hurting yourself in some way: Not at all 10. If you checked off any problems, how difficult have these problems made it for you to do your work, take care of things at home, or get along with other people?: Somewhat difficult PHQ-9 04/08/2021 06/02/2021 06/29/2021 Score 12 8 16 SIMON - 7 SCORES 04/08/2021 SIMON-7 Score 10 Acute superficial gastritis without hemorrhage: 1cm hiatal hernia Gastroesophageal reflux disease with esophagitis, unspecified whether hemorrhage Current use of proton pump inhibitor Current medication: Pantoprazole 40mg twice a day Famotidine 20mg daily HS Current symptoms: sick to stomach, nauseated. No heart burn. Last Mg level if on PPI chronically: 03/12/21 2.2. Heartburn is controlled: Yes. Bloody or black stools: No. Bowel changes: No. Once about once every 3 days. 06/24/21 EGD, colonoscopy Dr. Luis: EGD: 1 cm hiatal hernia, LA Grade A reflux esophagitis, normal duodenum. Path: Stomach, biopsy: Oxyntic and antral mucosa with features suggestive of proton pump inhibitor effect. No morphological evidence of Helicobacter pylori organisms. Colonoscopy WNL, no specimens, non-bleeding IH. 03/10/15 EGD: normal but bx + slight reactive gastropathy, neg H Pylori Essential hypertension Current meds: Potassium chloride 10 mEq twice daily Doxazosin 1 mg daily Amlodipine 10 mg daily Patient is compliant with meds Yes Monitors bp at home: No. If yes, readings: Denies side effects: No. Chest pain: No. Dyspnea: No. Edema: No. Palpitations: Yes, twang followed by a few seconds of palpitations Syncope: No. Headache: No. Dizziness: Yes if gets up too fast. Last 3 Encounter BP Readings: Date: BP: 06/24/2021 155/74 04/21/2021 166/90 03/31/2021 164/96 Last 2 Encounter Wt Readings: Date: Wt: 04/21/2021 50.3 kg (111 lb) 03/31/2021 50.3 kg (111 lb) Coffee 1.5 cups a day Alcohol abuse No regular use. Maybe 3 beers a weekend. 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 Cough: No. Wheezing: occasional. Smokin PPD. Compliant with medications: No. Using rescue inhaler : doesn't have one. HISTORIES FAMILY HISTORY Problem Relation Age of Onset Diabetes Mother Ischemic Heart Disease Mother CHF Hypertension Mother Colon Cancer Father Colon Polyps Father Genetic Father Parkinsonism Sister 2018 other (hemochromatosis) Sister 2018 COPD Maternal Aunt Cancer Paternal Uncle COPD Paternal Uncle PAST MEDICAL HISTORY Diagnosis Date Abdominal pain, other specified site Alcohol abuse Back pain DDD Bipolar affect, depressed (HCC) COPD (chronic obstructive pulmonary disease) (HCC) Coronary artery disease Depression Esophagitis, unspecified Essential hypertension, benign Gastritis Hyperlipidemia Lung nodules Nausea Neuralgia Other forms of migraine Prediabetes Tobacco use PAST SURGICAL HISTORY Procedure Laterality Date APPENDECTOMY 1980 CARDIAC CATH 04/2011 Dr. Yang DELIVERY ONLY , low cervical x2 CHOLECYSTECTOMY 2007 Cholecystectomy COLONOSCOPY 09/14/02 RG - normal COLONOSCOPY FLX DX W/COLLJ SPEC WHEN PFRMD 04/13/2012 Colonoscopy DILATION & CURETTAGE DX&/THER NONOBSTETRIC Dilation & curettage EGD 09/14/02 RG ESOPHAGOGASTRODUODENOSCOPY TRANSORAL DIAGNOSTIC 04/09/2010 EGD ESOPHAGOGASTRODUODENOSCOPY TRANSORAL DIAGNOSTIC 04/13/2012 EGD ESOPHAGOGASTRODUODENOSCOPY TRANSORAL DIAGNOSTIC 02/27/15 EGD EXTRACTION, ERUPTED TOOTH OR EXPOSED ROOT (ELEVATION AND/OR FORCEPS REMOVAL) Teeth removed HYSTERECTOMY HX 10/23/1985 LAPS ABD PRTM&OMENTUM DX W/WO SPEC BR/WA SPX Laparoscopy Social History Tobacco Use Smoking status: Current Every Day Smoker Packs/day: 0.30 Years: 40.00 Pack years: 12.00 Types: Cigarettes Start date: 1973 Smokeless tobacco: Never Used Substance Use Topics Alcohol use: Not Currently Comment: Not locally. Drug use: No ACTIVE PROBLEM LIST Acute Cholecystitis Abdominal Pain, Epigastric Nausea Alone Neck Pain Lumbar Disc Herniation Lumbar Radiculopathy Ddd (Degenerative Disc Disease), Lumbar Lumbago Tobacco Abuse Lumbar Spondylosis Htn (Hypertension) Emphysema of Lung (Hcc) Alcohol Abuse Acute Superficial Gastritis Without Hemorrhage Hypokalemia Bipolar II Disorder (Hcc) Anxiety Disorder Current Outpatient Medications Medication Sig Dispense Refill potassium chloride (K-TAB) 10 mEq tablet Take 1 tablet by mouth twice daily. [address] (PROTONIX) 40 mg tablet Take 1 tablet by mouth twice daily before meals. Take on empty stomach, 1/2 hr before meal. 60 tablet 2 doxazosin (CARDURA) 1 mg tablet Take 1 tablet by mouth once daily. 30 tablet 2 cariprazine (VRAYLAR) 3 mg capsule Take 1 capsule by mouth once daily. 30 capsule 2 budesonide-formoterol (SYMBICORT) 160-4.5 mcg/actuation inhaler Inhale 2 Puffs as instructed twice daily. 3 Inhaler 1 ipratropium 20 mcg-albuterol 100 mcg (COMBIVENT RESPIMAT) 20-100 mcg/actuation inhaler Inhale 1 Puff as instructed four times daily as needed. 4 g 5 famotidine (PEPCID) 20 mg tablet TAKE 1 TABLET BY MOUTH EVERYDAY AT BEDTIME 90 tablet 1 peg 3350-Electrolytes (GOLYTELY) 236-22.74-6.74 -5.86 gram suspension Refer to printed prep instructions from your provider. 4000 mL 0 amLODIPine (NORVASC) 10 mg tablet Take 1 tablet by mouth once daily. 90 tablet 3 Diphenhydramine-Acetaminophen (TYLENOL PM EXTRA STRENGTH) 25-500 mg ORAL Tab Take by mouth once daily as needed. No current facility-administered medications for this visit. HIV SCREENING Never done BP CONTROLLED (<130/80) Never done HPV TESTING Never done PAP TESTING due on 06/03/2016 MAMMOGRAM due on 04/17/2020 EXAM: BP 142/70 Pulse 76 Wt 49.9 kg (110 lb) SpO2 95% BMI 20.90 kg/m Pleasant adult woman, medium build, in no acute distress. Alert and oriented all spheres. Normal affect and cognition. Speech normal. No deficits to learning or comprehension. Skin warm, dry, pink to lips and nailbeds. Normal turgor. Respirations regular and unlabored. HEENT: NCAT. No scleral icterus or conjunctival injection. TM's clear. Nose and oropharynx free from injection or lesion. Oral membranes moist and pink. No cervical lymph nodes. Thyroid non-tender, no masses, or enlargement. Carotids pulses 2+/4+ without bruits. No JVD with HOB at 30 degrees. Abd: scaphoid, bowel sounds active. No pulsatile masses. Tender mid-epigastric with increase in tenderness with abdominal flexion on head raise. Patient identifies muscle as source of pain on self exam. No rebound, guarding, or peritoneal signs. No masses. No organomegaly. Chaves's punch: negative.No flank pain. No inguinal or axillary lymphadenopathy. Slight deviation L1: unable to move with gentle HVLA. Extrem: no clubbing or cyanosis. Edema: none. Extremities are warm and pink with prompt capillary refill. ASSESSMENT/PLAN: 1. Acute superficial gastritis without hemorrhage - ICD9: 535.40, ICD10: K29.00 (primary diagnosis) Persistent nausea and epigastric pain on pantoprazole. 2. Gastroesophageal reflux disease with esophagitis, unspecified whether hemorrhage - ICD9: 530.11,ICD10: K21.00 EGD positive for effect PPI. Noted reflux on EGD. Dual therapy with H2 anthony and PPI. 3. Very severe chronic obstructive pulmonary disease (HCC) - ICD9: 496, ICD10: J44.9 Stable on meds. 4. Pulmonary emphysema, unspecified emphysema type (HCC) - ICD9: 492.8, ICD10: J43.9 As above. Stable. Hasn't seen pulmonary in a while. 5. Essential hypertension - ICD9: 401.9, ICD10: I10 - suboptimal control - Continue current medication(s) - Recommended regular aerobic exercise. - Recommend home blood pressure monitoring, to bring results in on next visit - Follow up in 1 month for BP recheck. - Goal of BP <130/80 6. Alcohol abuse - ICD9: 305.00, ICD10: F10.10 Minimal reported 7. Current use of proton pump inhibitor - ICD9: V58.69, ICD10: Z79.899 8. Grief reaction - ICD9: 309.0, ICD10: F43.21 stabilizing 9. Bipolar II disorder (HCC) - ICD9: 296.89, ICD10: F31.81 Following with psych Will forward note as provider left [facility] and patient needs follow up 10. Other mixed anxiety disorders - ICD9: 300.09, ICD10: F41.3 Uncontrolled. - HYDROXYZINE HCL 10 MG TABLET 11. Chronic daily headache - ICD9: 784.0, ICD10: R51.9 Discussed chronic daily headache. Will bridge with prednisone for headache and low back issues. No other analgesics in the interim and will taper off prednisone 12 days 40-0. - PREDNISONE 10 MG TABLET 12. Piriformis syndrome, right - ICD9: 355.0, ICD10: G57.01 - PREDNISONE 10 MG TABLET 13. Daily nausea - ICD9: 787.02, ICD10: R11.0 Unsure if medication side effect cariprazine, protonix. - HYDROXYZINE HCL 10 MG TABLET 4 week follow up Boyd Da Silva PA-C [facility] Miscellaneous Notes* Telephone Encounter - Shara Elmore - 06/25/2021 11:13 AM EDT - BRENDA 04/10/2021 - Treatment plan for last visit: f/u 3 - 4 weeks - Did not schedule f/u documented [facility] this encounter[facility] History of Past illness Narrative* Problem Noted Date Resolved Date Epigastric pain 02/27/2015 02/27/2015 Gastroesophageal reflux disease 02/27/2015 02/27/2015 Anxiety 02/17/2015 07/10/2019 Lung nodules 02/17/2015 03/08/2021 Overview: 08/05/17 CXR stable 7-8mm RLL from 12/03/[address] [facility] 03/14/15 read as prior granulomatous disease with concern, reviewed by study abroad coordinator Rodrigo Núñez. Plan: no need for further work up. Acute gastritis without mention of hemorrhage 03/05/2021 Abdominal pain, other specified site 03/27/2010 documented as of this encounter (statuses as of 06/25/2021) [facility] Narrative* Problem Noted Date Resolved Date Epigastric pain 02/27/2015 02/27/2015 Gastroesophageal reflux disease 02/27/2015 02/27/2015 Anxiety 02/17/2015 07/10/2019 Lung nodules 02/17/2015 03/08/2021 Overview: 08/05/17 CXR stable 7-8mm RLL from 12/03/[address] [facility] 03/14/15 read as prior granulomatous disease with concern, reviewed by study abroad coordinator Rodrigo Núñez. Plan: no need for further work up. Acute gastritis without mention of hemorrhage 03/05/2021 Abdominal pain, other specified site 03/27/2010 documented as of this encounter (statuses as of 06/29/2021) [facility] Narrative* Problem Noted Date Resolved Date Epigastric pain 02/27/2015 02/27/2015 Gastroesophageal reflux disease 02/27/2015 02/27/2015 Anxiety 02/17/2015 07/10/2019 Lung nodules 02/17/2015 03/08/2021 Overview: 08/05/17 CXR stable 7-8mm RLL from 12/03/[address] [facility] 03/14/15 read as prior granulomatous disease with concern, reviewed by study abroad coordinator Rodrigo Núñez. Plan: no need for further work up. Acute gastritis without mention of hemorrhage 03/05/2021 Abdominal pain, other specified site 03/27/2010 documented as of this encounter (statuses as of 07/01/2021) [facility] Narrative* Problem Noted Date Resolved Date Epigastric pain 02/27/2015 02/27/2015 Gastroesophageal reflux disease 02/27/2015 02/27/2015 Anxiety 02/17/2015 07/10/2019 Lung nodules 02/17/2015 03/08/2021 Overview: 08/05/17 CXR stable 7-8mm RLL from 12/03/[address] [facility] 03/14/15 read as prior granulomatous disease with concern, reviewed by study abroad coordinator Rodrigo Núñez. Plan: no need for further work up. Acute gastritis without mention of hemorrhage 03/05/2021 Abdominal pain, other specified site 03/27/2010 documented as of this encounter (statuses as of 08/10/2021) [facility] Narrative* Problem Noted Date Resolved Date Epigastric pain 02/27/2015 02/27/2015 Gastroesophageal reflux disease 02/27/2015 02/27/2015 Anxiety 02/17/2015 07/10/2019 Lung nodules 02/17/2015 03/08/2021 Overview: 08/05/17 CXR stable 7-8mm RLL from 12/03/[address] [facility] 03/14/15 read as prior granulomatous disease with concern, reviewed by study abroad coordinator Rodrigo Núñez. Plan: no need for further work up. Acute gastritis without mention of hemorrhage 03/05/2021 Abdominal pain, other specified site 03/27/2010 documented as of this encounter (statuses as of 08/21/2021) [facility]arrative* Problem Noted Date Resolved Date Epigastric pain 02/27/2015 02/27/2015 Gastroesophageal reflux disease 02/27/2015 02/27/2015 Anxiety 02/17/2015 07/10/2019 Lung nodules 02/17/2015 03/08/2021 Overview: 08/05/17 CXR stable 7-8mm RLL from 12/03/[address] [facility] 03/14/15 read as prior granulomatous disease with concern, reviewed by study abroad coordinator Rodrigo Núñez. Plan: no need for further work up. Acute gastritis without mention of hemorrhage 03/05/2021 Abdominal pain, other specified site 03/27/2010 documented as of this encounter (statuses as of 08/26/2021) [facility]ative* Problem Noted Date Resolved Date Epigastric pain 02/27/2015 02/27/2015 Gastroesophageal reflux disease 02/27/2015 02/27/2015 Anxiety 02/17/2015 07/10/2019 Lung nodules 02/17/2015 03/08/2021 Overview: 08/05/17 CXR stable 7-8mm RLL from 12/03/[address] [facility] 03/14/15 read as prior granulomatous disease with concern, reviewed by study abroad coordinator Rodrigo Núñez. Plan: no need for further work up. Acute gastritis without mention of hemorrhage 03/05/2021 Abdominal pain, other specified site 03/27/2010 documented as of this encounter (statuses as of 08/26/2021) [facility]ative* Problem Noted Date Resolved Date Epigastric pain 02/27/2015 02/27/2015 Gastroesophageal reflux disease 02/27/2015 02/27/2015 Anxiety 02/17/2015 07/10/2019 Lung nodules 02/17/2015 03/08/2021 Overview: 08/05/17 CXR stable 7-8mm RLL from 12/03/[address] [facility] 03/14/15 read as prior granulomatous disease with concern, reviewed by study abroad coordinator Rodrigo Núñez. Plan: no need for further work up. Acute gastritis without mention of hemorrhage 03/05/2021 Abdominal pain, other specified site 03/27/2010 documented as of this encounter (statuses as of 08/26/2021) [facility]ative* Problem Noted Date Resolved Date Epigastric pain 02/27/2015 02/27/2015 Gastroesophageal reflux disease 02/27/2015 02/27/2015 Anxiety 02/17/2015 07/10/2019 Lung nodules 02/17/2015 03/08/2021 Overview: 08/05/17 CXR stable 7-8mm RLL from 12/03/[address] [facility] 03/14/15 read as prior granulomatous disease with concern, reviewed by study abroad coordinator Rodrigo Núñez. Plan: no need for further work up. Acute gastritis without mention of hemorrhage 03/05/2021 Abdominal pain, other specified site 03/27/2010 documented as of this encounter (statuses as of 09/23/2021) [facility]arrative* Problem Noted Date Resolved Date Epigastric pain 02/27/2015 02/27/2015 Gastroesophageal reflux disease 02/27/2015 02/27/2015 Anxiety 02/17/2015 07/10/2019 Lung nodules 02/17/2015 03/08/2021 Overview: 08/05/17 CXR stable 7-8mm RLL from 12/03/[address] [facility] 03/14/15 read as prior granulomatous disease with concern, reviewed by study abroad coordinator Rodrigo Núñez. Plan: no need for further work up. Acute gastritis without mention of hemorrhage 03/05/2021 Abdominal pain, other specified site 03/27/2010 documented as of this encounter (statuses as of 09/28/2021) [facility]arrative* Problem Noted Date Resolved Date Epigastric pain 02/27/2015 02/27/2015 Gastroesophageal reflux disease 02/27/2015 02/27/2015 Anxiety 02/17/2015 07/10/2019 Lung nodules 02/17/2015 03/08/2021 Overview: 08/05/17 CXR stable 7-8mm RLL from 12/03/[address] [facility] 03/14/15 read as prior granulomatous disease with concern, reviewed by study abroad coordinator Rodrigo Núñez. Plan: no need for further work up. Acute gastritis without mention of hemorrhage 03/05/2021 Abdominal pain, other specified site 03/27/2010 documented as of this encounter (statuses as of 10/19/2021) [facility]* Problem Noted Date Resolved Date Epigastric pain 02/27/2015 02/27/2015 Gastroesophageal reflux disease 02/27/2015 02/27/2015 Anxiety 02/17/2015 07/10/2019 Lung nodules 02/17/2015 03/08/2021 Overview: 08/05/17 CXR stable 7-8mm RLL from 12/03/[address] [facility] 03/14/15 read as prior granulomatous disease with concern, reviewed by study abroad coordinator Rodrigo Núñez. Plan: no need for further work up. Acute gastritis without mention of hemorrhage 03/05/2021 Abdominal pain, other specified site 03/27/2010 documented as of this encounter (statuses as of 10/19/2021) [facility]* Problem Noted Date Resolved Date Epigastric pain 02/27/2015 02/27/2015 Gastroesophageal reflux disease 02/27/2015 02/27/2015 Anxiety 02/17/2015 07/10/2019 Lung nodules 02/17/2015 03/08/2021 Overview: 08/05/17 CXR stable 7-8mm RLL from 12/03/[address] [facility] 03/14/15 read as prior granulomatous disease with concern, reviewed by study abroad coordinator Rodrigo Núñez. Plan: no need for further work up. Acute gastritis without mention of hemorrhage 03/05/2021 Abdominal pain, other specified site 03/27/2010 documented as of this encounter (statuses as of 10/26/2021) [facility]* Problem Noted Date Resolved Date Epigastric pain 02/27/2015 02/27/2015 Gastroesophageal reflux disease 02/27/2015 02/27/2015 Anxiety 02/17/2015 07/10/2019 Lung nodules 02/17/2015 03/08/2021 Overview: 08/05/17 CXR stable 7-8mm RLL from 12/03/[address] [facility] 03/14/15 read as prior granulomatous disease with concern, reviewed by study abroad coordinator Rodrigo Núñez. Plan: no need for further work up. Acute gastritis without mention of hemorrhage 03/05/2021 Abdominal pain, other specified site 03/27/2010 documented as of this encounter (statuses as of 10/26/2021) [facility]* Problem Noted Date Resolved Date Epigastric pain 02/27/2015 02/27/2015 Gastroesophageal reflux disease 02/27/2015 02/27/2015 Anxiety 02/17/2015 07/10/2019 Lung nodules 02/17/2015 03/08/2021 Overview: 08/05/17 CXR stable 7-8mm RLL from 12/03/[address] [facility] 03/14/15 read as prior granulomatous disease with concern, reviewed by study abroad coordinator Rodrigo Núñez. Plan: no need for further work up. Acute gastritis without mention of hemorrhage 03/05/2021 Abdominal pain, other specified site 03/27/2010 documented as of this encounter (statuses as of 10/27/2021) [facility]* Problem Noted Date Resolved Date Epigastric pain 02/27/2015 02/27/2015 Gastroesophageal reflux disease 02/27/2015 02/27/2015 Anxiety 02/17/2015 07/10/2019 Lung nodules 02/17/2015 03/08/2021 Overview: 08/05/17 CXR stable 7-8mm RLL from 12/03/[address] [facility] 03/14/15 read as prior granulomatous disease with concern, reviewed by study abroad coordinator Rodrigo Núñez. Plan: no need for further work up. Acute gastritis without mention of hemorrhage 03/05/2021 Abdominal pain, other specified site 03/27/2010 documented as of this encounter (statuses as of 10/27/2021) [facility]* Problem Noted Date Resolved Date Epigastric pain 02/27/2015 02/27/2015 Gastroesophageal reflux disease 02/27/2015 02/27/2015 Anxiety 02/17/2015 07/10/2019 Lung nodules 02/17/2015 03/08/2021 Overview: 08/05/17 CXR stable 7-8mm RLL from 12/03/[address] [facility] 03/14/15 read as prior granulomatous disease with concern, reviewed by study abroad coordinator Rodrigo Núñez. Plan: no need for further work up. Acute gastritis without mention of hemorrhage 03/05/2021 Abdominal pain, other specified site 03/27/2010 documented as of this encounter (statuses as of 10/27/2021) [facility]* Problem Noted Date Resolved Date Epigastric pain 02/27/2015 02/27/2015 Gastroesophageal reflux disease 02/27/2015 02/27/2015 Anxiety 02/17/2015 07/10/2019 Lung nodules 02/17/2015 03/08/2021 Overview: 08/05/17 CXR stable 7-8mm RLL from 12/03/[address] [facility] 03/14/15 read as prior granulomatous disease with concern, reviewed by study abroad coordinator Rodrigo Núñez. Plan: no need for further work up. Acute gastritis without mention of hemorrhage 03/05/2021 Abdominal pain, other specified site 03/27/2010 documented as of this encounter (statuses as of 10/29/2021) [facility]* Problem Noted Date Resolved Date Epigastric pain 02/27/2015 02/27/2015 Gastroesophageal reflux disease 02/27/2015 02/27/2015 Anxiety 02/17/2015 07/10/2019 Lung nodules 02/17/2015 03/08/2021 Overview: 08/05/17 CXR stable 7-8mm RLL from 12/03/[address] [facility] 03/14/15 read as prior granulomatous disease with concern, reviewed by study abroad coordinator Rodrigo Núñez. Plan: no need for further work up. Acute gastritis without mention of hemorrhage 03/05/2021 Abdominal pain, other specified site 03/27/2010 documented as of this encounter (statuses as of 10/29/2021) [facility]* Problem Noted Date Resolved Date Epigastric pain 02/27/2015 02/27/2015 Gastroesophageal reflux disease 02/27/2015 02/27/2015 Anxiety 02/17/2015 07/10/2019 Lung nodules 02/17/2015 03/08/2021 Overview: 08/05/17 CXR stable 7-8mm RLL from 12/03/[address] [facility] 03/14/15 read as prior granulomatous disease with concern, reviewed by study abroad coordinator Rodrigo Núñez. Plan: no need for further work up. Acute gastritis without mention of hemorrhage 03/05/2021 Abdominal pain, other specified site 03/27/2010 documented as of this encounter (statuses as of 11/02/2021) [facility]* Problem Noted Date Resolved Date Epigastric pain 02/27/2015 02/27/2015 Gastroesophageal reflux disease 02/27/2015 02/27/2015 Anxiety 02/17/2015 07/10/2019 Lung nodules 02/17/2015 03/08/2021 Overview: 08/05/17 CXR stable 7-8mm RLL from 12/03/[address] [facility] 03/14/15 read as prior granulomatous disease with concern, reviewed by study abroad coordinator Rodrigo Núñez. Plan: no need for further work up. Acute gastritis without mention of hemorrhage 03/05/2021 Abdominal pain, other specified site 03/27/2010 documented as of this encounter (statuses as of 11/12/2021) [facility]* Problem Noted Date Resolved Date Epigastric pain 02/27/2015 02/27/2015 Gastroesophageal reflux disease 02/27/2015 02/27/2015 Anxiety 02/17/2015 07/10/2019 Lung nodules 02/17/2015 03/08/2021 Overview: 08/05/17 CXR stable 7-8mm RLL from 12/03/[address] [facility] 03/14/15 read as prior granulomatous disease with concern, reviewed by study abroad coordinator Rodrigo Núñez. Plan: no need for further work up. Acute gastritis without mention of hemorrhage 03/05/2021 Abdominal pain, other specified site 03/27/2010 documented as of this encounter (statuses as of 11/16/2021) [facility]* Problem Noted Date Resolved Date Epigastric pain 02/27/2015 02/27/2015 Gastroesophageal reflux disease 02/27/2015 02/27/2015 Anxiety 02/17/2015 07/10/2019 Lung nodules 02/17/2015 03/08/2021 Overview: 08/05/17 CXR stable 7-8mm RLL from 12/03/[address] [facility] 03/14/15 read as prior granulomatous disease with concern, reviewed by study abroad coordinator Rodrigo Núñez. Plan: no need for further work up. Acute gastritis without mention of hemorrhage 03/05/2021 Abdominal pain, other specified site 03/27/2010 documented as of this encounter (statuses as of 11/24/2021) [facility]* Problem Noted Date Resolved Date Epigastric pain 02/27/2015 02/27/2015 Gastroesophageal reflux disease 02/27/2015 02/27/2015 Anxiety 02/17/2015 07/10/2019 Lung nodules 02/17/2015 03/08/2021 Overview: 08/05/17 CXR stable 7-8mm RLL from 12/03/[address] [facility] 03/14/15 read as prior granulomatous disease with concern, reviewed by study abroad coordinator Rodrigo Núñez. Plan: no need for further work up. Acute gastritis without mention of hemorrhage 03/05/2021 Abdominal pain, other specified site 03/27/2010 documented as of this encounter (statuses as of 11/25/2021) [facility]* Problem Noted Date Resolved Date Epigastric pain 02/27/2015 02/27/2015 Gastroesophageal reflux disease 02/27/2015 02/27/2015 Anxiety 02/17/2015 07/10/2019 Lung nodules 02/17/2015 03/08/2021 Overview: 08/05/17 CXR stable 7-8mm RLL from 12/03/[address] [facility] 03/14/15 read as prior granulomatous disease with concern, reviewed by study abroad coordinator Rodrigo Núñez. Plan: no need for further work up. Acute gastritis without mention of hemorrhage 03/05/2021 Abdominal pain, other specified site 03/27/2010 documented as of this encounter (statuses as of 11/26/2021) [facility] Problem Noted Date Resolved Date Epigastric pain 02/27/2015 02/27/2015 Gastroesophageal reflux disease 02/27/2015 02/27/2015 Anxiety 02/17/2015 07/10/2019 Lung nodules 02/17/2015 03/08/2021 Overview: 08/05/17 CXR stable 7-8mm RLL from 12/03/[address] [facility] 03/14/15 read as prior granulomatous disease with concern, reviewed by study abroad coordinator Rodrigo Núñez. Plan: no need for further work up. Acute gastritis without mention of hemorrhage 03/05/2021 Abdominal pain, other specified site 03/27/2010 documented as of this encounter (statuses as of 12/07/2021) [facility] Diagnosis Bipolar II disorder (HCC) Other bipolar disorders [facility] Diagnosis Acute superficial gastritis without hemorrhage- Primary Gastroesophageal reflux disease with esophagitis, unspecified whether hemorrhage Very severe chronic obstructive pulmonary disease (HCC) Chronic airway obstruction, not elsewhere classified Pulmonary emphysema, unspecified emphysema type (HCC) Essential hypertension Unspecified essential hypertension Alcohol abuse Alcohol abuse, unspecified Current use of proton pump inhibitor Encounter for long-term (current) use of other medications Grief reaction Adjustment disorder with depressed mood Bipolar II disorder (HCC) Other bipolar disorders Other mixed anxiety disorders Chronic daily headache Headache Piriformis syndrome, right Daily nausea [facility] Diagnosis Gastroesophageal reflux disease with esophagitis without hemorrhage- Primary [facility]* Diagnosis Very severe chronic obstructive pulmonary disease (HCC) Chronic airway obstruction, not elsewhere classified [facility]* Diagnosis Bipolar II disorder (HCC)- Primary Other bipolar disorders Anxiety neurosis Anxiety state, unspecified Grief Adjustment disorder with depressed mood [facility]* Diagnosis Bipolar II disorder (HCC) Other bipolar disorders [facility] Encounter for screening mammogram for breast cancer [facility]* Diagnosis Bipolar II disorder (HCC)- Primary Other bipolar disorders Anxiety disorder, unspecified type [facility]* Diagnosis Chronic obstructive pulmonary disease, unspecified COPD type (HCC) [facility]* Diagnosis Stage 3 severe COPD by GOLD classification (HCC)- Primary Cigarette smoker Tobacco use disorder documented in this encounter [facility] note* Diagnosis Acute superficial gastritis without hemorrhage Gastroesophageal reflux disease with esophagitis, unspecified whether hemorrhage Very severe chronic obstructive pulmonary disease (HCC) Chronic airway obstruction, not elsewhere classified documented in this encounter [facility] note* Diagnosis Bipolar II disorder (HCC) Other bipolar disorders [facility] Diagnosis Encounter for immunization- Primary Need for other specified prophylactic vaccination against single bacterial disease documented in this encounter [facility] note* Diagnosis Chronic obstructive pulmonary disease, unspecified COPD type (HCC)- Primary [facility] Diagnosis Bipolar II disorder (HCC) Other bipolar disorders documented in this encounter [facility] note* Diagnosis Bipolar II disorder (HCC) Other bipolar disorders documented in this encounter [facility] note* Diagnosis Encounter for screening for malignant neoplasm of lung- Primary Smoker Tobacco use disorder Chronic obstructive pulmonary disease, unspecified COPD type (HCC) documented in this encounter [facility] note* Diagnosis Bipolar II disorder (HCC) Other bipolar disorders [facility] Diagnosis Bipolar II disorder (HCC)- Primary Other bipolar disorders Anxiety disorder, unspecified type Encounter for long-term (current) use of medications Encounter for long-term (current) use of other medications documented in this encounter [facility] note* Diagnosis Bipolar II disorder (HCC)- Primary Other bipolar disorders Anxiety disorder, unspecified type [facility] Diagnosis Bipolar II disorder (HCC) Other bipolar disorders Anxiety disorder, unspecified type documented in this encounter [facility]* Diagnosis Bipolar II disorder (HCC)- Primary Other bipolar disorders Generalized anxiety disorder with panic attacks [facility] Diagnosis Stage 3 severe COPD by GOLD classification (HCC) documented in this encounter [facility] note* Diagnosis Stage 3 severe COPD by GOLD classification (HCC)- Primary Cigarette smoker Tobacco use disorder Need for influenza vaccination Need for prophylactic vaccination and inoculation against influenza Dyspnea and respiratory abnormalities Other dyspnea and respiratory abnormality documented in this encounter [facility] note* Diagnosis Bipolar II disorder (HCC)- Primary Other bipolar disorders Bipolar II disorder (HCC) Other bipolar disorders Anxiety disorder, unspecified type [facility] Diagnosis Bipolar II disorder (HCC) Other bipolar disorders Generalized anxiety disorder with panic attacks [facility]* Diagnosis Bipolar II disorder (HCC)- Primary Other bipolar disorders Generalized anxiety disorder with panic attacks [facility] Diagnosis Severe episode of recurrent major depressive disorder, without psychotic features (HCC)- Primary SIMON (generalized anxiety disorder) Generalized anxiety disorder [facility]* Diagnosis Severe episode of recurrent major depressive disorder, without psychotic features ([facility])- Primary SIMON (generalized anxiety disorder) Generalized anxiety disorder [facility]* Diagnosis Bipolar II disorder (HCC) Other bipolar disorders Generalized anxiety disorder with panic attacks [facility]* Diagnosis Bipolar II disorder (HCC) Other bipolar disorders [facility] Diagnosis Bipolar II disorder (HCC)- Primary Other bipolar disorders SIMON (generalized anxiety disorder) Generalized anxiety disorder [facility]* Diagnosis Bipolar II disorder (HCC) Other bipolar disorders Generalized anxiety disorder with panic attacks [facility] Diagnosis Very severe chronic obstructive pulmonary disease (HCC)- Primary Chronic airway obstruction, not elsewhere classified Pulmonary emphysema, unspecified emphysema type ([facility]) Tobacco abuse Tobacco use disorder Essential hypertension Unspecified essential hypertension Gastroesophageal reflux disease with esophagitis, unspecified whether hemorrhage Current use of proton pump inhibitor Encounter for long-term (current) use of other medications Mild mixed bipolar II disorder (HCC) Other bipolar disorders SIMON (generalized anxiety disorder) Generalized anxiety disorder Alcohol abuse Alcohol abuse, unspecified Acute superficial gastritis without hemorrhage Encounter for screening for osteoporosis Special screening for osteoporosis Chronic 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 Somatic dysfunction of right sacroiliac joint Somatic dysfunction of spine, cervical Nonallopathic lesion of cervical region, not elsewhere classified [facility]* Diagnosis Bipolar II disorder (HCC)- Primary Other bipolar disorders Generalized anxiety disorder with panic attacks [facility]* Diagnosis Stage 3 severe COPD by GOLD classification ([facility])- Primary Cigarette smoker Tobacco use disorder Lung nodule Solitary pulmonary nodule documented [facility]* Diagnosis Bipolar II disorder (HCC) Other bipolar disorders documented [facility]* Diagnosis Chronic 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- Primary [facility]* Diagnosis Bipolar II disorder (HCC) Other bipolar disorders Generalized anxiety disorder with panic attacks [facility]* Diagnosis Gastroesophageal reflux disease with esophagitis, unspecified whether hemorrhage Acute superficial gastritis without hemorrhage Screening for ischemic heart disease- Primary documented in this [facility]* Diagnosis Bipolar II disorder (HCC) Other bipolar disorders documented [facility] this [facility]* Diagnosis Chest pain, unspecified type- Primary Coronary artery calcification Coronary atherosclerosis of unspecified type of vessel, [place] or graft Abnormal EKG Nonspecific abnormal electrocardiogram (ECG) (EKG) Primary hypertension Unspecified essential hypertension Tobacco abuse Tobacco use disorder Mild pulmonary hypertension (HCC) Other chronic pulmonary heart diseases Dyspnea on exertion Other dyspnea and respiratory abnormality Stable angina (HCC) Other and unspecified angina pectoris documented [facility] this [facility]* Diagnosis Bipolar II disorder (HCC)- Primary Other bipolar disorders Anxiety disorder, unspecified type 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 mental disorder Dyspnea on exertion Other dyspnea and respiratory abnormality Stable angina (HCC) Other and unspecified angina pectoris documented [facility] this [facility]* Diagnosis Lumbar radiculopathy- Primary Thoracic or lumbosacral neuritis or radiculitis, unspecified Dyspnea on exertion Other dyspnea and respiratory abnormality Stable angina (HCC) Other and unspecified angina pectoris documented [facility] this [facility]* Diagnosis Stage 3 severe COPD by GOLD classification ([facility])- Primary Cigarette smoker Tobacco use disorder documented in this encounter [facility] note* Diagnosis Bipolar II disorder (HCC) Other bipolar disorders documented [facility] this [facility]* Diagnosis Bipolar II disorder (HCC) Other bipolar disorders [facility]* Diagnosis Gastroesophageal reflux disease with esophagitis, unspecified whether hemorrhage Acute superficial gastritis without hemorrhage Hypokalemia Hypopotassemia documented [facility]* Diagnosis 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 mental disorder documented [facility] this [facility]* Diagnosis Bipolar II disorder (HCC)- Primary Other bipolar disorders Generalized anxiety disorder with panic attacks 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 mental disorder [facility] Diagnosis COPD with exacerbation (HCC)- Primary Obstructive chronic bronchitis with exacerbation Stage 3 severe COPD by GOLD classification ([facility]) Cigarette smoker Tobacco use disorder documented in this encounter [facility] note* Diagnosis Bipolar II disorder (HCC)- Primary Other bipolar disorders Generalized anxiety disorder with panic attacks 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 mental disorder documented in this encounter [facility] note* Diagnosis COPD with exacerbation (HCC) Obstructive chronic bronchitis with exacerbation documented in this encounter [facility] note* Diagnosis Stage 3 severe COPD by GOLD classification (HCC) documented in this encounter [facility] note* Diagnosis Encounter for screening for osteoporosis Special screening for osteoporosis documented in this encounter [facility] note* Diagnosis Inconclusive mammogram documented in this encounter [facility] note* Diagnosis Encounter for screening mammogram for breast cancer documented in this encounter [facility] note* Diagnosis Stage 3 severe COPD by GOLD classification ([facility])- Primary Cigarette nicotine dependence without complication Tobacco use disorder COPD with exacerbation (HCC) Obstructive chronic bronchitis with exacerbation Need for influenza vaccination Need for prophylactic vaccination and inoculation against influenza Chronic hypoxemic respiratory failure (HCC) Chronic respiratory failure documented in this encounter [facility] note* Diagnosis Gastroesophageal reflux disease with esophagitis, unspecified whether hemorrhage Acute superficial gastritis without hemorrhage [facility] Diagnostic Procedure Only (Routine) - Pending Review Specialty Diagnoses / Procedures Referred By Surjit marsh Referred To Contact [facility] Diagnoses Encounter for screening mammogram for breast cancer Procedures SHYANNE SCREENING SCREENING MAMMOGRAPHY BI 2-VIEW BREAST INC CAD Boyd Da Silva PA-C [address] [place] [address] [facility] [address] [place] [id number] Referral ID Status Reason Start Date Expiration Date Visits Requested Visits Authorized [id number] Pending Review Auto-Generat ed Referral 09/23/2021 10/23/2022 1 1 [facility] Outpatient Procedure (Routine) - Authorized Specialty Diagnoses / Procedures Referred By Surjit marsh Referred To Contact [facility] Diagnoses Stage 3 severe COPD by GOLD classification ([facility]) Procedures OXIMETRY WITH AMBULATION NONINVASIVE EAR/PULSE OXIMETRY MULTIPLE Caty Cruz MD [address] [place] [address] [address] Referral ID Status Reason Start Date Expiration Date Visits Requested Visits Authorized [id number] Authorized Auto-Generat ed Referral 10/26/2021 11/25/2022 1 1 [facility] for referral (narrative)* Outpatient Procedure (Routine) - Additional Clinical Info Needed Specialty Diagnoses / Procedures Referred By Contac t Referred To Contact [facility] Diagnoses Dyspnea and respiratory abnormalities Procedures ECHO ECHO TTHRC R-T 2D W/WOM-MODE COMPL SPEC&COLR Beatrice Escobar PA-C [address] [place] [address] [facility] [address] [address] Referral ID Status Reason Start Date Expiration Date Visits Requested Visits Authorized [id number] Additional Clinical Info Needed Auto-Generat ed Referral 01/28/2022 01/28/2023 1 1 T [facility] for referral (narrative)* Outpatient Procedure (Routine) - Pending Review Specialty Diagnoses / Procedures Referred By Contac t Referred To Contact [facility] Diagnoses Stage 3 severe COPD by GOLD classification ([facility]) Procedures SPIROMETRY WITH DILATOR IF OBSTRUCTED BRNCDILAT RSPSE SPMTRY PRE&POST-BRNCDILAT Caty Lee MD [address] [place] [address] [facility] [place] [address] [place] [address] Referral ID Status Reason Start Date Expiration Date Visits Requested Visits Authorized [id number] Pending Review Auto-Generat ed Referral 08/03/2022 09/02/2023 1 1 [facility] for referral (narrative)* Diagnostic Procedure Only (Routine) - Closed Specialty Diagnoses / Procedures Referred By Contscott t Referred To Contact [facility] Diagnoses Encounter for screening mammogram for breast cancer Procedures SHYANNE SCREENING SCREENING MAMMOGRAPHY BI 2-VIEW BREAST INC CAD Boyd Da Silva PA-C [address] [place] [address] [facility] [address] [address] Referral ID Status Reason Start Date Expiration Date V isits Requested Visits Authorized [id number] Closed Auto-Generate d Referral 09/23/2021 10/23/2022 1 1 [facility] for visit Narrative* Diagnostic Procedure Only (Routine) - Closed Specialty Diagnoses / Procedures Referred By Surjit t Referred To Contact [facility] Diagnoses Inconclusive mammogram Procedures SHYANNE DIAGNOSTIC RT DIAGNOSTIC MAMMOGRAPHY COMPUTER-AIDED DETCJ UNI Maeve Salazar, ART SALES CONSULTANT.[employer] [address] [place] [address] [facility] [address] [place] [address] Referral ID Status Reason Start Date Expiration Date V isits Requested Visits Authorized [id number] Closed Auto-Generate d Referral 05/05/2022 06/04/2023 1 1 [facility] for visit Narrative* Diagnostic Procedure Only (Routine) - Closed Specialty Diagnoses / Procedures Referred By Contac t Referred To Contact [facility] Diagnoses Encounter for screening mammogram for breast cancer Procedures SHYANNE SCREENING SCREENING MAMMOGRAPHY BI 2-VIEW BREAST INC CAD Boyd Da Silva PA-C [address] [place] [address] [facility] [address] [place] [address] Referral ID Status Reason Start Date Expiration Date V isits Requested Visits Authorized [id number] Closed Auto-Generate d Referral 09/23/2021 10/23/2022 1 1 [facility] Summary Purpose Family History No Family History Records FoundNo Family History Records FoundNo Family History Records FoundNo Family History Records Found Advance Directives Documents on File Type Date Recorded Patient Medical Office Scheduler Expl anation Advance Directive(s) 06/16/2021 11:48 AM Documents on File Type Date Recorded Patient Medical Office Scheduler Expl anation Advance Directive(s) 06/16/2021 11:48 AM Reason for Referral Specialty Diagnoses / Procedures Referred By Contac t Referred To Contact Diagnoses Other mixed anxiety disorders Daily nausea Boyd Da Silva PA-C [address] [place] [address] Referral ID Status Reason Start Date Expiration Date Visits Re quested Visits Authorized [id number] Closed 1 1 Specialty Diagnoses / Procedures Referred By Contac t Referred To Contact CT IMAGING Diagnoses Smoker Encounter for screening for malignant neoplasm of lung Procedures CT LUNG SCREEN WO IVCON COMPUTED TOMOGRAPHY THORAX LW DOSE LNG CA Wilma Manzo, ART SALES CONSULTANT.[employer] [address] [place] [address] Ct Imaging Referral ID Status Reason Start Date Expiration Date Visits Requested Visits Authorized [id number] Pending Review Auto-Generat ed Referral 11/25/2021 03/26/2022 1 1 Specialty Diagnoses / Procedures Referred By Contac t Referred To Contact Diagnoses Bipolar II disorder (HCC) Procedures PROVIDER ORDERED FOLLOW UP OFFICE/OUTPATIENT [facility] MDM 60-74 MINUTES Matt Vickers, ART SALES CONSULTANT.[employer] [address] [place] [phone] Matt Vickers, ART SALES CONSULTANT.[employer] [address] [place] [phone] Referral ID Status Reason Start Date Expiration Date Visits Requested Visits Authorized [id number] Authorized PCP Requested Referral 2 12/07/2022 1 1 Specialty Diagnoses / Procedures Referred By Contac t Referred To Contact Diagnoses Bipolar II disorder (HCC) Generalized anxiety disorder with panic attacks Procedures PROVIDER ORDERED FOLLOW UP OFFICE/OUTPATIENT [facility] MDM 60-74 MINUTES Matt Vickers, ART SALES CONSULTANT.[employer] [address] [place] [phone] Matt Vickers, ART SALES CONSULTANT.[employer] [address] [place] [address] Referral ID Status Reason Start Date Expiration Date Visits Requested Visits Authorized [id number] Authorized PCP Requested Referral 02/26/2022 01/25/2023 1 1 Specialty Diagnoses / Procedures Referred By Contac t Referred To Contact [facility]ULT PSYCHIATRY Diagnoses Bipolar II disorder (HCC) Generalized anxiety disorder with panic attacks Procedures CONSULT TO INTENSIVE OUTPATIENT PROGRAM (IOP) OFFICE/OUTPATIENT [facility] 60-74 MINUTES Matt Vickers APRN.[employer] [address] [place] [address] [facility] [address] [place] [address] Referral ID Status Reason Start Date Expiration Date Visits Requested Visits Authorized [id number] Pending Review PCP Requested Referral 01/25/2023 1 1 Referral ID Status Reason Start Date Expiration Date Visits Requested Visits Authorized [id number] Authorized PCP Requested Referral 04/29/2022 02/26/2023 1 1 Specialty Diagnoses / Procedures Referred By Contac t Referred To Contact [facility] Diagnoses Chronic 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 Procedures CONSULT TO PHYSICAL THERAPY PHYSICAL THERAPY EVALUATION HIGH COMPLEX 45 MINS Boyd Da Silva PA-C [address] [place] [address] [facility] [place] [address] [place] [address] Referral ID Status Reason Start Date Expiration Date Visits Requested Visits Authorized [id number] Pending Review Auto-Generat ed Referral 04/26/2022 04/26/2023 1 1 Specialty Diagnoses / Procedures Referred By Contac t Referred To Contact Boyd Da Silva PA-C [address] [place] [address] Referral ID Status Reason Start Date Expiration Date V isits Requested Visits Authorized [id number] Pending Review 1 1 Specialty Diagnoses / Procedures Referred By Contac t Referred To Contact Diagnoses Bipolar II disorder (HCC) Generalized anxiety disorder with panic attacks Procedures PROVIDER ORDERED FOLLOW UP OFFICE/OUTPATIENT NEW [facility] MDM 60-74 MINUTES Matt Vickers, ROB.[employer] [address] [place] [address] Referral ID Status Reason Start Date Expiration Date Visits Requested Visits Authorized [id number] Authorized PCP Requested Referral 07/21/2022 04/29/2023 1 1 Specialty Diagnoses / Procedures Referred By Contac t Referred To Contact [facility] Diagnoses Chronic 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 Procedures PT REHAB FOLLOW UP ORDER THERAPEUTIC EXERCISES RE, EA 15 MIN. Juan Jose Ojeda PT [facility] [place] [address] [place] [address] Referral ID Status Reason Start Date Expiration Date Visits Requested Visits Authorized [id number] Pending Review PCP Requested Referral Auto-Generate d Referral 05/18/2022 08/16/2022 1 1 Specialty Diagnoses / Procedures Referred By Contac t Referred To Contact ADULT PSYCHIATRY Diagnoses Bipolar II disorder (HCC) Generalized anxiety disorder with panic attacks Insomnia due to mental condition Procedures PROVIDER ORDERED FOLLOW UP OFFICE/OUTPATIENT [facility] 60-74 MINUTES Matt Vickers, ART SALES CONSULTANT.[employer] [address] [place] [address] [facility] [address] [place] [address] Referral ID Status Reason Start Date Expiration Date V isits Requested Visits Authorized [id number] Authorized 03/28/2022 03/27/2023 99 99 Additional Source Comments INFORMATION SOURCE (unrecogn ized section and content) DATE CREATED AUTHOR AUTHOR'S ORGANIZ ATION 04/21/2022 [facility] DATE CREATED AUTHOR AUTHOR'S ORGANIZ ATION 07/27/2022 [facility] DATE CREATED AUTHOR AUTHOR'S ORGANIZ ATION 03/17/2023 [facility] Source Comments (unrecognize d section and content) In the event this informatio n is protected by the Federal Confidentiality of Alcohol and Drug Abuse Patient Records regulations: The Federal rules restrict any use of the information to criminally investigate or prosecute any alcohol or drug abuse patient.[facility] the event this information is protected by the Federal Confidentiality of Alcohol and Drug Abuse Patient Records regulations: The Federal rules restrict any use of the information to criminally investigate or prosecute any alcohol or drug abuse patient.[facility] the event this information is protected by the Federal Confidentiality of Alcohol and Drug Abuse Patient Records regulations: The Federal rules restrict any use of the information to criminally investigate or prosecute any alcohol or drug abuse patient.[facility] the event this information is protected by the Federal Confidentiality of Alcohol and Drug Abuse Patient Records regulations: The Federal rules restrict any use of the information to criminally investigate or prosecute any alcohol or drug abuse patient.[facility] the event this information is protected by the Federal Confidentiality of Alcohol and Drug Abuse Patient Records regulations: The Federal rules restrict any use of the information to criminally investigate or prosecute any alcohol or drug abuse patient.[facility] the event this information is protected by the Federal Confidentiality of Alcohol and Drug Abuse Patient Records regulations: The Federal rules restrict any use of the information to criminally investigate or prosecute any alcohol or drug abuse patient.[facility] the event this information is protected by the Federal Confidentiality of Alcohol and Drug Abuse Patient Records regulations: The Federal rules restrict any use of the information to criminally investigate or prosecute any alcohol or drug abuse patient.[facility] the event this information is protected by the Federal Confidentiality of Alcohol and Drug Abuse Patient Records regulations: The Federal rules restrict any use of the information to criminally investigate or prosecute any alcohol or drug abuse patient.[facility] the event this information is protected by the Federal Confidentiality of Alcohol and Drug Abuse Patient Records regulations: The Federal rules restrict any use of the information to criminally investigate or prosecute any alcohol or drug abuse patient.[facility] the event this information is protected by the Federal Confidentiality of Alcohol and Drug Abuse Patient Records regulations: The Federal rules restrict any use of the information to criminally investigate or prosecute any alcohol or drug abuse patient.[facility] the event this information is protected by the Federal Confidentiality of Alcohol and Drug Abuse Patient Records regulations: The Federal rules restrict any use of the information to criminally investigate or prosecute any alcohol or drug abuse patient.[facility] the event this information is protected by the Federal Confidentiality of Alcohol and Drug Abuse Patient Records regulations: The Federal rules restrict any use of the information to criminally investigate or prosecute any alcohol or drug abuse patient.[facility] Center[facility] the event this information is protected by the Federal Confidentiality of Alcohol and Drug Abuse Patient Records regulations: The Federal rules restrict any use of the information to criminally investigate or prosecute any alcohol or drug abuse patient.[facility]In the event this information is protected by the Federal Confidentiality of Alcohol and Drug Abuse Patient Records regulations: The Federal rules restrict any use of the information to criminally investigate or prosecute any alcohol or drug abuse patient.[facility] CenterIn the event this information is protected by the Federal Confidentiality of Alcohol and Drug Abuse Patient Records regulations: The Federal rules restrict any use of the information to criminally investigate or prosecute any alcohol or drug abuse patient.[facility] CenterIn the event this information is protected by the Federal Confidentiality of Alcohol and Drug Abuse Patient Records regulations: The Federal rules restrict any use of the information to criminally investigate or prosecute any alcohol or drug abuse patient.[facility] CenterIn the event this information is protected by the Federal Confidentiality of Alcohol and Drug Abuse Patient Records regulations: The Federal rules restrict any use of the information to criminally investigate or prosecute any alcohol or drug abuse patient.[facility] CenterIn the event this information is protected by the Federal Confidentiality of Alcohol and Drug Abuse Patient Records regulations: The Federal rules restrict any use of the information to criminally investigate or prosecute any alcohol or drug abuse patient.[facility] CenterIn the event this information is protected by the Federal Confidentiality of Alcohol and Drug Abuse Patient Records regulations: The Federal rules restrict any use of the information to criminally investigate or prosecute any alcohol or drug abuse patient.[facility] CenterIn the event this information is protected by the Federal Confidentiality of Alcohol and Drug Abuse Patient Records regulations: The Federal rules restrict any use of the information to criminally investigate or prosecute any alcohol or drug abuse patient.[facility] CenterIn the event this information is protected by the Federal Confidentiality of Alcohol and Drug Abuse Patient Records regulations: The Federal rules restrict any use of the information to criminally investigate or prosecute any alcohol or drug abuse patient.[facility] CenterIn the event this information is protected by the Federal Confidentiality of Alcohol and Drug Abuse Patient Records regulations: The Federal rules restrict any use of the information to criminally investigate or prosecute any alcohol or drug abuse patient.[facility] CenterIn the event this information is protected by the Federal Confidentiality of Alcohol and Drug Abuse Patient Records regulations: The Federal rules restrict any use of the information to criminally investigate or prosecute any alcohol or drug abuse patient.[facility] CenterIn the event this information is protected by the Federal Confidentiality of Alcohol and Drug Abuse Patient Records regulations: The Federal rules restrict any use of the information to criminally investigate or prosecute any alcohol or drug abuse patient.[facility] CenterIn the event this information is protected by the Federal Confidentiality of Alcohol and Drug Abuse Patient Records regulations: The Federal rules restrict any use of the information to criminally investigate or prosecute any alcohol or drug abuse patient.[facility] CenterIn the event this information is protected by the Federal Confidentiality of Alcohol and Drug Abuse Patient Records regulations: The Federal rules restrict any use of the information to criminally investigate or prosecute any alcohol or drug abuse patient.[facility] CenterIn the event this information is protected by the Federal Confidentiality of Alcohol and Drug Abuse Patient Records regulations: The Federal rules restrict any use of the information to criminally investigate or prosecute any alcohol or drug abuse patient.[facility] CenterIn the event this information is protected by the Federal Confidentiality of Alcohol and Drug Abuse Patient Records regulations: The Federal rules restrict any use of the information to criminally investigate or prosecute any alcohol or drug abuse patient.[facility] CenterIn the event this information is protected by the Federal Confidentiality of Alcohol and Drug Abuse Patient Records regulations: The Federal rules restrict any use of the information to criminally investigate or prosecute any alcohol or drug abuse patient.[facility] CenterIn the event this information is protected by the Federal Confidentiality of Alcohol and Drug Abuse Patient Records regulations: The Federal rules restrict any use of the information to criminally investigate or prosecute any alcohol or drug abuse patient.[facility] CenterIn the event this information is protected by the Federal Confidentiality of Alcohol and Drug Abuse Patient Records regulations: The Federal rules restrict any use of the information to criminally investigate or prosecute any alcohol or drug abuse patient.[facility] CenterIn the event this information is protected by the Federal Confidentiality of Alcohol and Drug Abuse Patient Records regulations: The Federal rules restrict any use of the information to criminally investigate or prosecute any alcohol or drug abuse patient.[facility] the event this information is protected by the Federal Confidentiality of Alcohol and Drug Abuse Patient Records regulations: The Federal rules restrict any use of the information to criminally investigate or prosecute any alcohol or drug abuse patient.[facility] CenterIn the event this information is protected by the Federal Confidentiality of Alcohol and Drug Abuse Patient Records regulations: The Federal rules restrict any use of the information to criminally investigate or prosecute any alcohol or drug abuse patient.[facility] CenterIn the event this information is protected by the Federal Confidentiality of Alcohol and Drug Abuse Patient Records regulations: The Federal rules restrict any use of the information to criminally investigate or prosecute any alcohol or drug abuse patient.[facility]In the event this information is protected by the Federal Confidentiality of Alcohol and Drug Abuse Patient Records regulations: The Federal rules restrict any use of the information to criminally investigate or prosecute any alcohol or drug abuse patient.[facility] CenterIn the event this information is protected by the Federal Confidentiality of Alcohol and Drug Abuse Patient Records regulations: The Federal rules restrict any use of the information to criminally investigate or prosecute any alcohol or drug abuse patient.[facility] CenterIn the event this information is protected by the Federal Confidentiality of Alcohol and Drug Abuse Patient Records regulations: The Federal rules restrict any use of the information to criminally investigate or prosecute any alcohol or drug abuse patient.[facility] CenterIn the event this information is protected by the Federal Confidentiality of Alcohol and Drug Abuse Patient Records regulations: The Federal rules restrict any use of the information to criminally investigate or prosecute any alcohol or drug abuse patient.[facility] CenterIn the event this information is protected by the Federal Confidentiality of Alcohol and Drug Abuse Patient Records regulations: The Federal rules restrict any use of the information to criminally investigate or prosecute any alcohol or drug abuse patient.[facility] CenterIn the event this information is protected by the Federal Confidentiality of Alcohol and Drug Abuse Patient Records regulations: The Federal rules restrict any use of the information to criminally investigate or prosecute any alcohol or drug abuse patient.[facility] CenterIn the event this information is protected by the Federal Confidentiality of Alcohol and Drug Abuse Patient Records regulations: The Federal rules restrict any use of the information to criminally investigate or prosecute any alcohol or drug abuse patient.[facility]In the event this information is protected by the Federal Confidentiality of Alcohol and Drug Abuse Patient Records regulations: The Federal rules restrict any use of the information to criminally investigate or prosecute any alcohol or drug abuse patient.[facility] CenterIn the event this information is protected by the Federal Confidentiality of Alcohol and Drug Abuse Patient Records regulations: The Federal rules restrict any use of the information to criminally investigate or prosecute any alcohol or drug abuse patient.[facility]In the event this information is protected by the Federal Confidentiality of Alcohol and Drug Abuse Patient Records regulations: The Federal rules restrict any use of the information to criminally investigate or prosecute any alcohol or drug abuse patient.[facility] CenterIn the event this information is protected by the Federal Confidentiality of Alcohol and Drug Abuse Patient Records regulations: The Federal rules restrict any use of the information to criminally investigate or prosecute any alcohol or drug abuse patient.[facility]In the event this information is protected by the Federal Confidentiality of Alcohol and Drug Abuse Patient Records regulations: The Federal rules restrict any use of the information to criminally investigate or prosecute any alcohol or drug abuse patient.[facility]In the event this information is protected by the Federal Confidentiality of Alcohol and Drug Abuse Patient Records regulations: The Federal rules restrict any use of the information to criminally investigate or prosecute any alcohol or drug abuse patient.[facility]In the event this information is protected by the Federal Confidentiality of Alcohol and Drug Abuse Patient Records regulations: The Federal rules restrict any use of the information to criminally investigate or prosecute any alcohol or drug abuse patient.[facility]In the event this information is protected by the Federal Confidentiality of Alcohol and Drug Abuse Patient Records regulations: The Federal rules restrict any use of the information to criminally investigate or prosecute any alcohol or drug abuse patient.[facility]In the event this information is protected by the Federal Confidentiality of Alcohol and Drug Abuse Patient Records regulations: The Federal rules restrict any use of the information to criminally investigate or prosecute any alcohol or drug abuse patient.[facility]In the event this information is protected by the Federal Confidentiality of Alcohol and Drug Abuse Patient Records regulations: The Federal rules restrict any use of the information to criminally investigate or prosecute any alcohol or drug abuse patient.[facility]In the event this information is protected by the Federal Confidentiality of Alcohol and Drug Abuse Patient Records regulations: The Federal rules restrict any use of the information to criminally investigate or prosecute any alcohol or drug abuse patient.[facility]In the event this information is protected by the Federal Confidentiality of Alcohol and Drug Abuse Patient Records regulations: The Federal rules restrict any use of the information to criminally investigate or prosecute any alcohol or drug abuse patient.[facility]In the event this information is protected by the Federal Confidentiality of Alcohol and Drug Abuse Patient Records regulations: The Federal rules restrict any use of the information to criminally investigate or prosecute any alcohol or drug abuse patient.[facility]In the event this information is protected by the Federal Confidentiality of Alcohol and Drug Abuse Patient Records regulations: The Federal rules restrict any use of the information to criminally investigate or prosecute any alcohol or drug abuse patient.[facility]In the event this information is protected by the Federal Confidentiality of Alcohol and Drug Abuse Patient Records regulations: The Federal rules restrict any use of the information to criminally investigate or prosecute any alcohol or drug abuse patient.[facility]In the event this information is protected by the Federal Confidentiality of Alcohol and Drug Abuse Patient Records regulations: The Federal rules restrict any use of the information to criminally investigate or prosecute any alcohol or drug abuse patient.[facility]In the event this information is protected by the Federal Confidentiality of Alcohol and Drug Abuse Patient Records regulations: The Federal rules restrict any use of the information to criminally investigate or prosecute any alcohol or drug abuse patient.[facility]In the event this information is protected by the Federal Confidentiality of Alcohol and Drug Abuse Patient Records regulations: The Federal rules restrict any use of the information to criminally investigate or prosecute any alcohol or drug abuse patient.[facility]In the event this information is protected by the Federal Confidentiality of Alcohol and Drug Abuse Patient Records regulations: The Federal rules restrict any use of the information to criminally investigate or prosecute any alcohol or drug abuse patient.[facility]In the event this information is protected by the Federal Confidentiality of Alcohol and Drug Abuse Patient Records regulations: The Federal rules restrict any use of the information to criminally investigate or prosecute any alcohol or drug abuse patient.[facility]In the event this information is protected by the Federal Confidentiality of Alcohol and Drug Abuse Patient Records regulations: The Federal rules restrict any use of the information to criminally investigate or prosecute any alcohol or drug abuse patient.[facility]In the event this information is protected by the Federal Confidentiality of Alcohol and Drug Abuse Patient Records regulations: The Federal rules restrict any use of the information to criminally investigate or prosecute any alcohol or drug abuse patient.[facility]In the event this information is protected by the Federal Confidentiality of Alcohol and Drug Abuse Patient Records regulations: The Federal rules restrict any use of the information to criminally investigate or prosecute any alcohol or drug abuse patient.[facility]In the event this information is protected by the Federal Confidentiality of Alcohol and Drug Abuse Patient Records regulations: The Federal rules restrict any use of the information to criminally investigate or prosecute any alcohol or drug abuse patient.[facility]In the event this information is protected by the Federal Confidentiality of Alcohol and Drug Abuse Patient Records regulations: The Federal rules restrict any use of the information to criminally investigate or prosecute any alcohol or drug abuse patient.[facility]In the event this information is protected by the Federal Confidentiality of Alcohol and Drug Abuse Patient Records regulations: The Federal rules restrict any use of the information to criminally investigate or prosecute any alcohol or drug abuse patient.[facility]In the event this information is protected by the Federal Confidentiality of Alcohol and Drug Abuse Patient Records regulations: The Federal rules restrict any use of the information to criminally investigate or prosecute any alcohol or drug abuse patient.[facility]In the event this information is protected by the Federal Confidentiality of Alcohol and Drug Abuse Patient Records regulations: The Federal rules restrict any use of the information to criminally investigate or prosecute any alcohol or drug abuse patient.[facility]In the event this information is protected by the Federal Confidentiality of Alcohol and Drug Abuse Patient Records regulations: The Federal rules restrict any use of the information to criminally investigate or prosecute any alcohol or drug abuse patient.[facility]In the event this information is protected by the Federal Confidentiality of Alcohol and Drug Abuse Patient Records regulations: The Federal rules restrict any use of the information to criminally investigate or prosecute any alcohol or drug abuse patient.[facility]In the event this information is protected by the Federal Confidentiality of Alcohol and Drug Abuse Patient Records regulations: The Federal rules restrict any use of the information to criminally investigate or prosecute any alcohol or drug abuse patient.[facility]In the event this information is protected by the Federal Confidentiality of Alcohol and Drug Abuse Patient Records regulations: The Federal rules restrict any use of the information to criminally investigate or prosecute any alcohol or drug abuse patient.[facility]In the event this information is protected by the Federal Confidentiality of Alcohol and Drug Abuse Patient Records regulations: The Federal rules restrict any use of the information to criminally investigate or prosecute any alcohol or drug abuse patient.[facility]In the event this information is protected by the Federal Confidentiality of Alcohol and Drug Abuse Patient Records regulations: The Federal rules restrict any use of the information to criminally investigate or prosecute any alcohol or drug abuse patient.[facility]In the event this information is protected by the Federal Confidentiality of Alcohol and Drug Abuse Patient Records regulations: The Federal rules restrict any use of the information to criminally investigate or prosecute any alcohol or drug abuse patient.[facility]In the event this information is protected by the Federal Confidentiality of Alcohol and Drug Abuse Patient Records regulations: The Federal rules restrict any use of the information to criminally investigate or prosecute any alcohol or drug abuse patient.[facility]In the event this information is protected by the Federal Confidentiality of Alcohol and Drug Abuse Patient Records regulations: The Federal rules restrict any use of the information to criminally investigate or prosecute any alcohol or drug abuse patient.[facility]In the event this information is protected by the Federal Confidentiality of Alcohol and Drug Abuse Patient Records regulations: The Federal rules restrict any use of the information to criminally investigate or prosecute any alcohol or drug abuse patient.[facility]In the event this information is protected by the Federal Confidentiality of Alcohol and Drug Abuse Patient Records regulations: The Federal rules restrict any use of the information to criminally investigate or prosecute any alcohol or drug abuse patient.[facility] CenterIn the event this information is protected by the Federal Confidentiality of Alcohol and Drug Abuse Patient Records regulations: The Federal rules restrict any use of the information to criminally investigate or prosecute any alcohol or drug abuse patient.[facility] the event this information is protected by the Federal Confidentiality of Alcohol and Drug Abuse Patient Records regulations: The Federal rules restrict any use of the information to criminally investigate or prosecute any alcohol or drug abuse patient.[facility]In the event this information is protected by the Federal Confidentiality of Alcohol and Drug Abuse Patient Records regulations: The Federal rules restrict any use of the information to criminally investigate or prosecute any alcohol or drug abuse patient.[facility]In the event this information is protected by the Federal Confidentiality of Alcohol and Drug Abuse Patient Records regulations: The Federal rules restrict any use of the information to criminally investigate or prosecute any alcohol or drug abuse patient.[facility]In the event this information is protected by the Federal Confidentiality of Alcohol and Drug Abuse Patient Records regulations: The Federal rules restrict any use of the information to criminally investigate or prosecute any alcohol or drug abuse patient.[facility]In the event this information is protected by the Federal Confidentiality of Alcohol and Drug Abuse Patient Records regulations: The Federal rules restrict any use of the information to criminally investigate or prosecute any alcohol or drug abuse patient.[facility]In the event this information is protected by the Federal Confidentiality of Alcohol and Drug Abuse Patient Records regulations: The Federal rules restrict any use of the information to criminally investigate or prosecute any alcohol or drug abuse patient.[facility]In the event this information is protected by the Federal Confidentiality of Alcohol and Drug Abuse Patient Records regulations: The Federal rules restrict any use of the information to criminally investigate or prosecute any alcohol or drug abuse patient.[facility]In the event this information is protected by the Federal Confidentiality of Alcohol and Drug Abuse Patient Records regulations: The Federal rules restrict any use of the information to criminally investigate or prosecute any alcohol or drug abuse patient.[facility]In the event this information is protected by the Federal Confidentiality of Alcohol and Drug Abuse Patient Records regulations: The Federal rules restrict any use of the information to criminally investigate or prosecute any alcohol or drug abuse patient.[facility]In the event this information is protected by the Federal Confidentiality of Alcohol and Drug Abuse Patient Records regulations: The Federal rules restrict any use of the information to criminally investigate or prosecute any alcohol or drug abuse patient.[facility]In the event this information is protected by the Federal Confidentiality of Alcohol and Drug Abuse Patient Records regulations: The Federal rules restrict any use of the information to criminally investigate or prosecute any alcohol or drug abuse patient.[facility]In the event this information is protected by the Federal Confidentiality of Alcohol and Drug Abuse Patient Records regulations: The Federal rules restrict any use of the information to criminally investigate or prosecute any alcohol or drug abuse patient.[facility]In the event this information is protected by the Federal Confidentiality of Alcohol and Drug Abuse Patient Records regulations: The Federal rules restrict any use of the information to criminally investigate or prosecute any alcohol or drug abuse patient.[facility] CenterIn the event this information is protected by the Federal Confidentiality of Alcohol and Drug Abuse Patient Records regulations: The Federal rules restrict any use of the information to criminally investigate or prosecute any alcohol or drug abuse patient.[facility] Medical CenterIn the event this information is protected by the Federal Confidentiality of Alcohol and Drug Abuse Patient Records regulations: The Federal rules restrict any use of the information to criminally investigate or prosecute any alcohol or drug abuse patient.[facility] CenterIn the event this information is protected by the Federal Confidentiality of Alcohol and Drug Abuse Patient Records regulations: The Federal rules restrict any use of the information to criminally investigate or prosecute any alcohol or drug abuse patient.[facility] CenterIn the event this information is protected by the Federal Confidentiality of Alcohol and Drug Abuse Patient Records regulations: The Federal rules restrict any use of the information to criminally investigate or prosecute any alcohol or drug abuse patient.[facility] CenterIn the event this information is protected by the Federal Confidentiality of Alcohol and Drug Abuse Patient Records regulations: The Federal rules restrict any use of the information to criminally investigate or prosecute any alcohol or drug abuse patient.[facility] CenterIn the event this information is protected by the Federal Confidentiality of Alcohol and Drug Abuse Patient Records regulations: The Federal rules restrict any use of the information to criminally investigate or prosecute any alcohol or drug abuse patient.[facility] CenterIn the event this information is protected by the Federal Confidentiality of Alcohol and Drug Abuse Patient Records regulations: The Federal rules restrict any use of the information to criminally investigate or prosecute any alcohol or drug abuse patient.[facility] CenterIn the event this information is protected by the Federal Confidentiality of Alcohol and Drug Abuse Patient Records regulations: The Federal rules restrict any use of the information to criminally investigate or prosecute any alcohol or drug abuse patient.[facility] CenterIn the event this information is protected by the Federal Confidentiality of Alcohol and Drug Abuse Patient Records regulations: The Federal rules restrict any use of the information to criminally investigate or prosecute any alcohol or drug abuse patient.[facility] CenterIn the event this information is protected by the Federal Confidentiality of Alcohol and Drug Abuse Patient Records regulations: The Federal rules restrict any use of the information to criminally investigate or prosecute any alcohol or drug abuse patient.[facility] Reason for Visit (unrecogniz ed section and content) Specialty Diagnoses / Procedures Referred By Surjit t Referred To Contact Diagnoses Insomnia due to mental condition Bipolar II disorder (HCC) Generalized anxiety disorder with panic attacks Procedures PROVIDER ORDERED FOLLOW UP OFFICE/OUTPATIENT [facility] 60-74 MINUTES Matt Vickers APRN.[employer] [address] [place] [address] Referral ID Status Reason Start Date Expiration Date V isits Requested Visits Authorized [id number] Closed PCP Requested Referral 10/07/2022 08/18/2023 1 1 Reason Onset Date Comments Refill Request 06/25/2021 Reason Comments Back Pain Headache Anxiety Reason Comments Results Reason Comments Follow Up Reason Onset Date Comments Refill Request 08/21/2021 Reason Comments Appointment Reason Comments Med Management Reason Comments Refill Request Reason Comments Spirometry Specialty Diagnoses / Procedures Referred By Surjit t Referred To Contact [facility] Diagnoses Chronic obstructive pulmonary disease, unspecified COPD type (HCC) Procedures SPIROMETRY WITH DILATOR IF OBSTRUCTED BRNCDILAT RSPSE SPMTRY PRE&POST-BRNCDILAT Caty Lee MD [address] [place] [address] [facility] [place] [address] [place] [address] Referral ID Status Reason Start Date Expiration Date V isits Requested Visits Authorized [id number] Closed Auto-Generate d Referral 10/26/2021 03/27/2022 1 1 Reason Comments New Patient Dyspnea Reason Onset Date Comments Refill Request 10/27/2021 Reason Comments Orders Reason Comments Imm/Inj Reason Comments Counseling Reason Comments Appointment Cancelled Reason Comments Med Management Specialty Diagnoses / Procedures Referred By Contscott t Referred To Contact Diagnoses Bipolar II disorder (HCC) Procedures PROVIDER ORDERED FOLLOW UP OFFICE/OUTPATIENT [facility] MDM 60-74 MINUTES Matt Vickers APRN.[employer] [address] [place] [phone] Matt Vickers APRN.[employer] [address] [place] [phone] Referral ID Status Reason Start Date Expiration Date V isits Requested Visits Authorized [id number] Closed PCP Requested Referral 01/25/2022 12/07/2022 1 1 Specialty Diagnoses / Procedures Referred By Contac t Referred To Contact [facility] Diagnoses Stage 3 severe COPD by GOLD classification ([facility]) Procedures OXIMETRY WITH AMBULATION NONINVASIVE EAR/PULSE OXIMETRY MULTIPLE Caty Cruz MD [address] [place] [address] [facility] [place] [address] [place] [place] [id number] Referral ID Status Reason Start Date Expiration Date V isits Requested Visits Authorized [id number] Closed Auto-Generate d Referral 10/26/2021 11/25/2022 1 1 Reason Onset Date Comments 3 month follow up COPD Immunizations 01/28/2022 Flu vaccination Specialty Diagnoses / Procedures Referred By Contac t Referred To Contact ADULT PSYCHIATRY Diagnoses new patient eval referred by Matt Vickers CNP Procedures VIDEO PSYC/PSYL Matt Brooks APRN.[employer] [address] [place] [address] Carola Croft, [facility] [address] [place] [address] Referral ID Status Reason Start Date Expiration Date V isits Requested Visits Authorized [id number] Authorized 03/28/2021 03/27/2022 99 99 Specialty Diagnoses / Procedures Referred By Contac t Referred To Contact Diagnoses Bipolar II disorder (HCC) Generalized anxiety disorder with panic attacks Procedures PROVIDER ORDERED FOLLOW UP OFFICE/OUTPATIENT [facility] MDM 60-74 MINUTES Matt Vickers APRN.[employer] [address] [place] [phone] Matt Vickers APRN.[employer] [address] [place] [address] Referral ID Status Reason Start Date Expiration Date V isits Requested Visits Authorized [id number] Closed PCP Requested Referral 02/26/2022 01/25/2023 1 1 Reason Comments Depression Specialty Diagnoses / Procedures Referred By Contac t Referred To Contact ADULT PSYCHIATRY Diagnoses new patient eval referred by Matt Vickers CNP Procedures VIDEO PSYC/PSYL Matt Brooks, ROB.[employer] [address] [place] [address] [facility] [address] [place] [phone] Reason Comments Med Change Request Reason Comments Back Pain Cough Reason Comments Insurance Authorization Referral ID Status Reason Start Date Expiration Date V isits Requested Visits Authorized [id number] Closed PCP Requested Referral 04/29/2022 02/26/2023 1 1 Reason Comments Appointment late Reason Comments Established Patient 3 month follow up Specialty Diagnoses / Procedures Referred By Contac t Referred To Contact ADULT PSYCHOLOGY Diagnoses Bipolar II disorder Generalized anxiety disorder Procedures GROUP PSYCHOTHERAPY [facility] [address] [place] [address] Referral ID Status Reason Start Date Expiration Date Visits Re quested Visits Authorized [id number] 1 1 Reason Comments PT Eval Specialty Diagnoses / Procedures Referred By Contac t Referred To Contact [facility] Diagnoses Chronic 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 Procedures CONSULT TO PHYSICAL THERAPY PHYSICAL THERAPY EVALUATION HIGH COMPLEX 45 MINS Boyd Da Silva PA-C [address] [place] [address] [facility] [place] [address] [place] [address] Referral ID Status Reason Start Date Expiration Date V isits Requested Visits Authorized [id number] Closed Auto-Generate d Referral 05/13/2022 08/10/2022 1 1 Reason Onset Date Comments Refill Request 06/04/2022 Reason Onset Date Comments Refill Request 06/09/2022 Reason Comments New Patient Specialty Diagnoses / Procedures Referred By Contac t Referred To Contact Cardiology Diagnoses Mild pulmonary hypertension (HCC) Procedures CONSULT TO CARDIOLOGY OFFICE/OUTPATIENT [facility] MDM 60-74 MINUTES Beatrice Reaves PA-C [address] [facility] [place] [address] Referral ID Status Reason Start Date Expiration Date V isits Requested Visits Authorized [id number] Closed PCP Requested Referral 02/15/2022 02/15/2023 1 1 Reason Comments Preparations For Procedures Specialty Diagnoses / Procedures Referred By Contac t Referred To Contact Diagnoses Bipolar II disorder (HCC) Generalized anxiety disorder with panic attacks Procedures PROVIDER ORDERED FOLLOW UP OFFICE/OUTPATIENT [facility] MDM 60-74 MINUTES Matt Vickers APRN.[employer] [address] [place] [address] Referral ID Status Reason Start Date Expiration Date V isits Requested Visits Authorized [id number] Closed PCP Requested Referral 07/21/2022 04/29/2023 1 1 Reason Comments PT Progress Note Specialty Diagnoses / Procedures Referred By Contac t Referred To Contact PHYSICAL THERAPY Diagnoses Chronic 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 Procedures PT REHAB FOLLOW UP ORDER THERAPEUTIC EXERCISES RE, EA 15 MIN. Boyd Da Silva PA-C [address] [place] [address] Pt [facility] [address] [place] [address] Referral ID Status Reason Start Date Expiration Date Visits Requested Visits Authorized [id number] Authorized PCP Requested Referral Auto-Generate d Referral 06/07/2022 09/24/2022 10 10 Reason Comments Established Patient 3 month follow up Reason Onset Date Comments Refill Request 10/01/2022 Reason Onset Date Comments Opened In Error 10/04/2022 Reason Comments COPD Reason Comments Patient Update Specialty Diagnoses / Procedures Referred By Contac t Referred To Contact [facility] Diagnoses Stage 3 severe COPD by GOLD classification ([facility]) Procedures OXIMETRY WITH AMBULATION NONINVASIVE EAR/PULSE OXIMETRY MULTIPLE DETER Beatrice Reaves PA-C [address] [facility] [place] [address] [facility] [place] [address] [place] [address] Referral ID Status Reason Start Date Expiration Date V isits Requested Visits Authorized [id number] Closed Auto-Generate d Referral 01/19/2023 02/18/2024 1 1 Reason Onset Date Comments Established Patient 6 week follo w up Immunizations 03/03/2023 Flu vaccination Reason Onset Date Comments Refill Request 05/10/2023 Care Teams (unrecognized sec tion and content) Durability Engineer Relationship Specialty Start Date End Date Boyd Da Silva PA-C [address] [place] [address] PCP - General Family Practice 08/04/16 Durability Engineer Relationship Specialty Start Date End Date Boyd Da Silva PA-C [address] [place] [address] PCP - General Family Practice 08/04/16 Durability Engineer Relationship Specialty Start Date End Date Boyd Da Silva PA-C [address] [place] [address] PCP - General Family Practice 08/04/16 Durability Engineer Relationship Specialty Start Date End Date Boyd Da Silva PA-C [address] [place] [address] PCP - General Family Practice 08/04/16 Durability Engineer Relationship Specialty Start Date End Date Boyd Da Silva PA-C [address] [place] [address] PCP - General Family Practice 08/04/16 Durability Engineer Relationship Specialty Start Date End Date Boyd Da Silva PA-C [address] [place] [address] PCP - General Family Practice 08/04/16 Durability Engineer Relationship Specialty Start Date End Date Boyd Da Silva PA-C [address] [place] [address] PCP - General Family Practice 08/04/16 Durability Engineer Relationship Specialty Start Date End Date Boyd Da Silva PA-C [address] [facility] [place] [address] PCP - General Family Practice 08/04/16 Durability Engineer Relationship Specialty Start Date End Date Boyd Da Silva PA-C [address] [facility] [place] [address] PCP - General Family Practice 08/04/16 Durability Engineer Relationship Specialty Start Date End Date Boyd Da Silva PA-C [address] [facility] [place] [address] PCP - General Family Practice 08/04/16 Durability Engineer Relationship Specialty Start Date End Date Boyd Da Silva PA-C [address] [facility] [place] [address] PCP - General Family Practice 08/04/16 Durability Engineer Relationship Specialty Start Date End Date Boyd Da Silva PA-C [address] [facility] [address] PCP - General Family Practice 08/04/16 Durability Engineer Relationship Specialty Start Date End Date Boyd Da Silva PA-C [address] [facility] [place] [address] PCP - General Family Practice 08/04/16 Durability Engineer Relationship Specialty Start Date End Date Boyd Da Silva PA-C [address] [facility] [place] [address] PCP - General Family Practice 08/04/16 Durability Engineer Relationship Specialty Start Date End Date Boyd Da Silva PA-C [address] [facility] [place] [address] PCP - General Family Practice 08/04/16 Durability Engineer Relationship Specialty Start Date End Date Boyd Da Silva PA-C [address] [facility] [place] [address] PCP - General Family Practice 08/04/16 Durability Engineer Relationship Specialty Start Date End Date Boyd Da Silva PA-C [address] [facility] [address] PCP - General Family Medicine 08/04/16 Durability Engineer Relationship Specialty Start Date End Date Boyd Da Silva PA-C [address] [facility] [address] PCP - General Family Medicine 08/04/16 Durability Engineer Relationship Specialty Start Date End Date Boyd Da Silva PA-C [address] [facility] [address] PCP - General Family Medicine 08/04/16 Durability Engineer Relationship Specialty Start Date End Date Boyd Da Silva PA-C [address] [facility] [address] PCP - General Family Medicine 08/04/16 Durability Engineer Relationship Specialty Start Date End Date Boyd Da Silva PA-C [address] [facility] [address] PCP - General Family Medicine 08/04/16 Durability Engineer Relationship Specialty Start Date End Date Boyd Da Silva PA-C [address] [facility] [address] PCP - General Family Medicine 08/04/16 Durability Engineer Relationship Specialty Start Date End Date Boyd Da Silva PA-C [address] [facility] [address] PCP - General Family Medicine 08/04/16 Durability Engineer Relationship Specialty Start Date End Date Boyd Da Silva PA-C [address] [facility] [address] PCP - General Family Medicine 08/04/16 Durability Engineer Relationship Specialty Start Date End Date Boyd Da Silva PA-C [address] [facility] [place] [address] PCP - General Family Medicine 08/04/16 Durability Engineer Relationship Specialty Start Date End Date Boyd Da Silva PA-C [address] [facility] [place] [address] PCP - General Family Medicine 08/04/16 Durability Engineer Relationship Specialty Start Date End Date Boyd Da Silva PA-C [address] [facility] [place] [address] PCP - General Family Medicine 08/04/16 Durability Engineer Relationship Specialty Start Date End Date Boyd Da Silva PA-C [address] [facility] [place] [address] PCP - General Family Medicine 08/04/16 Durability Engineer Relationship Specialty Start Date End Date Boyd Da Silva PA-C [address] [facility] [address] PCP - General Family Medicine 08/04/16 Durability Engineer Relationship Specialty Start Date End Date Boyd Da Silva PA-C [address] [facility] [address] PCP - General Family Medicine 08/04/16 Durability Engineer Relationship Specialty Start Date End Date Boyd Da Silva PA-C [address] [facility] [address] PCP - General Family Medicine 08/04/16 Durability Engineer Relationship Specialty Start Date End Date Boyd Da Silva PA-C [address] [facility] [address] PCP - General Family Medicine 08/04/16 Durability Engineer Relationship Specialty Start Date End Date Boyd Da Silva PA-C [address] [facility] [address] PCP - General Family Medicine 08/04/16 Durability Engineer Relationship Specialty Start Date End Date Boyd Da Silva PA-C [address] [facility] [place] [address] PCP - General Family Medicine 08/04/16 Durability Engineer Relationship Specialty Start Date End Date Boyd Da Silva PA-C [address] [facility] [address] PCP - General Family Medicine 08/04/16 Durability Engineer Relationship Specialty Start Date End Date Boyd Da Silva PA-C [address] [facility] [address] PCP - General Family Medicine 08/04/16 Durability Engineer Relationship Specialty Start Date End Date Boyd Da Silva PA-C [address] [facility] [address] PCP - General Family Medicine 08/04/16 Durability Engineer Relationship Specialty Start Date End Date Boyd Da Silva PA-C [address] [facility] [address] PCP - General Family Medicine 08/04/16 Durability Engineer Relationship Specialty Start Date End Date Boyd Da Silva PA-C [address] [facility] [address] PCP - General Family Medicine 08/04/16 Durability Engineer Relationship Specialty Start Date End Date Boyd Da Silva PA-C [address] [facility] [address] PCP - General Family Medicine 08/04/16 Durability Engineer Relationship Specialty Start Date End Date Boyd Da Silva PA-C [address] [facility] [address] PCP - General Family Medicine 08/04/16 Durability Engineer Relationship Specialty Start Date End Date Boyd Da Silva PA-C [address] [facility] [address] PCP - General Family Medicine 08/04/16 Durability Engineer Relationship Specialty Start Date End Date Boyd Da Silva PA-C [address] [facility] [address] PCP - General Family Medicine 08/04/16 Durability Engineer Relationship Specialty Start Date End Date Boyd Da Silva PA-C [address] [facility] [address] PCP - General Family Medicine 08/04/16 Durability Engineer Relationship Specialty Start Date End Date Boyd Da Silva PA-C [address] [facility] [address] PCP - General Family Medicine 08/04/16 Durability Engineer Relationship Specialty Start Date End Date Boyd Da Silva PA-C [address] [facility] [address] PCP - General Family Medicine 08/04/16 Durability Engineer Relationship Specialty Start Date End Date Boyd Da Silva PA-C [address] [facility] [address] PCP - General Family Medicine 08/04/16 Durability Engineer Relationship Specialty Start Date End Date Boyd Da Silva PA-C [address] [facility] [address] PCP - General Family Medicine 08/04/16 Durability Engineer Relationship Specialty Start Date End Date Boyd Da Silva PA-C [address] [facility] [place] [address] PCP - General Family Medicine 08/04/16 Durability Engineer Relationship Specialty Start Date End Date Boyd Da Silva PA-C [address] [facility] [address] PCP - General Family Medicine 08/04/16 Durability Engineer Relationship Specialty Start Date End Date Boyd Da Silva PA-C [address] [facility] [place] [address] PCP - General Family Medicine 08/04/16 Durability Engineer Relationship Specialty Start Date End Date Boyd Da Silva PA-C [address] [facility] [address] PCP - General Family Medicine 08/04/16 Durability Engineer Relationship Specialty Start Date End Date Boyd Da Silva PA-C [address] [facility] [address] PCP - General Family Medicine 08/04/16 Durability Engineer Relationship Specialty Start Date End Date Boyd Da Silva PA-C [address] [facility] [address] PCP - General Family Medicine 08/04/16 Durability Engineer Relationship Specialty Start Date End Date Boyd Da Silva PA-C [address] [facility] [place] [address] PCP - General Family Medicine 08/04/16 Durability Engineer Relationship Specialty Start Date End Date Boyd Da Silva PA-C [address] [facility] [place] [address] PCP - General Family Medicine 08/04/16 Durability Engineer Relationship Specialty Start Date End Date Boyd Da Silva PA-C [address] [facility] [place] [address] PCP - General Family Medicine 08/04/16 Durability Engineer Relationship Specialty Start Date End Date Boyd Da Silva PA-C [address] [place] [address] PCP - General Family Medicine 08/04/16 Durability Engineer Relationship Specialty Start Date End Date Boyd Da Silva PA-C [address] [facility] [place] [address] PCP - General Family Medicine 08/04/16 Durability Engineer Relationship Specialty Start Date End Date Boyd Da Silva PA-C [address] [place] [address] PCP - General Family Medicine 08/04/16 Durability Engineer Relationship Specialty Start Date End Date Boyd Da Silva PA-C [address] [place] [address] PCP - General Family Medicine 08/04/16 Durability Engineer Relationship Specialty Start Date End Date Boyd Da Silva PA-C [address] [facility] [place] [address] PCP - General Family Medicine 08/04/16 Durability Engineer Relationship Specialty Start Date End Date Boyd Da Silva PA-C [address] [place] [address] PCP - General Family Medicine 08/04/16 Durability Engineer Relationship Specialty Start Date End Date Boyd Da Silva PA-C [address] [facility] [place] [address] PCP - General Family Medicine 08/04/16 FOR RECORDS PERTAINING TO PATIENTS WHO ARE OR HAVE BEEN ENROLLED IN A CHEMICAL DEPENDENCY/SUBSTANCEABUSE PROGRAM, SOME INFORMATION MAY BE OMITTED. This clinical summary was aggregated from multiple sources. Caution should be exercised in using it in the provision of clinical care. This summary normalizes information from multiple sources, and as a consequence, information in this document may materially change the coding, format and clinical context of patient data. In addition, data may be omitted in some cases. CLINICAL DECISIONS SHOULD BE BASED ON THE PRIMARY CLINICAL RECORDS. [facility]. provides no warranty or guarantee of the accuracy or completeness of information in this document.
--- NOTE | 2023-05-20 17:42 | EKG12_ITS ---
Test Reason : CP ADMIT Blood Pressure : / mmHG Vent. Rate : 060 BPM Atrial Rate : 060 BPM P-R Int : 160 ms QRS Dur : 096 ms QT Int : 442 ms P-R-T Axes : 080 080 078 degrees QTc Int : 442 ms Normal sinus rhythm Nonspecific T wave abnormality Abnormal ECG When compared with ECG of 20-MAY-2023 09:21, MANUAL COMPARISON REQUIRED, DATA IS UNCONFIRMED Confirmed by PAYTON HALL, AUGUSTINE ([id number]), food editor GRACE COLON ([id number]) on 05/23/2023 10:18:21 AM Referred By: Confirmed By:AUGUSTINE CAIN MD
[2023-05-20] MEDS: Atorvastatin Calcium 40 MG Tablet PO (22:36)
[2023-05-20] MEDS: MELATONIN 3 MG TABLET PO (22:36)
[2023-05-20] MEDS: lamoTRIgine 100 MG Tablet 200 MG PO (22:36)
[2023-05-20] MEDS: Pantoprazole Sodium 40 MG Tablet PO (22:36)
[2023-05-20] MEDS: Carvedilol 3.125 MG TABLET PO (22:36)
[2023-05-20] MEDS: 0.9% Saline Lock 10 ML Syringe IV (22:37)
[2023-05-20] MEDS: Mag Hydrox/Al Hydrox/Simeth 30 ML UDC PO (22:47)
[2023-05-21] VITALS (9 sets, daily range): BP systolic 103–127; BP diastolic 52–109; PULSE 59–78; RESP 18–22; TEMP 36.6–36.9; O2SAT 94–96; BMI 17.9
[2023-05-21] MEDS: oxyCODONE 5 MG Tablet PO ×2 (01:12→11:06)
[2023-05-21] MEDS: Ipratropium/Albuterol Sulfate 3 ML AMPUL.NEB INHALATION ×3 (01:20→15:08)
--- NOTE | 2023-05-21 05:55 | EKG12_ITS ---
Test Reason : STRESS TEST- AM EKG Blood Pressure : / mmHG Vent. Rate : 056 BPM Atrial Rate : 056 BPM P-R Int : 162 ms QRS Dur : 088 ms QT Int : 442 ms P-R-T Axes : 088 087 080 degrees QTc Int : 426 ms Sinus bradycardia Septal infarct , age undetermined Abnormal ECG When compared with ECG of 20-MAY-2023 15:33, MANUAL COMPARISON REQUIRED, DATA IS UNCONFIRMED Confirmed by PAYTON HALL, AUGUSTINE ([id number]), associate editor GRACE COLON ([id number]) on 05/23/2023 10:18:10 AM Referred By: Confirmed By:AUGUSTINE CAIN MD
[2023-05-21] MEDS: Aspirin E.C. 81 MG Tablet PO (05:58)
[2023-05-21] MEDS: Budesonide Respules 0.5 MG/2 ML AMPUL.NEB. INHALATION (06:49)
[2023-05-21 07:13] LABS: Absolute Lymphocyte Count 2.16 X10^3/uL (0.83-4.51); Absolute Neutrophil Count 2.8 X10^3/uL (2.0-7.7); Basophil# 0.02 X10^3/uL; Basophil% 0.4 % (0-1); Eosinophil# 0.11 X10^3/uL; Hematocrit 36.5 % (37-47); Hemoglobin 11.7 g/dL (12.0-15.0); Lymphocyte # 2.16 X10^3/ul (0.83-4.51); Lymphocyte % 38.3 % (19-41); Mean Corp Hgb Conc 32.1 g/dL (32-36); Mean Corpuscular Hgb 31.2 pg (27.0-32.0); Mean Corpuscular Volume 97.3 fL (81-99); Mean Platelet Vol. 9.7 fl (6.2-12.0); Monocyte# 0.55 X10^3/uL; Monocyte% 9.8 % (0-10); NRBC Flagged by Analyzer 0 % (0-5); Neutrophil # 2.79 X10^3/uL (2.7-7.7); Neutrophil % 49.3 % (47-70); Platelet Count 215 K/mm3 (150-450); RBC Distribution Width CV 13.4 % (11.6-14.6); RBC Distribution Width SD 48.1 fl (35.1-43.9); Red Blood Count 3.75 M/mm3 (4.2-5.4); White Blood Count 5.6 K/mm3 (4.4-11.0)
[2023-05-21 07:47] LABS: Anion Gap 2 (5-15); BUN 9 mg/dL (7-18); Calcium,Total 8.8 mg/dL (8.5-10.1); Chloride 103 mmol/L (98-107); Cholesterol 177 mg/dL (200); EST Glomerular Filtration Rate 107 mL/min (>60); Est Glom Filt Rate - Afr Amer 129 mL/min (>60); Estimated Creatinine Clearance 47.48 ml/min; Glucose 94 mg/dL (74-106); High Density Lipoprotein 58 mg/dL; Magnesium 2.5 mg/dL (1.6-2.6); Potassium 4.3 mmol/L (3.5-5.1); Sodium Level 137 mmol/L (136-145); Thyroid Stim Hormone (TSH) 1.62 uIU/mL (0.358-3.74); Triglycerides 94 mg/dL; Very Low Density Lipoprotein 19 mg/dL (5-40)
[2023-05-21] MEDS: Carvedilol 3.125 MG TABLET PO ×2 (10:14→22:23)
[2023-05-21] MEDS: Doxazosin 1 MG Tablet PO (10:15)
[2023-05-21] MEDS: Pantoprazole Sodium 40 MG Tablet PO ×2 (10:15→22:23)
[2023-05-21] MEDS: CARIPRAZINE HCL 1.5 MG CAPSULE 3 MG PO (10:15)
[2023-05-21] MEDS: amLODIPine 10 MG Tablet PO (10:16)
[2023-05-21] MEDS: Acetaminophen 325 MG Tablet 650 MG PO (11:06)
[2023-05-21] MEDS: 0.9% Saline Lock 10 ML Syringe IV ×2 (11:28→14:54)
[2023-05-21] MEDS: Ondansetron 4 MG/2 ML Vial IV (11:28)
--- NOTE | 2023-05-21 12:38 | STRESSREP ---
Stress Test Report Pharmacologic/Lexiscan myocardial perfusion stress test. Indication; 67-year-old patient who had symptoms of shortness of breath, multiple other risk factors for CAD with history of hypertension hyperlipidemia. And COPD with history of depression. Underwent evaluation by Lexiscan sestamibi. Stress protocol: Resting EKG demonstrates. Normal sinus rhythm. 0.4 mg of regadenoson was infused per usual protocol followed by rapid intravenous saline flush injection continuous EKG monitoring was performed. The maximum heart rate attained was 99 bpm which was 63% of maximum predicted heart . Stress EKG showed[, no significant change from the resting EKG, with maximum heart rate of 90 bpm. Arrhythmia: No arrhythmia demonstrated Symptoms: Patient had no symptoms of chest pain Blood pressure at rest: 118/62 mmHg blood pressure at the end of stress: 130/62 mmHg Myocardial perfusion protocol. 12 mCi ]of Technetium 99m Sestamibi was injected at rest. [ 0.4 mg ]of Regadenoson was infused per usual protocol peak infusion[36 mCi ]of Technetium 99m sestamibi was injected. Stress images were obtained stress and rest images were reconstructed and compared in the short axis vertical and horizontal long axis. Gated images were also obtained Perfusion SPECT analysis: Review of the images demonstrate normal uptake of sestamibi at rest, post stress images demonstrate similar uptake of sestamibi to the resting images, homogeneous tracer uptake With no evidence of reversible myocardial ischemia. Gated SPECT analysis: The gated ejection fraction is 72%. Normal LV wall motion and normal LV systolic function Conclusion: Negative Lexiscan sestamibi myocardial perfusion study for reversible myocardial ischemia Normal LV systolic Patient has no symptoms to report, in particular no chest pain Chuy Goddard MD,FACC,[facility] [place]
--- NOTE | 2023-05-21 13:03 | PN.HOSP_ITS ---
Reason for Visit Reason for Visit: Diagnoses Major depressive disorder, single episode, unspecified (05/20/23) Chronic obstructive pulmonary disease, unspecified (05/20/23) Gastritis, unspecified, without bleeding (05/20/23) Chest pain, unspecified (05/20/23) Objective Data Objective Data Vital Signs: Vital Signs Temp Pulse Resp BP Pulse Ox O2 Del Method O2 Flow Rate 98.4 F 60 18 127/109 H 96 Nasal Cannula 3 05/21/23 10:13 05/21/23 10:13 05/21/23 10:13 05/21/23 10:13 05/21/23 10:13 05/21/23 10:13 05/21/23 10:13 Oxygen Flow Rate (L/min) 3 Oxygen Delivery Method Nasal Cannula Weight: 42.9 kg Body Mass Index (BMI) 17.9 Intake & Output: Intake and Output for Last 24 Hours 05/19/23 05/20/23 05/21/23 23:59 23:59 23:59 Intake Total 0 / 0 Balance 0 / 0 Lab / Micro Data 05/21/23 06:58 05/21/23 06:58 Labs: Laboratory Results - last 24 hr 05/20/23 15:40: Troponin I High Sens 9 05/21/23 06:58: WBC 5.6, RBC 3.75 L, Hgb 11.7 L, Hct 36.5 L, MCV 97.3, MCH 31.2, MCHC 32.1, RDW Std Deviation 48.1 H, RDW Coeff of Leobardo 13.4, Plt Count 215, MPV 9.7, Immature Gran % (Auto) 0.200, Neut % (Auto) 49.3, Lymph % (Auto) 38.3, Richardson % (Auto) 9.8, Eos % (Auto) 2.0, Baso % (Auto) 0.4, Absolute Neuts (auto) 2.8, Absolute Lymphs (auto) 2.16, Nucleated RBC % 0, Sodium 137, Potassium 4.3, Chloride 103, Carbon Dioxide 32.0, Anion Gap 2 L, BUN 9, Creatinine 0.60, Estim Creat Clear Calc 47.48, Est GFR (MDRD) Af Amer 129, Est GFR (MDRD) Non-Af 107, BUN/Creatinine Ratio 15.0, Glucose 94, Calcium 8.8, Magnesium 2.5, Triglycerides 94, Cholesterol 177, LDL Cholesterol 100, VLDL Cholesterol 19, HDL Cholesterol 58, TSH 1.62 Micro: Microbiology 05/20/23 11:20 Mucosa - Nose SARS-CoV-2, Influenza & RSV (PCR) - Final Radiography Diagnostic Testing: Radiology Impression Echocardiogram 05/20/23 15:11 Interpretation Summary The estimated ejection fraction is 55-60 %. [facility] No change from previous study 11/12/2014 Ordering Physician: Erika Macario Referring Physician: Boyd Da Silva Performed By: Donna Maddox RDCS
--- NOTE | 2023-05-21 13:37 | DS.PCM_ITS ---
Providers Date of Admission: 05/21/23 Date of Discharge: 05/21/23 Primary Care Physician: ILIANA Cook Reason For Visit: CHEST PAIN Diagnosis Discharge Diagnosis (1) Chest pain: Status: Acute Code(s): R07.9 - Chest pain, unspecified (2) COPD (chronic obstructive pulmonary disease): Status: Chronic Code(s): J44.9 - Chronic obstructive pulmonary disease, unspecified (3) Depression: Status: Acute Code(s): F32.9 - Major depressive disorder, single episode, unspecified (4) Gastritis: Status: Acute Code(s): K29.70 - Gastritis, unspecified, without bleeding Medications at Discharge Home Medications acetaminophen 500 mg tablet (Tylenol Extra Strength) 500 mg PO Q6H PRN pain 05/15/19 amlodipine 10 mg tablet 10 mg PO DAILY 05/15/19 famotidine 40 mg tablet 40 mg PO BID 05/15/19 fluticasone propionate 44 mcg/actuation HFA aerosol inhaler 1 puff inhalation BID 05/15/19 ipratropium 20 mcg-albuterol 100 mcg/actuation mist for inhalation 1 puff inhalation 4X/DAY PRN shortness of breath 05/15/19 pantoprazole 40 mg tablet,delayed release 40 mg PO BID acid reflux 05/15/19 potassium chloride 10 mEq tablet,extended release 10 meq PO BID 05/15/19 cariprazine 3 mg capsule (Vraylar) 3 mg PO DAILY 12/11/22 carvedilol 3.125 mg tablet 3.125 mg PO BID 12/11/22 doxazosin 1 mg tablet 1 mg PO DAILY 12/11/22 lamotrigine 200 mg tablet 200 mg PO QHS 05/20/23 rosuvastatin 5 mg tablet 5 mg PO QHS 05/20/23 sucralfate 1 gram tablet 1 g PO 1HR_ACHS 14 days #42 tabs 05/22/23 Hospital Course Operations None Procedures EKG, Nuclear stress test, Transthoracic echo and - (Chest x-ray x 2) Summary of Care Provided Minutes Spent on Discharge: 35 Hospital Course: Patient is a 67-year-old female who presented to [facility] ED on 05/20/2023 with chest pain. Hospital course as noted below. Patient discharged home without any needs in stable condition on 05/22. 1. Chest pain, history of GERD Cardiac etiology ruled out. Suspected to be primarily due to worsened acid reflux, with anxiety possibly playing a role. EKG on admit normal, troponins normal. Echo 05/20 with EF 55-60%, no abnormalities, unchanged from previous in 2014. Stress test negative. Lipid panel w/ LDL 100, HDL 58. TSH normal. ? Restarted patient's home PPI on 05/22 and started Carafate with meals, and patient had improvement in her chest discomfort with these treatments. Will provide prescription for Carafate with meals on discharge. Okay to continue home low-dose statin, no need for high intensity statin or aspirin at this time. Outpatient cardiology follow-up as needed. 2. History of COPD with chronic hypoxic respiratory failure on home 4L NC; reported worsening shortness of breath, resolved Stable on home 4L on admission, CXR on admit non-acute. Developed reported worsening shortness of breath on 05/21, no change in oxygenation, hemodynamically stable. CXR non-acute. Mild subjective improvement with breathing treatment. ? Patient back to baseline on 05/22, suspect the episode of reported shortness of breath may have been secondary to a degree of anxiety in the setting of uncontrolled acid reflux. Continue home inhalers on discharge. 3. Anxiety, history of mood disorder ? Appeared anxious during the hospitalization, improved by discharge. Patient attributed this to seemingly uncontrolled acid reflux. Continue home Lamictal and Vraylar. Chronic medical conditions: - HTN: Continue home meds. - Tobacco use: Reported quitting 2 days prior to admission. Encouraged continue cessation. NRT offered as needed. Total clinical time spent by myself addressing the patient's discharge needs: 25 minutes. Physical Exam Const alert and oriented x3 Constitutional Narrative: Elderly female, thin with pulmonary cachexia, sitting up comfortably in bed, anxiety much improved from yesterday, conversing normally and in no acute distress. General Appearance: cooperative HEENT normocephalic, head/scalp atraumatic, hearing grossly normal bilaterally and nasal mucous membranes and turbinates normal Eyes PERRL, EOMs intact bilaterally and conjunctivae normal Neck full ROM, no lymphadenopathy and supple Lymph Lymphatic: no lymphadenopathy noted Chest inspection of chest normal Resp normal respiratory effort and no use of accessory muscles Resp Narrative: No increased work of breathing this morning on home 4L NC, no wheezes or crackles noted. Cardio regular rate, regular rhythm, no murmurs and peripheral pulses 2+ throughout GI normal to inspection, nondistended, normoactive bowel sounds, soft to palpation, non-tender and non-distended Back/Spine normal ROM Extremity normal to inspection, full ROM and no pedal edema Skin no rashes or lesions noted Neuro no focal motor deficits and no sensory deficits noted Speech: speech normal Psych affect normal Weight / BMI Weight Weight: 42.9 kg Body Mass Index (BMI) 17.9 ABG / Lab / Microbiology Data 05/21/23 06:58 05/21/23 06:58 Laboratory: Laboratory Results - last 24 hr 05/20/23 15:40: Troponin I High Sens 9 05/21/23 06:58: WBC 5.6, RBC 3.75 L, Hgb 11.7 L, Hct 36.5 L, MCV 97.3, MCH 31.2, MCHC 32.1, RDW Std Deviation 48.1 H, RDW Coeff of Leobardo 13.4, Plt Count 215, MPV 9.7, Immature Gran % (Auto) 0.200, Neut % (Auto) 49.3, Lymph % (Auto) 38.3, [place] % (Auto) 9.8, Eos % (Auto) 2.0, Baso % (Auto) 0.4, Absolute Neuts (auto) 2.8, Absolute Lymphs (auto) 2.16, Nucleated RBC % 0, Sodium 137, Potassium 4.3, Chloride 103, Carbon Dioxide 32.0, Anion Gap 2 L, BUN 9, Creatinine 0.60, Estim Creat Clear Calc 47.48, Est GFR (MDRD) Af Amer 129, Est GFR (MDRD) Non-Af 107, BUN/Creatinine Ratio 15.0, Glucose 94, Calcium 8.8, Magnesium 2.5, Triglycerides 94, Cholesterol 177, LDL Cholesterol 100, VLDL Cholesterol 19, HDL Cholesterol 58, TSH 1.62 Microbiology: Microbiology 05/20/23 11:20 Mucosa - Nose SARS-CoV-2, Influenza & RSV (PCR) - Final Radiography Diagnostic Testing: Radiology Impression Echocardiogram 05/20/23 15:11 Interpretation Summary The estimated ejection fraction is 55-60 %. Mormal LV systolic function No change from previous study 11/12/2014 Ordering Physician: Erika Macario Referring Physician: Boyd Da Silva Performed By: Donna Maddox RDCS Meaningful Use Info Meaningful Use Diagnoses (Choose all that apply): None applicable Discharge Plan Admission Admit Date/Time: 05/21/23 14:32 Primary Reason for Your Visit: chest pain Attending Provider: Bill Neves Primary Care Provider: Boyd Da Silva Consulting Providers: Erika Macario Instructions Additional Instructions / Restrictions: Please take sucralfate about 1 hour prior to meals to help with your acid reflux. Follow-up with your primary care doctor as needed. Discharge Orders/Prescriptions Prescriptions: New sucralfate 1 gram Tablet 1 g PO 1HR_ACHS 14 Days Qty: 42 0RF Continued pantoprazole 40 mg tablet,delayed release (DR/EC) 40 mg PO BID famotidine 40 mg tablet 40 mg PO BID amlodipine 10 mg tablet 10 mg PO DAILY fluticasone propionate 44 mcg/actuation HFA aerosol inhaler 1 puff INHALATION BID ipratropium-albuterol 20-100 mcg/actuation mist 1 puff INHALATION 4X/DAY PRN (Reason: shortness of breath) potassium chloride 10 mEq tablet extended release 10 meq PO BID acetaminophen [Tylenol Extra Strength] 500 mg tablet 500 mg PO Q6H PRN (Reason: pain) Vraylar 3 mg capsule 3 mg PO DAILY carvedilol 3.125 mg tablet 3.125 mg PO BID doxazosin 1 mg tablet 1 mg PO DAILY lamotrigine 200 mg tablet 200 mg PO QHS rosuvastatin 5 mg tablet 5 mg PO QHS Patient Comments: TAKE ONE TABLET BY MOUTH DAILY AT 9PM AT BEDTIME Referrals / Follow Up: Boyd Da Silva, PA [Primary Care Provider] - Disposition Disposition (needs filled in before D/C Order can be placed): Home, Self Care Charges/Coding Visit Charges Inpatient E&M: 94141 Disch Hosp >30min
--- NOTE | 2023-05-21 13:38 | DCINST_ITS ---
Discharge Instructions Diet Discharge Diet: No restrictions Activity Discharge Activity: No Restrictions Weight Bearing Status: Full weight bearing Follow Up Care Test Results: Test results from this visit will be discussed in further detail at your follow- up appointment, if applicable. Discharge Plan Admission Admit Date/Time: 05/20/23 14:30 Primary Reason for Your Visit: chest pain Attending Provider: Bill Neves Primary Care Provider: Boyd Da Silva Consulting Providers: Erika Macario Discharge Orders/Prescriptions Prescriptions: Continued pantoprazole 40 mg tablet,delayed release (DR/EC) 40 mg PO BID famotidine 40 mg tablet 40 mg PO BID amlodipine 10 mg tablet 10 mg PO DAILY fluticasone propionate 44 mcg/actuation HFA aerosol inhaler 1 puff INHALATION BID ipratropium-albuterol 20-100 mcg/actuation mist 1 puff INHALATION 4X/DAY PRN (Reason: shortness of breath) potassium chloride 10 mEq tablet extended release 10 meq PO BID acetaminophen [Tylenol Extra Strength] 500 mg tablet 500 mg PO Q6H PRN (Reason: pain) Vraylar 3 mg capsule 3 mg PO DAILY carvedilol 3.125 mg tablet 3.125 mg PO BID doxazosin 1 mg tablet 1 mg PO DAILY lamotrigine 200 mg tablet 200 mg PO QHS rosuvastatin 5 mg tablet 5 mg PO QHS Patient Comments: TAKE ONE TABLET BY MOUTH DAILY AT 9PM AT BEDTIME Referrals / Follow Up: Boyd Da Silva PA [Primary Care Provider] - Disposition Disposition (needs filled in before D/C Order can be placed): Home, Self Care
--- NOTE | 2023-05-21 14:30 | RAD_ITS ---
STUDY: X-RAY CHEST REASON FOR EXAM: Female, 67 years old. worsening respiratory status, r/o pathology TECHNIQUE: AP COMPARISON: 05/20/2023 FINDINGS: EKG leads project over the chest. Granuloma in the right lower lobe. There is no demonstrated pleural abnormality. Normal size heart. Normal mediastinum and cheryl. Normal visualized pulmonary arteries. Normal visualized aortic arch and descending thoracic aorta. No acute bony process. There is no demonstrated abnormality of the visualized soft tissue structures of the upper abdomen. RAD/Chest 1 View (Portable) IMPRESSION: Nonacute portable x-ray examination of the chest. Electronically Signed: Chas Eisenberg MD ([place]) at 18:20 EST ,
[2023-05-21] MEDS: Enoxaparin 40 MG/0.4 ML Syringe SC (14:53)
[2023-05-21] MEDS: LORazepam 2 MG/ML Syringe 0.5 MG IV (14:54)
--- NOTE | 2023-05-21 14:56 | PCM.PN.HOSP ---
Reason for Visit Reason for Visit: Diagnoses Major depressive disorder, single episode, unspecified (05/21/23) Chronic obstructive pulmonary disease, unspecified (05/21/23) Gastritis, unspecified, without bleeding (05/21/23) Chest pain, unspecified (05/21/23) Subjective Subjective Patient seen at bedside this morning. Patient appeared anxious and reported ongoing chest pain that was similar to her chest pain on arrival yesterday. She had already completed the echo and stress test when I saw her but the reads were pending. She denied any shortness of breath at that time. Echo and stress test both showed no concerning findings. Stopped in to see the patient in the afternoon with hope of discharging her, but at that time she was reporting new onset shortness of breath and had fairly rapid, shallow breathing. She appeared very anxious, similar to in the morning. Remained hemodynamically stable. Lung sounds on exam were mildly diminished but no new wheezing or crackles were noted. Decision was made to get a STAT CXR for the patient and give a breathing treatment to assess her response. CXR was non-acute. Breathing treatment was only mildly helpful. Patient also given a dose of IV Ativan 0.5 mg with some improvement in her anxiety. Objective Data Objective Data Vital Signs: Vital Signs Temp Pulse Resp BP Pulse Ox O2 Del Method O2 Flow Rate 98.4 F 60 18 127/109 H 96 Nasal Cannula 3 05/21/23 10:13 05/21/23 10:13 05/21/23 10:13 05/21/23 10:13 05/21/23 10:13 05/21/23 14:00 05/21/23 14:00 Oxygen Flow Rate (L/min) 3 Oxygen Delivery Method Nasal Cannula Weight: 42.9 kg Body Mass Index (BMI) 17.9 Intake & Output: Intake and Output for Last 24 Hours 05/19/23 05/20/23 05/21/23 23:59 23:59 23:59 Intake Total 0 / 0 Balance 0 / 0 Lab / Micro Data 05/21/23 06:58 05/21/23 06:58 Labs: Laboratory Results - last 24 hr 05/20/23 15:40: Troponin I High Sens 9 05/21/23 06:58: WBC 5.6, RBC 3.75 L, Hgb 11.7 L, Hct 36.5 L, MCV 97.3, MCH 31.2, MCHC 32.1, RDW Std Deviation 48.1 H, RDW Coeff of Leobardo 13.4, Plt Count 215, MPV 9.7, Immature Gran % (Auto) 0.200, Neut % (Auto) 49.3, Lymph % (Auto) 38.3, Pepin % (Auto) 9.8, Eos % (Auto) 2.0, Baso % (Auto) 0.4, Absolute Neuts (auto) 2.8, Absolute Lymphs (auto) 2.16, Nucleated RBC % 0, Sodium 137, Potassium 4.3, Chloride 103, Carbon Dioxide 32.0, Anion Gap 2 L, BUN 9, Creatinine 0.60, Estim Creat Clear Calc 47.48, Est GFR (MDRD) Af Amer 129, Est GFR (MDRD) Non-Af 107, BUN/Creatinine Ratio 15.0, Glucose 94, Calcium 8.8, Magnesium 2.5, Triglycerides 94, Cholesterol 177, LDL Cholesterol 100, VLDL Cholesterol 19, HDL Cholesterol 58, TSH 1.62 Micro: Microbiology 05/20/23 11:20 Mucosa - Nose SARS-CoV-2, Influenza & RSV (PCR) - Final Radiography Diagnostic Testing: Radiology Impression Echocardiogram 05/20/23 15:11 Interpretation Summary The estimated ejection fraction is 55-60 %. [facility] No change from previous study 11/12/2014 Ordering Physician: Eriak Macario Referring Physician: Boyd Da Silva Performed By: Donna Maddox, LUAN Physical Exam Const alert and oriented x3 Constitutional Narrative: Very anxious appearing. Thin with pulmonary cachexia. General Appearance: cooperative HEENT normocephalic, head/scalp atraumatic, hearing grossly normal bilaterally and nasal mucous membranes and turbinates normal Eyes PERRL, EOMs intact bilaterally and conjunctivae normal Neck full ROM, no lymphadenopathy and supple Lymph Lymphatic: no lymphadenopathy noted Chest inspection of chest normal Resp normal respiratory effort and no use of accessory muscles Resp Narrative: No increased work of breathing this morning on home 4L NC, no wheezes or crackles noted. Cardio regular rate, regular rhythm, no murmurs and peripheral pulses 2+ throughout GI normal to inspection, nondistended, normoactive bowel sounds, soft to palpation, non-tender and non-distended Back/Spine normal ROM Extremity normal to inspection, full ROM and no pedal edema Skin no rashes or lesions noted Neuro no focal motor deficits and no sensory deficits noted Speech: speech normal Psych Mood & Affect: anxious Assessment & Plan Assessment/Plan (1) Chest pain: (2) Anxiety: PLAN: Plan Patient is a 67-year-old female who presented to [facility] ED on 05/20/2023 with chest pain. 1. Chest pain Cardiac etiology ruled out. Most likely MSK in nature with anxiety possibly playing a role. EKG on admit normal, troponins normal. Echo 05/20 with EF 55-60%, no abnormalities, unchanged from previous in 2014. Stress test negative. Lipid panel w/ LDL 100, HDL 58. TSH normal. - No need for further cardiac workup. Treat symptomatically. Okay to continue home low dose statin, no need for high-intensity statin. Aspirin discontinued. Recommend outpatient cardiology follow up as needed. 2. History of COPD with chronic hypoxic respiratory failure on home 4L NC, with reported worsening shortness of breath - Stable on home 4L on admission, CXR on admit non-acute. Developed reported worsening shortness of breath on 05/21, no change in oxygenation, hemodynamically stable. CXR non-acute. Mild subjective improvement with breathing treatment. Seems more likely secondary to anxiety as noted below. Continue home inhalers. 3. Anxiety, history of mood disorder - Patient has appeared very anxious since admission on exam but she denies feeling anxious. Has history of depression, home Lamictal and Vraylar were continued on admission. Given one time dose of IV ativan on 05/21 with some improvement. Monitor closely. Chronic medical conditions: - HTN: Continue home meds. - GERD: Continue home PPI. - Tobacco use: Reported quitting 2 days prior to admission. Encouraged continue cessation. NRT offered as needed. DVT ppx: Lovenox Code status: DNRCCA, DNI Expected disposition: Home, 1-2 days. Patient notably was admitted under observation status. Given her reported worsening respiratory status on 05/21 requiring further workup, patient's hospitalization will be longer than anticipated. Status changed to inpatient on 05/21. Total clinical time spent by myself addressing the patient's medical issues, reviewing all the data, and collaborating with patient's care team: 35 minutes. Charges/Coding Visit Charges Inpatient E&M: 39756 Subs Hosp L2
--- NOTE | 2023-05-21 15:15 | CASEMGMT ---
RN?CM?AGENT BROKER?CM?to room to meet with patient for initial transition planning/care coordination?assessment.?RN?CM?introduced self and role at [facility].? Pt voices understanding and consents to?assessment?at this time.? Pt sitting up in bed in no distress at this time.? Pt is A/O at this time and answers all questions appropriately.?? Care providers, pharmacy, and demographics verified/updated at this time. PCP: ILIANA Ambrocio Specialists: Dr Caty Brush-puljackie, Dr Park-medical insurance claims specialist @ [facility] Preferred Pharmacy:[facility], [place] Insurance: [place] MCR Dual, [employer] Prescription Benefit:?yes Living Will/HPOA:? Pt does not currently have LW/HCPOA and declines info at this time.? Pt made aware that she can contact as an out-pt and make appt in the future if she decides she would like to talk with someone about this or would like to utilize [facility] social work for advanced directive completion.??Pt expresses understanding.? LNOK: sonDamir. dtr, Dayami Living Arrangements: Lives w/her dtr, Dayami, in 2-story home w/3 steps to enter. FFSU and states does well with the stairs. Independent. Transportation:?dtr--will take her home @ discharge DME: States has the following DME:?nebulizer, O2 through [employer]. Pt states orders are for 3.5 l/m continuously, but she had turned it up to 4. She has a concentrator and portability. She will check w/her dtr to ask her to bring in portable o2 tank @ discharge for her to go home on. She does not have a pulse ox, but states her son is planning on buying one for her. ?Pt states no need for further DME at this time.? HHC/SNF: No hx of either. Pt wishes to discharge home. Palliative: Pt qualifies for palliative referral per [facility] screening tool. Discussed palliative w/pt and she is interested in a referral. Dr Neves made aware and order received. Referral sent to [facility] beds at the [facility] via e-mail at this time. Pt wishes to return home and states has no concerns with going home at time of discharge.? CM?to follow for any increase in home oxygen needs and any further discharge planning/needs.? Pt voices no further concerns/needs at this time.? Advised pt to ask for?CM?if any further questions/concerns/needs arise.? Voices understanding. PLAN:??Home. Follow for possible increase in home o2. Gene BSN?RN?CM
[2023-05-21] MEDS: Atorvastatin Calcium 40 MG Tablet PO (22:23)
[2023-05-21] MEDS: lamoTRIgine 100 MG Tablet 200 MG PO (22:23)
[2023-05-22] VITALS (8 sets, daily range): BP systolic 118–132; BP diastolic 60–72; PULSE 62–69; RESP 18–26; TEMP 36.6–36.7; O2SAT 85–98
[2023-05-22] MEDS: Ondansetron 4 MG/2 ML Vial IV (01:29)
[2023-05-22] MEDS: oxyCODONE 5 MG Tablet PO (01:29)
[2023-05-22] MEDS: 0.9% Saline Lock 10 ML Syringe IV (01:30)
[2023-05-22] MEDS: Ipratropium/Albuterol Sulfate 3 ML AMPUL.NEB INHALATION ×3 (01:35→15:08)
[2023-05-22] MEDS: proMETHazine 25 MG/ML Syringe IM (02:50)
[2023-05-22] MEDS: Budesonide Respules 0.5 MG/2 ML AMPUL.NEB. INHALATION (06:41)
[2023-05-22] MEDS: Pantoprazole Sodium 40 MG Tablet PO (11:09)
[2023-05-22] MEDS: Aspirin E.C. 81 MG Tablet PO (11:10)
[2023-05-22] MEDS: Carvedilol 3.125 MG TABLET PO (11:10)
[2023-05-22] MEDS: Doxazosin 1 MG Tablet PO (11:10)
[2023-05-22] MEDS: amLODIPine 10 MG Tablet PO (11:12)
[2023-05-22] MEDS: CARIPRAZINE HCL 1.5 MG CAPSULE 3 MG PO (11:12)
[2023-05-22] MEDS: Sucralfate 1 GM Tablet PO (12:25)
== END 2023-05-22 16:14 | disposition home or self-care (01) | DRG 392 ==
LOC: ED 13:47 → PCU 14:12
PROVIDERS: Admitting Provider Internal Medicine; Emergency Provider Emergency Medicine; PCP Physician Assistant; Visit Provider Hospitalist
DX: K21.9 Gastro-esophageal reflux disease without esophagitis (principal); J96.11 Chronic respiratory failure with hypoxia; Z99.81 Dependence on supplemental oxygen; J44.9 Chronic obstructive pulmonary disease, unspecified; F31.9 Bipolar disorder, unspecified; I10 Essential (primary) hypertension; E87.6 Hypokalemia; I25.10 Atherosclerotic heart disease of native coronary artery without angina pectoris; E78.5 Hyperlipidemia, unspecified; F41.9 Anxiety disorder, unspecified; K29.70 Gastritis, unspecified, without bleeding; F17.210 Nicotine dependence, cigarettes, uncomplicated; Z11.52 Encounter for screening for COVID-19; Z66 Do not resuscitate; Z79.899 Other long term (current) drug therapy
CPT/HCPCS: 36415; 71045; 78452; 80048; 80061; 83735; 84443; 84484; 85025; 85379; 87631; 93005; 93017; 93306; 94640; 99284; 99406; A9500; Q9957; A4216; J2405; J2785